=== PATIENT | female | born 1960 | race Caucasian/White ===

== ENCOUNTER → 2019-11-27 | Outpatient (REF) | payer OTHER, MEDICAID ==
[2020-01-12 08:59] LABS: ALBUMIN 3.7 GM/DL (3.2-5.2); ALT/SGPT 31 U/L (12-78); BILIRUBIN,TOTAL 0.2 MG/DL (0.2-1.0); BLOOD UREA NITROGEN 13 MG/DL (7-18); CALCIUM LEVEL 8.8 MG/DL (8.5-10.1); CARBON DIOXIDE LEVEL 29 MEQ/L (21-32); CHLORIDE LEVEL 105 MEQ/L (98-107); CHOLESTEROL LEVEL 210 MG/DL (<200); CHOLESTEROL RISK RATIO 3.387 (<5); CREATININE FOR GFR 1.05 MG/DL (0.55-1.30); FREE T4 0.89 NG/DL (0.76-1.46); GLOMERULAR FILTRATION RATE 57.3 (>51); GLUCOSE, FASTING 94 MG/DL (70-100); HDL CHOLESTEROL 62 MG/DL (>40); HEMOGLOBIN A1c 5.5 %; HEPATITIS B SURFACE ANTIBODY NEGATIVE (POSITIVE); HEPATITIS C VIRUS ABY INDEX 0.2 INDEX (<0.8); HIV 1&2 SCREEN CENTAUR NEGATIVE (NEGATIVE); LDL CHOLESTEROL 122 MG/DL (<100); NON-HDL-C 148 MG/DL; POTASSIUM SERUM 4.3 MEQ/L (3.5-5.1); SODIUM LEVEL 141 MEQ/L (136-145); TOTAL 25(OH) VITAMIN D 24.3 NG/ML (30.0-100.0); TOTAL PROTEIN 6.9 GM/DL (6.4-8.2); TRIGLYCERIDES LEVEL 130 MG/DL (<150)
== END ==
LOC: M LAB REF 13:02
PROVIDERS: ATTEND Nurse Practitioner Family
DX: Z11.3 Encounter for screening for infections with a predominantly sexual mode of transmission (principal); Z13.9 Encounter for screening, unspecified; N18.9 Chronic kidney disease, unspecified; I10 Essential (primary) hypertension

== ENCOUNTER → 2020-01-18 | Outpatient (CLI) | payer OTHER, MEDICAID ==
--- NOTE | 2020-01-26 15:22 | REP ---
RIGHT SHOULDER SERIES: 3-VIEWS HISTORY: Shoulder and knee pain. FINDINGS: There are large calcific deposits in the periarticular soft tissue superior to the humeral head consistent with calcific tendinitis or bursitis. Glenohumeral and acromioclavicular joints are normally aligned. No erosive change is seen. Study is otherwise unremarkable. IMPRESSION: Large periarticular soft tissue calcific deposits consistent with calcific tendinitis and/or bursitis. No acute abnormality. MTDD
--- NOTE | 2020-01-26 15:23 | REP ---
LEFT KNEE SERIES: 2-VIEWS HISTORY: Left knee pain. Remote prior injury. FINDINGS: AP and lateral views of the left knee demonstrate nonarticular spurring of the superior pole of the patella. Bones, joints, and soft tissues are otherwise radiographically unremarkable. IMPRESSION: Quadriceps tendon insertion site spurring on the patella. Otherwise no acute abnormality. MTDD
== END ==
LOC: M WUC 15:28
PROVIDERS: ATTEND Nurse Practitioner Family
DX: M25.511 Pain in right shoulder (principal); M25.562 Pain in left knee; M75.31 Calcific tendinitis of right shoulder; M76.52 Patellar tendinitis, left knee

== ENCOUNTER → 2020-03-22 | Outpatient (REF) | payer OTHER, MEDICAID ==
[2020-03-22 12:09] LABS: GLUCOSE, URINE (UA) AUTO NEGATIVE (NEGATIVE)
[2020-03-22 12:14] LABS: BASO % 0.7 % (0.0-1.0); EOS # 0.1 10^3/uL (0.0-0.5); EOS % 1.5 % (0.0-3.0); HEMATOCRIT 44.5 % (36.0-47.0); HEMOGLOBIN 14.1 g/dl (12.0-15.5); LYMPH # 1.9 10^3/uL (1.5-5.0); LYMPH % 31.6 % (24.0-44.0); MEAN CORPUSCULAR HEMOGLOBIN 27.8 pg (27.0-33.0); MEAN CORPUSCULAR HGB CONC 31.7 g/dl (32.0-36.5); MEAN CORPUSCULAR VOLUME 87.8 fl (80.0-96.0); MONO # 0.4 10^3/uL (0.0-0.8); NEUTROPHILS # 3.5 10^3/uL (1.5-8.5); PLATELET COUNT, AUTOMATED 241 10^3/uL (150-450); RED BLOOD COUNT 5.07 10^6/uL (4.00-5.40); WHITE BLOOD COUNT 5.9 10^3/uL (4.0-10.0)
[2020-03-22 12:29] LABS: AMORPHOUS SEDIMENT SMALL (NEGATIVE); APPEARANCE, URINE TURBID (CLEAR); BACTERIA, URINE AUTO NEGATIVE (NEGATIVE); BILIRUBIN, URINE AUTO NEGATIVE (NEGATIVE); BLOOD, URINE BLOOD NEGATIVE (NEGATIVE); COLOR, URINE AMBER (YELLOW); KETONE, URINE AUTO NEGATIVE (NEGATIVE); LEUKOCYTE ESTERASE, URINE AUTO NEGATIVE (NEGATIVE); MUCUS, URINE LARGE (NEGATIVE); NITRITE, URINE AUTO NEGATIVE (NEGATIVE); PROTEIN, URINE AUTO NEGATIVE (NEGATIVE); RBC, URINE AUTO 1 /HPF (0-3); SQUAMOUS EPITHELIAL CELL UR AU 1 /HPF (0-6); UROBILINOGEN, URINE AUTO 0.2 mg/dL (0.0-2.0); WBC, URINE AUTO 3 /HPF (0-3)
[2020-03-22 12:43] LABS: HEMOGLOBIN A1c 5.8 %
[2020-03-22 12:56] LABS: ALBUMIN 3.6 GM/DL (3.2-5.2); BILIRUBIN,TOTAL 0.2 MG/DL (0.2-1.0); CALCIUM LEVEL 8.7 MG/DL (8.5-10.1); CHOLESTEROL RISK RATIO 3.229 (<5); CREATININE FOR GFR 1.17 MG/DL (0.55-1.30); FREE T4 0.97 NG/DL (0.76-1.46); GLOMERULAR FILTRATION RATE 50.6 (>51); POTASSIUM SERUM 4.4 MEQ/L (3.5-5.1); THYROID STIMULATING HORMONE 3.42 uIU/ML (0.358-3.740); TOTAL PROTEIN 6.9 GM/DL (6.4-8.2)
== END ==
LOC: M LAB REF 11:29
PROVIDERS: ATTEND Nurse Practitioner Family
DX: Z13.9 Encounter for screening, unspecified (principal); N18.9 Chronic kidney disease, unspecified; G47.00 Insomnia, unspecified; I10 Essential (primary) hypertension; G43.909 Migraine, unspecified, not intractable, without status migrainosus

== ENCOUNTER → 2020-05-14 | Outpatient (CLI) | payer OTHER, MEDICAID ==
--- NOTE | 2020-05-14 11:48 | REP ---
INDICATION: PAIN. COMPARISON: None. TECHNIQUE: Four views. FINDINGS: Four views of the right foot demonstrate normal bones, joints, and soft tissues. No fracture or subluxation is seen. No opaque foreign body noted. There is minimal spurring at the 1st metatarsophalangeal joint. A small plantar calcaneal spur is also noted. IMPRESSION: Mild spurring. Otherwise negative right foot radiographs. No fracture or other acute bony abnormality.. <Electronically signed by Tl Bolden > 05/14/20 [id number]
== END ==
LOC: M WUC 11:15
PROVIDERS: ATTEND Physician Assistant
DX: M77.31 Calcaneal spur, right foot (principal)

== ENCOUNTER → 2020-06-01 | Outpatient (CLI) | payer OTHER | LOC: M WHC 06:25 | PROVIDERS: ATTEND Nurse Practitioner Family | DX: Z12.31 Encounter for screening mammogram for malignant neoplasm of breast (principal) ==

== ENCOUNTER → 2020-07-26 | Outpatient (CLI) | payer OTHER ==
--- NOTE | 2020-07-26 10:28 | REP ---
INDICATION: IMPINGEMENT SYNDROME OF RIGHT SHOULDER. COMPARISON: Radiographs 01/18/2020. TECHNIQUE: Coronal oblique T1, T2 fat sat, sagittal oblique T2 fat sat, axial T2 fat sat, gradient echo. FINDINGS: Rotator cuff: There is mild supraspinatus and infraspinatus tendinopathy/tendinitis, calcification is noted in the supraspinatus tendon. There is a partial undersurface tear of the distal infraspinatus tendon. Acromioclavicular joint: There are moderate hypertrophic degenerative changes of the acromioclavicular joint with a small subcortical cyst in the distal clavicle and a tiny amount of fluid in the joint. Acromion: Type 2 and downward sloping. Biceps Tendon: In bicipital groove, with mild surrounding fluid. Hill Sach's deformity: None. Deltoid muscle: No abnormal signal. Biceps labral complex: There is fraying of the biceps labral complex. Labrum: There is fraying of the superior labrum. Cartilage: No defects. Bone marrow: A few subcortical cysts are seen in the superolateral humeral head. No bone marrow edema is seen. Joint fluid: No effusion. There is a tiny amount of fluid in the subacromial/subdeltoid bursae. IMPRESSION: There is mild supraspinatus and infraspinatus tendinopathy/tendinitis, calcification is noted in the supraspinatus tendon.. There is a partial undersurface tear of the distal infraspinatus tendon. Moderate hypertrophic degenerative changes acromioclavicular joint, acromion is type 2 in downward sloping. There is fraying of the biceps labral complex and superior labrum. Tiny amount of fluid in the subacromial/subdeltoid bursae. <Electronically signed by Domingo Siddiqui > 07/26/20 1024
== END ==
LOC: M RAD 07:17
PROVIDERS: ATTEND Physician Assistant
DX: M75.41 Impingement syndrome of right shoulder (principal); M75.01 Adhesive capsulitis of right shoulder; S43.491A Other sprain of right shoulder joint, initial encounter; X58.XXXA Exposure to other specified factors, initial encounter; Y92.9 Unspecified place or not applicable

== ENCOUNTER → 2020-08-24 | Outpatient (REF) | payer OTHER ==
[2020-08-24 12:22] LABS: BASO # 0.1 10^3/uL (0.0-0.2); BASO % 0.9 % (0.0-1.0); EOS # 0.3 10^3/uL (0.0-0.5); EOS % 4.4 % (0.0-3.0); HEMATOCRIT 42.5 % (36.0-47.0); HEMOGLOBIN 13.9 g/dl (12.0-15.5); LYMPH # 1.8 10^3/uL (1.5-5.0); LYMPH % 31.7 % (24.0-44.0); MEAN CORPUSCULAR HEMOGLOBIN 28.1 pg (27.0-33.0); MEAN CORPUSCULAR HGB CONC 32.7 g/dl (32.0-36.5); MONO # 0.5 10^3/uL (0.0-0.8); MONO % 7.9 % (2.0-8.0); NEUTROPHILS # 3.1 10^3/uL (1.5-8.5); NEUTROPHILS % 54.9 % (36.0-66.0); PLATELET COUNT, AUTOMATED 222 10^3/uL (150-450); RED BLOOD COUNT 4.94 10^6/uL (4.00-5.40); WHITE BLOOD COUNT 5.7 10^3/uL (4.0-10.0)
[2020-08-24 12:45] LABS: HEMOGLOBIN A1c 5.6 %
[2020-08-24 12:59] LABS: ALBUMIN 3.7 GM/DL (3.2-5.2); ALT/SGPT 33 U/L (12-78); BILIRUBIN,TOTAL 0.3 MG/DL (0.2-1.0); BLOOD UREA NITROGEN 16 MG/DL (7-18); CARBON DIOXIDE LEVEL 26 MEQ/L (21-32); CHLORIDE LEVEL 106 MEQ/L (98-107); CHOLESTEROL LEVEL 204 MG/DL (<200); CHOLESTEROL RISK RATIO 3.517 (<5); CREATININE FOR GFR 0.96 MG/DL (0.55-1.30); FREE T4 0.84 NG/DL (0.76-1.46); GLOMERULAR FILTRATION RATE > 60.0 (>51); GLUCOSE, FASTING 96 MG/DL (70-100); HDL CHOLESTEROL 58 MG/DL (>40); LDL CHOLESTEROL 111 MG/DL (<100); NON-HDL-C 146 MG/DL; POTASSIUM SERUM 4.5 MEQ/L (3.5-5.1); SODIUM LEVEL 138 MEQ/L (136-145); TOTAL 25(OH) VITAMIN D 16.3 NG/ML (30.0-100.0); TOTAL PROTEIN 6.9 GM/DL (6.4-8.2); TRIGLYCERIDES LEVEL 175 MG/DL (<150)
== END ==
LOC: M LAB REF 11:41
PROVIDERS: ATTEND Nurse Practitioner Family
DX: E66.9 Obesity, unspecified (principal); E03.9 Hypothyroidism, unspecified; I10 Essential (primary) hypertension

== ENCOUNTER → 2020-09-03 | Outpatient (CLI) | payer OTHER ==
--- NOTE | 2020-09-03 17:05 | ECGEPIP ---
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
== END ==
LOC: M EKG 14:05
PROVIDERS: ATTEND Orthopaedic Surgery
DX: Z01.810 Encounter for preprocedural cardiovascular examination (principal)

== ENCOUNTER 2020-09-11 16:25 | Inpatient (IN) | payer OTHER ==
[~2020-09-11] VITALS: Ht 172.7 cm; Wt 119.9 kg
[2020-09-11] MEDS ORDERED: NS 1,000 ML IV SCH (17:00)
[2020-09-11] MEDS ORDERED: METOCLOPRAMIDE INJ 10MG/2ML VIAL (J2765 PER 1) IV ONE (17:00)
[2020-09-11] MEDS ORDERED: ONDANSETRON 4MG/2ML VIAL IV ONE (17:00)
[2020-09-11 18:00] LABS: BASO % 0.3 % (0.0-1.0); EOS # 0.2 10^3/uL (0.0-0.5); EOS % 1.7 % (0.0-3.0); HEMATOCRIT 43.3 % (36.0-47.0); LYMPH # 1.2 10^3/uL (1.5-5.0); LYMPH % 12.9 % (24.0-44.0); MEAN CORPUSCULAR HGB CONC 32.3 g/dl (32.0-36.5); MEAN CORPUSCULAR VOLUME 86.6 fl (80.0-96.0); MONO # 0.7 10^3/uL (0.0-0.8); MONO % 7.4 % (2.0-8.0); NEUTROPHILS # 7.3 10^3/uL (1.5-8.5); NEUTROPHILS % 77.4 % (36.0-66.0); PLATELET COUNT, AUTOMATED 219 10^3/uL (150-450); WHITE BLOOD COUNT 9.4 10^3/uL (4.0-10.0)
[2020-09-11 18:12] LABS: BLOOD UREA NITROGEN 13 MG/DL (7-18); CALCIUM LEVEL 8.9 MG/DL (8.5-10.1); CARBON DIOXIDE LEVEL 23 mmol/L (20-29); CHLORIDE LEVEL 107 MEQ/L (98-107); CREATININE FOR GFR 0.94 MG/DL (0.55-1.30); GLOMERULAR FILTRATION RATE > 60.0 (>51); GLUCOSE, FASTING 98 MG/DL (70-100); POTASSIUM SERUM 4.8 MEQ/L (3.5-5.1); SODIUM LEVEL 139 MEQ/L (136-145)
[2020-09-11 18:13] LABS: ALBUMIN 3.8 GM/DL (3.2-5.2); ALT/SGPT 40 U/L (12-78); BILIRUBIN,DIRECT < 0.1 MG/DL (0.0-0.2); BILIRUBIN,TOTAL 0.3 MG/DL (0.2-1.0); LIPASE 85 U/L (73-393); TOTAL PROTEIN 6.9 GM/DL (6.4-8.2)
[2020-09-11] MEDS ORDERED: ISOVUE-370 76% 100ML VIAL As Ordered ONE (18:15)
[2020-09-11] MEDS ORDERED: MORPHINE 2 MG/ML 1ML VIAL (J2270) IV PRN (18:30)
--- NOTE | 2020-09-11 18:42 | REPVR ---
PROCEDURE INFORMATION: Exam: CT Abdomen And Pelvis With Contrast Exam date and time: 09/11/2020 6:19 PM Age: 59 years old Clinical indication: Vomiting and other: Abd pain vomiting TECHNIQUE: Imaging protocol: Computed tomography of the abdomen and pelvis with contrast. Radiation optimization: All CT scans at this facility use at least one of these dose optimization techniques: automated exposure control; mA and/or kV adjustment per patient size (includes targeted exams where dose is matched to clinical indication); or iterative reconstruction. Contrast material: ISOVUE 370; Contrast volume: 100 ml; Contrast route: INTRAVENOUS (IV); COMPARISON: No relevant prior studies available. FINDINGS: Liver: There is a diffuse decrease in hepatic parenchymal density, consistent with steatosis. Gallbladder and bile ducts: There has been a cholecystectomy. Pancreas: Normal. No ductal dilation. Spleen: Normal. No splenomegaly. Adrenal glands: Normal. No mass. Kidneys and ureters: Normal. No hydronephrosis. Stomach and bowel: There is a diffusely boggy appearance of the distal transverse left and proximal sigmoid colon with a diffusely boggy thickened wall, foci of mural stratification, and an ahasutral countour. There are pericolonic inflammatory changes. Findings consistent with acute colitis. No abscess demonstrated. Mild diverticulosis is present in the distal colon. No diverticulitis. Appendix: No evidence of appendicitis. Intraperitoneal space: Unremarkable. No free air. No significant fluid collection. Vasculature: The aortoiliac vessels demonstrate mild atherosclerotic calcification. Lymph nodes: Unremarkable. No enlarged lymph nodes. Urinary bladder: Unremarkable as visualized. Reproductive: There has been a hysterectomy. Bones/joints: Moderate central spinal stenosis L3-L4 and mild central spinal stenosis L4-L5. Soft tissues: There is a small umbilical hernia. There is no evidence of incarceration. IMPRESSION: 1. There is a diffuse decrease in hepatic parenchymal density, consistent with steatosis. 2. There has been a cholecystectomy. 3. Findings consistent with colitis involving the distal transverse colon to the proximal sigmoid colon without evidence of a drainable abscess. 4. Mild diverticulosis is present in the distal colon. No diverticulitis. 5. There has been a hysterectomy. Electronically signed by: Zak Maharaj On 09/11/2020 18:42:28 PM
[2020-09-11] MEDS: HYDROMORPHONE HCL 0.5 MG/ 0.5 ML SYRINGE (J1170 PER 1) IV PRN ×2 (19:11→20:59)
[2020-09-11] MEDS ORDERED: VANCOMYCIN ORAL SOL 250MG/5ML ORAL SYRINGE PO ONE (20:10)
[2020-09-11] MEDS ORDERED: NAPR-885 PO (20:32)
[2020-09-11] MEDS ORDERED: SYNT50TA PO (20:32)
[2020-09-11] MEDS ORDERED: LEVA45AE INH (20:32)
[2020-09-11] MEDS ORDERED: CITA40TA4 PO (20:32)
[2020-09-11] MEDS ORDERED: CARV12.5 PO (20:32)
[2020-09-11] MEDS ORDERED: MAALOX 30 ML SUSP *UDC PO PRN (20:55)
[2020-09-11] MEDS ORDERED: MOM 30ML SUSPENSION UDC PO PRN (20:55)
[2020-09-11 21:54] LABS: RSV AMPLIFICATION NEGATIVE (NEGATIVE)
[2020-09-11] MEDS: metroNIDAZOLE 500 MG in IV 1 EA IV SCH (22:14)
[2020-09-11] MEDS: PANTOPRAZOLE 40MG VIAL (C9113 PER 1) IV SCH (22:14)
[2020-09-11] MEDS: D5W/0.9% SODIUM CHLORIDE 1,000 ML IV SCH (22:14)
[2020-09-11] MEDS ORDERED: LEVALBUTEROL HFA 45MCG/ACT 15 GM INHALER INH PRN (22:20)
--- NOTE | 2020-09-11 22:25 | HPEPDOC ---
[facility] Medical History & Physical Date of Admission September 11, 2020 Date of Service: September 11, 2020 Attending Physician: LINDA CUMMINGS MD History and Physical CHIEF COMPLAINT: Bleeding per rectum, abdominal pain and cramps, nausea and vomiting HISTORY OF PRESENT ILLNESS: Ms. Sanchez is a 59-year-old female with a past medical history diverticulosis without diverticulitis, IBS, hemorrhoids, tortu ous colon, history of C. difficile colitis, intermittent migraines with aura, hypothyroidism, hypertension who recently got an arthroscopic repair of her right shoulder on Sunday before which she started taking Dulcolax to prevent postop ileus. Patient states her last bowel movement was on Sunday and she probably took a little to much laxative which led to her symptoms starting on Sunday. The patient complained of nausea, 6-7 episodes of vomiting(vomiting food, no blood), intermittent abdominal pain and cramps 8 out of 10 in intensity followed by loose bowel movement with blood in it. Since then patient has had 8- 10 bowel movements with at least a tinge of bright red red blood in it. Her last episode of vomiting was at 2 in the afternoon today. Patient is not on any blood thinners at home. She has not eaten out recently. Patient's last colonoscopy was done in August 2018 with polypectomy and a diagnosis of diverticulosis and mild IBS as per the patient. Patient has a strong family history of colon cancer and a relative less than 50 years of age. Patient denies any fevers, chills, shortness of breath, chest pain, heartburn, palpitations, rectal pain, painful defecation, fissures. Since the patient was unable to keep liquids down, concerned she came to the ED to get evaluated. In the ED patient was found to have a colitis on her CT abdomen and pelvis. She was started on IV fluids and given a dose of oral vancomycin due to her history of C. difficile colitis in the past. PAST MEDICAL HISTORY: 1. Hypertension. 2. Hypothyroidism. 3. Intermittent migraines with aura 4. Hemorrhoids 5. Tortuous colon 6. Colonic polyps-polypectomy done during colonoscopy 2018 7. Diverticulosis without diverticulitis. PAST SURGICAL HISTORY: 1. Colonoscopy in August 2018 with polypectomy. 2. Hysterectomy 2001. 3. Benign ovarian tumor resection. 4. Cholecystectomy 5. Meniscal repair in the knee 6. 2 foot surgeries. 7. Rotator cuff repair in both shoulders 8. Tonsillectomy SOCIAL HISTORY: Tobacco use: Once or twice socially as a teenager ETOH: Occasional Illicit drug use: Never Tattoos done unprofessionally: No. IV drug use: No Other relevant social factors: No FAMILY HISTORY: Father: Myasthenia gravis Mother: Colon cancer at 45 Paternal grandmother: Breast cancer Maternal grandmother: Breast cancer Siblings: Healthy Hereditary Diseases: None Unexpected deaths due to medical reasons: No ALLERGIES: Please see below. REVIEW OF SYSTEMS: CONSTITUTIONAL: No fevers/chills/night sweats/unintentional weight loss. HEENT: No sore throat/jaundice/runny nose. CARDIOVASCULAR: No chest pain/PND/orthopnea. RESPIRATORY: No shortness of breath/cough. GASTROINTESTINAL: Reports nausea, vomiting, abdominal pain and cramps, loose stools. No constipation. GENITOURINARY: Denies dysuria. SKIN: No rashes/bleeding ,abnormal bruising MUSCULOSKELETAL: No joint pain/joint stiffness other than her recent right shoulder which was operated on this Sunday. NEUROLOGICAL: No paresthesias/weakness/numbness/vision changes. PSYCHIATRIC: No depression/anxiety. ENDOCRINE: No polyuria/polydipsia/polyphagia. HEMATOLOGIC/LYMPHATIC: Lumps or bumps/abnormal bruising. HOME MEDICATIONS: Please see below. PHYSICAL EXAMINATION: VITAL SIGNS: Temperature 97.9, pulse 85, respiratory rate 16, blood pressure 187/93, pulse oximetry 99 % on room air. GENERAL APPEARANCE: Patient appears in moderate distress because of abdominal pain. Looks nontoxic however changing position continuously in her bed due to discomfort. HEENT: Atraumatic, normocephalic, moist mucous membranes, PERRLA, EOMI, no scleral icterus, no conjunctival pallor. CARDIOVASCULAR: Rate normal, rhythm regular, S1 and S2 heard. No murmurs appreciated. LUNGS: Clear to auscultation bilaterally, no wheezing/crackles/rhonchi heard. ABDOMEN: Obese abdomen, nondistended, moderately tender especially in the right lower quadrant, mid to lower quadrant and left upper quadrant. No rashes or bruising seen on the abdomen. Very hyperactive bowel sounds. MUSCULOSKELETAL: Patient's right shoulder is in a sling due to her recent arthroscopic surgery very tender however no signs of inflammation or swelling around the area. Other joints normal. EXTREMITIES: [place] impulses, no pedal edema, capillary refill normal. NEUROLOGICAL: 5 x 5 motor strength, sensations intact. Cranial nerves II-12 normal. PSYCHIATRIC: Normal mood and affect. Alert oriented to time place person. LABORATORY DATA: See below. IMAGING: CT abdomen and pelvis done on 09/11/2020:IMPRESSION: 1. There is a diffuse decrease in hepatic parenchymal density, consistent with steatosis. 2. There has been a cholecystectomy. 3. Findings consistent with colitis involving the distal transverse colon to the proximal sigmoid colon without evidence of a drainable abscess. 4. Mild diverticulosis is present in the distal colon. No diverticulitis. 5. There has been a hysterectomy. MICROBIOLOGY: Please see below. ASSESSMENT AND PLAN: #Inflammatory colitis which could be ulcerative colitis versus Crohn's disease versus C. difficile colitis versus ischemic colitis etc.: -Per rectal bleeding, diarrhea, abdominal cramping, and the results of CT scan support this diagnosis. -Continuous monitoring of vital started. -Patient was kept nothing by mouth except medications. -IV fluids were started at a rate of 125 mL per hour to improve the hydration status. -IV Cipro and Flagyl were started -IV Prantal 40 mg was started for GI prophylaxis. -As needed Zofran for nausea and vomiting. -We are trending the patient's H&H's for any developing anemia or continuing blood loss. -Gastroenterology consult-recommended. -Patient will need a full diagnostic workup outpatient with gastroenterology- strongly recommended -If the diarrhea is uncontrolled. Loperamide may be tried. -When necessary pain control ordered for abdominal pain. #Migraine with aura: -Holding patient's home naproxen. -Pain control ordered as needed in case patient has an episode. #Hypertension: -Continue home medication please. #Hypothyroidism: -Continue on levothyroxine. DVT prophylaxis: Teds and sequentials. DISPOSITION: Most likely an observation status as long as bleeding is under control and labs stable. - Vital Signs Vital Signs Date Time Temp Pulse Resp B/P (MAP) Pulse Ox O2 Delivery O2 Flow Rate FiO2 09/11/20 20:59 19 96 Room Air 09/11/20 19:18 84 150/90 (110) 09/11/20 16:36 97.9 Laboratory Data Labs 24H Laboratory Tests 2 09/11/20 17:12: Anion Gap 9, Glomerular Filtration Rate > 60.0, Lactic Acid Level 1.3, Calcium Level 8.9, Total Bilirubin 0.3, Direct Bilirubin < 0.1, Aspartate Amino Transf (AST/SGOT) 47H, Alanine Aminotransferase (ALT/SGPT) 40, Alkaline Phosphatase 99, Total Protein 6.9, Albumin 3.8, Albumin/Globulin Ratio 1.2, Lipase 85 09/11/20 17:55: Immature Granulocyte % (Auto) 0.3, Neutrophils (%) (Auto) 77.4H, Lymphocytes (%) (Auto) 12.9L, Monocytes (%) (Auto) 7.4, Eosinophils (%) (Auto) 1.7, Basophils (%) (Auto) 0.3, Neutrophils # (Auto) 7.3, Lymphocytes # (Auto) 1.2L, Monocytes # (Auto) 0.7, Eosinophils # (Auto) 0.2, Basophils # (Auto) 0.0, Nucleated Red Blood Cells % (auto) 0.0 09/11/20 21:01: 09/11/20 21:23: CBC/BMP Laboratory Tests 09/11/20 17:12 09/11/20 17:55 Home Medications Scheduled Carvedilol (Carvedilol) 12.5 Mg Tablet, 12.5 MG PO QPM Citalopram Hydrobromide (Citalopram HBr) 40 Mg Tablet, 40 MG PO QPM Levothyroxine Sodium (Synthroid) 50 Mcg Tablet, 50 MCG PO QAM Scheduled PRN Levalbuterol Tartrate (Levalbuterol Tartrate Hfa) 15 Gm Hfa.aer.ad, 2 PUFFS INH TID PRN for SHORTNESS OF BREATH Naproxen (Naproxen) 500 Mg Tablet, 500 MG PO BID PRN for PAIN Allergies Coded Allergies: TAPE (Verified Allergy, Intermediate, blisters, 09/11/20) latex (Verified Allergy, Intermediate, hives, blister, 09/11/20) sulfamethoxazole (Verified Allergy, Intermediate, hives, 09/11/20) trimethoprim (Verified Allergy, Intermediate, hives, 09/11/20) A-FIB/CHADSVASC A-FIB History Current/History of A-Fib/PAF?: No Current PO Anticoag Therapy: No GME ATTESTATION GME ATTESTATION My faculty preceptor for this patient encounter was physically present during the encounter and was fully available. All aspects of the patient interview, examination, medical decision making process, and medical care plan development were reviewed and approved by the faculty preceptor. The faculty preceptor is aware and concurs with the plan as stated in the body of this note and will attest to such by his/her cosignature. Gaston Weston MD September 11, 2020 22:25
[2020-09-11 23:37] LABS: INR 1.03; PROTHROMBIN TIME 13.7 SECONDS (12.5-14.3)
[2020-09-11 23:38] LABS: PARTIAL THROMBOPLASTIN TIME 28.1 SECONDS (24.2-38.5)
[2020-09-12] MEDS: CARVedilol 12.5 MG TAB PO SCH ×2 (00:02→21:29)
[2020-09-12] MEDS: CIPROFLOXACIN 400 MG in IV 1 EA IV SCH ×3 (00:03→23:08)
[2020-09-12] MEDS: VANCOMYCIN ORAL SOL 250MG/5ML ORAL SYRINGE PO SCH ×3 (00:28→21:28)
[2020-09-12 00:52] LABS: CLOSTRIDIUM DIFFICILE PCR NEGATIVE (NEGATIVE)
[2020-09-12 01:29] VITALS: BP 136/79
[2020-09-12] MEDS: ONDANSETRON 4MG/2ML VIAL IV PRN ×2 (01:46→09:32)
[2020-09-12] MEDS: ACETAMINOPHEN TAB 650MG DOSE (2X325MG) PO PRN ×3 (01:47→21:28)
[2020-09-12 06:00] VITALS: BP 103/53
[2020-09-12] MEDS: LEVOTHYROXINE 50MCG TABLET (0.05MG) PO SCH (06:02)
[2020-09-12] MEDS: metroNIDAZOLE 500 MG in IV 1 EA IV SCH ×3 (06:02→23:08)
[2020-09-12 06:22] LABS: MEAN CORPUSCULAR HEMOGLOBIN 27.8 pg (27.0-33.0); MEAN CORPUSCULAR HGB CONC 31.9 g/dl (32.0-36.5); PLATELET COUNT, AUTOMATED 185 10^3/uL (150-450); RED BLOOD COUNT 4.14 10^6/uL (4.00-5.40); WHITE BLOOD COUNT 7.1 10^3/uL (4.0-10.0)
[2020-09-12 06:26] LABS: HEMOGLOBIN 11.5 g/dl (12.0-15.5)
[2020-09-12 06:53] LABS: ALBUMIN 3.2 GM/DL (3.2-5.2); ALT/SGPT 41 U/L (12-78); BILIRUBIN,TOTAL 0.5 MG/DL (0.2-1.0); BLOOD UREA NITROGEN 12 MG/DL (7-18); CALCIUM LEVEL 8.5 MG/DL (8.5-10.1); CARBON DIOXIDE LEVEL 27 MEQ/L (21-32); CHLORIDE LEVEL 106 MEQ/L (98-107); CREATININE FOR GFR 0.96 MG/DL (0.55-1.30); GLOMERULAR FILTRATION RATE > 60.0 (>51); GLUCOSE, FASTING 142 MG/DL (70-100); POTASSIUM SERUM 3.8 MEQ/L (3.5-5.1); SODIUM LEVEL 139 MEQ/L (136-145); TOTAL PROTEIN 5.7 GM/DL (6.4-8.2)
--- NOTE | 2020-09-12 07:52 | ECGEPIP ---
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
[2020-09-12] MEDS: SUCRALFATE SUSP 1GM/10ML UD PO SCH ×4 (08:53→21:27)
[2020-09-12] MEDS: PANTOPRAZOLE 40MG VIAL (C9113 PER 1) IV SCH ×2 (08:54→21:29)
[2020-09-12] MEDS: D5W/0.9% SODIUM CHLORIDE 1,000 ML IV SCH ×3 (09:27→20:36)
[2020-09-12 12:12] LABS: HEMATOCRIT 39.4 % (36.0-47.0); HEMOGLOBIN 12.5 g/dl (12.0-15.5); MEAN CORPUSCULAR HEMOGLOBIN 27.8 pg (27.0-33.0); MEAN CORPUSCULAR HGB CONC 31.7 g/dl (32.0-36.5); MEAN CORPUSCULAR VOLUME 87.8 fl (80.0-96.0); PLATELET COUNT, AUTOMATED 215 10^3/uL (150-450); RED BLOOD COUNT 4.49 10^6/uL (4.00-5.40); WHITE BLOOD COUNT 7.9 10^3/uL (4.0-10.0)
[2020-09-12 14:00] VITALS: BP 140/77
--- NOTE | 2020-09-12 15:44 | IPNPDOC ---
Subjective Date Seen The patient was seen on 09/12/20. Subjective Chief Complaint/HPI Mrs. Rahman is a 59 year old female with hypothyroidism, hypertension, and a tortuous colon who presents with abdominal pain, cramps, nausea, vomiting, and bright red blood per rectum. This morning, she still has abdominal pain and tenderness, but the nausea is better. She is tolerating her clear liquid diet. Otherwise, I touched base with GI, Dr. Delaney. Patient's symptoms are more consistent with ischemic colitis. Recommending antibiotics and outpatient colonoscopy. Objective Physical Examination General Exam: Positive: Alert, Cooperative Eye Exam: Positive: EOMI; Negative: Sclera icteric ENT Exam: Positive: Atraumatic Neck Exam: Positive: Supple Chest Exam: Positive: Clear to auscultation; Negative: Rales, Rhonchi, Wheezing Heart Exam: Positive: Rate Normal, Regular Rhythm Abdomen Exam: Positive: Normal bowel sounds, Tenderness Extremity Exam: Negative: Edema Neuro Exam: Positive: Normal Speech Psych Exam: Positive: Mental status NL, Mood NL Assessment /Plan Assessment Mrs. Rahman is a 59 year old female with hypothyroidism, hypertension, and a tortuous colon who presents with abdominal pain, cramps, nausea, vomiting, and bright red blood per rectum. Discussed case with GI, Dr. Delaney. Patient may have arterial vasospasm causing ischemic colitis. Recommending supportive care and antibiotics. Due to patient's history of C.diff, will continue prophylactic PO vancomycin in addition to ciprofloxacin and Flagyl. Plan/VTE VTE Prophylaxis Ordered?: Yes Plan 1. Ischemic colitis -Supportive care, Flagyl and ciprofloxacin -Clear liquid diet as tolerated -Carafate and Protonix -Patient will need colonoscopy outpatient 2. Migraine with aura -Holding naproxen -PRN acetaminophen 3. Hypertension -Continue carvedilol 4. Hypothyroidism -Continue levothyroxine 5. DVT ppx -SCD and TEDs Disposition: Pending resolution of hematochezia and improvement in oral diet VS, I&O, 24H, Fishbone Vital Signs/I&O Vital Signs Date Time Temp Pulse Resp B/P (MAP) Pulse Ox O2 Delivery O2 Flow Rate FiO2 09/12/20 14:00 98.0 71 18 140/77 (98) 95 Room Air I&O- Last 24 Hours up to 6 AM 09/12/20 06:00 Intake Total 1350 ml Output Total 50 ml Balance 1300 ml Laboratory Data 24H LABS Laboratory Tests 2 09/11/20 17:12: Anion Gap 9, Glomerular Filtration Rate > 60.0, Lactic Acid Level 1.3, Calcium Level 8.9, Total Bilirubin 0.3, Direct Bilirubin < 0.1, Aspartate Amino Transf (AST/SGOT) 47H, Alanine Aminotransferase (ALT/SGPT) 40, Alkaline Phosphatase 99, Total Protein 6.9, Albumin 3.8, Albumin/Globulin Ratio 1.2, Lipase 85, Thyroid Stimulating Hormone (TSH) 1.900 09/11/20 17:55: Immature Granulocyte % (Auto) 0.3, Neutrophils (%) (Auto) 77.4H, Lymphocytes (%) (Auto) 12.9L, Monocytes (%) (Auto) 7.4, Eosinophils (%) (Auto) 1.7, Basophils (%) (Auto) 0.3, Neutrophils # (Auto) 7.3, Lymphocytes # (Auto) 1.2L, Monocytes # (Auto) 0.7, Eosinophils # (Auto) 0.2, Basophils # (Auto) 0.0, Nucleated Red Blood Cells % (auto) 0.0 09/11/20 21:01: Coronavirus (COVID-19)(PCR) NEGATIVE, Influenza Type A (RT-PCR) NEGATIVE, Influenza Type B (RT-PCR) NEGATIVE, Respiratory Syncytial Virus (PCR) NEGATIVE 09/11/20 21:23: Urine Color YELLOW, Urine Appearance CLEAR, Urine pH 5.0, Urine Specific [place] >1.060H, Urine Protein NEGATIVE, Urine Glucose (UA) NEGATIVE, Urine Ketones NEGATIVE, Urine Blood 1+H, Urine Nitrite NEGATIVE, Urine Bilirubin NEGATIVE, Urine Urobilinogen 0.2, Urine Leukocyte Esterase NEGATIVE, Urine WBC (Auto) 0, Urine RBC (Auto) 2, Urine Hyaline Casts (Auto) 0, Urine Bacteria (Auto) NEGATIVE, Urine Squamous Epithelial Cells 11, Urine Sperm (Auto) 09/11/20 22:26: Methicillin-Resist S.aureus DNA PCR NOT DETECTED 09/11/20 23:11: Prothrombin Time 13.7, Prothromb Time International Ratio 1.03, Activated Partial Thromboplast Time 28.1 09/11/20 23:56: Clostridium difficile [id number] PRESUMPTIVE NEGATIVE, Clostridium difficile Toxin (PCR) NEGATIVE 09/12/20 05:55: Nucleated Red Blood Cells % (auto) 0.0, Anion Gap 6L, Glomerular Filtration Rate > 60.0, Calcium Level 8.5, Total Bilirubin 0.5#, Aspartate Amino Transf (AST/SGOT) 31, Alanine Aminotransferase (ALT/SGPT) 41, Alkaline Phosphatase 77, Total Protein 5.7L, Albumin 3.2, Albumin/Globulin Ratio 1.3 09/12/20 12:02: Nucleated Red Blood Cells % (auto) 0.0 CBC/BMP Laboratory Tests 09/11/20 17:12 09/11/20 17:55 09/12/20 05:55 09/12/20 12:02 Microbiology Microbiology 09/12/20 Stool Occult Blood (JASON) - Final, Complete TERRA ESCALANTE DO September 12, 2020 15:44
[2020-09-12] MEDS: CitaloPRAM (CeleXA) 20 MG TAB PO SCH ×2 (21:28)
[2020-09-12] MEDS: RAMELTEON 8 MG TAB (ROZEREM) PO PRN (21:28)
[2020-09-12 22:00] VITALS: BP 145/79
[2020-09-12] MEDS: traMADol 50 MG TAB PO PRN (22:08)
--- NOTE | 2020-09-12 22:30 | REPVR ---
PROCEDURE INFORMATION: Exam: XR Abdomen Exam date and time: 09/12/20 (10:08pm) Age: 59 years old Clinical indication: Colitis. Increased abdominal pain, distention. TECHNIQUE: Imaging protocol: XR of the abdomen Views: Frontal supine view of the abdomen. 1 View. COMPARISON: CT ABDOMEN PELVIS of 09/11/20 FINDINGS: Gastrointestinal tract: Nonspecific bowel gas pattern. No bowel obstruction. Bones/joints: Unremarkable. Other findings: S/P cholecystectomy. Nonspecific ovoid calcification (10 by 6 mm size) in the left lower paraspinal region (also seen on recent CT scan). Liver may be mildly enlarged. IMPRESSION: No acute findings. S/P cholecystectomy. Electronically signed by: Hodan Guzman On 09/12/2020 22:29:41 PM
[2020-09-13] MEDS: metroNIDAZOLE 500 MG in IV 1 EA IV SCH ×3 (05:46→21:30)
[2020-09-13] MEDS: LEVOTHYROXINE 50MCG TABLET (0.05MG) PO SCH (05:46)
[2020-09-13] MEDS: D5W/0.9% SODIUM CHLORIDE 1,000 ML IV SCH ×2 (05:46→17:03)
[2020-09-13 06:00] VITALS: BP 144/65
[2020-09-13 06:43] LABS: HEMATOCRIT 35.7 % (36.0-47.0); HEMOGLOBIN 11.3 g/dl (12.0-15.5); MEAN CORPUSCULAR HEMOGLOBIN 27.8 pg (27.0-33.0); MEAN CORPUSCULAR HGB CONC 31.7 g/dl (32.0-36.5); MEAN CORPUSCULAR VOLUME 87.7 fl (80.0-96.0); PLATELET COUNT, AUTOMATED 179 10^3/uL (150-450); RED BLOOD COUNT 4.07 10^6/uL (4.00-5.40); WHITE BLOOD COUNT 7.5 10^3/uL (4.0-10.0)
[2020-09-13 07:13] LABS: ALBUMIN 2.9 GM/DL (3.2-5.2); ALT/SGPT 38 U/L (12-78); BLOOD UREA NITROGEN 7 MG/DL (7-18); CALCIUM LEVEL 7.9 MG/DL (8.5-10.1); CARBON DIOXIDE LEVEL 26 MEQ/L (21-32); CHLORIDE LEVEL 109 MEQ/L (98-107); CREATININE FOR GFR 0.88 MG/DL (0.55-1.30); GLOMERULAR FILTRATION RATE > 60.0 (>51); GLUCOSE, FASTING 116 MG/DL (70-100); POTASSIUM SERUM 3.8 MEQ/L (3.5-5.1); SODIUM LEVEL 141 MEQ/L (136-145); TOTAL PROTEIN 5.6 GM/DL (6.4-8.2)
[2020-09-13 07:14] LABS: BILIRUBIN,TOTAL 0.2 MG/DL (0.2-1.0)
[2020-09-13] MEDS: PANTOPRAZOLE 40MG VIAL (C9113 PER 1) IV SCH ×2 (08:05→21:31)
[2020-09-13] MEDS: VANCOMYCIN ORAL SOL 250MG/5ML ORAL SYRINGE PO SCH ×2 (08:05→21:00)
[2020-09-13] MEDS: SUCRALFATE SUSP 1GM/10ML UD PO SCH ×4 (08:05→21:29)
[2020-09-13] MEDS: ACETAMINOPHEN TAB 650MG DOSE (2X325MG) PO PRN ×3 (08:21→21:30)
--- NOTE | 2020-09-13 10:31 | IPNPDOC ---
Subjective Date Seen The patient was seen on 09/13/20. Subjective Chief Complaint/HPI Mrs. Rahman is a 59 year old female with hypothyroidism, hypertension, and a tortuous colon who presents with abdominal pain, cramps, nausea, vomiting, and bright red blood per rectum. This morning, her pain improved. It has gone down to a 4. Still has abdominal tenderness. She has soft bowel movements, but the blood has cleared up. Will continue with clear liquids and antibiotics at this time. Objective Physical Examination General Exam: Positive: Alert, Cooperative Eye Exam: Positive: EOMI; Negative: Sclera icteric ENT Exam: Positive: Atraumatic Neck Exam: Positive: Supple Chest Exam: Positive: Clear to auscultation; Negative: Rales, Rhonchi, Wheezing Heart Exam: Positive: Rate Normal, Regular Rhythm Abdomen Exam: Positive: Normal bowel sounds, Tenderness Extremity Exam: Negative: Edema Neuro Exam: Positive: Normal Speech Psych Exam: Positive: Mental status NL, Mood NL Assessment /Plan Assessment Mrs. Rahman is a 59 year old female with hypothyroidism, hypertension, and a tortuous colon who presents with abdominal pain, cramps, nausea, vomiting, and bright red blood per rectum. Discussed case with GI, Dr. Delaney. Patient may have arterial vasospasm causing ischemic colitis. Recommending supportive care and antibiotics. Due to patient's history of C.diff, will continue prophylactic PO vancomycin in addition to ciprofloxacin and Flagyl. Plan/VTE VTE Prophylaxis Ordered?: Yes Plan 1. Ischemic colitis -Supportive care -Flagyl and ciprofloxacin day 2 -Clear liquid diet as tolerated -Carafate and Protonix -Patient will need colonoscopy outpatient 2. Migraine with aura -Holding naproxen -PRN acetaminophen 3. Hypertension -Continue carvedilol 4. Hypothyroidism -Continue levothyroxine 5. DVT ppx -SCD and TEDs Disposition: Pending improvement in abdominal pain and tenderness. VS, I&O, 24H, Fishbone Vital Signs/I&O Vital Signs Date Time Temp Pulse Resp B/P (MAP) Pulse Ox O2 Delivery O2 Flow Rate FiO2 09/13/20 06:00 97.3 69 16 144/65 (91) 94 Room Air I&O- Last 24 Hours up to 6 AM 09/13/20 06:00 Intake Total 3135 ml Output Total 1550 ml Balance 1585 ml Laboratory Data 24H LABS Laboratory Tests 2 09/12/20 12:02: Nucleated Red Blood Cells % (auto) 0.0 09/13/20 06:16: Nucleated Red Blood Cells % (auto) 0.0, Anion Gap 6L, Glomerular Filtration Rate > 60.0, Calcium Level 7.9L, Total Bilirubin 0.2#, Aspartate Amino Transf (AST/SGOT) 27, Alanine Aminotransferase (ALT/SGPT) 38, Alkaline Phosphatase 80, Total Protein 5.6L, Albumin 2.9L, Albumin/Globulin Ratio 1.1L 09/13/20 06:29: Lactic Acid Level 0.6 CBC/BMP Laboratory Tests 09/12/20 12:02 09/13/20 06:16 Microbiology Microbiology 09/12/20 Stool Occult Blood (JASON) - Final, Complete TERRA ESCALANTE DO September 13, 2020 10:31
[2020-09-13] MEDS: CIPROFLOXACIN 400 MG in IV 1 EA IV SCH ×2 (11:41→23:09)
[2020-09-13 14:00] VITALS: BP 153/78
[2020-09-13] MEDS: traMADol 50 MG TAB PO PRN (14:46)
[2020-09-13] MEDS: MORPHINE 2 MG/ML 1ML VIAL (J2270) IV PRN ×2 (18:17→23:10)
[2020-09-13] MEDS: CitaloPRAM (CeleXA) 20 MG TAB PO SCH (21:29)
[2020-09-13] MEDS: RAMELTEON 8 MG TAB (ROZEREM) PO PRN (21:30)
[2020-09-13 21:34] VITALS: BP 146/77
[2020-09-13] MEDS: CARVedilol 12.5 MG TAB PO SCH (21:34)
[2020-09-13 22:00] VITALS: BP 152/79
[2020-09-14] MEDS: traMADol 50 MG TAB PO PRN (00:44)
[2020-09-14] MEDS: ACETAMINOPHEN TAB 650MG DOSE (2X325MG) PO PRN ×2 (03:10→07:53)
[2020-09-14] MEDS: D5W/0.9% SODIUM CHLORIDE 1,000 ML IV SCH ×2 (04:04→04:55)
[2020-09-14] MEDS: LEVOTHYROXINE 50MCG TABLET (0.05MG) PO SCH (05:44)
[2020-09-14] MEDS: metroNIDAZOLE 500 MG in IV 1 EA IV SCH (05:44)
[2020-09-14 06:00] VITALS: BP 140/79
[2020-09-14 06:23] LABS: HEMATOCRIT 35.9 % (36.0-47.0); HEMOGLOBIN 11.4 g/dl (12.0-15.5); MEAN CORPUSCULAR HEMOGLOBIN 27.9 pg (27.0-33.0); MEAN CORPUSCULAR HGB CONC 31.8 g/dl (32.0-36.5); PLATELET COUNT, AUTOMATED 182 10^3/uL (150-450); RED BLOOD COUNT 4.08 10^6/uL (4.00-5.40); WHITE BLOOD COUNT 7.1 10^3/uL (4.0-10.0)
[2020-09-14 06:50] LABS: ALT/SGPT 32 U/L (12-78); BILIRUBIN,TOTAL 0.2 MG/DL (0.2-1.0); BLOOD UREA NITROGEN 5 MG/DL (7-18); CALCIUM LEVEL 7.9 MG/DL (8.5-10.1); CARBON DIOXIDE LEVEL 25 MEQ/L (21-32); CHLORIDE LEVEL 107 MEQ/L (98-107); CREATININE FOR GFR 0.85 MG/DL (0.55-1.30); GLOMERULAR FILTRATION RATE > 60.0 (>51); GLUCOSE, FASTING 115 MG/DL (70-100); POTASSIUM SERUM 3.6 MEQ/L (3.5-5.1); SODIUM LEVEL 138 MEQ/L (136-145); TOTAL PROTEIN 6.1 GM/DL (6.4-8.2)
[2020-09-14] MEDS: SUCRALFATE SUSP 1GM/10ML UD PO SCH (07:52)
[2020-09-14] MEDS: PANTOPRAZOLE 40MG VIAL (C9113 PER 1) IV SCH (07:53)
[2020-09-14] MEDS: VANCOMYCIN ORAL SOL 250MG/5ML ORAL SYRINGE PO SCH (07:53)
[2020-09-14] MEDS ORDERED: ACE65ERTAB PO (10:35)
[2020-09-14] MEDS ORDERED: PANT40TA29 PO (10:35)
[2020-09-14] MEDS: CIPROFLOXACIN 400 MG in IV 1 EA IV SCH (11:00)
--- NOTE | 2020-09-14 15:44 | DS.PDOC ---
Discharge Summary General Date of Admission September 11, 2020 at 23:33 Date of Discharge September 14, 2020 Discharge Summary PROCEDURES PERFORMED DURING STAY: None ADMITTING DIAGNOSES: 1. Inflammatory colitis 2/2 possibly C.diff colitis vs ischemic colitis vs IBD 2. Migraine with aura 3. Hypertension 4. Hypothyroidism DISCHARGE DIAGNOSES: 1. Inflammatory colitis 2/2 ischemic colitis 2. Migraine with aura 3. Hypertension 4. Hypothyroidism COMPLICATIONS/CHIEF COMPLAINT: Colitis. HISTORY OF PRESENT ILLNESS: Copied from admitting physicians H&P " Ms. Sanchez is a 59-year-old female with a past medical history diverticulosis without diverticulitis, IBS, hemorrhoids, tortuous colon, history of C. difficile colitis, intermittent migraines with aura, hypothyroidism, hypertension who recently got an arthroscopic repair of her right shoulder on Sunday before which she started taking Dulcolax to prevent postop ileus. Patient states her last bowel movement was on Sunday and she probably took a little to much laxative which led to her symptoms starting on Sunday. The patient complained of nausea, 6-7 episodes of vomiting(vomiting food, no blood), intermittent abdominal pain and cramps 8 out of 10 in intensity followed by loose bowel movement with blood in it. Since then patient has had 8-10 bowel mo vements with at least a tinge of bright red red blood in it. Her last episode of vomiting was at 2 in the afternoon today. Patient is not on any blood thinners at home. She has not eaten out recently. Patient's last colonoscopy was done in August 2018 with polypectomy and a diagnosis of diverticulosis and mild IBS as per the patient. Patient has a strong family history of colon cancer and a relative less than 50 years of age. Patient denies any fevers, chills, shortness of breath, chest pain, heartburn, palpitations, rectal pain, painful defecation, fissures. Since the patient was unable to keep liquids down, concerned she came to the ED to get evaluated. In the ED patient was found to have a colitis on her CT abdomen and pelvis. She was started on IV fluids and given a dose of oral vancomycin due to her history of C. difficile colitis in the past. " HOSPITAL COURSE: Patient lactic acid was within normal. Lipase was not elevated. During her hospitalization, I touched base with GI, Dr. Delaney, and discussed the case. Patient most likely has ischemic colitis which should resolve in the next day or two. Patient will need an outpatient colonoscopy at least 1 month after resolution. Recommended supportive care and antibiotics. Patient tested negative for C.diff, but due to her history of C.diff colitis, continued PO vancomycin at reduce dosing for C.diff prophylaxis. Otherwise, continued ciprofloxacin and metronidazole. Patient was also put on a clear liquid diet with sucralfate and protonix. Patient symptoms started to resolve. She did not have any more bright red blood per rectum. Today, she was able to tolerate a solid diet. Denies abdominal pain, nausea, or hematochezia. She felt ready for home and was subsequently discharged home. DISCHARGE MEDICATIONS: Please see below. ALLERGIES: Please see below. PHYSICAL EXAMINATION ON DISCHARGE: VITAL SIGNS: Please see below. GENERAL: Comfortable, in no apparent distress. HEENT: Head normocephalic/atraumatic, EOMI, sclera clear. NECK: Supple. RESPIRATORY: Lungs clear to auscultation bilaterally, no rales, wheeze or rhonc hi. CARDIOVASCULAR: Regular rate and rhythm. ABDOMEN: Soft, nontender, no guarding or rebound tenderness. Normal bowel sounds. MUSCLE SKELETAL: Muscle strength 5/5 in all extremities. NEUROLOGICAL: CN 312 grossly intact, no focal deficits noted. PSYCHOLOGICAL: Normal mood and affect LABORATORY DATA: Please see below. IMAGING: Radiologist interpretation CT abd/pelvis with IV contrast 1. There is a diffuse decrease in hepatic parenchymal density, consistent with steatosis. 2. There has been a cholecystectomy. 3. Findings consistent with colitis involving the distal transverse colon to the proximal sigmoid colon without evidence of a drainable abscess. 4. Mild diverticulosis is present in the distal colon. No diverticulitis. 5. There has been a hysterectomy. PROGNOSIS: Good ACTIVITY: As tolerated. DIET: Low fiber diet for 1 week. Then regular diet DISCHARGE PLAN: Home DISPOSITION: Home, Self-Care. DISCHARGE INSTRUCTIONS: 1. Follow up with your PCP within 1 week 2. Do not take your Naproxen for 1 week. Take acetaminophen as needed instead ITEMS TO FOLLOWUP ON ON OUTPATIENT: 1. Patient will need referral to GI for colonoscopy for colorectal cancer screening. Should be at least 1 month after resolution of ischemic bowel DISCHARGE CONDITION: Stable Total time spent on discharge planning, discharge summary, and medication reconciliation: 45 minutes Vital Signs/I&Os Vital Signs Date Time Temp Pulse Resp B/P (MAP) Pulse Ox O2 Delivery O2 Flow Rate FiO2 09/14/20 06:00 98.1 70 18 140/79 (99) 94 Room Air I&O- Last 24 Hours up to 6 AM 09/14/20 06:00 Intake Total 4540 ml Output Total 2300 ml Balance 2240 ml Laboratory Data Labs 24H Laboratory Tests 2 09/14/20 06:03: Nucleated Red Blood Cells % (auto) 0.0, Anion Gap 6L, Glomerular Filtration Rate > 60.0, Calcium Level 7.9L, Total Bilirubin 0.2, Aspartate Amino Transf (AST/SGOT) 24, Alanine Aminotransferase (ALT/SGPT) 32, Alkaline Phosphatase 76, Total Protein 6.1L, Albumin 3.0L, Albumin/Globulin Ratio 1.0L CBC/BMP Laboratory Tests 09/14/20 06:03 Microbiology Microbiology 09/12/20 Stool Occult Blood (JASON) - Final, Complete Discharge Medications Scheduled Carvedilol (Carvedilol) 12.5 Mg Tablet, 12.5 MG PO QPM, (Reported) Citalopram Hydrobromide (Citalopram HBr) 40 Mg Tablet, 40 MG PO QPM, (Reported) Levothyroxine Sodium (Synthroid) 50 Mcg Tablet, 50 MCG PO QAM, (Reported) Pantoprazole Sodium (Pantoprazole Sodium) 40 Mg Tablet.dr, 40 MG PO DAILY Scheduled PRN Acetaminophen (Acetaminophen ER) 650 Mg Tablet.er, 650 MG PO Q6HP PRN for pain Levalbuterol Tartrate (Levalbuterol Tartrate Hfa) 15 Gm Hfa.aer.ad, 2 PUFFS INH TID PRN for SHORTNESS OF BREATH, (Reported) Allergies Coded Allergies: TAPE (Verified Allergy, Intermediate, blisters, 09/11/20) latex (Verified Allergy, Intermediate, hives, blister, 09/11/20) sulfamethoxazole (Verified Allergy, Intermediate, hives, 09/11/20) trimethoprim (Verified Allergy, Intermediate, hives, 09/11/20) TERRA ESCALANTE DO Sep 14, 2020 15:44
== END 2020-09-14 12:23 | disposition home or self-care (01) | DRG 246 ==
LOC: M ED 16:25 → M ED INP 23:33 → ENRESERV 09-12 01:08 → M MSPAV 09-12 01:28
PROVIDERS: ADMIT Family Medicine; ATTEND Internal Medicine
DX: K55.9 Vascular disorder of intestine, unspecified (principal); I10 Essential (primary) hypertension; K58.9 Irritable bowel syndrome, unspecified; K64.9 Unspecified hemorrhoids; G43.109 Migraine with aura, not intractable, without status migrainosus; K63.89 Other specified diseases of intestine; E03.9 Hypothyroidism, unspecified; K92.1 Melena; Z90.79 Acquired absence of other genital organ(s); Z90.49 Acquired absence of other specified parts of digestive tract; Z79.899 Other long term (current) drug therapy; Z88.2 Allergy status to sulfonamides; Z88.8 Allergy status to other drugs, medicaments and biological substances; Z91.040 Latex allergy status; Z20.822 Contact with and (suspected) exposure to COVID-19

== ENCOUNTER → 2020-11-30 | Outpatient (CLI) | payer OTHER ==
[~2020-11-30] MED LIST: ACE65ERTAB PO; CARV12.5 PO; CITA40TA4 PO; LEVA45AE INH; NAPR-885 PO; PANT40TA29 PO; SYNT50TA PO
--- NOTE | 2020-11-30 08:38 | REP ---
INDICATION: FATTY LIVER, IBS COMPARISON: None. TECHNIQUE: Real time ojeda scale ultrasound examination using curved array transducer. FINDINGS: Liver demonstrates diffuse increased echotexture and poor through transmission consistent with hepatosteatosis. No obvious focal hepatic lesion identified. Pancreas is incompletely evaluated due to interposed bowel gas. The gallbladder is surgically absent. No biliary ductal dilatation is appreciated and the common bile duct measures 6.1 mm diameter. Right kidney is normal in reniform shape without hydronephrosis and measures 11.6 x 6.3 x 4.9 cm. No ascites in the visualized right upper quadrant. IMPRESSION: Hepatosteatosis. <Electronically signed by Jcarlos Alex > 11/30/20 0849
== END ==
LOC: M RAD 07:05
PROVIDERS: ATTEND Internal Medicine Gastroenterology
DX: K76.0 Fatty (change of) liver, not elsewhere classified (principal); K58.1 Irritable bowel syndrome with constipation

== ENCOUNTER → 2021-02-21 | Outpatient (CLI) | payer OTHER | LOC: M LABSMTC 08:55 | PROVIDERS: ATTEND Anesthesiology | DX: Z01.812 Encounter for preprocedural laboratory examination (principal); Z20.822 Contact with and (suspected) exposure to COVID-19 ==

== ENCOUNTER 2021-02-25 09:11 | Day surgery (SDC) | payer OTHER ==
[~2021-02-25] VITALS: Ht 172.7 cm; Wt 115.7 kg
[~2021-02-25 09:11] MED LIST changes: +BENA25CA4 PO; +NS 1,000 ML IV ONE
--- OUTSIDE RECORDS SUMMARY | 2021-02-25 09:15 | CCD | Continuity of Care Document ---
Author Author Laura FRANCOIS MD Organization Unknown Address [address] [place] [address] Phone [phone] Care Team Providers Care Maintenance Department Technician Name Role Phone Sunitha Newberry Mounika PATIENT CARE SPECIALIST AUTM Problems Description No Information Available Social History Type Date Description Comments Sex Unknown Allergies and adverse reactions Description No Information Available Medications Active Medications SIG Qnty Indications Ordering Provide r Date Percocet 5-325mg Tablets 1-2 tabs every 4- 6 hours prn Post Op Pain. 20tabs Mele Francois MD 0 09/08/2020 Diazepam 5mg Tablets take one tab half hour prior to mri..may repeat in 30 minutes if no effect..do not drive to or from mri 2tabs M75.21 Enoch Pierce MD 06/10/2020 Immunizations Description No Information Available Vital Signs Date Vital Result Comment 06/10/2020 1:57pm Body Temperature 96.9 F Height 67 inches 5'7" Weight 266.12 lb BMI (Body Mass Index) 41.7 kg/m2 Results Test Acquired Date Facility Test Result H/L Range Note Laboratory test finding 08/13/2020 In House Covid Rapid Testing Negative Procedures Date Code Description Status 12/14/2020 71938 Office/Outpatient Established Mo d MDM 30-39 Min Completed 12/01/2020 23697 X-Ray Shoulder Complete Complete d 12/01/2020 Inject/Drain Joint/Bursa Interme diate Completed 11/08/2020 87675 Therapeutic Procedure, Each 15 M inutes Completed 10/14/2020 45327 Therapeutic Procedure, Each 15 M inutes Completed 10/14/2020 84298 Electrical Stimulati on Manual, Each 15 Min, Constant Attendance Completed 10/14/2020 75577 Hot Or Cold Packs Completed 10/07/2020 69494 Therapeutic Procedure, Each 15 M inutes Completed 10/07/2020 85128 Electrical Stimulati on Manual, Each 15 Min, Constant Attendance Completed 10/07/2020 56716 Hot Or Cold Packs Completed 10/04/2020 03916 Electrical Stimulati on Manual, Each 15 Min, Constant Attendance Completed 10/04/2020 24114 Therapeutic Procedure, Each 15 M inutes Completed 09/30/2020 23083 Therapeutic Procedure, Each 15 M inutes Completed 09/28/2020 85894 Physical Therapy Eval - Low Comp lexity Completed 09/08/2020 25407 Arthroscopy Shoulder Decompress Subacromial Part Acromioplasty Completed 09/08/2020 44527 Arthroscopy Shoulder Decompress Subacromial Part Acromioplasty Completed 09/08/2020 80275 Surgical Arthroscopy Es W/Corac oacrm Ligm RLS Completed 09/08/2020 89792 Arthroscopy Shoulder Debridement Completed 09/08/2020 84726 Arthroscopy Shoulder Debridement Completed 09/08/2020 94230 Surgical Arthroscopy Shoulder LM TD DBRDMT 1/2 Completed 08/02/2020 48935 Office/Outpatient Established Mo d MDM 30-39 Min Completed 07/28/2020 75419 Office/Outpatient Established Lo w MDM 20-29 Min Completed Medical Devices Description No Information Available Encounters Type Date Location Provider Dx Diagnosis Office Visit 12/14/2020 5:45p Daniel Palacio PA-C M2 5.511 Pain in right shoulder M19.011 Primary osteoarthritis, righ t shoulder Office Visit 12/01/2020 8:30a Daniel Palacio PA-C M2 5.511 Pain in right shoulder M19.011 Primary osteoarthritis, righ t shoulder Office Visit 10/21/2020 11:15a Daniel Francois MD Z47.89 Encounter for other orthopedic aftercare M19.011 Primary osteoarthritis, righ t shoulder Office Visit 09/22/2020 9:00a Daniel Francois MD Z47.89 Encounter for other orthopedic aftercare Office Visit 08/02/2020 11:15a Daniel Francois MD M75.21 Bicipital tendinitis, right shoulder M75.31 Calcific tendinitis of right shoulder M75.51 Bursitis of right shoulder Office Visit 07/28/2020 11:15a Daniel Lugo P.A. M75.41 Impingement syndrome of right shoulder M75.111 Incomplete rotatr-cuff tear/ ruptr of r shoulder, not trauma M24.111 Other articular cartilage di sorders, right shoulder M19.011 Primary osteoarthritis, righ t shoulder Assessments Date Code Description Provider 12/14/2020 M25.511 Pain in right shoulder ADAMARIS MorenoC 12/14/2020 M19.011 Primary osteoarthritis, right sh julia Palacio PA-C 12/01/2020 M25.511 Pain in right shoulder Angely Palacio PA-C 12/01/2020 M19.011 Primary osteoarthritis, right sh ADAMARIS HensonC 11/08/2020 Z47.89 Encounter for other orthopedic a ftercare Leandra Paz, MSPT 10/21/2020 Z47.89 Encounter for other orthopedic a ftercare Mele Francois MD 10/21/2020 M19.011 Primary osteoarthritis, right sh julia Francois MD 10/14/2020 Z47.89 Encounter for other orthopedic a ftercare Leandra Paz, MSPT 10/07/2020 Z47.89 Encounter for other orthopedic a ftercare Leandra Paz, MSPT 10/04/2020 Z47.89 Encounter for other orthopedic a ftercare Kita Beasley, COMMUNICATIONS PROJECT LEAD 09/30/2020 Z47.89 Encounter for other orthopedic a ftercare June Bingham, COMMUNICATIONS PROJECT LEAD 09/28/2020 Z47.89 Encounter for other orthopedic a ftercare Leandra Paz, MSPT 09/22/2020 Z47.89 Encounter for other orthopedic a ftercare Mele Francois MD 09/08/2020 M75.21 [facility] ADAMARIS McfaddenC 09/08/2020 M75.21 Bicipital tendinitis, right shou anna HarleyADAMARIS grajedaC 09/08/2020 M75.31 Calcific tendinitis of right es lane Mendoza Hakeem, MATTHEW 09/08/2020 M24.111 Other articular cartilage disord ers, right shoulder Angely HarleyMATTHEW grajeda 09/08/2020 M75.31 Calcific tendinitis of right es lane Harleytz, ADAMARISC 09/08/2020 M24.111 Other articular cartilage disord ers, right shoulder Angely HarleyADAMARIS grajedaC 09/08/2020 M75.21 Bicipital tendinitis, right betty castillo Mele Francois MD 09/08/2020 M75.31 Calcific tendinitis of right es lane Mele Francois MD 09/08/2020 M24.111 Other articular cartilage disord ers, right shoulder Mele Francois MD 09/03/2020 M75.21 Bicipital tendinitis, right shou analynita Mele Francois MD 09/03/2020 Z01.818 Encounter for other preprocedura l examination Lab 09/03/2020 Z20.828 Contact with and (hodges spected) exposure to other viral communicable diseases Lab 08/13/2020 Z20.828 Contact w and exposure to oth vi ral communicable diseases Mele Francois MD 08/02/2020 M75.21 Bicipital tendinitis, right shorobbin analynita Mele Francois MD 08/02/2020 M75.31 Calcific tendinitis of right es lane Mele Francois MD 08/02/2020 M75.51 Bursitis of right shoulder Hilary mehdi Francois MD 07/28/2020 M75.41 Impingement syndrome of right oulder Martell Lugo, P.A. 07/28/2020 M75.111 Incomplete rotator c uff tear or rupture of right shoulder, not specified as traumatic Martell Lugo, P.A. 07/28/2020 M24.111 Other articular cartilage disord ers, right shoulder Martell Lugo, P.A. 07/28/2020 M19.011 Primary osteoarthritis, right sh Stephany García Plan of Treatment 12/14/2020 - Angely Palacio PA-C* M25.511 Pain in right shoulder* Follow up:* f/u prn * M19.011 Primary osteoarthritis, right shoulder Functional Status Description No Information Available Mental Status Description No Information Available Referrals Refer to Dr Reason for Referral Status Appt Date Mele Francois MD FLUORO INJ NO AUTH REQUIRED PER SHIRA Babcock FOR FLUOROSCOPIC INJECTION TO RIGHT DISTAL CLAVICLE (59483, ) TO KASANDRA AVILA Created [facility] [address] [phone] Mele Francois MD PT - 16 VISITS OK'D FOR R SH LDR FROM 09/28-12/27/20, AUTH# [id number], RES# [id number]. SS Created [facility] [place] [address] [phone] Mele Francois MD PT ALLOWED EVAL THEN NEEDS AUTH TO PT DEPT . NT Created [address] [place], [place] [id number] [phone] Martell Lugo PA SURGERY PER PER WILI AT [facility] SHOULDER SURGERY IS APPROVED (43585) AND CODE 63012 NO AUTH REQUIRED AND CODE (43579 IS BUNDLED IN CODE 44355) . AND PER OPAL AT [facility] AUTH # IS [id number] Created [facility] [place] [address] [phone] Martell Lugo PA DME PER VELIA AT [facility] FOR ARC 2.0 SHOULDER BRACE (L3960) TO ABY NT Created [address] [place] [address] [phone] Martell Lugo PA FLUORO INJ NO AUTH REQUIRED PER [place] FOR FLUOROSCOPIC INJECTION TO RIGHT SHOULDER (, ) TO KASANDRA AVILA Created [address] [place] [address] [address] [place] [address] [phone]
--- OUTSIDE RECORDS SUMMARY | 2021-02-25 09:15 | CCD | Continuity of Care Document ---
Author Author Laura PALACIO PA-C Organization Unknown Address [address] [place] [address] Phone [phone] Care Team Providers Care Filler Operator Name Role Phone Sunitha Newberry GOVERNMENT AUDITOR AUTM Problems Description No Information Available Social History Type Date Description Comments Sex Unknown Allergies, Adverse Reactions, Alerts Description No Information Available Medications Active Medications SIG Qnty Indications Ordering Provide r Date Percocet 5-325mg Tablets 1-2 tabs every 4- 6 hours prn Post Op Pain. 20tabs Mele Martin MD 0 09/08/2020 Diazepam 5mg Tablets take [...] Testing Negative Procedures Date Code Description Status 12/01/2020 46327 X-Ray Shoulder Complete Complete d 11/08/2020 48549 Therapeutic Procedure, Each 15 M inutes Completed 10/14/2020 51635 Therapeutic Procedure, Each 15 M inutes Completed 10/14/2020 71727 Electrical Stimulati on Manual, Each 15 Min, Constant Attendance Completed 10/14/2020 04682 Hot Or Cold Packs Completed 10/07/2020 66205 Therapeutic Procedure, Each 15 M inutes Completed 10/07/2020 99143 Electrical Stimulati on Manual, Each 15 Min, Constant Attendance Completed 10/07/2020 60447 Hot Or Cold Packs Completed 10/04/2020 87238 Therapeutic Procedure, Each 15 M inutes Completed 10/04/2020 67299 Electrical Stimulati on Manual, Each 15 Min, Constant Attendance Completed 09/30/2020 42274 Therapeutic Procedure, Each 15 M inutes Completed 09/28/2020 45332 Physical Therapy Eval - Low Comp lexity Completed 09/08/2020 81425 Arthroscopy Shoulder Decompress Subacromial Part Acromioplasty Completed 09/08/2020 96800 Arthroscopy Shoulder Decompress Subacromial Part Acromioplasty Completed 09/08/2020 46611 Surgical Arthroscopy Es W/Corac oacrm Ligm RLS Completed 09/08/2020 53680 Arthroscopy Shoulder Debridement Completed 09/08/2020 33947 Arthroscopy Shoulder Debridement Completed 09/08/2020 92557 Surgical Arthroscopy Shoulder LM TD DBRDMT 1/2 Completed 08/02/2020 38762 Office/Outpatient Established Mo d MDM 30-39 Min Completed 07/28/2020 32552 Office/Outpatient Established Lo w MDM 20-29 Min Completed 06/10/2020 04939 Office/Outpatient New Low MDM 30 -44 Minutes Completed Medical Devices Description No Information Available Encounters Type Date Location Provider Dx Diagnosis Office Visit 10/21/2020 11:15a Daniel Martin MD Z47.89 Encounter for other orthopedic aftercare M19.011 Primary osteoarthritis, righ t shoulder Office Visit 09/22/2020 9:00a Daniel Martin MD Z47.89 Encounter for other orthopedic aftercare Office Visit 08/02/2020 11:15a Daniel Martin MD M75.21 Bicipital tendinitis, right shoulder M75.31 Calcific tendinitis of right shoulder M75.51 Bursitis of right shoulder Office Visit 07/28/2020 11:15a Daniel Lugo, P.A. M75.41 Impingement syndrome of right shoulder M75.111 Incomplete rotatr-cuff tear/ ruptr of r shoulder, not trauma M24.111 Other articular cartilage di sorders, right shoulder M19.011 Primary osteoarthritis, righ t shoulder Office Visit 06/10/2020 1:30p Houston Chun Cornejo.A. M75.41 Impingement syndrome of right shoulder Assessments Date Code Description Provider 12/01/2020 Z47.89 Encounter for other orthopedic a ftercare Angely Palacio PA-C 11/08/2020 Z47.89 Encounter for other orthopedic a ftercare Leandra Paz, MSPT 10/21/2020 Z47.89 Encounter for other orthopedic a ftercare Mele Martin MD 10/21/2020 M19.011 Primary osteoarthritis, right sh oulder Mele Martin MD 10/14/2020 Z47.89 Encounter for other orthopedic a ftercare Leandra Paz, MSPT 10/07/2020 Z47.89 Encounter for other orthopedic a ftercare Leandra Paz, MSPT 10/04/2020 Z47.89 Encounter for other orthopedic a ftercare Kita Beasley, RECORD CHANGER ASSEMBLER 09/30/2020 Z47.89 Encounter for other orthopedic a ftercare June Bingham, RECORD CHANGER ASSEMBLER 09/28/2020 Z47.89 Encounter for other orthopedic a ftercare Leandra Paz, MSPT 09/22/2020 Z47.89 Encounter for other orthopedic a ftercare Mele Martin MD 09/08/2020 M75.21 Bicipital tendinitis, right shou anna Palacio PA-C 09/08/2020 M75.21 Bicipital tendinitis, right shou anna Palacio PA-C 09/08/2020 M75.31 Calcific tendinitis of right es laen Palacio PA-C 09/08/2020 M24.111 Other articular cartilage disord ers, right shoulder Angely Palacio PA-C 09/08/2020 M75.31 [address]ific tendinitis of right es lane Palacio PA-C 09/08/2020 M24.111 Other articular cartilage disord ers, right shoulder Angely Palacio PA-C 09/08/2020 M75.21 Bicipital tendinitis, right betty castillo Mele Martin MD 09/08/2020 M75.31 Calcific tendinitis of right es sherman Mele Martin MD 09/08/2020 M24.111 Other articular cartilage disord ers, right shoulder Mele Martin MD 09/03/2020 M75.21 Bicipital tendinitis, right betty castillo Mele Martin MD 09/03/2020 Z01.818 Encounter for other preprocedura l examination Lab 09/03/2020 Z20.828 Contact with and (hodges spected) exposure to other viral communicable diseases Lab 08/13/2020 Z20.828 Contact w and exposure to oth vi ral communicable diseases Mele Martin MD 08/02/2020 M75.21 Bicipital tendinitis, right shorobbin analynita Mele Martin MD 08/02/2020 M75.[address] of right es lane Mele Martin MD 08/02/2020 M75.51 Bursitis of right shoulder Hilary mehdi Martin MD 07/28/2020 M75.41 [facility] Martell Lugo, P.A. 07/28/2020 M75.111 Incomplete rotator c uff tear or rupture of right shoulder, not specified as traumatic Martell Lugo, P.A. 07/28/2020 M24.111 Other articular cartilage disord ers, right shoulder Martell Lugo, P.A. 07/28/2020 M19.011 Primary osteoarthritis, [facility] Martell Lugo, P.A. 06/10/2020 M75.41 Impingement syndrome of [facility] Martell Lugo, P.A. Plan of Treatment 12/01/2020 - Angely Palacio PA-C* Z47.89 Encounter for other orthopedic aftercare* Follow up:* 2 week rt shoulder irene with BMS Functional Status Description No Information Available Mental Status Description No Information Available Referrals Refer to Reason for Referral Status Appt Date Mele Martin MD FLUORO INJ NO AUTH REQUIRED PER SHIRA G. FOR FLUOROSCOPIC INJECTION TO RIGHT DISTAL CLAVICLE (74477, ) TO KASANDRA AVILA Created [address] [phone] Mele Martin MD PT - 16 VISITS OK'D FOR R SH LDR FROM 09/28-12/27/20, AUTH# [id number], RES# [id number]. SS Created [address] [place] [address] [phone] Mele Martin MD PT ALLOWED EVAL THEN NEEDS AUTH TO PT DEPT . NT [place] [address] [phone] Martell Lugo, [place]DEN SURGERY PER PER WILI AT [facility] SHOULDER SURGERY IS APPROVED (00734) AND CODE 56076 NO AUTH REQUIRED AND CODE (19903 IS BUNDLED IN CODE 51210) . AND PER OPAL AT [facility] AUTH # IS [id number] Created [address] [place] [address] [phone] Martell Lugo PA DME PER VELIA AT [facility] FOR ARC 2.0 SHOULDER BRACE (L3960) TO ABY NT Created [address] [place] [address] [phone] Martell Lugo PA FLUORO INJ NO AUTH REQUIRED PER [place] FOR FLUOROSCOPIC INJECTION TO RIGHT SHOULDER (65041, ) TO KASANDRA AVILA Created [address] [place] [address] [phone] Martell Lugo PA MRI APPROVED PER [facility] FOR MRI OF RIGHT SHOULDER (15662) TO KASANDRA AVILA Created [address] [place] [address] [phone]
--- OUTSIDE RECORDS SUMMARY | 2021-02-25 09:15 | CCD | Continuity of Care Document ---
Author Author Laura PALACIO PA-C Organization Unknown Address [address] [place] [address] Phone [phone] Care Team Providers Care Brick Siding Applicator Name Role Phone Sunitha Newberry MANAGER HRIS AUTM Problems Description No Information Available Social [...] Negative Procedures Date Code Description Status 12/01/2020 31949 Inject/Drain Joint/Bursa Interme diate Completed 12/01/2020 92354 X-Ray Shoulder Complete Complete d 11/08/2020 66762 Therapeutic Procedure, Each 15 M inutes Completed 10/14/2020 74313 Therapeutic Procedure, Each 15 M inutes Completed 10/14/2020 75857 Electrical Stimulati on Manual, Each 15 Min, Constant Attendance Completed 10/14/2020 92790 Hot Or Cold Packs Completed 10/07/2020 69699 Therapeutic Procedure, Each 15 M inutes Completed 10/07/2020 99869 Electrical Stimulati on Manual, Each 15 Min, Constant Attendance Completed 10/07/2020 53410 Hot Or Cold Packs Completed 10/04/2020 68267 Electrical Stimulati on Manual, Each 15 Min, Constant Attendance Completed 10/04/2020 42898 Therapeutic Procedure, Each 15 M inutes Completed 09/30/2020 14122 Therapeutic Procedure, Each 15 M inutes Completed 09/28/2020 53088 Physical Therapy Eval - Low Comp lexity Completed 09/08/2020 01983 Arthroscopy Shoulder Decompress Subacromial Part Acromioplasty Completed 09/08/2020 49993 Arthroscopy Shoulder Decompress Subacromial Part Acromioplasty Completed 09/08/2020 00483 Surgical Arthroscopy Es W/Corac oacrm Ligm RLS Completed 09/08/2020 22041 Arthroscopy Shoulder Debridement Completed 09/08/2020 84557 Arthroscopy Shoulder Debridement Completed 09/08/2020 71514 Surgical Arthroscopy Shoulder LM TD DBRDMT 1/2 Completed 08/02/2020 39671 Office/Outpatient Established Mo d MDM 30-39 Min Completed 07/28/2020 82450 Office/Outpatient Established Lo w MDM 20-29 Min Completed Medical Devices Description No Information Available Encounters Type Date Location Provider Dx Diagnosis Office Visit 12/01/2020 8:30a Daniel Palacio PA-C M2 5.511 Pain in right shoulder M19.011 Primary osteoarthritis, righ t shoulder Office Visit 10/21/2020 11:15a Daniel Martin MD [...] t shoulder Assessments Date Code Description Provider 12/01/2020 M25.511 Pain in right shoulder Angely Palacio PA-C 12/01/2020 M19.011 Primary osteoarthritis, right sh julia Palacio PA-C 11/08/2020 Z47.89 Encounter for other orthopedic a ftercare Leandra Paz, MSPT 10/21/2020 Z47.89 Encounter for other orthopedic a ftercare Mele Martin MD 10/21/2020 M19.011 Primary osteoarthritis, right sh julia Martin MD 10/14/2020 Z47.89 Encounter for other orthopedic a ftercare Leandra Paz, MSPT 10/07/2020 Z47.89 Encounter for other orthopedic a ftercare Leandra Paz, MSPT 10/04/2020 Z47.89 Encounter for other orthopedic a ftercare Kita Beasley, MAGAZINE PUBLISHER 09/30/2020 Z47.89 Encounter for other orthopedic a ftercare June Bingham, MAGAZINE PUBLISHER 09/28/2020 Z47.89 Encounter for other orthopedic a ftercare Leandra Paz, MSPT 09/22/2020 Z47.89 Encounter for other orthopedic a ftercare Mele Martin MD 09/08/2020 M75.21 Bicipital tendinitis, right shou anna Palacio PA-C 09/08/2020 M75.21 Bicipital tendinitis, right shou anna Palacio PA-C 09/08/2020 M75.31 Calcific tendinitis of right es lane Palacio PA-C 09/08/2020 M75.31 Calcific tendinitis of right es lane Palacio PA-C 09/08/2020 M24.111 Other articular cartilage disord ers, right shoulder Angely Palacio PA-C 09/08/2020 M24.111 Other articular cartilage disord ers, right shoulder Angely Palacio PA-C 09/08/2020 M75.21 Bicipital tendinitis, right shorobbin castillo Mele Martin MD 09/08/2020 M75.31 Cal[address]ific tendinitis of right es lane Mele Martin MD 09/08/2020 M24.111 Other articular cartilage disord ers, right shoulder Mele Martin MD 09/03/2020 M75.21 Bicipital tendinitis, right shou analyer Mele Martin MD 09/03/2020 Z01.818 Encounter for other preprocedura l examination Lab 09/03/2020 Z20.828 Contact with and (hodges spected) exposure to other viral communicable diseases Lab 08/13/2020 Z20.828 Contact w and exposure to oth vi ral communicable diseases Mele Martin MD 08/02/2020 M75.21 Bicipital tendinitis, right shorobbin castillo Mele Martin MD 08/02/2020 M75.31 [address] right es lane Mele Martin MD 08/02/2020 M75.51 Bursitis of right shoulder Hilary mehdi Martin MD 07/28/2020 M75.41 Impingement syndrome of right sh vondanita Martell Lugo, P.A. 07/28/2020 M75.111 Incomplete rotator c uff tear or rupture of right shoulder, not specified as traumatic Martell Lugo, P.A. 07/28/2020 M24.111 Other articular cartilage disord ers, right shoulder Martell Lugo, P.A. 07/28/2020 M19.011 Primary osteoarthritis, right sh julia Lugo, P.A. Plan of Treatment Future Appointment(s):* 12/14/2020 5:45 pm - Angely Palacio PA-C at [facility] 12/01/2020 - Angely Palacio PA-C* M25.511 Pain in right shoulder* Follow up:* 2 week rt shoulder irene with BMS * M19.011 Primary osteoarthritis, right shoulder Functional Status Description No Information Available Mental Status Description No Information Available Referrals Refer to Reason for Referral Status Appt Date Mele Martin MD FLUORO INJ NO AUTH REQUIRED PER SHIRA Babccok FOR FLUOROSCOPIC INJECTION TO RIGHT DISTAL CLAVICLE (28478, ) TO KASANDRA Llanos [place] Created [address] [phone] Mele Martin MD PT - 16 VISITS OK'D FOR R SH LDR FROM 09/28-12/27/20, AUTH# [id number], RES# [id number]. SS Created [facility] [place] [address] [phone] Mele Martin MD PT ALLOWED EVAL THEN NEEDS AUTH TO PT DEPT . NT Created [facility] [place] [address] [phone] Martell Lugo PA SURGERY PER PER WILI AT [facility] SHOULDER SURGERY IS APPROVED (80852) AND CODE 50968 NO AUTH REQUIRED AND CODE (65680 IS BUNDLED IN CODE 93431) . AND PER OPAL AT [facility] AUTH # IS [id number] Created [address] [place] [address] [phone] Martell Lugo PA DME PER VELIA AT [facility] FOR ARC 2.0 SHOULDER BRACE (L3960) TO ABY NT Created [address] [place] [address] [phone] Martell Lugo PA FLUORO INJ NO AUTH REQUIRED PER [place] FOR FLUOROSCOPIC INJECTION TO RIGHT SHOULDER (68190, ) TO KASANDRA MarieCecil AVILA Created [address] [place] [address] [phone] Martell Lugo PA MRI APPROVED PER [facility] FOR MRI OF RIGHT SHOULDER (64665) TO KASANDRA MarieCecil AVILA Created [address] [place] [address] [phone]
--- OUTSIDE RECORDS SUMMARY | 2021-02-25 09:15 | CCD | Continuity of Care Document ---
Author Author Laura PALACIO PA-C Organization Unknown Address [address] [place] [address] Phone [phone] Care Team Providers Care Director Safety Name Role Phone Sunitha Newberry IT SERVICE MANAGER AUTM Problems Description No Information Available Social [...] Negative Procedures Date Code Description Status 12/14/2020 91750 Office/Outpatient Established Mo d MDM 30-39 Min Completed 12/01/2020 46101 X-Ray Shoulder Complete Complete d 12/01/2020 80300 Inject/Drain Joint/Bursa Interme diate Completed 11/08/2020 45157 Therapeutic Procedure, Each 15 M inutes Completed 10/14/2020 37060 Therapeutic Procedure, Each 15 M inutes Completed 10/14/2020 23882 Electrical Stimulati on Manual, Each 15 Min, Constant Attendance Completed 10/14/2020 96022 Hot Or Cold Packs Completed 10/07/2020 35836 Therapeutic Procedure, Each 15 M inutes Completed 10/07/2020 93039 Electrical Stimulati on Manual, Each 15 Min, Constant Attendance Completed 10/07/2020 94908 Hot Or Cold Packs Completed 10/04/2020 86376 Electrical Stimulati on Manual, Each 15 Min, Constant Attendance Completed 10/04/2020 01052 Therapeutic Procedure, Each 15 M inutes Completed 09/30/2020 45919 Therapeutic Procedure, Each 15 M inutes Completed 09/28/2020 79775 Physical Therapy Eval - Low Comp lexity Completed 09/08/2020 46042 Arthroscopy Shoulder Decompress Subacromial Part Acromioplasty Completed 09/08/2020 52927 Arthroscopy Shoulder Decompress Subacromial Part Acromioplasty Completed 09/08/2020 08842 Surgical Arthroscopy Es W/Corac oacrm Ligm RLS Completed 09/08/2020 80457 Arthroscopy Shoulder Debridement Completed 09/08/2020 43692 Arthroscopy Shoulder Debridement Completed 09/08/2020 59529 Surgical Arthroscopy Shoulder LM TD DBRDMT 1/2 Completed 08/02/2020 17750 Office/Outpatient Established Mo d MDM 30-39 Min Completed 07/28/2020 56240 Office/Outpatient Established Lo w MDM 20-29 Min [...] Provider 12/14/2020 M25.511 Pain in right shoulder Angely Palacio PA-C 12/14/2020 M19.011 Primary osteoarthritis, right sh julia Palacio PA-C 12/01/2020 M25.511 Pain in right shoulder Angely Palacio PA-C 12/01/2020 M19.011 Primary osteoarthritis, right sh julia Palacio PA-C 11/08/2020 Z47.89 Encounter for other orthopedic a ftercare Leandra Paz, [facility] 10/21/2020 Z47.89 Encounter for other orthopedic a ftercare Mele Martin MD 10/21/2020 M19.011 Primary osteoarthritis, right sh julia Martin MD 10/14/2020 Z47.89 Encounter for other orthopedic a ftercare Leandra Paz, MSPT 10/07/2020 Z47.89 Encounter for other orthopedic a ftercare Leandra Paz, MSPT 10/04/2020 Z47.89 Encounter for other orthopedic a ftercare Kita Beasley, DIRECTIONAL SURVEY DRAFTER 09/30/2020 Z47.89 Encounter for other orthopedic a ftercare June Bingham, DIRECTIONAL SURVEY DRAFTER 09/28/2020 Z47.89 Encounter for other orthopedic a ftercare Leandra Paz, MSPT 09/22/2020 Z47.89 Encounter for other orthopedic a ftercare Mele Martin MD 09/08/2020 M75.21 [facility]ital tend[facility], [facility] ADAMARIS McfaddenC 09/08/2020 M75.21 Bicipital tendinitis, right shou anna Palacio, PA-C 09/08/2020 M75.31 [address] lane Palacio, PA-C 09/08/2020 M24.111 Other articular cartilage disord ers, right shoulder Angely Palacio, ADAMARISC 09/08/2020 M75.31 Calcific tendinitis of right es lane Palacio, ADAMARISC 09/08/2020 M24.111 Other articular cartilage disord ers, right shoulder Angely Palacio, KAYDEN-C 09/08/2020 M75.21 Bicipital tendinitis, right shorobbin castillo [...] 07/28/2020 M75.41 Impingement syndrome of right sh oulder Martell Lugo, P.A. 07/28/2020 M75.111 Incomplete rotator c uff tear or rupture of right shoulder, not specified as traumatic Martell Lugo, P.A. 07/28/2020 M24.111 Other articular cartilage disord ers, right shoulder Martell Lugo, P.A. 07/28/2020 M19.011 Primary osteoarthritis, right sh vondaer Stephany Cornejo Plan of Treatment 12/14/2020 - Angely Palacio PA-C* M25.511 Pain in right shoulder* Follow up:* f/u prn * M19.011 Primary osteoarthritis, right shoulder Functional Status Description No Information Available Mental Status Description No Information Available Referrals Refer to Dr Reason for Referral Status Appt Date Mele Martin MD FLUORO INJ NO AUTH REQUIRED PER SHIRA Babcock FOR FLUOROSCOPIC INJECTION TO RIGHT DISTAL CLAVICLE (55883, ) TO KASANDRA AVILA Created [facility] [place] [address] [phone] Mele Martin MD PT - 16 VISITS OK'D FOR R SH LDR FROM 09/28-12/27/20, AUTH# [id number], RES# [id number]. SS Created [address] [place], [place] [address] [phone] Mele Martin MD PT ALLOWED EVAL THEN NEEDS AUTH TO PT DEPT . NT Created [facility] [address] [phone] Martell Lugo PA SURGERY PER PER WILI AT [facility] SHOULDER SURGERY IS APPROVED (64038) AND CODE 14473 NO AUTH REQUIRED AND CODE (96200 IS BUNDLED IN CODE 48300) . AND PER OPAL AT [facility] AUTH # IS [id number] Created [address] [place] [address] [phone] Martell Lugo PA DME PER VELIA AT [facility] FOR ARC 2.0 SHOULDER BRACE (L3960) TO ABY NT Created [facility] [place] [address] [phone] Martell Lugo PA FLUORO INJ NO AUTH REQUIRED PER [place] FOR FLUOROSCOPIC INJECTION TO RIGHT SHOULDER (00388, ) TO KASANDRA AVILA Created [address] [address] [phone] Martell Lugo PA MRI APPROVED PER [facility] FOR MRI OF RIGHT SHOULDER (47212) TO KASANDRA AVILA Created [facility] [address] [address] [phone]
--- OUTSIDE RECORDS SUMMARY | 2021-02-25 09:15 | CCD | Continuity of Care Document ---
Author Author Laura PALACIO PA-C Organization Unknown Address [address] [place] [address] Phone [phone] Care Team Providers Care Scientist Engineer Name Role Phone Sunitha Newberry SENIOR IT RECRUITER AUTM [phone] Problems Description No Information Available Social History [...] Negative Procedures Date Code Description Status 12/01/2020 54281 Inject/Drain Joint/Bursa Interme diate Completed 12/01/2020 80515 X-Ray Shoulder Complete Complete d 11/08/2020 13973 Therapeutic Procedure, Each 15 M inutes Completed 10/14/2020 14247 Therapeutic Procedure, Each 15 M inutes Completed 10/14/2020 19485 Electrical Stimulati on Manual, Each 15 Min, Constant Attendance Completed 10/14/2020 43464 Hot Or Cold Packs Completed 10/07/2020 71874 Therapeutic Procedure, Each 15 M inutes Completed 10/07/2020 79700 Electrical Stimulati on Manual, Each 15 Min, Constant Attendance Completed 10/07/2020 84231 Hot Or Cold Packs Completed 10/04/2020 95255 Electrical Stimulati on Manual, Each 15 Min, Constant Attendance Completed 10/04/2020 98023 Therapeutic Procedure, Each 15 M inutes Completed 09/30/2020 78106 Therapeutic Procedure, Each 15 M inutes Completed 09/28/2020 52084 Physical Therapy Eval - Low Comp lexity Completed 09/08/2020 62199 Arthroscopy Shoulder Decompress Subacromial Part Acromioplasty Completed 09/08/2020 28876 Arthroscopy Shoulder Decompress Subacromial Part Acromioplasty Completed 09/08/2020 00589 Surgical Arthroscopy Es W/Corac oacrm Ligm RLS Completed 09/08/2020 09870 Arthroscopy Shoulder Debridement Completed 09/08/2020 72588 Arthroscopy Shoulder Debridement Completed 09/08/2020 07280 Surgical Arthroscopy Shoulder LM TD DBRDMT 1/2 Completed 08/02/2020 64393 Office/Outpatient Established Mo d MDM 30-39 Min Completed 07/28/2020 53620 Office/Outpatient Established Lo w MDM 20-29 Min [...] MorenoC 12/14/2020 M19.011 Primary osteoarthritis, right sh ADAMARIS HensonC 12/01/2020 M25.511 Pain in right shoulder ADAMARIS MorenoC 12/01/2020 M19.011 Primary osteoarthritis, right sh julia [...] for other orthopedic a ftercare Kita Beasley, INTERNAL CONTROL ANALYST 09/30/2020 Z47.89 Encounter for other orthopedic a ftercare June Bingham, INTERNAL CONTROL ANALYST 09/28/2020 Z47.89 Encounter for other orthopedic a ftercare Leandra Paz, MSPT 09/22/2020 Z47.89 Encounter for other orthopedic a ftercare Mele Martin MD 09/08/2020 M75.21 Bicipital tendinitis, right shou anna Palacio PA-C 09/08/2020 M75.21 Bicipital tendinitis, right shou anna Palacio PA-C 09/08/2020 M75.31 Calcific tendinitis of right es ulder Angely Palacio PA-C 09/08/2020 M24.111 Other articular cartilage disord ers, right shoulder Angely Palacio PA-C 09/08/2020 M75.31 Cal[address] of right es lane Angely Palacio PA-C 09/08/2020 M24.111 Other articular cartilage disord ers, right shoulder Angely Palacio PA-C 09/08/2020 M75.21 Bicipital tendinitis, right betty castillo Mele Martin MD 09/08/2020 M75.31 Calcific tendinitis of right es lane Mele Martin MD 09/08/2020 M24.111 Other articular cartilage disord ers, right shoulder Mele Martin MD 09/03/2020 M75.21 Bicipital tendinitis, right shou analynita Mele Martin MD 09/03/2020 Z01.818 Encounter for other preprocedura l examination Lab 09/03/2020 Z20.828 Contact with and (hodges spected) exposure to other viral communicable diseases Lab 08/13/2020 Z20.828 Contact w and exposure to oth vi ral communicable diseases Mele Martin MD 08/02/2020 M75.21 Bicipital tendinitis, right betty analynita Mele Martin MD 08/02/2020 M75.31 Calcific tendinitis of right es lane Mele Martin MD 08/02/2020 M75.51 Bursitis of right shoulder Hilary mehdi Martin MD 07/28/2020 M75.41 Impingement syndrome of right sh julia Lugo, P.A. 07/28/2020 M75.111 Incomplete rotator c uff tear or rupture of right shoulder, not specified as traumatic Martell Lugo, P.A. 07/28/2020 M24.111 Other articular cartilage disord ers, right shoulder Martell Lugo, P.A. 07/28/2020 M19.011 Primary osteoarthritis, right sh julia Lugo, P.A. Plan of Treatment 12/14/2020 - Angely Palacio PA-C* M25.511 Pain in right shoulder* Follow up:* f/u prn * M19.011 Primary osteoarthritis, right shoulder Functional Status Description No Information Available Mental Status Description No Information Available Referrals Refer to Dr Reason for Referral Status Appt Date Mele Martin MD FLUORO INJ NO AUTH REQUIRED PER SHIRA Babcock FOR FLUOROSCOPIC INJECTION TO RIGHT DISTAL CLAVICLE (, ) TO KASANDRA MarieCecil AVILA Created [address] [phone] Mele Martin MD PT - 16 VISITS OK'D FOR R SH LDR FROM 09/28-12/27/20, AUTH# [id number], RES# [id number]. SS Created [facility] [place] [id number] [phone] Mele Martin MD PT ALLOWED EVAL THEN NEEDS AUTH TO PT DEPT . NT Created [address] [phone] Martell Lugo PA SURGERY PER PER WILI AT [facility] SHOULDER SURGERY IS APPROVED (18858) AND CODE 39955 NO AUTH REQUIRED AND CODE (73438 IS BUNDLED IN CODE 30800) . AND PER OPAL AT [facility] AUTH # IS [id number] Created [address] [place] [address] [phone] Martell Lugo PA DME PER VELIA AT [facility] FOR ARC 2.0 SHOULDER BRACE (L3960) TO ABY NT Created [address] [place] [address] [phone] Martell Lugo PA FLUORO INJ NO AUTH REQUIRED PER [place] FOR FLUOROSCOPIC INJECTION TO RIGHT SHOULDER (, ) TO KASANDRA MarieCecil AVILA Created [address] [place] [address] [phone] Martell Lugo, PA MRI APPROVED PER [facility] FOR MRI OF RIGHT SHOULDER (60368) TO KASANDRA MarieCecil AVILA Created [facility] [address] [place] [id number] [phone]
--- OUTSIDE RECORDS SUMMARY | 2021-02-25 09:15 | CCD ---
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 confirmed 45694 01 Problem Seborrheic keratosis, inflamed L82.0 Active confir med 266570678 Problem Folliculitis L73.9 Active confirmed 2423785 6 ALLERGIES No Known Allergies ENCOUNTERS from 1961 to 2021-01-05 Encounter Location Date Provider Diagnosis [facility] [address] [place] [address] [place] [address] Dec, Monica Cam Seborrheic keratosis, inflam ed L82.0 ; Smith angioma D18.01 ; Dermal nevus D23.9 ; Folliculitis L73.9 ; Acne vulgaris L70.0 and Cyst of skin L72.9 IMMUNIZATIONS No Information SOCIAL HISTORY Tobacco Use: Social History Observation Description Date Details (start date - stop date) Never Smoker Sex Assigned At : Social History Observation Description Sex Assigned At Unknown Tobacco Use: Question Answer Notes Are you a: never smoker REASON FOR REFERRAL No Information VITAL SIGNS Weight 257 lbs Dec, Weight-kg 116.57 kg Dec, Height 68 in Dec, BMI 39.07 kg/m2 Dec, Blood pressure systolic 124 mm Hg Dec, Blood pressure diastolic 72 mm Hg Dec, MEDICATIONS Medication SIG (Take, Route, Frequency, Duration) Notes Start Da te End Date Status Citalopram Hydrobromide 40 MG 0.5- 1 tablet Orally Once a day Active Carvedilol 12.5 MG 1 tablet with food Orally QHS Active Clindamycin Phosphate 1 % 1 application Externally Twice a day f or 30 days Dec, Active Synthroid 50 MCG 1 tablet in the morning on a n empty stomach Orally Once a day for 30 day(s) Active PROCEDURES No Information RESULTS No Results REASON FOR VISIT mole check MEDICAL (GENERAL) HISTORY Type Description Date Medical History Slightly elevated blood pressure Surgical History Tonsilectomy 1968 Surgical History Gallbladder 2011 Surgical History Hysterectomy x 3 2001, 2002, 2003 Surgical History Left ovary tumor 2007 Surgical History Right groin lympnode surgery 1979 Surgical History Right knee 2015 Surgical History Right shoulder 2019 Surgical History Left shoulder 2013 Surgical History Breast surgery 2013 Surgical History Left foot 2014 Goals Section No Information Health Concerns No Information MEDICAL EQUIPMENT No Information MENTAL STATUS No Information FUNCTIONAL STATUS No Information ASSESSMENTS Encounter Date Diagnosis Assessment Notes Treatment Notes Treatm ent Clinical Notes Dec, Seborrheic keratosis, inflamed (ICD-10 - L82.0) Cryotherapy x [ ONE ] number of sites. [place] protocol was followed in compliance with [facility] standards. Patient was counseled regarding the indication for treatment (precancerous state for actinic keratosis or cosmetic reasons if done for seborrheic keratoses, acrochordons or warts) as well as, the method and expected results to include compromise of the skin barrier, bleeding, scarring/white area, redness at site, lesion recurrence, and pain. Patient was consented to the risks and benefits of the procedure and gave informed consent. Lesion(s) with locations as indicated in the physical examination were treated. Lesion(s) were treated with 2 cycles of liquid nitrogen with a thaw time of at least ten seconds. Therapy was applied in a pulsed fashion to minimize collateral tissue injury. Patient was instructed to use Vaseline ointment to the area(s) until healed. Patient tolerated the procedure well and left in stable condition. Pain before and after the procedure were assessed to not be significantly different than baseline. Dec, Smith angioma (ICD-10 - D18.01) Cryotherapy x [ ONE ] number of sites. [place] protocol was followed in compliance with [facility] standards. Patient was counseled regarding the indication for treatment (precancerous state for actinic keratosis or cosmetic reasons if done for seborrheic keratoses, acrochordons or warts) as well as, the method and expected results to include compromise of the skin barrier, bleeding, scarring/white area, redness at site, lesion recurrence, and pain. Patient was consented to the risks and benefits of the procedure and gave informed consent. Lesion(s) with locations as indicated in the physical examination were treated. Lesion(s) were treated with 2 cycles of liquid nitrogen with a thaw time of at least ten seconds. Therapy was applied in a pulsed fashion to minimize collateral tissue injury. Patient was instructed to use Vaseline ointment to the area(s) until healed. Patient tolerated the procedure well and left in stable condition. Pain before and after the procedure were assessed to not be significantly different than baseline. Dec, Dermal nevus (ICD-10 - D23.9) Reminded to avoid the sun and tanning, use sun screens regularly when spending time [id number], and perform self-examinations monthly to watch for any change in the appearance of your moles. If you notice any changes in color, appearance, symptoms of moles, you should contact the office for an appointment to have change evaluated as soon as possible. Dec, Folliculitis (ICD-10 - L73.9) Patient may apply Clindamycin Lotion to sites Dec, Acne vulgaris (ICD-10 - L70.0) Dec, Cyst of skin (ICD-10 - L72.9) Patient may apply Clindamycin Lotion to sites PLAN OF TREATMENT Medication Medication Name Sig Start Date Stop Date Clindamycin Phosphate 1 % 1 application Externally Twice a d ay for 30 days Dec, Treatment Notes Assessment Notes Clinical Notes Seborrheic keratosis, inflamed Cryothera py x [ ONE ] number of sites. [place] protocol was followed in compliance with [facility] standards. Patient was counseled regarding the indication for treatment (precancerous state for actinic keratosis or cosmetic reasons if done for seborrheic keratoses, acrochordons or warts) as well as, the method and expected results to include compromise of the skin barrier, bleeding, scarring/white area, redness at site, lesion recurrence, and pain. Patient was consented to the risks and benefits of the procedure and gave informed consent. Lesion(s) with locations as indicated in the physical examination were treated. Lesion(s) were treated with 2 cycles of liquid nitrogen with a thaw time of at least ten seconds. Therapy was applied in a pulsed fashion to minimize collateral tissue injury. Patient was instructed to use Vaseline ointment to the area(s) until healed. Patient tolerated the procedure well and left in stable condition. Pain before and after the procedure were assessed to not be significantly different than baseline. Smith angioma Cryotherapy x [ ONE ] number of sites. [place] protocol was followed in compliance with [facility] standards. Patient was counseled regarding the indication for treatment (precancerous state for actinic keratosis or cosmetic reasons if done for seborrheic keratoses, acrochordons or warts) as well as, the method and expected results to include compromise of the skin barrier, bleeding, scarring/white area, redness at site, lesion recurrence, and pain. Patient was consented to the risks and benefits of the procedure and gave informed consent. Lesion(s) with locations as indicated in the physical examination were treated. Lesion(s) were treated with 2 cycles of liquid nitrogen with a thaw time of at least ten seconds. Therapy was applied in a pulsed fashion to minimize collateral tissue injury. Patient was instructed to use Vaseline ointment to the area(s) until healed. Patient tolerated the procedure well and left in stable condition. Pain before and after the procedure were assessed to not be significantly different than baseline. Dermal nevus Reminded to avoid th e sun and tanning, use sun screens regularly when spending time [id number], and perform self-examinations monthly to watch for any change in the appearance of your moles. If you notice any changes in color, appearance, symptoms of moles, you should contact the office for an appointment to have change evaluated as soon as possible. Folliculitis Patient may apply Cl indamycin Lotion to sites Cyst of skin Patient may apply Cl indamycin Lotion to sites Next Appt Details 6 Months Reason:annual FBSE Provider Name:Monica Levy, 2021-07-04 07:15:00 AM, [address] [place] [address], , [place], [address], Follow Up:6 Monthsannual FBSE Insurance Providers Payer Name Payer Address Payer Phone Insured Name Patient Relati onship to Insured Coverage Start Date Coverage End Date [facility] DE[facility] [address] [facility] [phone] JADON MEJIA self
--- OUTSIDE RECORDS SUMMARY | 2021-02-25 09:15 | CCD | Continuity of Care Document ---
Author Author Laura Salter Organization Unknown Address [address] [place] [address] Phone [phone] Care Team Providers Care Education General Manager Name Role Phone Sunitha Newberry Mounika REFRESH TECHNICIAN AUTM [phone] Problems Description No Information Available Social [...] Negative Procedures Date Code Description Status 12/14/2020 01444 Office/Outpatient Established Mo d MDM 30-39 Min Completed 12/01/2020 96406 X-Ray Shoulder Complete Complete d 12/01/202088675 Inject/Drain Joint/Bursa Interme diate Completed 11/08/2020 96633 Therapeutic Procedure, Each 15 M inutes Completed 10/14/2020 46487 Therapeutic Procedure, Each 15 M inutes Completed 10/14/2020 66491 Electrical Stimulati on Manual, Each 15 Min, Constant Attendance Completed 10/14/2020 57058 Hot Or Cold Packs Completed 10/07/2020 51771 Therapeutic Procedure, Each 15 M inutes Completed 10/07/2020 43249 Electrical Stimulati on Manual, Each 15 Min, Constant Attendance Completed 10/07/2020 66229 Hot Or Cold Packs Completed 10/04/2020 03467 Therapeutic Procedure, Each 15 M inutes Completed 10/04/2020 18942 Electrical Stimulati on Manual, Each 15 Min, Constant Attendance Completed 09/30/2020 56631 Therapeutic Procedure, Each 15 M inutes Completed 09/28/2020 07156 Physical Therapy Eval - Low Comp lexity Completed 09/08/2020 08900 Arthroscopy Shoulder Decompress Subacromial Part Acromioplasty Completed 09/08/2020 89309 Arthroscopy Shoulder Decompress Subacromial Part Acromioplasty Completed 09/08/2020 04551 Surgical Arthroscopy Es W/Corac oacrm Ligm RLS Completed 09/08/2020 75988 Arthroscopy Shoulder Debridement Completed 09/08/2020 63466 Arthroscopy Shoulder Debridement Completed 09/08/2020 66834 Surgical Arthroscopy Shoulder LM TD DBRDMT 1/2 Completed Medical Devices Description No Information Available [...] MD Z47.89 Encounter for other orthopedic aftercare Assessments Date Code Description Provider 12/14/2020 M25.511 Pain in right shoulder Angely Palacio PA-C 12/14/2020 M19.011 Primary osteoarthritis, right sh oulder Angely Palacio PA-C 12/01/2020 M25.511 Pain in right shoulder Angely Palacio, MATTHEW 12/01/2020 M19.011 Primary osteoarthritis, right sh julia Palacio, MATTHEW 11/08/2020 Z47.89 Encounter for other orthopedic a ftercare Leandra Paz, MSPT 10/21/2020 Z47.89 Encounter for other orthopedic a ftercare Mele Martin MD 10/21/2020 M19.011 Primary osteoarthritis, right sh julia Martin MD 10/14/2020 Z47.89 Encounter for other orthopedic a ftercare Leandra Paz, MSPT 10/07/2020 Z47.89 Encounter for other orthopedic a ftercare Leandra Paz, MSPT 10/04/2020 Z47.89 Encounter for other orthopedic a ftercare Kita Beasley, BARISTA 09/30/2020 Z47.89 Encounter for other orthopedic a ftercare June Bingham, BARISTA 09/28/2020 Z47.89 Encounter for other orthopedic a ftercare Leandra Polancotisha, MSPT 09/22/2020 Z47.89 Encounter for other orthopedic a ftercare Mele Martin MD 09/08/2020 M75.21 Bicipital tendinitis, right shou anna Palacio, MATTHEW 09/08/2020 M75.21 Bicipital tendinitis, right shou ADAMARIS RodriguezC 09/08/2020 M75.31 Calcific tendinitis of right es ADAMARIS MaddoxC 09/08/2020 M24.111 Other articular cartilage disord ers, right shoulder Angely Palacio PA-C 09/08/2020 M75.31 Calcific tendinitis of right es lane Palacio PA-C 09/08/2020 M24.111 Other articular cartilage disord ers, right shoulder ADAMARIS McfaddenC 09/08/2020 M75.21 Bicipital tendinitis, right shou analyer Mele Martin MD 09/08/2020 M75.31 Calcific tendinitis of right es ulder Mele Martin MD 09/08/2020 M24.111 Other articular cartilage disord ers, right shoulder Mele Martin MD 09/03/2020 Z01.818 Encounter for other preprocedura l examination Mele Martin MD 09/03/2020 M75.21 Bicipital tendinitis, right shou lder Mele Martin MD 09/03/2020 Z20.828 Contact with and (hodges spected) exposure to other viral communicable diseases Mele Martin MD 09/03/2020 Z01.818 Encounter for other preprocedura l examination Lab 09/03/2020 Z20.828 Contact with and (hodges spected) exposure to other viral communicable diseases Lab 08/13/2020 Z20.828 Contact w and exposure to oth vi ral communicable diseases Mele Martin MD Plan of Treatment 12/14/2020 - Angely Palacio PA-C* M25.511 Pain in right shoulder* Follow up:* f/u prn * M19.011 Primary osteoarthritis, right shoulder Functional Status Description No Information Available Mental Status Description No Information Available Referrals Refer to Dr Reason for Referral Status Appt Date Mele Martin MD FLUORO INJ NO AUTH REQUIRED PER SHIRA Babcock FOR FLUOROSCOPIC INJECTION TO RIGHT DISTAL CLAVICLE (37770, 13243) TO KASANDRA Llanos DG Created [address] [place] [address] [phone] Mele Martin MD PT - 16 VISITS OK'D FOR R SH LDR FROM 09/28-12/27/20, AUTH# [id number], RES# [id number]. SS Created [address] [place] [phone] Mele Martin MD PT ALLOWED EVAL THEN NEEDS AUTH TO PT DEPT . NT Created [address] [place], [place] [id number] [phone] Martell Lugo PA SURGERY PER PER WILI AT [facility] RT SHOULDER SURGERY IS APPROVED ([id number]) AND CODE [id number] NO AUTH REQUIRED AND CODE (92538 IS BUNDLED IN CODE 64444) . AND PER OPAL AT [facility] AUTH # IS [id number] Created [facility] [place] [id number] [phone] Martell Lugo PA DME [facility] ARC 2.0 SHOULDER BRACE ([id number]) TO ABY NT Created [address] [place], [place] [id number] [phone]
--- OUTSIDE RECORDS SUMMARY | 2021-02-25 09:18 | CCD ---
Author Author [facility] Organization [facility] Address Unknown Phone Unavailable Care Team Providers Care Business Process Associate Name Role Phone NO, PCP Unavailable Unavailable Jayshree Singh MD Unavailable Unavailable Jayshree Singh MD Unavailable Unavailable Jayshree Singh MD Unavailable Unavailable Jayshree Singh MD Unavailable Unavailable Jayshree Singh MD Unavailable Unavailable Jayshree Singh MD Unavailable Unavailable Jayshree Singh MD Unavailable Unavailable Jayshree Singh MD Unavailable Unavailable Jayshree Singh MD Unavailable Unavailable Jayshree Singh MD Unavailable Unavailable Jayshree Singh MD Unavailable Unavailable Jayshree Singh MD Unavailable Unavailable Jayshree Singh MD Unavailable Unavailable Jayshree Singh MD Unavailable Unavailable Jayshree Singh MD Unavailable Unavailable Jayshree Singh MD Unavailable Unavailable Jayshree Singh MD Unavailable Unavailable Jayshree Singh MD Unavailable Unavailable Jayshree Singh MD Unavailable Unavailable Jayshree Singh MD Unavailable Unavailable Jayshree Singh MD Unavailable Unavailable Jayshree Singh MD Unavailable Unavailable Jayshree Singh MD Unavailable Unavailable Jayshree Singh MD Unavailable Unavailable Jayshree Singh MD Unavailable Unavailable Jayshree Singh MD Unavailable Unavailable Jayshree Singh MD Unavailable Unavailable Jayshree Singh MD Unavailable Unavailable Jayshree Singh MD Unavailable Unavailable Jayshree Singh MD Unavailable Unavailable Jayshree Singh MD Unavailable Unavailable Jayshree Singh MD Unavailable Unavailable Jayshree Singh MD Unavailable Unavailable Jayshree Singh MD Unavailable Unavailable Jayshree Singh MD Unavailable Unavailable Jayshree Singh MD Unavailable Unavailable Jayshree Singh MD Unavailable Unavailable Jayshree Singh MD Unavailable Unavailable Jayshree Singh MD Unavailable Unavailable Jayshree Singh MD Unavailable Unavailable Jayshree Singh MD Unavailable Unavailable Jayshree Singh MD Unavailable Unavailable Jayshree Singh MD Unavailable Unavailable Jayshree Singh MD Unavailable Unavailable Jayshree Singh MD Unavailable Unavailable Jayshree Singh MD Unavailable Unavailable Jayshree Singh MD Unavailable Unavailable Jayshree Singh MD Unavailable Unavailable Jayshree Singh MD Unavailable Unavailable Jayshree Singh MD Unavailable Unavailable Jayshree Singh MD Unavailable Unavailable Jayshree Singh MD Unavailable Unavailable Jayshree Singh MD Unavailable Unavailable Jayshree Singh MD Unavailable Unavailable Jayshree Singh MD Unavailable Unavailable Jayshree Singh MD Unavailable Unavailable Jayshree Singh MD Unavailable Unavailable Jayshree Singh MD Unavailable Unavailable Jayshree Singh MD Unavailable Unavailable Jayshree Singh MD Unavailable Unavailable Jayshree Singh MD Unavailable Unavailable Jayshree Singh MD Unavailable Unavailable Jayshree Singh MD Unavailable Unavailable Jayshree Singh MD Unavailable Unavailable Jayshree Singh MD Unavailable Unavailable Jayshree Singh MD Unavailable Unavailable Jayshree Singh MD Unavailable Unavailable Jayshree Singh MD Unavailable Unavailable Jayshree Singh MD Unavailable Unavailable Jayshree Singh MD Unavailable Unavailable Jayshree Singh MD Unavailable Unavailable Jayshree Singh MD Unavailable Unavailable Jayshree Singh MD Unavailable Unavailable Jayshree Singh MD Unavailable Unavailable Jayshree Singh MD Unavailable Unavailable Jayshree Singh MD Unavailable Unavailable Jayshree Singh MD Unavailable Unavailable Jayshree Singh MD Unavailable Unavailable Jayshree Singh MD Unavailable Unavailable Jayshree Singh MD Unavailable Unavailable Jayshree Singh MD Unavailable Unavailable Jayshree Singh MD Unavailable Unavailable Jayshree Singh MD Unavailable Unavailable Jayshree Singh MD Unavailable Unavailable Jayshree Singh MD Unavailable Unavailable Jayshree Singh MD Unavailable Unavailable Jayshree Singh MD Unavailable Unavailable Jayshree Singh MD Unavailable Unavailable Jayshree Singh MD Unavailable Unavailable Jayshree Singh MD Unavailable Unavailable Jayshree Singh MD Unavailable Unavailable Jayshree Singh MD Unavailable Unavailable Jayshree Singh MD Unavailable Unavailable Sunitha Newberry DOOR MACHINE OPERATOR DOOR MACHINE OPERATOR Unavailable Unavailable Lorie Ortiz MD Unavailable Unavailable Lorie Ortiz MD Unavailable Unavailable Lorie Ortiz MD Unavailable Unavailable Lorie Ortiz MD Unavailable Unavailable Lorie Ortiz MD Unavailable Unavailable Lorie Ortiz MD Unavailable Unavailable Lorie Ortiz MD Unavailable Unavailable Lorie Ortiz MD Unavailable Unavailable Lorie Ortiz MD Unavailable Unavailable Koloms, Lorie MD Unavailable Unavailable Koloms, Lorie MD Unavailable Unavailable Koloms, Lorie MD Unavailable Unavailable Koloms, Lorie MD Unavailable Unavailable Koloms, Lorie MD Unavailable Unavailable Koloms, Lorie MD Unavailable Unavailable Koloms, Lorie MD Unavailable Unavailable Koloms, Lorie MD Unavailable Unavailable Koloms, Lorie MD Unavailable Unavailable Koloms, Lorie MD Unavailable Unavailable Koloms, Lorie MD Unavailable Unavailable Koloms, Lorie MD Unavailable Unavailable Koloms, Lorie MD Unavailable Unavailable Koloms, Lorie MD Unavailable Unavailable Koloms, Lorie MD Unavailable Unavailable Koloms, Lorie MD Unavailable Unavailable Koloms, Lorie MD Unavailable Unavailable Koloms, Lorie MD Unavailable Unavailable Koloms, Lorie MD Unavailable Unavailable Koloms, Lorie MD Unavailable Unavailable Koloms, Lorie MD Unavailable Unavailable Koloms, Lorie MD Unavailable Unavailable Koloms, Lorie MD Unavailable Unavailable Koloms, Lorie MD Unavailable Unavailable Mollison, Roxie Washington MD Unavailable Unavailable Mollison, Roxie Washington MD Unavailable Unavailable Mollison, Roxie Washington MD Unavailable Unavailable Mollison, Roxie Washington MD Unavailable Unavailable Mollison, Roxie Washington MD Unavailable Unavailable Mollison, Roxie Washington MD Unavailable Unavailable Mollison, Roxie Washington MD Unavailable Unavailable Mollison, Roxie Washington MD Unavailable Unavailable Mollison, Roxie Washington MD Unavailable Unavailable Mollison, Roxie Washington MD Unavailable Unavailable Mollison, Roxie Washington MD Unavailable Unavailable Mollison, Roxie Washington MD Unavailable Unavailable Mollison, Roxie Washington MD Unavailable Unavailable Mollison, Roxie Washington MD Unavailable Unavailable Mollison, Roxie Washington MD Unavailable Unavailable Mollison, Roxie Washington MD Unavailable Unavailable Mollison, Roxie Washington MD Unavailable Unavailable Mollison, Roxie Washington MD Unavailable Unavailable Mollison, Roxie Washington MD Unavailable Unavailable Mollison, Roxie Washington MD Unavailable Unavailable Mollison, Roxie Washington MD Unavailable Unavailable Mollison, Roxie Washington MD Unavailable Unavailable Mollison, Roxie Washington MD Unavailable Unavailable Mollison, Roxie Washington MD Unavailable Unavailable Mollison, Roxie Washington MD Unavailable Unavailable Mollison, Roxie Washington MD Unavailable Unavailable Mollison, Roxie Washington MD Unavailable Unavailable Mollison, Roxie Washington MD Unavailable Unavailable Mollison, Roxie Washington MD Unavailable Unavailable Mollison, Roxie Washington MD Unavailable Unavailable MAJDolly GRAF DPM Unavailable Unavailable MAJAK R STEVIE DPM Unavailable Unavailable MAJLESIA R STEVIE DPM Unavailable Unavailable MAJLESIA, R STEVIE DPM Unavailable Unavailable MAJLESIA, R STEVIE DPM Unavailable Unavailable MAJAK, R STEVIE DPM Unavailable Unavailable MAJLESIA, R STEVIE DPM Unavailable Unavailable MAJAK, R STEVIE DPM Unavailable Unavailable MAJAK, R STEVIE DPM Unavailable Unavailable MAJAK, R STEVIE DPM Unavailable Unavailable MAJAK, R STEVIE DPM Unavailable Unavailable MAJAK, R STEVIE DPM Unavailable Unavailable MAJAK, R STEVIE DPM Unavailable Unavailable MAJAK, R STEVIE DPM Unavailable Unavailable MAJAK, R STEVIE DPM Unavailable Unavailable MAJAK, R STEVIE DPM Unavailable Unavailable MAJAK, R STEVIE DPM Unavailable Unavailable MAJAK, R STEVIE DPM Unavailable Unavailable MAJAK, R STEVIE DPM Unavailable Unavailable MAJAK, R STEVIE DPM Unavailable Unavailable MAJAK, R STEVIE DPM Unavailable Unavailable MAJAK, R STEVIE DPM Unavailable Unavailable MAJAK, R STEVIE DPM Unavailable Unavailable MAJAK, R STEVIE DPM Unavailable Unavailable MAJAK, R STEVIE DPM Unavailable Unavailable MAJAK, R STEVIE DPM Unavailable Unavailable MAJAK, R STEVIE DPM Unavailable Unavailable MAJAK, R STEVIE DPM Unavailable Unavailable MAJAK, R STEVIE DPM Unavailable Unavailable MAJAK, R STEVIE DPM Unavailable Unavailable MAJAK, R STEVIE DPM Unavailable Unavailable MAJAK, R STEVIE DPM Unavailable Unavailable Palacio, M Barratt PA Unavailable Unavailable Palacio, M Barratt PA Unavailable Unavailable Palacio, M Barratt PA Unavailable Unavailable Palacio, M Barratt PA Unavailable Unavailable Palacio, M Barratt PA Unavailable Unavailable Palacio, M Barratt PA Unavailable Unavailable Palacio, M Barratt PA Unavailable Unavailable Palacio, M Barratt PA Unavailable Unavailable Palacio, M Barratt PA Unavailable Unavailable Palacio, M Barratt PA Unavailable Unavailable Palacio, M Barratt PA Unavailable Unavailable Palacio, M Barratt PA Unavailable Unavailable Palacio, M Barratt PA Unavailable Unavailable Palacio, M Barratt PA Unavailable Unavailable Palacio, M Barratt PA Unavailable Unavailable Palacio, M Barratt PA Unavailable Unavailable Palacio, M Barratt PA Unavailable Unavailable Palacio, M Barratt PA Unavailable Unavailable Palacio, M Barratt PA Unavailable Unavailable Palacio, M Barratt PA Unavailable Unavailable Palacio, M Barratt PA Unavailable Unavailable Palacio, M Barratt PA Unavailable Unavailable Palacio, M Barratt PA Unavailable Unavailable Palacio, M Barratt PA Unavailable Unavailable Palacio, M Barratt PA Unavailable Unavailable Palacio, M Barratt PA Unavailable Unavailable Palacio, M Barratt PA Unavailable Unavailable Palacio, M Barratt PA Unavailable Unavailable Rd Palacio PA Unavailable Unavailable Clive, A Sunitha DOOR MACHINE OPERATOR Unavailable Unavailable Clive, A Sunitha DOOR MACHINE OPERATOR Unavailable Unavailable Clive, A Sunitha DOOR MACHINE OPERATOR Unavailable Unavailable Clive, A Sunitha DOOR MACHINE OPERATOR Unavailable Unavailable Clive, A Sunitha DOOR MACHINE OPERATOR Unavailable Unavailable Clive, A Sunitha DOOR MACHINE OPERATOR Unavailable Unavailable Clive, A Sunitha DOOR MACHINE OPERATOR Unavailable Unavailable Clive, A Sunitha DOOR MACHINE OPERATOR Unavailable Unavailable Clive, A Sunitha DOOR MACHINE OPERATOR Unavailable Unavailable Clive, A Sunitha DOOR MACHINE OPERATOR Unavailable Unavailable Clive, A Sunitha DOOR MACHINE OPERATOR Unavailable Unavailable Clive, A Sunitha DOOR MACHINE OPERATOR Unavailable Unavailable Clive, A Sunitha DOOR MACHINE OPERATOR Unavailable Unavailable Clive, A Sunitha DOOR MACHINE OPERATOR Unavailable Unavailable Clive, A Sunitha DOOR MACHINE OPERATOR Unavailable Unavailable Clive, A Sunitha DOOR MACHINE OPERATOR Unavailable Unavailable Clive, A Sunitha DOOR MACHINE OPERATOR Unavailable Unavailable Clive, A Sunitha DOOR MACHINE OPERATOR Unavailable Unavailable Clive, A Sunitha DOOR MACHINE OPERATOR Unavailable Unavailable Clive, A Sunitha DOOR MACHINE OPERATOR Unavailable Unavailable Clive, A Sunitha DOOR MACHINE OPERATOR Unavailable Unavailable Clive, A Sunitha DOOR MACHINE OPERATOR Unavailable Unavailable Clive, A Sunitha DOOR MACHINE OPERATOR Unavailable Unavailable Clive, A Sunitha DOOR MACHINE OPERATOR Unavailable Unavailable Clive, A Sunitha DOOR MACHINE OPERATOR Unavailable Unavailable Clive, A Sunitha DOOR MACHINE OPERATOR Unavailable Unavailable Clive, A Sunitha DOOR MACHINE OPERATOR Unavailable Unavailable Clive, A Sunitha DOOR MACHINE OPERATOR Unavailable Unavailable Clive, A Sunitha DOOR MACHINE OPERATOR Unavailable Unavailable Clive, A Sunitha DOOR MACHINE OPERATOR Unavailable Unavailable Clive, A Sunitha DOOR MACHINE OPERATOR Unavailable Unavailable REINDL, ERIN ONTIVEROS Unavailable Unavailable REINDL, ERIN ONTIVEROS Unavailable Unavailable REINDL, ERIN ONTIVEROS Unavailable Unavailable REINDL, ERIN ONTIVEROS Unavailable Unavailable REINDL, ERIN ONTIVEROS Unavailable Unavailable REINDL, ERIN ONTIVEROS Unavailable Unavailable REINDL, ERIN ONTIVEROS Unavailable Unavailable REINDL, ERIN ONTIVEROS Unavailable Unavailable REINDL, ERIN ONTIVEROS Unavailable Unavailable REINDL, ERIN ONTIVEROS Unavailable Unavailable REINDL, ERIN ONTIVEROS Unavailable Unavailable REINDL, ERIN ONTIVEROS Unavailable Unavailable REINDL, ERIN ONTIVEROS Unavailable Unavailable REINDL, ERIN ONTIVEROS Unavailable Unavailable REINDL, ERIN ONTIVEROS Unavailable Unavailable REINDL, ERIN ONTIVEROS Unavailable Unavailable REINDL, ERIN ONTIVEROS Unavailable Unavailable REINDL, ERIN ONTIVEROS Unavailable Unavailable REINDL, ERIN ONTIVEROS Unavailable Unavailable REINDL, ERIN ONTIVEROS Unavailable Unavailable REINDL, ERIN ONTIVEROS Unavailable Unavailable REINDL, ERIN ONTIVEROS Unavailable Unavailable REINDL, ERIN ONTIVEROS Unavailable Unavailable REINDL, ERIN ONTIVEROS Unavailable Unavailable REINDL, ERIN ONTIVEROS Unavailable Unavailable REINDL, ERIN ONTIVEROS Unavailable Unavailable REINDL, ERIN ONTIVEROS Unavailable Unavailable REINDL, ERIN ONTIVEROS Unavailable Unavailable REINDL, ERIN ONTIVEROS Unavailable Unavailable REINDL, ERIN ONTIVEROS Unavailable Unavailable REINDL, ERIN ONTIVEROS Unavailable Unavailable REINDL, ERIN ONTIVEROS Unavailable Unavailable REINDL, ERIN ONTIVEROS Unavailable Unavailable REINDL, ERIN ONTIVEROS Unavailable Unavailable REINDL, ERIN ONTIVEROS Unavailable Unavailable REINDL, ERIN ONTIVEROS Unavailable Unavailable REINDL, ERIN ONTIVEROS Unavailable Unavailable REINDL, ERIN ONTIVEROS Unavailable Unavailable REINDL, ERIN ONTIVEROS Unavailable Unavailable REINDL, ERIN ONTIVEROS Unavailable Unavailable REINDL, ERIN ONTIVEROS Unavailable Unavailable REINDL, ERIN ONTIVEROS Unavailable Unavailable SawyervilleAhsan rodriguez MD Unavailable Unavailable VeronicaAhsan rodriguez MD Unavailable Unavailable Ahsan Martin MD Unavailable Unavailable Ahsan Martin MD Unavailable Unavailable Ahsan Martin MD Unavailable Unavailable Veronica, Ahsan Shabazz MD Unavailable Unavailable Ahsan Martin MD Unavailable Unavailable Ahsan Martin MD Unavailable Unavailable Ahsan Martin MD Unavailable Unavailable Ahsan Martin MD Unavailable Unavailable Veronica, Ahsan Shabazz MD Unavailable Unavailable MCELHERAN, VICTOR MANUEL PA Unavailable Unavailable MCELHERAN, VICTOR MANUEL PA Unavailable Unavailable MCELHERAN, VICTOR MANUEL PA Unavailable Unavailable MCELHERAN, VICTOR MANUEL PA Unavailable Unavailable MCELHERAN, VICTOR MANUEL PA Unavailable Unavailable MCELHERAN, VICTOR MANUEL PA Unavailable Unavailable MCELHERAN, VICTOR MANUEL PA Unavailable Unavailable MCELHERAN, VICTOR MANUEL PA Unavailable Unavailable MCELHERAN, VICTOR MANUEL PA Unavailable Unavailable MCELHERAN, VICTOR MANUEL PA Unavailable Unavailable MCELHERAN, VICTOR MANUEL PA Unavailable Unavailable MCELHERAN, VICTOR MANUEL PA Unavailable Unavailable MCELHERAN, VICTOR MANUEL PA Unavailable Unavailable MCELHERAN, VICTOR MANUEL PA Unavailable Unavailable MCELHERAN, VICTOR MANUEL PA Unavailable Unavailable MCELHERAN, VICTOR MANUEL PA Unavailable Unavailable MCELHERAN, VICTOR MANUEL PA Unavailable Unavailable MCELHERAN, VICTOR MANUEL PA Unavailable Unavailable MCELHERAN, VICTOR MANUEL PA Unavailable Unavailable MCELHERAN, VICTOR MANUEL PA Unavailable Unavailable MCELAN, VICTOR MANUEL PA Unavailable Unavailable MCELHERAN, VICTOR MANUEL PA Unavailable Unavailable MCELHERAN, VICTOR MANUEL PA Unavailable Unavailable MCELHERAN, VICTOR MANUEL PA Unavailable Unavailable MCELHERAN, VICTOR MANUEL PA Unavailable Unavailable MCELHERAN, VICTOR MANUEL PA Unavailable Unavailable MCELHERAN, VICTOR MANUEL PA Unavailable Unavailable MCELHERAN, VICTOR MANUEL PA Unavailable Unavailable MCELHERAN, VICTOR MANUEL PA Unavailable Unavailable Rohith, A Sunitha DOOR MACHINE OPERATOR Unavailable Unavailable Rohith, A Sunitha DOOR MACHINE OPERATOR Unavailable Unavailable Rohith, A Sunitha DOOR MACHINE OPERATOR Unavailable Unavailable Rohith, A Sunitha DOOR MACHINE OPERATOR Unavailable Unavailable Clive, A Sunitha DOOR MACHINE OPERATOR Unavailable Unavailable Clive, A Sunitha DOOR MACHINE OPERATOR Unavailable Unavailable Clive, A Sunitha DOOR MACHINE OPERATOR Unavailable Unavailable Clive, A Sunitha DOOR MACHINE OPERATOR Unavailable Unavailable Clive, A Sunitha DOOR MACHINE OPERATOR Unavailable Unavailable Clive, A Sunitha DOOR MACHINE OPERATOR Unavailable Unavailable Clive, A Sunitha DOOR MACHINE OPERATOR Unavailable Unavailable Clive, A Sunitha DOOR MACHINE OPERATOR Unavailable Unavailable Clive, A Sunitha DOOR MACHINE OPERATOR Unavailable Unavailable Clive, A Sunitha DOOR MACHINE OPERATOR Unavailable Unavailable Clive, A Sunitha DOOR MACHINE OPERATOR Unavailable Unavailable Clive, A Sunitha DOOR MACHINE OPERATOR Unavailable Unavailable Clive, A Sunitha DOOR MACHINE OPERATOR Unavailable Unavailable Clive, A Sunitha DOOR MACHINE OPERATOR Unavailable Unavailable Clive, A Sunitha DOOR MACHINE OPERATOR Unavailable Unavailable Clive, A Sunitha DOOR MACHINE OPERATOR Unavailable Unavailable Clive, A Sunitha DOOR MACHINE OPERATOR Unavailable Unavailable Clive, A Sunitha DOOR MACHINE OPERATOR Unavailable Unavailable Clive, A Sunitha DOOR MACHINE OPERATOR Unavailable Unavailable Clive, A Sunitha DOOR MACHINE OPERATOR Unavailable Unavailable Clive, A Sunitha DOOR MACHINE OPERATOR Unavailable Unavailable Clive, A Sunitha DOOR MACHINE OPERATOR Unavailable Unavailable Clive, A Sunitha DOOR MACHINE OPERATOR Unavailable Unavailable Clive, A Sunitha DOOR MACHINE OPERATOR Unavailable Unavailable Clive, A Sunitha DOOR MACHINE OPERATOR Unavailable Unavailable Clive, A Sunitha DOOR MACHINE OPERATOR Unavailable Unavailable Clive, A Sunitha DOOR MACHINE OPERATOR Unavailable Unavailable AVELINO, HERMILO RITESH DOOR MACHINE OPERATOR-C Unavailable Unavailable AVELINO, HERMILO RITESH DOOR MACHINE OPERATOR-C Unavailable Unavailable AVELINO, HERMILO RITESH DOOR MACHINE OPERATOR-C Unavailable Unavailable AVELINO, HERMILO RITESH DOOR MACHINE OPERATOR-C Unavailable Unavailable AVELINO, HERMILO RITESH DOOR MACHINE OPERATOR-C Unavailable Unavailable AVELINO, HERMILO RITESH DOOR MACHINE OPERATOR-C Unavailable Unavailable AVELINO, HERMILO RITESH DOOR MACHINE OPERATOR-C Unavailable Unavailable AVELINO, HERMILO RITESH DOOR MACHINE OPERATOR-C Unavailable Unavailable AVELINO, HERMILO RITESH DOOR MACHINE OPERATOR-C Unavailable Unavailable AVELINO, HERMILO RITESH DOOR MACHINE OPERATOR-C Unavailable Unavailable AVELINO, HERMILO RITESH DOOR MACHINE OPERATOR-C Unavailable Unavailable AVELINO, HERMILO RITESH DOOR MACHINE OPERATOR-C Unavailable Unavailable AVELINO, HERMILO RITESH DOOR MACHINE OPERATOR-C Unavailable Unavailable AVELINO, HERMILO RITESH DOOR MACHINE OPERATOR-C Unavailable Unavailable AVELINO, HERMILO RITESH DOOR MACHINE OPERATOR-C Unavailable Unavailable AVELINO, HERMILO RITESH DOOR MACHINE OPERATOR-C Unavailable Unavailable AVELINO, HERMILO RITESH DOOR MACHINE OPERATOR-C Unavailable Unavailable Corrales, M Christopher PA-C Unavailable Unavailable Corrales, M Christopher PA-C Unavailable Unavailable Corrales, M Christopher PA-C Unavailable Unavailable Corrales, M Christopher PA-C Unavailable Unavailable Corrales, M Christopher PA-C Unavailable Unavailable Corrales, M Christopher PA-C Unavailable Unavailable Corrales, M Christopher PA-C Unavailable Unavailable Corrales, M Christopher PA-C Unavailable Unavailable Corrales, M Christopher PA-C Unavailable Unavailable Corrales, M Christopher PA-C Unavailable Unavailable Corrales, M Christopher PA-C Unavailable Unavailable Corrales, M Christopher PA-C Unavailable Unavailable Corrales, M Christopher PA-C Unavailable Unavailable Corrales, M Christopher PA-C Unavailable Unavailable Corrales, M Christopher PA-C Unavailable Unavailable Corrales, M Christopher PA-C Unavailable Unavailable Corrales, M Christopher PA-C Unavailable Unavailable Corrales, M Christopher PA-C Unavailable Unavailable Corrales, M Christopher PA-C Unavailable Unavailable Corrales, M Christopher PA-C Unavailable Unavailable Corrales, M Christopher PA-C Unavailable Unavailable Corrales, M Christopher PA-C Unavailable Unavailable Corrales, M Christopher PA-C Unavailable Unavailable Corrales, M Christopher PA-C Unavailable Unavailable Corrales, M Christopher PA-C Unavailable Unavailable Corrales, M Christopher PA-C Unavailable Unavailable Re-disclosure Warning The records that you are about to access may contain information from federally-assisted alcohol or drug abuse programs. If such information is present, then the following federally mandated warning applies: This information has been disclosed to you from records protected by federal confidentiality rules (42 CFR part 2). The federal rules prohibit you from making any further disclosure of this information unless further disclosure is expressly permitted by the written consent of the person to whom it pertains or as otherwise permitted by 42 CFR part 2. A general authorization for the release of medical or other information is NOT sufficient for this purpose. The Federal rules restrict any use of the information to criminally investigate or prosecute any alcohol or drug abuse patient.The records that you are about to access may contain highly sensitive health information, the redisclosure of which is protected by Article 27-F of the [place] State Public Health law. If you continue you may have access to information: Regarding HIV / AIDS; Provided by facilities licensed or operated by the [facility] Office of Mental Health; or Provided by the [facility] Office for People With Developmental Disabilities. If such information is present, then the following [facility] mandated warning applies: This information has been disclosed to you from confidential records which are protected by state law. State law prohibits you from making any further disclosure of this information without the specific written consent of the person to whom it pertains, or as otherwise permitted by law. Any unauthorized further disclosure in violation of state law may result in a fine or [place] [facility] sentence or both. A general authorization for the release of medical or other information is NOT sufficient authorization for further disc losure. Allergies and Adverse Reactions Type Description Substance Reaction Status Data Source(s ) No Known Food Allergies No Known Food Allergies [facility] Propensity to adverse reactions BACTRIM BACTRIM [facility] Propensity to adverse reactions LATEX LATEX [facility] No Known Drug Allergies No Known Drug Allergies [facility] No Known Environmental Allergies [facility] Allergy to substance Allergy to substance [facility] ([facility]) Encounters Encounter Providers Location Date Indications Data Source(s ) Outpatient Attender: Dennis Corrales PA-C 01/22/2021 01:26:04 PM EDT - 01/22/2021 02:39:00 PM EDT [facility] ([facility] [place] [address] [address] 01/04/2021 12:00:00 AM EDT eCW1 ([facility]) Outpatient Attender: Angely MONIQUE Physical Therapy 05:45:00 PM EDT [facility] ([facility]) Office Visit Attender: Angely MONIQUE Physical Therapy 08:30:00 AM EDT [facility] ([facility]) Outpatient Attender: ERIN Cruz/Asha/Efrem/Marjorie blackmon 11/17/2020 10:40:00 AM EDT [facility] ([facility]) Outpatient Attender: Lorie Ortiz MDConsultant: PCP NO 11/03/2020 07:30:00 AM EDT - 11/03/2020 10:17:00 AM EDT [facility] Outpatient Attender: Lorie MEZAonsultant: VIVI JACK 10/28/2020 09:38:21 AM EDT - 10/28/2020 12:00:00 PM EDT [facility] [facility] [address], [place] [address], Ph. Attender: Sunitha Newberry [facility] Medical 10/26/2020 12:00:00 AM EDT [facility]) [place] [facility]: [address], [place] [address], Ph. Attender: Sunitha Newberry [facility] Medical 10/26/2020 12:00:00 AM EDT WICHITA ([facility]) Office Visit Attender: Mele Martin MD Physical Therapy 11/2020 11:15:00 AM EDT YARA ([facility] ) ASHLEIGH [facility]: [address], [place] [address], Ph. Attender: Sunitha Newberry [facility] Medical 10/11/2020 12:00:00 AM EDT [facility]) ASHLEIGH [place]: [address], [place] [address], Ph. Attender: Sunitha Newberry [facility] Medical 10/11/2020 12:00:00 AM EDT CHRISTA ([facility]) ASHLEIGH [facility]: [address], [place] [address], Ph. Attender: Sunitha Newberry [facility] Medical 10/11/2020 12:00:00 AM EDT WICHITA ([facility]) [facility]: [address], [place] [address], Ph. Attender: Sunitha Newberry [facility] Medical 09/24/2020 12:00:00 AM EDT CHRISTA ([facility]) Sunitha Newberry [facility]: [address], [place] [address], Ph. Attender: Sunitha Newberry [facility] Medical 09/24/2020 12:00:00 AM EDT WICHITA ([facility]) Sunitha Newberry [facility]: [address], [place] [address], Ph. Attender: Sunitha Newberry [facility] Medical 09/24/2020 12:00:00 AM EDT WICHITA ([facility]) [place] [facility]: [address], [place] [address], Ph. Attender: Sunitha Newberry [facility] Medical 09/24/2020 12:00:00 AM EDT CHRISTA ([facility]) Sunitha Newberry [facility]: [address], [place] [address], Ph. Attender: Sunitha Newberry [facility] Medical 09/24/2020 12:00:00 AM EDT CHRISTA ([facility]) Office Visit Attender: Mele Martin MD Physical Therapy 12/2020 09:00:00 AM EDT YARA ([facility]) [facility] [address], [place] [address], Ph. Attender: Sunitha Newberry [facility] Medical 09/02/2020 12:00:00 AM EDT WICHITA ([facility]) Sunitha Newberry [facility]: [address], [place] [address], Ph. Attender: Sunitha Newberry [facility] Medical 09/02/2020 12:00:00 AM EDT [facility]) Sunitha Newberry [facility]: [address], [place] [address], Ph. Attender: Sunitha Newberry [facility] Medical 09/02/2020 12:00:00 AM EDT [facility]) Sunitha Newberry [facility]: [address], [place] [address], Ph. Attender: Sunitha Newberry [facility] Medical 09/02/2020 12:00:00 AM EDT WICHITA ([facility]) Sunitha Newberry [facility]: [address] [place] [address], Ph. Attender: Sunitha Newberry [facility] Medical 09/02/2020 12:00:00 AM EDT WICHITA ([facility]) Sunitha Newberry [facility]: [address], [place] [address], Ph. Attender: Sunitha Newberry [facility] Medical 09/02/2020 12:00:00 AM EDT [facility]) Felix Singh MD: [address], [place] [address], Ph. Attender: Felix Singh MD [facility] Medical 08/24/2020 12:00:00 AM EDT CHRISTA ([facility]) Felix Singh MD: [address] [place] [address], Ph. Attender: Felix Singh MD [facility] Medical 08/24/2020 12:00:00 AM EDT CHRISTA ([facility]) Felix Singh MD: [address] [place] [address], Ph. Attender: Felix Singh MD [facility] Medical 08/24/2020 12:00:00 AM EDT CHRISTA ([facility]) Fleix Singh MD: [address] [place] [address], Ph. Attender: Felix Singh MD [facility] Medical 08/24/2020 12:00:00 AM EDT CHRISTA ([facility]) Felxi Singh MD: [address] [place] [address], Ph. Attender: Felix Singh MD [facility] Medical 08/24/2020 12:00:00 AM EDT CHRISTA ([facility]) Felix Singh MD: [address] [place] [address], Ph. Attender: Felix Singh MD [facility] Medical 08/24/2020 12:00:00 AM EDT CHRISTA ([facility]) Felix Singh MD: [address] [place] [address], Ph. Attender: Felix Singh MD [facility] Medical 08/24/2020 12:00:00 AM EDT CHRISTA ([facility]) Outpatient Attender: RITESH CROSSP-C Anthony/Asha/Efrem/Dolly badillo 08/09/2020 09:15:00 AM EDT MEDENT ([facility]) Outpatient Attender: Mele Martin MD Physical Therapy 11:15:00 AM EDT MEDENT ([facility]) OFFICE OUTPATIENT VISIT 15 MINUTES Attender: VICTOR MANUEL MONIQUE Physical Therapy 07/28/2020 11:15:00 AM EDT MEDENT ([facility]) OFFICE OUTPATIENT NEW 30 MINUTES Attender: VICTOR MANUEL MONIQUE Physical Therapy 06/10/2020 12:30:00 PM EST MEDENT ([facility]) Outpatient Attender: STEVIE HUANG [facility] Office 05/17 12:00:00 PM EST MEDENT ([facility] Sunitha Newberry [facility]: [address], [place] [address], Ph. Attender: Sunitha Newberry [facility] Medical 06/02/2020 12:00:00 AM EST CHRISTA ([facility]) Sunitha Newberry [facility]: [address], [place] [address], Ph. Attender: Sunitha Newberry [facility] Medical 06/02/2020 12:00:00 AM EST CHRISTA ([facility]) [facility]: [address], [place] [address], Ph. Attender: Sunitha Newberry [facility] Medical 06/02/2020 12:00:00 AM EST CHRISTA ([facility]) Sunitha Newberry [facility]: [address], [place] [address], Ph. Attender: Sunitha Newberry [facility] Medical 06/02/2020 12:00:00 AM EST CHRISTA ([facility]) Sunitah Newberry [facility]: [address], [place] [address], Ph. Attender: Sunitha Newberry [facility] Medical 06/02/2020 12:00:00 AM EST CHRISTA ([facility]) Sunitha Newberry [facility]: [address], [place] [address], Ph. Attender: Sunitha Newberry [facility] Medical 06/02/2020 12:00:00 AM EST CHRISTA ([facility]) Sunitha Newberry [facility]: [address], [place] [address], Ph. Attender: Sunitha Newberry [facility] Medical 06/02/2020 12:00:00 AM EST CHRISTA ([facility]) Sunitha Newberry [facility]: [address], [place] [address], Ph. Attender: Sunitha Newberry [facility] Medical 06/02/2020 12:00:00 AM EST CHRISTA ([facility]) Sunitha Newberry [facility]: [address], [place] [address], Ph. Attender: Sunitha Newberry [facility] Medical 03/22/2020 12:00:00 AM EST CHRISTA ([facility]) Sunitha Newberry [facility]: [address], [place] [address], Ph. Attender: Sunitha Newberry [facility] Medical 03/22/2020 12:00:00 AM EST CHRISTA ([facility]) ASHLEIGH T[facility]well: [address], [place] [address], Ph. Attender: Sunitha Newberry [facility] Medical 03/22/2020 12:00:00 AM EST CHRISTA ([facility]) [place] [facility]: [address], [place] [address], Ph. Attender: Sunitha Newberry [facility] Medical 03/22/2020 12:00:00 AM EST CHRISTA ([facility]) ASHLEIGH Tidwell: [address], [place] [address], Ph. Attender: Sunitha Newberry [facility] Medical 03/22/2020 12:00:00 AM EST CHRISTA ([facility]) ASHLEIGH [place]: [address], [place] [address], Ph. Attender: Sunitha Newberry [facility] Medical 03/22/2020 12:00:00 AM EST CHRISTA ([facility]) ASHLEIGH Tidwell: [address], [place] [address], Ph. Attender: Sunitha Newberry [facility] Medical 03/22/2020 12:00:00 AM EST CHRISTA ([facility]) ASHLEIGH [place]: [address], [place] [address], Ph. Attender: Sunitha Newberry [facility] Medical 03/22/2020 12:00:00 AM EST CHRISTA ([facility]) KRYSTIN Tidwell-BC: [address] [facility] [place] [address], Ph. Attender: Sunitha MCCLELLAND [facility] Medical 03/22/2020 12:00:00 AM EST CHRISTA ([facility]) Outpatient Attender: Felix [place]/Re ind[facility] 02/19/2020 07:00:00 AM EST MEDENT ([facility]) Outpatient Attender: RITESH Cruz/[place] 02/05/2020 02:45:00 PM EDT MEDENT ([facility]) Outpatient Attender: Felix Cruz/[place] 02/04/2020 03:00:00 PM EDT MEDENT ([facility] ) Outpatient Attender: KRYSTIN MCCLELLAND 02/02/2020 08:54:01 A M EDT [facility] Outpatient Attender: KRYSTIN MCCLELLAND 01/28/2020 04:52:00 P M EDT [facility] Outpatient Attender: Sunitha BOLAND 01/26/2020 09:5 3:01 AM EDT [facility] Outpatient Attender: Sunitha BOLAND 01/22/2020 06:1 9:02 PM EDT [facility] Outpatient Attender: Sunitha BOLAND 01/17/2020 07:0 0:06 PM EDT [facility] Outpatient Attender: KRYSTIN BOLAND 01/17/2020 07:00:01 P M EDT [facility] Outpatient Attender: KRYSTIN BOLAND 01/14/2020 09:48:03 A M EDT [facility] Outpatient Attender: KRYSTIN BOLAND 01/14/2020 08:41:00 A M EDT [facility] Immunizations Vaccine Date Status Description Data Source(s) COVID-19, mRNA, LNP-S, PF, 100 mcg/0.5 mL dose 08/18/2020 12 :00:00 AM EDT completed 08/18/2020 WICHITA ([facility]) COVID-19, mRNA, LNP-S, PF, 100 mcg/0.5 mL dose 08/18/2020 12 :00:00 AM EDT completed 08/18/2020 [place]ITA ([facility]) COVID-19, mRNA, LNP-S, PF, 100 mcg/0.5 mL dose 08/18/2020 12 :00:00 AM EDT completed 08/18/2020 [place] ([facility]) COVID-19, mRNA, LNP-S, PF, 100 mcg/0.5 mL dose 08/18/2020 12 :00:00 AM EDT completed 08/18/2020 [place] ([facility]) COVID-19, mRNA, LNP-S, PF, 100 mcg/0.5 mL dose 08/18/2020 12 :00:00 AM EDT completed 08/18/2020 [place] ([facility]) COVID-19, mRNA, LNP-S, PF, 100 mcg/0.5 mL dose 08/18/2020 12 :00:00 AM EDT completed 08/18/2020 [place] ([facility]) COVID-19 VACCINE Moderna 08/18/2020 12:00:00 AM EDT completed [facility] Vaccine Series Complete: YESThis Data wa s Submitted to [facility] Via [facility]. COVID-19, mRNA, LNP-S, PF, 100 mcg/0.5 mL dose 07/21/2020 12 :00:00 AM EDT completed 07/21/2020 CHRISTA ([facility]) COVID-19, mRNA, LNP-S, PF, 100 mcg/0.5 mL dose 07/21/2020 12 :00:00 AM EDT completed 07/21/2020 [place]ITA ([facility]) COVID-19, mRNA, LNP-S, PF, 100 mcg/0.5 mL dose 07/21/2020 12 :00:00 AM EDT completed 07/21/2020 [place] ([facility]) COVID-19, mRNA, LNP-S, PF, 100 mcg/0.5 mL dose 07/21/2020 12 :00:00 AM EDT completed 07/21/2020 [facility]) COVID-19, mRNA, LNP-S, PF, 100 mcg/0.5 mL dose 07/21/2020 12 :00:00 AM EDT completed 07/21/2020 CHRISTA ([facility]) COVID-19, mRNA, LNP-S, PF, 100 mcg/0.5 mL dose 07/21/2020 12 :00:00 AM EDT completed 07/21/2020 [place]ITA ([facility]) COVID-19 VACCINE Moderna 07/21/2020 12:00:00 AM EDT [facility] Complete: NOThis Data was Submitted to [facility] Via [employer]. Medications Medication Brand Name Start Date Product Form Dose Route Admi nistrative Instructions Pharmacy Instructions Status Indications Reaction Description Data Source(s) 50 mcg 01/28/2021 12:00:00 AM EDT tablet 30 TAKE ONE TABLET BY MOUTH EVERY DAY TAKE ONE TABLET BY MOUTH EVERY DAY SOLD: 01/29/2021 [employer] Amoxicillin 875 MG / Clavulanate 125 MG Oral Tablet 87 5-125 mg AMOXICILLIN/POTASSIUM CLAV 01/22/2021 12:00:00 AM EDT tablet 20 TAKE ONE TABLET BY MOUTH TWICE A DAY FOR 10 DAYS TAKE ONE TABLET BY MOUTH TWICE A DAY FOR 10 DAYS SOLD: 01/23/2021 [facility] 1 % 01/05/2021 12:00:00 AM EDT lotion 60 APPLY TO AFFECTED AREA(S) TWO TIMES A DAY APPLY TO AFFECTED AREA(S) TWO TIMES A DAY SOLD: 01/13/2021 [facility] Clindamycin 10 MG/ML Topical Lotion Clindamycin Phosph ate 1 % Clindamycin Phosphate 1 % 01/04/2021 12:00:00 AM EDT 1.0 {application} active Clindamycin Phosphate 1 % [id number] ([facility]) Citalopram 40 MG Oral Tablet CITALOPRAM HYDROBROMIDE 11/26/2020 12:00:00 AM EDT tablet 30 TAKE ONE TABLET BY MOUTH DAILY TAKE ONE T ABLET BY MOUTH DAILY SOLD: 11/30/2020 [employer] Citalopram 40 MG Oral Tablet CITALOPRAM HYDROBROMIDE 11/26/2020 12:00:00 AM EDT tablet 30 TAKE ONE TABLET BY MOUTH DAILY TAKE ONE T ABLET BY MOUTH DAILY SOLD: 12/30/2020 [facility] Citalopram 40 MG Oral Tablet CITALOPRAM HYDROBROMIDE 11/26/2020 12:00:00 AM EDT tablet 30 TAKE ONE TABLET BY MOUTH DAILY TAKE ONE T ABLET BY MOUTH DAILY SOLD: 01/28/2021 [facility] 1.479-0.188- 0.225 gram 11/17/2020 12:00:00 AM EDT tablet 24 USE DIRECTED-SEE OFFICE COLON PREP INSTRUCTIONS USE DIRECTED-SEE OFFICE COLON PREP INSTRUCTIONS SOLD: 11/30/2020 [facility] POLYETHYLENE GLYCOL 3350 142 MG/ML Oral Solution [Miralax] M iralax 11/17/2020 12:00:00 AM EDT active M EDENT ([facility], ) Sutab Sutab 11/17/2020 12:00:00 AM EDT active MEDENT ([facility], ) Magnesium Hydroxide 80 MG/ML Oral Suspension Milk Of Magnesi a 11/17/2020 12:00:00 AM EDT ORAL active M EDENT ([facility], ) 17 gram/dose 11/17/2020 12:00:00 AM EDT powder 510 TAKE 17GM ONCE A DAY TAKE 17GM ONCE A DAY SOLD: 11/19/2020 [facility] 10 mg 11/02/2020 12:00:00 AM EDT tablet 40 TAKE ONE TABLET BY MOUTH EVERY 6 HOURS NEEDED TAKE ONE TABLET BY MOUTH EVERY 6 HOURS NEEDED SOLD: 11/04/2020 [facility] 0.5 % 10/25/2020 12:00:00 AM EDT drops 5 INSTILL 1 DROP IN THE LEFT EYE FOUR TIMES A DAY - START 3 DAYS PRIOR TO SURGERY INSTILL 1 DROP IN THE LEFT EYE FOUR TIMES A DAY - START 3 DAYS PRIOR TO SURGERY SOLD: 10/28/2020 [facility] 1 % 10/25/2020 12:00:00 AM EDT drops,suspension 5 INSTILL 1 DROP IN THE LEFT EYE FOUR TIMES A DAY - START DAY OF SURGERY AFTER YOU GET HOME INSTILL 1 DROP IN THE LEFT EYE FOUR TIMES A DAY - START DAY OF SURGERY AFTER YOU GET HOME SOLD: 10/28/2020 [facility] 0.5 % 10/25/2020 12:00:00 AM EDT drops 5 INSTILL 1 DROP IN THE LEFT EYE FOUR TIMES A DAY - START 3 DAYS PRIOR TO SURGERY INSTILL 1 DROP IN THE LEFT EYE FOUR TIMES A DAY - START 3 DAYS PRIOR TO SURGERY SOLD: 11/19/2020 [facility] 0.3 % 10/25/2020 12:00:00 AM EDT drops 5 INSTILL 1 DROP INTO THE LEFT EYE FOUR TIMES A DAY - START 3 DAYS PRIOR TO SURGERY INSTILL 1 DROP INTO THE LEFT EYE FOUR TIMES A DAY - START 3 DAYS PRIOR TO SURGERY SOLD: 10/28/2020 [facility] 1 % 10/25/2020 12:00:00 AM EDT drops,suspension 5 INSTILL 1 DROP IN THE LEFT EYE FOUR TIMES A DAY - START DAY OF SURGERY AFTER YOU GET HOME INSTILL 1 DROP IN THE LEFT EYE FOUR TIMES A DAY - START DAY OF SURGERY AFTER YOU GET HOME SOLD: 11/19/2020 [facility] 4 mg 09/25/2020 12:00:00 AM EDT tablet 15 TAKE 2 TABLETS BY MOUTH TWO TIMES A DAY TAKE 2 TABLETS BY MOUTH TWO TIMES A DAY SOLD: 09/26/2020 [facility] carvedilol 12.5 MG Oral Tablet CARVEDILOL 09/22/2020 12:00:00 AM EDT tablet 180 TAKE ONE TABLET BY MOUTH TWICE A DAY - I F BLOOD PRESSURE LESS THAN 100/50 REDUCE EVENING DOSE TO ONE-HALF TABLET TAKE ONE TABLET BY MOUTH TWICE A DAY - I F BLOOD PRESSURE LESS THAN 100/50 REDUCE EVENING DOSE TO ONE-HALF TABLET SOLD: 09/26/2020 [facility] pantoprazole 40 MG Delayed Release Oral Tablet PANTOPRAZOLE SODIUM 09/14/2020 12:00:00 AM EDT tablet,delayed release (DR/EC) 30 T MATTHEW ONE TABLET BY MOUTH ONCE DAILY TAKE ONE TABLET BY MOUTH ONCE DAILY SOLD: 09/14/2020 [facility] 650 mg 09/14/2020 12:00:00 AM EDT tablet extended release 120 TAKE ONE TABLET BY MOUTH EVERY 6 HOURS NEEDED FOR PAIN TAKE ONE TABLET BY MOUTH EVERY 6 HOURS NEEDED FOR PAIN SOLD: 09/14/2020 [facility] Acetaminophen 325 MG / Oxycodone Hydrochloride 5 MG Or al Tablet [Percocet] Percocet 09/08/2020 12:00:00 AM EDT active MEDENT ([facility]) 5-325 mg 09/08/2020 12:00:00 AM EDT tablet 20 TAKE 1 TO 2 TABLETS BY MOUTH EVERY 4 TO 6 HOURS NEEDED FOR POST OP PAIN, MAXIMUM DAILY DOSE = SIX TABLETS TAKE 1 TO 2 TABLETS BY MOUTH EVERY 4 TO 6 HOURS NEEDED FOR POST OP PAIN, MAXIMUM DAILY DOSE = SIX TABLETS SOLD: 09/08/2020 [facility] 1,250 mcg (50,000 unit) 09/03/2020 12:00:00 AM EDT capsule 4 TAKE ONE CAPSULE BY MOUTH ONCE WEEKLY TAKE ONE CAPSULE BY MOUTH ONCE WEEKLY SOLD: 11/19/2020 [facility] 1,250 mcg (50,000 unit) 09/03/2020 12:00:00 AM EDT capsule 4 TAKE ONE CAPSULE BY MOUTH ONCE WEEKLY TAKE ONE CAPSULE BY MOUTH ONCE WEEKLY SOLD: 09/07/2020 [facility] Citalopram 40 MG Oral Tablet CITALOPRAM HYDROBROMIDE 07/22/2020 12:00:00 AM EDT tablet 30 TAKE ONE TABLET BY MOUTH EVERY D AY TAKE ONE TABLET BY MOUTH EVERY DAY SOLD: 07/22/2020 [facility] Citalopram 40 MG Oral Tablet CITALOPRAM HYDROBROMIDE 07/22/2020 12:00:00 AM EDT tablet 30 TAKE ONE TABLET BY MOUTH EVERY D AY TAKE ONE TABLET BY MOUTH EVERY DAY SOLD: 10/24/2020 [facility] Citalopram 40 MG Oral Tablet CITALOPRAM HYDROBROMIDE 07/22/2020 12:00:00 AM EDT tablet 30 TAKE ONE TABLET BY MOUTH EVERY D AY TAKE ONE TABLET BY MOUTH EVERY DAY SOLD: 09/21/2020 [facility] Citalopram 40 MG Oral Tablet CITALOPRAM HYDROBROMIDE 07/22/2020 12:00:00 AM EDT tablet 30 TAKE ONE TABLET BY MOUTH EVERY D AY TAKE ONE TABLET BY MOUTH EVERY DAY SOLD: 08/25/2020 [facility] 50 mcg 06/25/2020 12:00:00 AM EST tablet 30 TAKE ONE TABLET BY MOUTH EVERY DAY TAKE ONE TABLET BY MOUTH EVERY DAY SOLD: 09/21/2020 [facility] 50 mcg 06/25/2020 12:00:00 AM EST tablet 30 TAKE ONE TABLET BY MOUTH EVERY DAY TAKE ONE TABLET BY MOUTH EVERY DAY SOLD: 06/26/2020 [facility] 50 mcg 06/25/2020 12:00:00 AM EST tablet 30 TAKE ONE TABLET BY MOUTH EVERY DAY TAKE ONE TABLET BY MOUTH EVERY DAY SOLD: 08/06/2020 [facility] 50 mcg 06/25/2020 12:00:00 AM EST tablet 30 TAKE ONE TABLET BY MOUTH EVERY DAY TAKE ONE TABLET BY MOUTH EVERY DAY SOLD: 10/24/2020 [facility] 50 mcg 06/25/2020 12:00:00 AM EST tablet 30 TAKE ONE TABLET BY MOUTH EVERY DAY TAKE ONE TABLET BY MOUTH EVERY DAY SOLD: 11/19/2020 [facility] 50 mcg 06/25/2020 12:00:00 AM EST tablet 30 TAKE ONE TABLET BY MOUTH EVERY DAY TAKE ONE TABLET BY MOUTH EVERY DAY SOLD: 12/30/2020 [facility] 45 mcg/actuation 06/15/2020 12:00:00 AM EST HFA aerosol inha ler 15 INHALE TWO PUFFS BY MOUTH THREE TIMES A DAY INHALE TWO PUFFS BY MOUTH THREE TIMES A DAY SOLD: 06/15/2020 [facility] 45 mcg/actuation 06/15/2020 12:00:00 AM EST HFA aerosol inha ler 15 INHALE TWO PUFFS BY MOUTH THREE TIMES A DAY INHALE TWO PUFFS BY MOUTH THREE TIMES A DAY SOLD: 07/22/2020 [facility] 500 mg 06/15/2020 12:00:00 AM EST tablet 20 TAKE ONE TABLET BY MOUTH EVERY 12 HOURS FOR 10 DAYS TAKE ONE TABLET BY MOUTH EVERY 12 HOURS FOR 10 DAYS SO LD: 06/15/2020 [facility] 5 mg 06/11/2020 12:00:00 AM EST tablet 2 TAKE 1 TABLET 30 MIN PRIOR TO MRI MAY REPEAT IN 30 MIN IF NO EFFECT DO NOT DRIVE TO OR FROM MRI * MAXIMUM DAILY DOSE = 2 TAKE 1 TABLET 30 MIN PRIOR TO MRI MAY RE PEAT IN 30 MIN IF NO EFFECT DO NOT DRIVE TO OR FROM MRI * MAXIMUM DAILY DOSE = 2 SOLD: 06/15/2020 [facility] Diazepam 5 MG Oral Tablet Diazepam 06/10/2020 12:00:00 AM EST active [facility] ([facility] 500 mg 06/04/2020 12:00:00 AM EST tablet 60 TAKE ONE TABLET BY MOUTH TWICE A DAY WITH FOOD TAKE ONE TABLET BY MOUTH TWICE A DAY WITH FOOD SOLD: [facility] 500 mg 06/04/2020 12:00:00 AM EST tablet 60 TAKE ONE TABLET BY MOUTH TWICE A DAY WITH FOOD TAKE ONE TABLET BY MOUTH TWICE A DAY WITH FOOD SOLD: [facility] Naproxen 500 MG Oral Tablet Naproxen 06/03/2020 12:00:00 AM EST active [facility] ([facility] 50 mcg 05/24/2020 12:00:00 AM EST tablet 30 TAKE ONE TABLET BY MOUTH EVERY DAY TAKE ONE TABLET BY MOUTH EVERY DAY SOLD: 05/25/2020 [facility] 875 mg 05/06/2020 12:00:00 AM EST tablet 20 TAKE ONE TABLET BY MOUTH EVERY 12 HOURS FOR 10 DAYS TAKE ONE TABLET BY MOUTH EVERY 12 HOURS FOR 10 DAYS SO LD: 05/06/2020 [facility] 2 mg 04/30/2020 12:00:00 AM EST tablet 2 TAKE ONE TABLET BY MOUTH ONE HOUR BEFORE PROCEDURE/ MRI, MAXIMUM DAILY DOSE = TWO TABLETS TAKE ONE TABLET BY MOUTH ONE HOUR BEFORE PROCEDURE/ MRI, MAXIMUM DAILY DOSE = TWO TABLETS SOLD: 05/03/2020 [facility] 2 mg 04/20/2020 12:00:00 AM EST tablet 2 TAKE ONE TABLET BY MOUTH ONE HOUR BEFORE PROCEDURE/ MRI, MAXIMUM DAILY DOSE = TWO TABLETS TAKE ONE TABLET BY MOUTH ONE HOUR BEFORE PROCEDURE/ MRI, MAXIMUM DAILY DOSE = TWO TABLETS SOLD: 04/21/2020 [facility] Citalopram 40 MG Oral Tablet CITALOPRAM HYDROBROMIDE 03/18/2020 12:00:00 AM EST tablet 30 TAKE ONE TABLET BY MOUTH EVERY D AY TAKE ONE TABLET BY MOUTH EVERY DAY SOLD: 05/18/2020 [facility] Citalopram 40 MG Oral Tablet CITALOPRAM HYDROBROMIDE 03/18/2020 12:00:00 AM EST tablet 30 TAKE ONE TABLET BY MOUTH EVERY D AY TAKE ONE TABLET BY MOUTH EVERY DAY SOLD: 06/21/2020 [facility] Citalopram 40 MG Oral Tablet CITALOPRAM HYDROBROMIDE 03/18/2020 12:00:00 AM EST tablet 30 TAKE ONE TABLET BY MOUTH EVERY D AY TAKE ONE TABLET BY MOUTH EVERY DAY SOLD: 03/19/2020 [facility] Citalopram 40 MG Oral Tablet CITALOPRAM HYDROBROMIDE 03/18/2020 12:00:00 AM EST tablet 30 TAKE ONE TABLET BY MOUTH EVERY D AY TAKE ONE TABLET BY MOUTH EVERY DAY SOLD: 04/19/2020 [facility] Diazepam 2 MG Oral Tablet [Valium] Valium 02/27/2020 12:00:00 AM EST ORAL active MEDENT ([facility], ) 2 mg 02/27/2020 12:00:00 AM EST tablet 2 TAKE ONE TABLET BY MOUTH ONE HOUR PRIOR TO PROCEDURE/ MRI, MAXIMUM DAILY DOSE = TWO TABLETS TAKE ONE TABLET BY MOUTH ONE HOUR PRIOR TO PROCEDURE/ MRI, MAXIMUM DAILY DOSE = TWO TABLETS SOLD: 02/27/2020 [facility] Diazepam 10 MG Oral Tablet [Valium] Valium 02/20/2020 12:00:[address] ORAL completed MEDENT ([facility], ) carvedilol 12.5 MG Oral Tablet CARVEDILOL 01/23/2020 12:00:00 AM EDT tablet 180 TAKE ONE TABLET BY MOUTH TWO TIMES A DAY - IF BLOOD PRESSURE LESS THAN 100/50 REDUCE EVENING DOSE TO 1/2 TABLET TAKE ONE TABLET BY MOUTH TWO TIMES A DAY - IF BLOOD PRESSURE LESS THAN 100/50 REDUCE EVENING DOSE TO 1/2 TABLET SOLD: 01/24/2020 [facility] carvedilol 12.5 MG Oral Tablet CARVEDILOL 01/23/2020 12:00:00 AM EDT tablet 180 TAKE ONE TABLET BY MOUTH TWO TIMES A DAY - IF BLOOD PRESSURE LESS THAN 100/50 REDUCE EVENING DOSE TO 1/2 TABLET TAKE ONE TABLET BY MOUTH TWO TIMES A DAY - IF BLOOD PRESSURE LESS THAN 100/50 REDUCE EVENING DOSE TO 1/2 TABLET SOLD: 04/19/2020 [facility] 50 mcg 01/14/2020 12:00:00 AM EDT tablet 30 TAKE ONE TABLET BY MOUTH EVERY MORNING TAKE ONE TABLET BY MOUTH EVERY MORNING SOLD: 02/09/2020 [facility] 2 % 01/14/2020 12:00:00 AM EDT cream 60 APPLY TO AFFECTED AREA(S) OF ABDOMEN TWO TIMES A DAY FOR UP TO 4 WEEKS APPLY TO AFFECTED AREA(S) OF ABDOMEN TWO TIMES A DAY FOR UP TO 4 WEEKS SOLD: 01/16/2020 [facility] 50 mcg 01/14/2020 12:00:00 AM EDT tablet 30 TAKE ONE TABLET BY MOUTH EVERY MORNING TAKE ONE TABLET BY MOUTH EVERY MORNING SOLD: 01/16/2020 [facility] 50 mcg 01/14/2020 12:00:00 AM EDT tablet 30 TAKE ONE TABLET BY MOUTH EVERY MORNING TAKE ONE TABLET BY MOUTH EVERY MORNING SOLD: 04/19/2020 [facility] 1 % 01/14/2020 12:00:00 AM EDT gel 100 APPLY 2 GRAMS TO MOST PAINFUL AREA OF JOINT UP TO FOUR TIMES A DAY APPLY 2 GRAMS TO MOST PAINFUL AREA OF MIKY INT UP TO FOUR TIMES A DAY SOLD: 01/16/2020 [facility] 50 mcg 01/14/2020 12:00:00 AM EDT tablet 30 TAKE ONE TABLET BY MOUTH EVERY MORNING TAKE ONE TABLET BY MOUTH EVERY MORNING SOLD: 03/12/2020 [facility] 40 mg 07/02/2019 12:00:00 AM EDT tablet 30 TAKE ONE TABLET BY MOUTH EVERY DAY TAKE ONE TABLET BY MOUTH EVERY DAY SOLD: 02/09/2020 [facility] Amoxicillin 500 MG Oral Capsule amoxicillin 500 mg cap jade amoxicillin 500 mg capsule completed amoxicillin 50 0 MG Oral Capsule [place] ([facility]) Diazepam 5 MG Oral Tablet diazepam 5 mg tablet TAKE 1 TABLET 30 MIN PRIOR TO MRI MAY REPEAT IN 30 MIN IF NO EFFECT DO NOT DRIVE TO OR FROM MRI MAXIMUM DAILY DOSE 2 diazepam 5 mg tablet TAKE 1 TABLET 30 LA N PRIOR TO MRI MAY REPEAT IN 30 MIN IF NO EFFECT DO NOT DRIVE TO OR FROM MRI MAXIMUM DAILY DOSE 2 completed diazepam 5 MG Oral Tablet [place] ([facility]) Diclofenac Sodium 0.01 MG/MG Topical Gel diclofenac 1 % topical gel diclofenac 1 % topical gel completed diclofenac sodium 0.01 MG/MG Topical Gel [place] ([facility]) Diclofenac Sodium 0.01 MG/MG Topical Gel diclofenac 1 % topical gel diclofenac 1 % topical gel completed diclofenac sodium 0.01 MG/MG Topical Gel [place] ([facility]) Amoxicillin 875 MG Oral Tablet amoxicillin 875 mg tabl et amoxicillin 875 mg tablet completed amoxicillin 875 MG Oral Tablet [place] ([facility]) Acetaminophen 325 MG / Oxycodone Hydroch loride 5 MG Oral Tablet oxycodone- acetaminophen 5 mg-325 mg tablet TAKE 1 TO 2 TABLETS BY MOUTH EVERY 4 TO 6 HOURS NEEDED FOR POST OP PAIN MAXIMUM DAILY DOSE SIX TABLETS oxycodone- acetaminophen 5 mg-325 mg tablet TAKE 1 TO 2 TABLETS BY MOUTH EVERY 4 TO 6 HOURS NEEDED FOR POST OP PAIN MAXIMUM DAILY DOSE SIX TABLETS completed acetaminophen 325 MG / oxycodone hydrochloride 5 MG Oral Tablet [place] ([facility]) Acetaminophen 325 MG / Oxycodone Hydroch loride 5 MG Oral Tablet oxycodone- acetaminophen 5 mg-325 mg tablet TAKE 1 TO 2 TABLETS BY MOUTH EVERY 4 TO 6 HOURS NEEDED FOR POST OP PAIN MAXIMUM DAILY DOSE SIX TABLETS oxycodone- acetaminophen 5 mg-325 mg tablet TAKE 1 TO 2 TABLETS BY MOUTH EVERY 4 TO 6 HOURS NEEDED FOR POST OP PAIN MAXIMUM DAILY DOSE SIX TABLETS completed acetaminophen 325 MG / oxycodone hydrochloride 5 MG Oral Tablet [place] ([facility]) Amoxicillin 500 MG Oral Capsule amoxicillin 500 mg cap jade amoxicillin 500 mg capsule completed amoxicillin 50 0 MG Oral Capsule [place] ([facility]) Amoxicillin 500 MG Oral Capsule amoxicillin 500 mg cap jade amoxicillin 500 mg capsule completed amoxicillin 50 0 MG Oral Capsule [facility]) Diazepam 2 MG Oral Tablet diazepam 2 mg tablet diazepam 2 mg tablet completed diazepam 2 MG Oral Tablet [place] ([facility]) Amoxicillin 500 MG Oral Capsule amoxicillin 500 mg cap jade amoxicillin 500 mg capsule completed amoxicillin 50 0 MG Oral Capsule [place] ([facility]) Amoxicillin 500 MG Oral Capsule amoxicillin 500 mg cap jade amoxicillin 500 mg capsule completed amoxicillin 50 0 MG Oral Capsule [place] ([facility]) Acetaminophen 325 MG / Oxycodone Hydroch loride 5 MG Oral Tablet oxycodone- acetaminophen 5 mg-325 mg tablet TAKE 1 TO 2 TABLETS BY MOUTH EVERY 4 TO 6 HOURS NEEDED FOR POST OP PAIN MAXIMUM DAILY DOSE SIX TABLETS oxycodone- acetaminophen 5 mg-325 mg tablet TAKE 1 TO 2 TABLETS BY MOUTH EVERY 4 TO 6 HOURS NEEDED FOR POST OP PAIN MAXIMUM DAILY DOSE SIX TABLETS completed acetaminophen 325 MG / oxycodone hydrochloride 5 MG Oral Tablet [place] ([facility]) Naproxen 500 MG Oral Tablet naproxen 500 mg tablet TAKE ONE TABLET BY MOUTH TWICE A DAY WITH FOOD naproxen 500 mg tablet TAKE ONE TABLET B Y MOUTH TWICE A DAY WITH FOOD completed naproxen 500 MG Oral Tablet [place] ([facility]) Ciprofloxacin 500 MG Oral Tablet ciprofl oxacin 500 mg tablet TAKE ONE TABLET BY MOUTH EVERY 12 HOURS FOR 10 DAYS ciprofloxacin 500 mg tablet TAKE ONE TAB LET BY MOUTH EVERY 12 HOURS FOR 10 DAYS compl eted ciprofloxacin 500 MG Oral Tablet [place] ([facility]) Naproxen 500 MG Oral Tablet naproxen 500 mg tablet TAKE ONE TABLET BY MOUTH TWICE A DAY WITH FOOD naproxen 500 mg tablet TAKE ONE TABLET B Y MOUTH TWICE A DAY WITH FOOD completed naproxen 500 MG Oral Tablet [place] ([facility]) Acetaminophen 325 MG / Oxycodone Hydroch loride 5 MG Oral Tablet oxycodone- acetaminophen 5 mg-325 mg tablet TAKE 1 TO 2 TABLETS BY MOUTH EVERY 4 TO 6 HOURS NEEDED FOR POST OP PAIN MAXIMUM DAILY DOSE SIX TABLETS oxycodone- acetaminophen 5 mg-325 mg tablet TAKE 1 TO 2 TABLETS BY MOUTH EVERY 4 TO 6 HOURS NEEDED FOR POST OP PAIN MAXIMUM DAILY DOSE SIX TABLETS completed acetaminophen 325 MG / oxycodone hydrochloride 5 MG Oral Tablet [place] ([facility]) Diclofenac Sodium 0.01 MG/MG Topical Gel diclofenac 1 % topical gel diclofenac 1 % topical gel completed diclofenac sodium 0.01 MG/MG Topical Gel [place] ([facility]) Diazepam 5 MG Oral Tablet diazepam 5 mg tablet TAKE 1 TABLET 30 MIN PRIOR TO MRI MAY REPEAT IN 30 MIN IF NO EFFECT DO NOT DRIVE TO OR FROM MRI MAXIMUM DAILY DOSE 2 diazepam 5 mg tablet TAKE 1 TABLET 30 LA N PRIOR TO MRI MAY REPEAT IN 30 MIN IF NO EFFECT DO NOT DRIVE TO OR FROM MRI MAXIMUM DAILY DOSE 2 completed diazepam 5 MG Oral Tablet [place] ([facility]) Acetaminophen 325 MG / Oxycodone Hydroch loride 5 MG Oral Tablet oxycodone- acetaminophen 5 mg-325 mg tablet TAKE 1 TO 2 TABLETS BY MOUTH EVERY 4 TO 6 HOURS NEEDED FOR POST OP PAIN MAXIMUM DAILY DOSE SIX TABLETS oxycodone- acetaminophen 5 mg-325 mg tablet TAKE 1 TO 2 TABLETS BY MOUTH EVERY 4 TO 6 HOURS NEEDED FOR POST OP PAIN MAXIMUM DAILY DOSE SIX TABLETS completed acetaminophen 325 MG / oxycodone hydrochloride 5 MG Oral Tablet [place] ([facility]) Amoxicillin 875 MG Oral Tablet amoxicillin 875 mg tabl et amoxicillin 875 mg tablet completed amoxicillin 875 MG Oral Tablet [place] ([facility]) Diclofenac Sodium 0.01 MG/MG Topical Gel diclofenac 1 % topical gel diclofenac 1 % topical gel completed diclofenac sodium 0.01 MG/MG Topical Gel [place] ([facility]) Amoxicillin 875 MG Oral Tablet amoxicillin 875 mg tabl et amoxicillin 875 mg tablet completed amoxicillin 875 MG Oral Tablet [place] ([facility]) Amoxicillin 500 MG Oral Capsule amoxicillin 500 mg cap jade amoxicillin 500 mg capsule completed amoxicillin 50 0 MG Oral Capsule [place] ([facility]) Diazepam 2 MG Oral Tablet diazepam 2 mg tablet diazepam 2 mg tablet completed diazepam 2 MG Oral Tablet [place] ([facility]) Ketoconazole 20 MG/ML Topical Cream ketoconazole 2 % t opical cream ketoconazole 2 % topical cream completed keto conazole 20 MG/ML Topical Cream [place] ([facility]) Ketoconazole 20 MG/ML Topical Cream ketoconazole 2 % t opical cream ketoconazole 2 % topical cream completed keto conazole 20 MG/ML Topical Cream [place] ([facility]) Diazepam 5 MG Oral Tablet diazepam 5 mg tablet TAKE 1 TABLET 30 MIN PRIOR TO MRI MAY REPEAT IN 30 MIN IF NO EFFECT DO NOT DRIVE TO OR FROM MRI MAXIMUM DAILY DOSE 2 diazepam 5 mg tablet TAKE 1 TABLET 30 LA N PRIOR TO MRI MAY REPEAT IN 30 MIN IF NO EFFECT DO NOT DRIVE TO OR FROM MRI MAXIMUM DAILY DOSE 2 completed diazepam 5 MG Oral Tablet [place] ([facility]) Amoxicillin 500 MG Oral Capsule amoxicillin 500 mg cap jade amoxicillin 500 mg capsule completed amoxicillin 50 0 MG Oral Capsule [place] ([facility]) Diazepam 5 MG Oral Tablet diazepam 5 mg tablet TAKE 1 TABLET 30 MIN PRIOR TO MRI MAY REPEAT IN 30 MIN IF NO EFFECT DO NOT DRIVE TO OR FROM MRI MAXIMUM DAILY DOSE 2 diazepam 5 mg tablet TAKE 1 TABLET 30 LA N PRIOR TO MRI MAY REPEAT IN 30 MIN IF NO EFFECT DO NOT DRIVE TO OR FROM MRI MAXIMUM DAILY DOSE 2 completed diazepam 5 MG Oral Tablet [place] ([facility]) Ketoconazole 20 MG/ML Topical Cream ketoconazole 2 % t opical cream ketoconazole 2 % topical cream completed keto conazole 20 MG/ML Topical Cream [place] ([facility]) Amoxicillin 875 MG Oral Tablet amoxicillin 875 mg tabl et amoxicillin 875 mg tablet completed amoxicillin 875 MG Oral Tablet [place] ([facility]) Naproxen 500 MG Oral Tablet naproxen 500 mg tablet TAKE ONE TABLET BY MOUTH TWICE A DAY WITH FOOD naproxen 500 mg tablet TAKE ONE TABLET B Y MOUTH TWICE A DAY WITH FOOD completed naproxen 500 MG Oral Tablet [place] ([facility]) Diclofenac Sodium 0.01 MG/MG Topical Gel diclofenac 1 % topical gel diclofenac 1 % topical gel completed diclofenac sodium 0.01 MG/MG Topical Gel [place] ([facility]) Ketoconazole 20 MG/ML Topical Cream ketoconazole 2 % t opical cream ketoconazole 2 % topical cream completed keto conazole 20 MG/ML Topical Cream [place] ([facility]) Ketoconazole 20 MG/ML Topical Cream ketoconazole 2 % t opical cream ketoconazole 2 % topical cream completed keto conazole 20 MG/ML Topical Cream [place] ([facility]) Diazepam 5 MG Oral Tablet diazepam 5 mg tablet TAKE 1 TABLET 30 MIN PRIOR TO MRI MAY REPEAT IN 30 MIN IF NO EFFECT DO NOT DRIVE TO OR FROM MRI MAXIMUM DAILY DOSE 2 diazepam 5 mg tablet TAKE 1 TABLET 30 LA N PRIOR TO MRI MAY REPEAT IN 30 MIN IF NO EFFECT DO NOT DRIVE TO OR FROM MRI MAXIMUM DAILY DOSE 2 completed diazepam 5 MG Oral Tablet [place] ([facility]) Diclofenac Sodium 0.01 MG/MG Topical Gel diclofenac 1 % topical gel diclofenac 1 % topical gel completed diclofenac sodium 0.01 MG/MG Topical Gel [place] ([facility]) Amoxicillin 875 MG Oral Tablet amoxicillin 875 mg tabl et amoxicillin 875 mg tablet completed amoxicillin 875 MG Oral Tablet [place] ([facility]) Diclofenac Sodium 0.01 MG/MG Topical Gel diclofenac 1 % topical gel diclofenac 1 % topical gel completed diclofenac sodium 0.01 MG/MG Topical Gel [place] ([facility]) Amoxicillin 875 MG Oral Tablet amoxicillin 875 mg tabl et amoxicillin 875 mg tablet completed amoxicillin 875 MG Oral Tablet [place] ([facility]) Diazepam 2 MG Oral Tablet diazepam 2 mg tablet diazepam 2 mg tablet completed diazepam 2 MG Oral Tablet [place] ([facility]) Amoxicillin 875 MG Oral Tablet amoxicillin 875 mg tabl et amoxicillin 875 mg tablet completed amoxicillin 875 MG Oral Tablet [place] ([facility]) Ketoconazole 20 MG/ML Topical Cream ketoconazole 2 % t opical cream ketoconazole 2 % topical cream completed keto conazole 20 MG/ML Topical Cream [place] ([facility]) Ciprofloxacin 500 MG Oral Tablet ciprofl oxacin 500 mg tablet TAKE ONE TABLET BY MOUTH EVERY 12 HOURS FOR 10 DAYS ciprofloxacin 500 mg tablet TAKE ONE TAB LET BY MOUTH EVERY 12 HOURS FOR 10 DAYS compl eted ciprofloxacin 500 MG Oral Tablet [place] ([facility]) Naproxen 500 MG Oral Tablet naproxen 500 mg tablet TAKE ONE TABLET BY MOUTH TWICE A DAY WITH FOOD naproxen 500 mg tablet TAKE ONE TABLET B Y MOUTH TWICE A DAY WITH FOOD completed naproxen 500 MG Oral Tablet [place] ([facility]) Ciprofloxacin 500 MG Oral Tablet ciprofl oxacin 500 mg tablet TAKE ONE TABLET BY MOUTH EVERY 12 HOURS FOR 10 DAYS ciprofloxacin 500 mg tablet TAKE ONE TAB LET BY MOUTH EVERY 12 HOURS FOR 10 DAYS compl eted ciprofloxacin 500 MG Oral Tablet [place] ([facility]) Diazepam 5 MG Oral Tablet diazepam 5 mg tablet TAKE 1 TABLET 30 MIN PRIOR TO MRI MAY REPEAT IN 30 MIN IF NO EFFECT DO NOT DRIVE TO OR FROM MRI MAXIMUM DAILY DOSE 2 diazepam 5 mg tablet TAKE 1 TABLET 30 LA N PRIOR TO MRI MAY REPEAT IN 30 MIN IF NO EFFECT DO NOT DRIVE TO OR FROM MRI MAXIMUM DAILY DOSE 2 completed diazepam 5 MG Oral Tablet [place] ([facility]) Amoxicillin 875 MG Oral Tablet amoxicillin 875 mg tabl et amoxicillin 875 mg tablet completed amoxicillin 875 MG Oral Tablet [place] ([facility]) Diazepam 2 MG Oral Tablet diazepam 2 mg tablet diazepam 2 mg tablet completed diazepam 2 MG Oral Tablet [place] ([facility]) Diazepam 2 MG Oral Tablet diazepam 2 mg tablet diazepam 2 mg tablet completed diazepam 2 MG Oral Tablet [place] ([facility]) Amoxicillin 500 MG Oral Capsule amoxicillin 500 mg cap jade amoxicillin 500 mg capsule completed amoxicillin 50 0 MG Oral Capsule [place] ([facility]) Diazepam 2 MG Oral Tablet diazepam 2 mg tablet diazepam 2 mg tablet completed diazepam 2 MG Oral Tablet [place] ([facility]) Diclofenac Sodium 0.01 MG/MG Topical Gel diclofenac 1 % topical gel diclofenac 1 % topical gel completed diclofenac sodium 0.01 MG/MG Topical Gel [place] ([facility]) Ketoconazole 20 MG/ML Topical Cream ketoconazole 2 % t opical cream ketoconazole 2 % topical cream completed keto conazole 20 MG/ML Topical Cream [place] ([facility]) Naproxen 500 MG Oral Tablet naproxen 500 mg tablet TAKE ONE TABLET BY MOUTH TWICE A DAY WITH FOOD naproxen 500 mg tablet TAKE ONE TABLET B Y MOUTH TWICE A DAY WITH FOOD completed naproxen 500 MG Oral Tablet [place] ([facility]) Diazepam 2 MG Oral Tablet diazepam 2 mg tablet diazepam 2 mg tablet completed diazepam 2 MG Oral Tablet [place] ([facility]) Ciprofloxacin 500 MG Oral Tablet ciprofl oxacin 500 mg tablet TAKE ONE TABLET BY MOUTH EVERY 12 HOURS FOR 10 DAYS ciprofloxacin 500 mg tablet TAKE ONE TAB LET BY MOUTH EVERY 12 HOURS FOR 10 DAYS compl eted ciprofloxacin 500 MG Oral Tablet [place] ([facility]) Diazepam 2 MG Oral Tablet diazepam 2 mg tablet diazepam 2 mg tablet completed diazepam 2 MG Oral Tablet [place] ([facility]) Ciprofloxacin 500 MG Oral Tablet ciprofl oxacin 500 mg tablet TAKE ONE TABLET BY MOUTH EVERY 12 HOURS FOR 10 DAYS ciprofloxacin 500 mg tablet TAKE ONE TAB LET BY MOUTH EVERY 12 HOURS FOR 10 DAYS compl eted ciprofloxacin 500 MG Oral Tablet [place] ([facility]) Ketoconazole 20 MG/ML Topical Cream ketoconazole 2 % t opical cream ketoconazole 2 % topical cream completed keto conazole 20 MG/ML Topical Cream [place] ([facility]) Ciprofloxacin 500 MG Oral Tablet ciprofl oxacin 500 mg tablet TAKE ONE TABLET BY MOUTH EVERY 12 HOURS FOR 10 DAYS ciprofloxacin 500 mg tablet TAKE ONE TAB LET BY MOUTH EVERY 12 HOURS FOR 10 DAYS compl eted ciprofloxacin 500 MG Oral Tablet [place] ([facility]) Insurance Providers Payer name Policy type / Coverage type Policy ID Covered constitution party ID Covered constitution party's relationship to [place] Policy [place] Plan Information Medicaid S [id number] S [id number] Managed Care Yuniel P [id number] S [id number] [employer] [id number] Self [id number] [facility] C[facility] [place] O [id number] S [id number] MEDICAID [id number] S [id number] UNAVAILABLE UNAVAILA BLE YUNIEL [id number] SP [id number] Medicaid S [id number] S [id number] [facility] CARE OF [place] -OP [id number] 18 [id number] [place] [id number] SP [id number] Problems, Conditions, and Diagnoses Code Display Name Description Problem Type Effective Dates Data Source(s) Z8249 Family history of ischemic h eart disease and other diseases of the circulatory system Family history of ischemic heart disease and other diseases of the circulatory system Diagnosis 11/03/2020 07:30:00 AM [facility] Z8041 Family history of malignant neoplasm of ovary Family history of malignant neoplasm of ovary Diagnosis 11/03/2020 07:30:00 AM [facility] Z803 Family history of malignant neoplasm of breast Family history of malignant neoplasm of breast Diagnosis 11/03/2020 07:30:00 AM [facility] Z833 Family history of diabetes mellitus Family histo ry of diabetes mellitus Diagnosis 11/03/2020 07:30:00 AM [facility] Z885 Allergy status to narcotic agent Allergy status to narcotic agent Diagnosis 11/03/2020 07:30:00 AM [facility] Z881 Allergy status to other antibiotic agent s Allergy status to other antibiotic agents Diagnosis 11/03/2020 07:30:00 AM [facility] [id number] 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 Diagnosis 11/03/2020 07:30:00 AM [facility] [id number] Hormone replacement therapy Hormone replacement therap y Diagnosis 11/03/2020 07:30:00 AM [facility] E669 Obesity, unspecified Obesity, unspecified Diagnosis 11/03/2020 07:30:00 AM [facility] E039 Hypothyroidism, unspecified Hypothyroidism, unspecifie d Diagnosis 11/03/2020 07:30:00 AM [facility] I10 Essential (primary) hypertension Essential (primary) h ypertension Diagnosis 11/03/2020 07:30:00 AM [facility] H2512 Age-related nuclear cataract, left eye A ge-related nuclear cataract, left eye Diagnosis 11/03/2020 07:30:00 AM [facility] [id number] Encounter for other preprocedural examin ation Encounter for other preprocedural examination Diagnosis 10/28/2020 11:45:00 AM [facility] L73.9 [id number] Folliculitis Problem 01/04/2021 12:00:00 AM EDT eCW1 ([facility]) L82.0 [id number] Seborrheic keratosis, inflamed Problem 01/04/2021 12:00:00 AM EDT eCW1 ([facility]) D18.01 [id number] Smith angioma Problem 01/04/2021 12:00:00 A M EDT eCW1 ([facility]) D23.9 [id number] Dermal nevus Problem 01/04/2021 12:00:00 AM EDT eCW1 ([facility]) L70.0 [id number] Acne vulgaris Problem 01/04/2021 12:00:00 AM EDT eCW1 ([facility]) L72.9 [id number] Cyst of skin Problem 01/04/2021 12:00:00 AM EDT eC ([facility]) [id number] Body mass index 40+ - severely obese Bod y Mass Index 40+ - Severely Obese Problem 09/03/2020 12:00:00 AM EDT [place] ([facility]) [id number] Decreased hearing Decreased Hearing Problem 09/03 12:00:00 AM EDT [place] ([facility]) [id number] Mixed hyperlipidemia Mixed Hyperlipidemia Problem 09/03/2020 12:00:00 AM EDT [place] ([facility]) [id number] Vitamin D deficiency Vitamin D Deficiency Problem 09/03/2020 12:00:00 AM EDT [place] ([facility]) [id number] Melanocytic nevus of skin Melanocytic Nevus of Skin Pr oblem 09/03/2020 12:00:00 AM EDT [place] ([facility]) [id number] Body mass index 40+ - severely obese Bod y Mass Index 40+ - Severely Obese Problem 09/03/2020 12:00:00 AM EDT [place] ([facility]) [id number] Decreased hearing Decreased Hearing Problem 09/03 12:00:00 AM EDT [place] ([facility]) [id number] Mixed hyperlipidemia Mixed Hyperlipidemia Problem 09/03/2020 12:00:00 AM EDT [place] ([facility]) [id number] Vitamin D deficiency Vitamin D Deficiency Problem 09/03/2020 12:00:00 AM EDT [place] ([facility]) [id number] Melanocytic nevus of skin Melanocytic Nevus of Skin Pr oblem 09/03/2020 12:00:00 AM EDT [place] ([facility]) [id number] Body mass index 40+ - severely obese Bod y Mass Index 40+ - Severely Obese Problem 09/03/2020 12:00:00 AM EDT [place] ([facility]) [id number] Decreased hearing Decreased Hearing Problem 09/03 12:00:00 AM EDT [place] ([facility]) [id number] Mixed hyperlipidemia Mixed Hyperlipidemia Problem 09/03/2020 12:00:00 AM EDT [place] ([facility]) [id number] Vitamin D deficiency Vitamin D Deficiency Problem 09/03/2020 12:00:00 AM EDT [place] ([facility]) [id number] Melanocytic nevus of skin Melanocytic Nevus of Skin Pr oblem 09/03/2020 12:00:00 AM EDT [place] ([facility]) [id number] Body mass index 40+ - severely obese Bod y Mass Index 40+ - Severely Obese Problem 09/03/2020 12:00:00 AM EDT [place] ([facility]) [id number] Decreased hearing Decreased Hearing Problem 09/03 12:00:00 AM EDT [place] ([facility]) [id number] Mixed hyperlipidemia Mixed Hyperlipidemia Problem 09/03/2020 12:00:00 AM EDT [place] ([facility]) [id number] Vitamin D deficiency Vitamin D Deficiency Problem 09/03/2020 12:00:00 AM EDT [place] ([facility]) [id number] Melanocytic nevus of skin Melanocytic Nevus of Skin Pr oblem 09/03/2020 12:00:00 AM EDT [place] ([facility]) [id number] Body mass index 40+ - severely obese Bod y Mass Index 40+ - Severely Obese Problem 09/03/2020 12:00:00 AM EDT [place] ([facility]) [id number] Decreased hearing Decreased Hearing Problem 09/03 12:00:00 AM EDT [place] ([facility]) [id number] Mixed hyperlipidemia Mixed Hyperlipidemia Problem 09/03/2020 12:00:00 AM EDT [place] ([facility]) [id number] Vitamin D deficiency Vitamin D Deficiency Problem 09/03/2020 12:00:00 AM EDT [place] ([facility]) [id number] Melanocytic nevus of skin Melanocytic Nevus of Skin Pr oblem 09/03/2020 12:00:00 AM EDT [place] ([facility]) [id number] Body mass index 40+ - severely obese Bod y Mass Index 40+ - Severely Obese Problem 09/03/2020 12:00:00 AM EDT [place] ([facility]) [id number] Decreased hearing Decreased Hearing Problem 09/03 12:00:00 AM EDT [place] ([facility]) [id number] Mixed hyperlipidemia Mixed Hyperlipidemia Problem 09/03/2020 12:00:00 AM EDT [place] ([facility]) [id number] Vitamin D deficiency Vitamin D Deficiency Problem 09/03/2020 12:00:00 AM EDT [place] ([facility]) [id number] Melanocytic nevus of skin Melanocytic Nevus of Skin Pr oblem 09/03/2020 12:00:00 AM EDT [place] ([facility]) [id number] Obesity Obesity Problem 06/06/2020 12:00:00 AM YANA [facility] ([facility]) [id number] Obesity Obesity Problem 06/06/2020 12:00:00 AM ES Sarbjit [facility] ([facility]) [id number] Obesity Obesity Problem 06/06/2020 12:00:00 AM YANA [facility] ([facility]) [id number] Obesity Obesity Problem 06/06/2020 12:00:00 AM YANA [facility] ([facility]) [id number] Obesity Obesity Problem 06/06/2020 12:00:00 AM YANA [facility] ([facility]) [id number] Obesity Obesity Problem 06/06/2020 12:00:00 AM ES T [place] ([facility]) [id number] Obesity Obesity Problem 06/06/2020 12:00:00 AM ES T [place] ([facility]) [id number] Obesity Obesity Problem 06/06/2020 12:00:00 AM ES T [place] ([facility]) [id number] Hypothyroidism Hypothyroidism Problem 05/24/2020 12:00: 00 AM EST [place] ([facility]) [id number] Hypothyroidism Hypothyroidism Problem 05/24/2020 12:00: 00 AM EST [place] ([facility]) [id number] Hypothyroidism Hypothyroidism Problem 05/24/2020 12:00: 00 AM EST [place] ([facility]) [id number] Hypothyroidism Hypothyroidism Problem 05/24/2020 12:00: 00 AM EST [place] [facility] [facility] [id number] Hypothyroidism Hypothyroidism Problem 05/24/2020 12:00: 00 AM EST [facility] ([facility]) [id number] Hypothyroidism Hypothyroidism Problem 05/24/2020 12:00: 00 AM EST [facility] ([facility]) [id number] Hypothyroidism Hypothyroidism Problem 05/24/2020 12:00: 00 AM EST [place] ([facility]) 70214964 Hypothyroidism Hypothyroidism Problem 05/24/2020 12:00: 00 AM EST [place] ([facility]) 22509731 Hyperlipidemia Hyperlipidemia Problem 04/29/2020 12:00: 00 AM EST [place] ([facility]) 42124921 Hyperlipidemia Hyperlipidemia Problem 04/29/2020 12:00: 00 AM EST [place] ([facility]) 91565102 Hyperlipidemia Hyperlipidemia Problem 04/29/2020 12:00: 00 AM EST [place] ([facility]) 45465456 Hyperlipidemia Hyperlipidemia Problem 04/29/2020 12:00: 00 AM EST [facility] ([facility]) 65175783 Hyperlipidemia Hyperlipidemia Problem 04/29/2020 12:00: 00 AM EST [facility] ([facility]) 98864892 Hyperlipidemia Hyperlipidemia Problem 04/29/2020 12:00: 00 AM EST [facility] ([facility]) 06407236 Hyperlipidemia Hyperlipidemia Problem 04/29/2020 12:00: 00 AM EST [place] ([facility]) 18262779 Hyperlipidemia Hyperlipidemia Problem 04/29/2020 12:00: 00 AM EST [facility] ([facility]) 04028427 Essential hypertension Essential hypertension Problem 02/09/2020 12:00:00 AM EDT [facility] ([facility], ) 110.5 Tinea corporis Tinea corporis 01/14/2020 09:46: 14 AM EDT [facility] 719.41 Shoulder pain, right Shoulder pain, right 01/13 09:46:14 AM EDT [facility] 719.46 Pain in left knee Pain in left knee 01/14/2020 09:46:14 AM EDT [facility] 278.00 Obesity Obesity 01/14/2020 09:46:14 AM ED T [facility] [id number] Pain in left knee Pain in Left Knee Problem 12:00:00 AM EDT [place] ([facility]) [id number] Pain of right shoulder joint Pain of Right Millie ulder Joint Problem 01/14/2020 12:00:00 AM EDT [place] ([facility]) [id number] Simple obesity Simple Obesity Problem 01/14/2020 12:00: 00 AM EDT [place] ([facility]) 66373242 Tinea corporis Tinea Corporis Problem 01/14/2020 12:00: 00 AM EDT [place] ([facility]) [id number] Pain in left knee Pain in Left Knee Problem 12:00:00 AM EDT [place] ([facility]) [id number] Pain of right shoulder joint Pain of Right Millie ulder Joint Problem 01/14/2020 12:00:00 AM EDT [place] ([facility]) [id number] Simple obesity Simple Obesity Problem 01/14/2020 12:00: 00 AM EDT [place] ([facility]) 19694206 Tinea corporis Tinea Corporis Problem 01/14/2020 12:00: 00 AM EDT [place] ([facility]) [id number] Pain in left knee Pain in Left Knee Problem 12:00:00 AM EDT [place] ([facility]) [id number] Pain of right shoulder joint Pain of Right Millie ulder Joint Problem 01/14/2020 12:00:00 AM EDT [facility] ([facility]) 016721119 Simple obesity Simple Obesity Problem 01/14/2020 12:00: 00 AM EDT [facility] ([facility]) 24687267 Tinea corporis Tinea Corporis Problem 01/14/2020 12:00: 00 AM EDT [facility] ([facility]) [id number] Pain in left knee Pain in Left Knee Problem 12:00:00 AM EDT [place] ([facility]) [id number] Pain of right shoulder joint Pain of Right Millie ulder Joint Problem 01/14/2020 12:00:00 AM EDT [facility] ([facility]) 362401680 Simple obesity Simple Obesity Problem 01/14/2020 12:00: 00 AM EDT [facility] ([facility]) 64230382 Tinea corporis Tinea Corporis Problem 01/14/2020 12:00: 00 AM EDT [facility] ([facility]) [id number] Pain in left knee Pain in Left Knee Problem 12:00:00 AM EDT [place] ([facility]) [id number] Pain of right shoulder joint Pain of Right Millie ulder Joint Problem 01/14/2020 12:00:00 AM EDT [facility] ([facility]) 784334100 Simple obesity Simple Obesity Problem 01/14/2020 12:00: 00 AM EDT [place] ([facility]) 73332354 Tinea corporis Tinea Corporis Problem 01/14/2020 12:00: 00 AM EDT [facility] ([facility]) [id number] Pain in left knee Pain in Left Knee Problem 12:00:00 AM EDT [place] ([facility]) [id number] Pain of right shoulder joint Pain of Right Millie ulder Joint Problem 01/14/2020 12:00:00 AM EDT [facility] ([facility]) 352547114 Simple obesity Simple Obesity Problem 01/14/2020 12:00: 00 AM EDT [facility] ([facility]) 36171002 Tinea corporis Tinea Corporis Problem 01/14/2020 12:00: 00 AM EDT [facility] ([facility]) 137426731121141 Pain in left knee Pain in Left Knee Problem 12:00:00 AM EDT [place] ([facility]) [id number] Pain of right shoulder joint Pain of Right Millie ulder Joint Problem 01/14/2020 12:00:00 AM EDT [place] ([facility]) 637195291 Simple obesity Simple Obesity Problem 01/14/2020 12:00: 00 AM EDT [facility] ([facility]) 87995570 Tinea corporis Tinea Corporis Problem 01/14/2020 12:00: 00 AM EDT [facility] ([facility]) [id number] Pain in left knee Pain in Left Knee Problem 12:00:00 AM EDT [place] ([facility]) [id number] Pain of right shoulder joint Pain of Right Millie ulder Joint Problem 01/14/2020 12:00:00 AM EDT [place] ([facility]) 603841845 Simple obesity Simple Obesity Problem 01/14/2020 12:00: 00 AM EDT [place] ([facility]) 49172567 Tinea corporis Tinea Corporis Problem 01/14/2020 12:00: 00 AM EDT [place] ([facility]) Surgeries/Procedures Procedure Description Date Indications Data Source(s) OFFICE OUTPATIENT VISIT 25 MINUTES 12/14/2020 12:00:00 AM EDT [facility] ([facility]) ARTHROCENTESIS ASPIR&/INJECTION INTERM JT/BURSA 2020 12:00:00 AM EDT [facility] ([facility]) RADEX SHOULDER COMPLETE MINIMUM 2 VIEWS 12/01/2020 12: 00:00 AM EDT [facility] ([facility]) OFFICE OUTPATIENT NEW 45 MINUTES 11/17/2020 12:00:00 A M EDT [facility] ([facility]) THERAPEUTIC PX 1/> AREAS EACH 15 MIN EXERCISES 12:00:00 AM EDT [facility] ([facility]) APPLICATION MODALITY 1/> AREAS HOT/COLD PACKS 10/15/19 21 12:00:00 AM EDT [facility] ([facility] ) APPL MODALITY 1/> AREAS ELEC STIMJ EA 15 MIN 1 12:00:00 AM EDT [facility] ([facility] ) THERAPEUTIC PX 1/> AREAS EACH 15 MIN EXERCISES 021 12:00:00 AM EDT [facility] ([facility] ) APPLICATION MODALITY 1/> AREAS HOT/COLD PACKS 10/08/19 21 12:00:00 AM EDT [facility] ([facility] ) APPL MODALITY 1/> AREAS ELEC STIMJ EA 15 MIN 1 12:00:00 AM EDT [facility] ([facility] ) THERAPEUTIC PX 1/> AREAS EACH 15 MIN EXERCISES 021 12:00:00 AM EDT [facility] ([facility] ) APPL MODALITY 1/> AREAS ELEC STIMJ EA 15 MIN 1 12:00:00 AM EDT [facility] ([facility] ) THERAPEUTIC PX 1/> AREAS EACH 15 MIN EXERCISES 021 12:00:00 AM EDT [facility] ([facility] ) THERAPEUTIC PX 1/> AREAS EACH 15 MIN EXERCISES 021 12:00:00 AM EDT [facility] ([facility] ) Physical Therapy Eval - Low Complexity 09/28/2020 12:0 0:00 AM EDT [facility] ([facility] ) ARTHROSCOPY SHOULDER SURG DEBRIDEMENT LIMITED 09/09/19 21 12:00:00 AM EDT [facility] ([facility] ) ARTHROSCOPY SHOULDER SURG DEBRIDEMENT LIMITED 09/09/19 21 12:00:00 AM EDT [facility] ([facility] ) ARTHROSCOPY SHOULDER SURG DEBRIDEMENT LIMITED 09/09/19 21 12:00:00 AM EDT [facility] ([facility] ) SHOULDER SCOPE BONE SHAVING 09/08/2020 12:00:00 AM EDT [facility] ([facility] ) SHOULDER SCOPE BONE SHAVING 09/08/2020 12:00:00 AM EDT [facility] ([facility] ) SHOULDER SCOPE BONE SHAVING 09/08/2020 12:00:00 AM EDT [facility] ([facility] ) OFFICE OUTPATIENT VISIT 15 MINUTES 08/09/2020 12:00:00 AM EDT [facility] ([facility] ) OFFICE OUTPATIENT VISIT 25 MINUTES 08/02/2020 12:00:00 AM EDT [facility] ([facility]) OFFICE OUTPATIENT VISIT 15 MINUTES 07/28/2020 12:00:00 AM EDT [facility] ([facility]) OFFICE OUTPATIENT NEW 30 MINUTES 06/10/2020 12:00:00 A M EST [facility] ([facility]) Inject/Drain Arthrocentesis Major Joint/Bursa/Ganglion Cyst 02/19/2020 12:00:00 AM EST [facility] ([facility]) Inject/Drain Arthrocentesis Major Joint/Bursa/Ganglion Cyst 02/04/2020 12:00:00 AM EDT [facility] ([facility]) Results ID Date Data Source [id number] 11/03/2020 04:19:00 [place] [id number] OPERATIVE SUMMARYNAME: ROBERTO DIOP DATE OF : 1960TTENDING PHYS: Lorie Ortiz MD DATE: 11/03/20 MR#: [id number] OF PROCEDURE: 11/03/20PREOPERATIVE DIAGNOSIS: Age-related nuclear cataract, left eye.POSTOPERATIVE DIAGNOSIS: Age-related nuclear cataract, left eye.PROCEDURE PERFORMED: Phacoemulsification of posterior chamber with intraocular lensimplantation left eye.ANESTHESIA: Topical sedation.LENS USED: AUOOTO 15.0 diopters.DETAILS OF PROCEDURE: The eye was prepped and draped in the usual fashion. Lidspeculum was placed in the lid. A stab incision was made to the anterior chamber with asuperblade. 1% non-preserved lidocaine was instilled and viscoelastic instilled. The eye wasrefixated, and a 2.4 mm Keratome made a clear corneal and temporal limbal incision. The lens wasthen hydrodissected, and then it was grooved in two meridians at the phacoemulsification. The lenswas scrapped into four quadrants. Each quadrant was in good phacoemulsification. The remainingcortex was removed with I&A unit. The capsular bag was refilled with viscoelastic and theposterior chamber and intraocular lens were inserted into the capsular bag with no difficulty. Anyremaining viscoelastic was removed with the I&A, and the wound was hydrated and balanced saltand ceftriaxone were instilled. The patient tolerated the procedure well, and went to the recoveryroom in stable condition.DD: Lorie Ortiz MD 11/03/20 09:42DT: OLIVIA 11/03/20 16:18DS: Lorie Ortiz MD 02/02/21 13:46 1 Name Value Range Interpretation Code Description Data Lashonda rce(s) Supporting Document(s) ID Date Data Source [id number] 01/22/2021 01:45:00 PM EDT [facility] Name Value Range Interpretation Code Description Data Lashonda rce(s) Supporting Document(s) SARS-CoV-2 RNA Resp Ql YURI+probe NOT DETECTED [facility] This lab was ordered by AMAN shearer and reported by AMAN Torres. ID Date Data Source [id number] 10/29/2020 01:46:00 PM EDT [facility] Name Value Range Interpretation Code Description Data Lashonda rce(s) Supporting Document(s) SARS-CoV-2 (COVID-19) Negative [facility] This lab was ordered by [facility] and reported by alooma. ID Date Data Source [id number] 10/26/2020 08:57:00 AM EDT [place] ([facility]) Name Value Range Interpretation Code Description Data Lashonda rce(s) Supporting Document(s) Leukocytes [#/volume] in Blood by Automated count 5.2 thousand/uL 3 .8-10.8 White Blood Cell Count [facility] ([facility]) Erythrocytes [#/volume] in Blood by Automated count 4.74 million/uL 3.80-5.10 Red Blood Cell Count [facility] ([facility]) Hemoglobin [Mass/volume] in Blood 13.2 g/dL 11.7-15.5 He moglobin [facility] ([facility]) Erythrocyte mean corpuscular volume [Entitic volume] by Auto mated count 84.6 fL 80.0-100.0 Mcv [facility] ([facility]) Hematocrit [Volume Fraction] of Blood by Automated count 40.1 % 35.0-45.0 Hematocrit [facility] ([facility]) Erythrocyte mean corpuscular hemoglobin [Entitic mass] by Automated count 27.8 pg 27.0-33.0 Mch [facility] ([facility]) Erythrocyte mean corpuscular hemoglobin concentration [Mass/volume] by Automated count 32.9 g/dL 32.0-36.0 Mchc [facility] ([facility]) Erythrocyte distribution width [Ratio] by Automated count 13.9 % 11.0-15.0 Rdw [facility] ([facility]) Platelet mean volume [Entitic volume] in Blood by Heaven 10.6 f L 7.5-12.5 Mpv [facility] ([facility]) Platelets [#/volume] in Blood by Automated count 218 thousand/uL 14 0-400 Platelet Count [place] ([facility]) Lymphocytes [#/volume] in Blood by Automated count 1763 cells/uL 85 0-3900 Absolute Lymphocytes [place] ([facility]) Neutrophils [#/volume] in Blood by Automated count 2907 cells/uL 15 00-7800 Absolute Neutrophils [facility] ([facility]) Monocytes [#/volume] in Blood by Automated count 390 cells/uL 200-9 50 Absolute Monocytes [place] ([facility]) Basophils [#/volume] in Blood by Automated count 31 cells/uL 0-200 Absolute Basophils [place] ([facility]) Eosinophils [#/volume] in Blood by Automated count 109 cells/uL 15- 500 Absolute Eosinophils [place] ([facility]) Neutrophils/100 leukocytes in Blood by Automated count 55.9 % 38-80 Neutrophils [place] ([facility]) Lymphocytes/100 leukocytes in Blood by Automated count 33.9 % 15-49 Lymphocytes [place] ([facility]) Eosinophils/100 leukocytes in Blood by Automated count 2.1 % 0-8 Eosinophils [place] ([facility]) Monocytes/100 leukocytes in Blood by Automated count 7.5 % 0-13 Monocytes [facility] ([facility]) Basophils/100 leukocytes in Blood by Automated count 0.6 % 0-2 Basophils [facility] ([facility]) ID Date Data Source [id number] 10/26/2020 08:57:00 AM EDT [place] ([facility]) Name Value Range Interpretation Code Description Data Lashonda rce(s) Supporting Document(s) Glucose [Mass/volume] in Serum or Plasma 96 mg/dL 65-99 Glucose [place] ([facility]) Urea nitrogen [Mass/volume] in Serum or Plasma 16 mg/dL 7-25 Urea Nitrogen (BUN) [facility] ([facility]) Creatinine [Mass/volume] in Serum or Plasma 0.98 mg/dL 0.50-1.05 Creatinine [place] ([facility]) Glomerular filtration rate/1.73 sq M.pre dicted among non-blacks [Volume Rate/Area] in Serum, Plasma or Blood by Creatinine-based formula (CKD-EPI) 63 mL/min/1.73m2 > or = 60 eGFR Non-afr. Martiniquais [facility] ([facility]) Glomerular filtration rate/1.73 sq M.pre dicted among blacks [Volume Rate/Area] in Serum, Plasma or Blood by Creatinine-based formula (CKD-EPI) 73 mL/min/1.73m2 > or = 60 eGFR [place] ([facility]) Urea nitrogen/Creatinine [Mass Ratio] in Serum or Plasma not applic able 6-22 BUN/creatinine Ratio [facility] ([facility]) Sodium [Moles/volume] in Serum or Plasma 139 mmol/L 135-146 Sodium [facility] ([facility]) Potassium [Moles/volume] in Serum or Plasma 4.6 mmol/L 3.5-5.3 Potassium [facility] ([facility]) Chloride [Moles/volume] in Serum or Plasma 104 mmol/L 98-110 Chloride [facility] ([facility]) Carbon dioxide, total [Moles/volume] in Serum or Plasma 26 mmol/L 20-32 Carbon Dioxide [facility] ([facility]) Calcium [Mass/volume] in Serum or Plasma 9.2 mg/dL 8.6-10.4 Calcium [facility] ([facility]) Protein [Mass/volume] in Serum or Plasma 6.8 g/dL 6.1-8.1 [facility], [facility] Albumin [Mass/volume] in Serum or Plasma 4.1 g/dL 3.6-5.1 Albumin [place] ([facility]) Globulin [Mass/volume] in Serum by calculation 2.7 g/dL_(calc) 1.9- 3.7 Globulin [place] ([facility]) Albumin/Globulin [Mass Ratio] in Serum or Plasma 1.5 (calc) 1.0-2 .5 Albumin/globulin Ratio [facility] ([facility]) Bilirubin.total [Mass/volume] in Serum or Plasma 0.3 mg/dL 0.2-1 .2 Bilirubin, Total [place] ([facility]) Alkaline phosphatase [Enzymatic activity/volume] in Serum or Plasma 88 U/L 37-153 Alkaline Phosphatase [facility] ([facility]) Aspartate aminotransferase [Enzymatic activity/volume] in Serum or Plasma 25 U/L 10-35 Ast [place] ([facility]) Alanine aminotransferase [Enzymatic activity/volume] in Seru m or Plasma 30 U/L 6-29 Above high normal Alt [facility] ([facility]) ID Date Data Source [id number] 09/13/2020 06:29:00 AM EDT [facility]) Name Value Range Interpretation Code Description Data Lashonda rce(s) Supporting Document(s) lactic acid sepsis protocol 0.6 mmol/L 0.4-2.0 Lactic A chandra Sepsis Protocol [facility]) ID Date Data Source [id number] 09/13/2020 06:29:00 AM EDT [facility]) Name Value Range Interpretation Code Description Data Lashonda rce(s) Supporting Document(s) lactic acid sepsis protocol 0.6 mmol/L 0.4-2.0 Lactic A [facility]andra Sepsis [facility] ID Date Data Source [id number] 09/13/2020 06:29:00 AM EDT [facility]) Name Value Range Interpretation Code Description Data Lashonda rce(s) Supporting Document(s) lactic acid sepsis protocol 0.6 mmol/L 0.4-2.0 Lactic A chandra Sepsis Protocol [facility] ([facility]) ID Date Data Source [id number] 09/13/2020 06:29:00 AM EDT [place] ([facility]) Name Value Range Interpretation Code Description Data Lashonda rce(s) Supporting Document(s) lactic acid sepsis protocol 0.6 mmol/L 0.4-2.0 Lactic A chandra Sepsis Protocol [facility] ([facility]) ID Date Data Source [id number] 09/13/2020 06:29:00 AM EDT [facility]) Name Value Range Interpretation Code Description Data Lashonda rce(s) Supporting Document(s) lactic acid sepsis protocol 0.6 mmol/L 0.4-2.0 Lactic A chandra Sepsis Protocol [place] ([facility]) ID Date Data Source [id number] 09/12/2020 12:02:00 PM EDT [facility]) Name Value Range Interpretation Code Description Data Lashonda rce(s) Supporting Document(s) white blood count 7.9 10 4.0-10.0 White Blood Count [place] ([facility]) red blood count 4.49 10 4.00-5.40 Red Blood Count [facility] ([facility]) hemoglobin 12.5 g/dL 12.0-15.5 Hemoglobin [place] ([facility]) mean corpuscular volume 87.8 fL 80.0-96.0 Mean Corpusc ular Volume [facility] ([facility]) hematocrit 39.4 % 36.0-47.0 Hematocrit [facility] ([facility]) mean corpuscular hemoglobin 27.8 pg 27.0-33.0 Mean Cor puscular Hemoglobin [facility] ([facility]) mean corpuscular HGB conc 31.7 g/dL 32.0-36.5 Below low rose mary l Mean Corpuscular HGB Conc [facility] ([facility]) platelet count, automated 215 10 150-450 Platelet C ount, Automated [place] ([facility]) red cell distribution width 13.9 % 11.5-14.5 Red Cell Distribution Width [facility] ([facility]) nucleated red blood cell % 0.0 % 0-0 Nucleated Red Blood Cell % [facility] ([facility]) ID Date Data Source [id number] 09/12/2020 12:02:00 PM EDT [facility] ([facility]) Name Value Range Interpretation Code Description Data Lashonda rce(s) Supporting Document(s) white blood count 7.9 10 4.0-10.0 White Blood Count [facility] ([facility]) hemoglobin 12.5 g/dL 12.0-15.5 Hemoglobin [facility] ([facility]) red blood count 4.49 10 4.00-5.40 Red Blood Count [facility] NA ([facility]) hematocrit 39.4 % 36.0-47.0 Hematocrit [facility] ([facility]) mean corpuscular volume 87.8 fL 80.0-96.0 Mean Corpusc ular Volume [facility] ([facility]) mean corpuscular HGB conc 31.7 g/dL 32.0-36.5 Below low rose mary l Mean Corpuscular HGB Conc [facility] ([facility]) mean corpuscular hemoglobin 27.8 pg 27.0-33.0 Mean Cor puscular Hemoglobin [facility] ([facility]) platelet count, automated 215 10 150-450 Platelet C ount, Automated [place] ([facility]) red cell distribution width 13.9 % 11.5-14.5 Red Cell Distribution Width [facility] ([facility]) nucleated red blood cell % 0.0 % 0-0 Nucleated Red Blood Cell % [facility] ([facility]) ID Date Data Source [id number] 09/12/2020 12:02:00 PM EDT [facility] ([facility]) Name Value Range Interpretation Code Description Data Lashonda rce(s) Supporting Document(s) white blood count 7.9 10 4.0-10.0 White Blood Count [facility] ([facility]) red blood count 4.49 10 4.00-5.40 Red Blood Count [facility] NA ([facility]) hemoglobin 12.5 g/dL 12.0-15.5 Hemoglobin [facility] ([facility]) hematocrit 39.4 % 36.0-47.0 Hematocrit [facility] ([facility]) mean corpuscular volume 87.8 fL 80.0-96.0 Mean Corpusc ular Volume [facility] ([facility]) mean corpuscular hemoglobin 27.8 pg 27.0-33.0 Mean Cor puscular Hemoglobin [facility] ([facility]) mean corpuscular HGB conc 31.7 g/dL 32.0-36.5 Below low rose mary l Mean Corpuscular HGB Conc [facility] ([facility]) red cell distribution width 13.9 % 11.5-14.5 Red Cell Distribution Width [facility] ([facility]) platelet count, automated 215 10 150-450 Platelet C ount, Automated [place] ([facility]) nucleated red blood cell % 0.0 % 0-0 Nucleated Red Blood Cell % [facility] ([facility]) ID Date Data Source [id number] 09/12/2020 12:02:00 PM EDT [place] ([facility]) Name Value Range Interpretation Code Description Data Lashonda rce(s) Supporting Document(s) white blood count 7.9 10 4.0-10.0 White Blood Count [facility] ([facility]) red blood count 4.49 10 4.00-5.40 Red Blood Count [facility] NA ([facility]) hematocrit 39.4 % 36.0-47.0 Hematocrit [facility] ([facility]) hemoglobin 12.5 g/dL 12.0-15.5 Hemoglobin [facility] ([facility]) mean corpuscular hemoglobin 27.8 pg 27.0-33.0 Mean Cor puscular Hemoglobin [facility] ([facility]) mean corpuscular volume 87.8 fL 80.0-96.0 Mean Corpusc ular Volume [facility] ([facility]) red cell distribution width 13.9 % 11.5-14.5 Red Cell Distribution Width [facility] ([facility]) mean corpuscular HGB conc 31.7 g/dL 32.0-36.5 Below low rose mary l Mean Corpuscular HGB Conc [facility] ([facility]) platelet count, automated 215 10 150-450 Platelet C ount, Automated [facility] ([facility]) nucleated red blood cell % 0.0 % 0-0 Nucleated Red Blood Cell % [facility] ([facility]) ID Date Data Source [id number] 09/12/2020 12:02:00 PM EDT [facility] ([facility]) Name Value Range Interpretation Code Description Data Lashonda rce(s) Supporting Document(s) white blood count 7.9 10 4.0-10.0 White Blood Count [facility] ([facility]) hemoglobin 12.5 g/dL 12.0-15.5 Hemoglobin [place] ([facility]) red blood count 4.49 10 4.00-5.40 Red Blood Count ATHE NA ([facility]) mean corpuscular volume 87.8 fL 80.0-96.0 Mean Corpusc ular Volume [place] ([facility]) hematocrit 39.4 % 36.0-47.0 Hematocrit [place] ([facility]) mean corpuscular hemoglobin 27.8 pg 27.0-33.0 Mean Cor puscular Hemoglobin [place] ([facility]) mean corpuscular HGB conc 31.7 g/dL 32.0-36.5 Below low rose mary l Mean Corpuscular HGB Conc [place] ([facility]) red cell distribution width 13.9 % 11.5-14.5 Red Cell Distribution Width [place] ([facility]) platelet count, automated 215 10 150-450 Platelet C ount, Automated [place] ([facility]) nucleated red blood cell % 0.0 % 0-0 Nucleated Red Blood Cell % [place] ([facility]) ID Date Data Source [id number] 09/11/2020 11:56:00 PM EDT [facility]) Name Value Range Interpretation Code Description Data Lashonda rce(s) Supporting Document(s) clostridium difficile PCR negative negative Clostridiu m Difficile PCR [place] ([facility]) nap1 027 for cdiff PCR presumptive negative negative Nap 1 027 for Cdiff PCR [facility]) ID Date Data Source [id number] 09/11/2020 11:56:00 PM EDT [facility]) Name Value Range Interpretation Code Description Data Lashonda rce(s) Supporting Document(s) nap1 027 for cdiff PCR presumptive negative negative Nap 1 027 for Cdiff PCR [facility]) clostridium difficile PCR negative negative Clostridiu m Difficile PCR [facility]) ID Date Data Source [id number] 09/11/2020 11:56:00 PM EDT [facility]) Name Value Range Interpretation Code Description Data Lashonda rce(s) Supporting Document(s) clostridium difficile PCR negative negative Clostridiu m Difficile PCR [facility]) nap1 027 for cdiff PCR presumptive negative negative Nap 1 027 for Cdiff PCR [facility]) ID Date Data Source [id number] 09/11/2020 11:56:00 PM EDT [facility]) Name Value Range Interpretation Code Description Data Lashonda rce(s) Supporting Document(s) clostridium difficile PCR negative negative Clostridiu m Difficile PCR [facility]) nap1 027 for cdiff PCR presumptive negative negative Nap 1 027 for Cdiff PCR [facility]) ID Date Data Source [id number] 09/11/2020 11:56:00 PM EDT [facility]) Name Value Range Interpretation Code Description Data Lashonda rce(s) Supporting Document(s) nap1 027 for cdiff PCR presumptive negative negative Nap 1 027 [facility] clostridium difficile [facility] negative negative Clostridiu m Difficile PCR [facility]) ID Date Data Source [id number] 09/11/2020 09:01:00 PM EDT [facility]) Name Value Range Interpretation Code Description Data Lashonda rce(s) Supporting Document(s) influenza B amplification negative negative Influenza B Amplification [place] ([facility]) influenza A amplification negative negative [facility] RSV amplification negative negative RSV Amplification [facility]) sars covid-19 amplification negative negative Sars Cov id-19 Amplification [facility]) ID Date Data Source [id number] 09/11/2020 09:01:00 PM EDT [facility]) Name Value Range Interpretation Code Description Data Lashonda rce(s) Supporting Document(s) influenza B amplification negative negative [facility] influenza A amplification negative negative Influenza [facility] sars covid-19 amplification negative negative Sars Cov id-19 Amplification [place] ([facility]) RSV amplification negative negative RSV [facility] ID Date Data Source [id number] 09/11/2020 09:01:00 PM [facility]T [facility] Name Value Range Interpretation Code Description Data Lashonda rce(s) Supporting Document(s) influenza A amplification negative negative Influenza a [facility] influenza B amplification negative negative Influenza B [facility] sars covid-19 amplification negative negative Sars Cov id-19 Amplification [place] ([facility]) RSV amplification negative negative [facility] ID Date Data Source [id number] 09/11/2020 09:01:00 PM EDT [place] ([facility]) Name Value Range Interpretation Code Description Data Lashonda rce(s) Supporting Document(s) influenza B amplification negative negative Influenza B Amplification [place] ([facility]) influenza A amplification negative negative Influenza a Amplification [place] ([facility]) sars covid-19 amplification negative negative Sars Cov id-19 Amplification [place] ([facility]) RSV amplification negative negative RSV Amplification [facility]) ID Date Data Source [id number] 09/11/2020 09:01:00 PM EDT [facility]) Name Value Range Interpretation Code Description Data Lashonda rce(s) Supporting Document(s) RSV amplification negative negative RSV Amplification [place] ([facility]) influenza B amplification negative negative Influenza B Amplification [place] ([facility]) influenza A amplification negative negative Influenza a Amplification [place] ([facility]) sars covid-19 amplification negative negative Sars Cov id-19 Amplification [place] ([facility]) ID Date Data Source [id number] 09/11/2020 09:01:00 PM EDT [facility] Name Value Range Interpretation Code Description Data Lashonda rce(s) Supporting Document(s) SARS coronavirus 2 RNA [Presence] in Res piratory specimen by YURI with probe detection NEGATIVE [facility] This lab was ordered by [facility] a nd reported by [facility]. ID Date Data Source [id number] 09/11/2020 05:55:00 PM EDT [facility]) Name Value Range Interpretation Code Description Data Lashonda rce(s) Supporting Document(s) white blood count 9.4 10 4.0-10.0 White Blood Count [place] ([facility]) red blood count 5.00 10 4.00-5.40 Red Blood Count AT[place] ([facility]) hemoglobin 14.0 g/dL 12.0-15.5 Hemoglobin [place] ([facility]) hematocrit 43.3 % 36.0-47.0 Hematocrit [place] ([facility]) mean corpuscular hemoglobin 28.0 pg 27.0-33.0 Mean Cor puscular Hemoglobin [place] ([facility]) mean corpuscular volume 86.6 fL 80.0-96.0 Mean Corpusc ular Volume [place] ([facility]) red cell distribution width 13.8 % 11.5-14.5 Red Cell Distribution Width [place] ([facility]) mean corpuscular HGB conc 32.3 g/dL 32.0-36.5 Mean Corpu scular HGB Conc [place] ([facility]) platelet count, automated 219 10 150-450 Platelet C ount, Automated [place] ([facility]) neutrophils % 77.4 % 36.0-66.0 Above high normal Neutrophils % A [place] ([facility]) lymph % 12.9 % 24.0-44.0 Below low normal Lymph % [place] ( [facility]) mono % 7.4 % 2.0-8.0 [place] % [place] ([facility]) eos % 1.7 % 0.0-3.0 Eos % [place] ([facility]) baso % 0.3 % 0.0-1.0 Baso % [place] ([facility]) nucleated red blood cell % 0.0 % 0-0 Nucleated Red Blood Cell % [place] ([facility]) immature granulocyte % 0.3 % 0-3.0 Immature Gran ulocyte % [place] ([facility]) lymph # 1.2 10 1.5-5.0 Below low normal Lymph # [place] ( [facility]) neutrophils # 7.3 10 1.5-8.5 Neutrophils # [place] ( [facility]) eos # 0.2 10 0.0-0.5 Eos # [place] ([facility]) mono # 0.7 10 0.0-0.8 [place] # [place] ([facility]) baso # 0.0 10 0.0-0.2 Baso # [place] ([facility]) ID Date Data Source [id number] 09/11/2020 05:55:00 PM EDT [place] ([facility]) Name Value Range Interpretation Code Description Data Lashonda rce(s) Supporting Document(s) white blood count 9.4 10 4.0-10.0 White Blood Count [place] ([facility]) red blood count 5.00 10 4.00-5.40 Red Blood Count ATHE NA ([facility]) hemoglobin 14.0 g/dL 12.0-15.5 Hemoglobin [place] ([facility]) hematocrit 43.3 % 36.0-47.0 Hematocrit [place] ([facility]) mean corpuscular volume 86.6 fL 80.0-96.0 Mean Corpusc ular Volume [place] ([facility]) mean corpuscular hemoglobin 28.0 pg 27.0-33.0 Mean Cor puscular Hemoglobin [place] ([facility]) mean corpuscular HGB conc 32.3 g/dL 32.0-36.5 Mean Corpu scular HGB Conc [place] ([facility]) platelet count, automated 219 10 150-450 Platelet C ount, Automated [place] ([facility]) red cell distribution width 13.8 % 11.5-14.5 Red Cell Distribution Width [place] ([facility]) neutrophils % 77.4 % 36.0-66.0 Above high normal Neutrophils % A THENA ([facility]) lymph % 12.9 % 24.0-44.0 Below low normal Lymph % [place] ( [facility]) eos % 1.7 % 0.0-3.0 Eos % [place] ([facility]) mono % 7.4 % 2.0-8.0 [place] % [place] ([facility]) immature granulocyte % 0.3 % 0-3.0 Immature Gran ulocyte % [place] ([facility]) baso % 0.3 % 0.0-1.0 Baso % [place] ([facility]) neutrophils # 7.3 10 1.5-8.5 Neutrophils # [place] ( [facility]) nucleated red blood cell % 0.0 % 0-0 Nucleated Red Blood Cell % [place] ([facility]) mono # 0.7 10 0.0-0.8 [place] # [place] ([facility]) lymph # 1.2 10 1.5-5.0 Below low normal Lymph # [place] ( [facility]) baso # 0.0 10 0.0-0.2 Baso # [place] ([facility]) eos # 0.2 10 0.0-0.5 Eos # [place] ([facility]) ID Date Data Source [id number] 09/11/2020 05:55:00 PM EDT [place] ([facility]) Name Value Range Interpretation Code Description Data Lashonda rce(s) Supporting Document(s) white blood count 9.4 10 4.0-10.0 White Blood Count [place] ([facility]) red blood count 5.00 10 4.00-5.40 Red Blood Count [place] ([facility]) hemoglobin 14.0 g/dL 12.0-15.5 Hemoglobin [place] ([facility]) hematocrit 43.3 % 36.0-47.0 Hematocrit [place] ([facility]) mean corpuscular volume 86.6 fL 80.0-96.0 Mean Corpusc ular Volume [place] ([facility]) mean corpuscular hemoglobin 28.0 pg 27.0-33.0 Mean Cor puscular Hemoglobin [place] ([facility]) mean corpuscular HGB conc 32.3 g/dL 32.0-36.5 Mean Corpu scular HGB Conc [place] ([facility]) red cell distribution width 13.8 % 11.5-14.5 Red Cell Distribution Width [place] ([facility]) platelet count, automated 219 10 150-450 Platelet C ount, Automated [place] ([facility]) neutrophils % 77.4 % 36.0-66.0 Above high normal Neutrophils % A [place] ([facility]) lymph % 12.9 % 24.0-44.0 Below low normal Lymph % [place] ( [facility]) mono % 7.4 % 2.0-8.0 [place] % [place] ([facility]) baso % 0.3 % 0.0-1.0 Baso % [place] ([facility]) eos % 1.7 % 0.0-3.0 Eos % [place] ([facility]) immature granulocyte % 0.3 % 0-3.0 Immature Gran ulocyte % [place] ([facility]) nucleated red blood cell % 0.0 % 0-0 Nucleated Red Blood Cell % [place] ([facility]) neutrophils # 7.3 10 1.5-8.5 Neutrophils # [place] ( [facility]) lymph # 1.2 10 1.5-5.0 Below low normal Lymph # [place] ( [facility]) mono # 0.7 10 0.0-0.8 [place] # [place] ([facility]) eos # 0.2 10 0.0-0.5 Eos # [place] ([facility]) baso # 0.0 10 0.0-0.2 Baso # [place] ([facility]) ID Date Data Source [id number] 09/11/2020 05:55:00 PM EDT [place] ([facility]) Name Value Range Interpretation Code Description Data Lashonda rce(s) Supporting Document(s) white blood count 9.4 10 4.0-10.0 White Blood Count [place] ([facility]) red blood count 5.00 10 4.00-5.40 Red Blood Count ATHE NA ([facility]) hemoglobin 14.0 g/dL 12.0-15.5 Hemoglobin [place] ([facility]) hematocrit 43.3 % 36.0-47.0 Hematocrit [place] ([facility]) mean corpuscular volume 86.6 fL 80.0-96.0 Mean Corpusc ular Volume [place] ([facility]) mean corpuscular hemoglobin 28.0 pg 27.0-33.0 Mean Cor puscular Hemoglobin [place] ([facility]) platelet count, automated 219 10 150-450 Platelet C ount, Automated [place] ([facility]) mean corpuscular HGB conc 32.3 g/dL 32.0-36.5 Mean Corpu scular HGB Conc [place] ([facility]) red cell distribution width 13.8 % 11.5-14.5 Red Cell Distribution Width [place] ([facility]) neutrophils % 77.4 % 36.0-66.0 Above high normal Neutrophils % A THENA ([facility]) lymph % 12.9 % 24.0-44.0 Below low normal Lymph % [place] ( [facility]) eos % 1.7 % 0.0-3.0 Eos % [place] ([facility]) mono % 7.4 % 2.0-8.0 [place] % [place] ([facility]) immature granulocyte % 0.3 % 0-3.0 Immature Gran ulocyte % [place] ([facility]) baso % 0.3 % 0.0-1.0 Baso % [place] ([facility]) neutrophils # 7.3 10 1.5-8.5 Neutrophils # [place] ( [facility]) nucleated red blood cell % 0.0 % 0-0 Nucleated Red Blood Cell % [place] ([facility]) lymph # 1.2 10 1.5-5.0 Below low normal Lymph # [place] ( [facility]) mono # 0.7 10 0.0-0.8 [place] # [place] ([facility]) eos # 0.2 10 0.0-0.5 Eos # [place] ([facility]) baso # 0.0 10 0.0-0.2 Baso # [place] ([facility]) ID Date Data Source [id number] 09/11/2020 05:55:00 PM EDT [place] ([facility]) Name Value Range Interpretation Code Description Data Lashonda rce(s) Supporting Document(s) white blood count 9.4 10 4.0-10.0 White Blood Count [place] ([facility]) hemoglobin 14.0 g/dL 12.0-15.5 Hemoglobin [place] ([facility]) red blood count 5.00 10 4.00-5.40 Red Blood Count ATHE NA ([facility]) hematocrit 43.3 % 36.0-47.0 Hematocrit [place] ([facility]) mean corpuscular volume 86.6 fL 80.0-96.0 Mean Corpusc ular Volume [place] ([facility]) mean corpuscular HGB conc 32.3 g/dL 32.0-36.5 Mean Corpu scular HGB Conc [place] ([facility]) mean corpuscular hemoglobin 28.0 pg 27.0-33.0 Mean Cor puscular Hemoglobin [place] ([facility]) red cell distribution width 13.8 % 11.5-14.5 Red Cell Distribution Width [place] ([facility]) platelet count, automated 219 10 150-450 Platelet C ount, Automated [place] ([facility]) neutrophils % 77.4 % 36.0-66.0 Above high normal Neutrophils % A [place] ([facility]) lymph % 12.9 % 24.0-44.0 Below low normal Lymph % [place] ( [facility]) eos % 1.7 % 0.0-3.0 Eos % [place] ([facility]) mono % 7.4 % 2.0-8.0 [place] % [place] ([facility]) immature granulocyte % 0.3 % 0-3.0 Immature Gran ulocyte % [place] ([facility]) baso % 0.3 % 0.0-1.0 Baso % [place] ([facility]) neutrophils # 7.3 10 1.5-8.5 Neutrophils # [place] ( [facility]) nucleated red blood cell % 0.0 % 0-0 Nucleated Red Blood Cell % [place] ([facility]) lymph # 1.2 10 1.5-5.0 Below low normal Lymph # [place] ( [facility]) eos # 0.2 10 0.0-0.5 Eos # [place] ([facility]) mono # 0.7 10 0.0-0.8 [place] # [place] ([facility]) baso # 0.0 10 0.0-0.2 Baso # [place] ([facility]) ID Date Data Source [id number] 09/11/2020 05:12:00 PM EDT [place] ([facility]) Name Value Range Interpretation Code Description Data Lashonda rce(s) Supporting Document(s) thyroid stimulating hormone 1.900 uIU/mL 0.358-3.740 Thyroid Stimulating Hormone [place] ([facility]) ID Date Data Source [id number] 09/11/2020 05:12:00 PM EDT [place] ([facility]) Name Value Range Interpretation Code Description Data Lashonda rce(s) Supporting Document(s) lipase 85 U/L 73-393 Lipase [place] ([facility]) ID Date Data Source [id number] 09/11/2020 05:12:00 PM EDT [place] ([facility]) Name Value Range Interpretation Code Description Data Lashonda rce(s) Supporting Document(s) blood urea nitrogen 13 mg/dL 7-18 Blood Urea Nitro gen [place] ([facility]) glucose, fasting 98 mg/dL 70-100 Glucose, Fasting AT [facility]) glomerular filtration rate > 60.0 >51 Glomerula r Filtration Rate [place] ([facility]) creatinine for GFR 0.94 mg/dL 0.55-1.30 Creatinine for GF R [place] ([facility]) potassium serum 4.8 mEq/L 3.5-5.1 Potassium Serum ATHE NA ([facility]) sodium level 139 mEq/L 136-145 Sodium Level [place] ([facility]) chloride level 107 mEq/L 98-107 Chloride Level [place] ([facility]) carbon dioxide level 23 mmol/L 20-29 Carbon Dioxide Level [place] ([facility]) anion gap 9 mEq/L 8-16 Anion Gap [place] ([facility]) calcium level 8.9 mg/dL 8.5-10.1 Calcium Level [place] ( [facility]) ID Date Data Source [id number] 09/11/2020 05:12:00 PM EDT [place] ([facility]) Name Value Range Interpretation Code Description Data Lashonda rce(s) Supporting Document(s) AST/SGOT 47 U/L 7-37 Above high normal AST/SGOT [place] ([facility]) ALT/SGPT 40 U/L 12-78 ALT/SGPT [place] ([facility]) bilirubin,total 0.3 mg/dL 0.2-1.0 Bilirubin,total AT[place] NA ([facility]) alkaline phosphatase 99 U/L 45-117 Alkaline Phosph atase [place] ([facility]) total protein 6.9 gm/dL 6.4-8.2 Total Protein [place] ( [facility]) bilirubin,direct < 0.1 0.0-0.2 Bilirubin,direct AT [facility] ([facility]) albumin 3.8 gm/dL 3.2-5.2 Albumin [place] ([facility]) albumin/globulin ratio 1.2-2.2 Albumin/globu victor hugo Ratio [place] ([facility]) ID Date Data Source [id number] 09/11/2020 05:12:00 PM EDT [place] ([facility]) Name Value Range Interpretation Code Description Data Lashonda rce(s) Supporting Document(s) lactic acid sepsis protocol 1.3 mmol/L 0.4-2.0 Lactic A chandra Sepsis Protocol [place] ([facility]) ID Date Data Source [id number] 09/11/2020 05:12:00 PM EDT [place] ([facility]) Name Value Range Interpretation Code Description Data Lashonda rce(s) Supporting Document(s) thyroid stimulating hormone 1.900 uIU/mL 0.358-3.740 Thyroid Stimulating Hormone [place] ([facility]) ID Date Data Source [id number] 09/11/2020 05:12:00 PM EDT [place] ([facility]) Name Value Range Interpretation Code Description Data Lashonda rce(s) Supporting Document(s) lipase 85 U/L 73-393 Lipase [place] ([facility]) ID Date Data Source [id number] 09/11/2020 05:12:00 PM EDT [place] ([facility]) Name Value Range Interpretation Code Description Data Lashonda rce(s) Supporting Document(s) glucose, fasting 98 mg/dL 70-100 Glucose, Fasting AT [facility]) blood urea nitrogen 13 mg/dL 7-18 Blood Urea Nitro gen [place] ([facility]) creatinine for GFR 0.94 mg/dL 0.55-1.30 Creatinine for GF R [place] ([facility]) glomerular filtration rate > 60.0 >51 Glomerula r Filtration Rate [place] ([facility]) sodium level 139 mEq/L 136-145 Sodium Level [place] ([facility]) potassium serum 4.8 mEq/L 3.5-5.1 Potassium Serum ATH NA ([facility]) carbon dioxide level 23 mmol/L 20-29 Carbon Dioxide Level [place] ([facility]) chloride level 107 mEq/L 98-107 Chloride Level [place] ([facility]) anion gap 9 mEq/L 8-16 Anion Gap [place] ([facility]) calcium level 8.9 mg/dL 8.5-10.1 Calcium Level [place] ( [facility]) ID Date Data Source [id number] 09/11/2020 05:12:00 PM EDT [place] ([facility]) Name Value Range Interpretation Code Description Data Lashonda rce(s) Supporting Document(s) ALT/SGPT 40 U/L 12-78 ALT/SGPT [place] ([facility]) AST/SGOT 47 U/L 7-37 Above high normal AST/SGOT [place] ([facility]) alkaline phosphatase 99 U/L 45-117 Alkaline Phosph atase [place] ([facility]) bilirubin,total 0.3 mg/dL 0.2-1.0 [facility] total protein 6.9 gm/dL 6.4-8.2 Total Protein [place] ( [facility]) bilirubin,direct < 0.1 0.0-0.2 Bilirubin,direct AT [facility] ([facility]) albumin 3.8 gm/dL 3.2-5.2 Albumin [place] ([facility]) albumin/globulin ratio 1.2-2.2 Albumin/globu victor hugo Ratio [place] ([facility]) ID Date Data Source [id number] 09/11/2020 05:12:00 PM EDT [facility]) Name Value Range Interpretation Code Description Data Lashonda rce(s) Supporting Document(s) lactic acid sepsis protocol 1.3 mmol/L 0.4-2.0 Lactic A cahndra Sepsis Protocol [facility]) ID Date Data Source [id number] 09/11/2020 05:12:00 PM EDT [facility]) Name Value Range Interpretation Code Description Data Lashonda rce(s) Supporting Document(s) thyroid stimulating hormone 1.900 uIU/mL 0.358-3.740 Thyroid Stimulating Hormone [facility]) ID Date Data Source [id number] 09/11/2020 05:12:00 PM EDT [facility]) Name Value Range Interpretation Code Description Data Lashonda rce(s) Supporting Document(s) lipase 85 U/L 73-393 Lipase [facility]) ID Date Data Source [id number] 09/11/2020 05:12:00 PM EDT [facility]) Name Value Range Interpretation Code Description Data Lashonda rce(s) Supporting Document(s) glucose, fasting 98 mg/dL 70-100 Glucose, Fasting AT [facility] ([facility]) blood urea nitrogen 13 mg/dL 7-18 Blood Urea Nitro gen [place] ([facility]) creatinine for GFR 0.94 mg/dL 0.55-1.30 Creatinine for GF R [place] ([facility]) glomerular filtration rate > 60.0 >51 Glomerula r Filtration Rate [place] ([facility]) sodium level 139 mEq/L 136-145 Sodium Level [place] ([facility]) potassium serum 4.8 mEq/L 3.5-5.1 Potassium Serum AT[facility] NA ([facility]) chloride level 107 mEq/L 98-107 Chloride Level [place] ([facility]) carbon dioxide level 23 mmol/L 20-29 Carbon Dioxide Level [place] ([facility]) anion gap 9 mEq/L 8-16 Anion Gap [place] ([facility]) calcium level 8.9 mg/dL 8.5-10.1 Calcium Level [place] ( [facility]) ID Date Data Source [id number] 09/11/2020 05:12:00 PM EDT [place] ([facility]) Name Value Range Interpretation Code Description Data Lashonda rce(s) Supporting Document(s) AST/SGOT 47 U/L 7-37 Above high normal AST/SGOT [place] ([facility]) ALT/SGPT 40 U/L 12-78 ALT/SGPT [place] ([facility]) alkaline phosphatase 99 U/L 45-117 Alkaline Phosph atase [place] ([facility]) bilirubin,total 0.3 mg/dL 0.2-1.0 Bilirubin,total [facility] ([facility]) bilirubin,direct < 0.1 0.0-0.2 Bilirubin,direct AT [facility] [facility]) albumin 3.8 gm/dL 3.2-5.2 Albumin [place] ([facility]) total protein 6.9 gm/dL 6.4-8.2 Total Protein [place] ( [facility]) albumin/globulin ratio 1.2-2.2 Albumin/globu victor hugo Ratio [place] ([facility]) ID Date Data Source [id number] 09/11/2020 05:12:00 PM EDT [facility]) Name Value Range Interpretation Code Description Data Lashonda rce(s) Supporting Document(s) lactic acid sepsis protocol 1.3 mmol/L 0.4-2.0 Lactic A chandra Sepsis Protocol [place] ([facility]) ID Date Data Source [id number] 09/11/2020 05:12:00 PM EDT [facility]) Name Value Range Interpretation Code Description Data Lashonda rce(s) Supporting Document(s) thyroid stimulating hormone 1.900 uIU/mL 0.358-3.740 Thyroid Stimulating Hormone [place] ([facility]) ID Date Data Source [id number] 09/11/2020 05:12:00 PM EDT [place] ([facility]) Name Value Range Interpretation Code Description Data Lashonda rce(s) Supporting Document(s) lipase 85 U/L 73-393 Lipase [place] ([facility]) ID Date Data Source [id number] 09/11/2020 05:12:00 PM EDT [facility]) Name Value Range Interpretation Code Description Data Lashonda rce(s) Supporting Document(s) glucose, fasting 98 mg/dL 70-100 Glucose, Fasting AT [facility]) blood urea nitrogen 13 mg/dL 7-18 Blood Urea Nitro gen [place] ([facility]) glomerular filtration rate > 60.0 >51 Glomerula r Filtration Rate [place] ([facility]) creatinine for GFR 0.94 mg/dL 0.55-1.30 Creatinine for GF R [place] ([facility]) potassium serum 4.8 mEq/L 3.5-5.1 Potassium Serum A[facility] NA ([facility]) sodium level 139 mEq/L 136-145 Sodium Level [place] ([facility]) chloride level 107 mEq/L 98-107 Chloride Level [place] ([facility]) carbon dioxide level 23 mmol/L 20-29 Carbon Dioxide Level [place] ([facility]) anion gap 9 mEq/L 8-16 Anion Gap [place] ([facility]) calcium level 8.9 mg/dL 8.5-10.1 Calcium Level [place] ( [facility]) ID Date Data Source [id number] 09/11/2020 05:12:00 PM EDT [place] ([facility]) Name Value Range Interpretation Code Description Data Lashonda rce(s) Supporting Document(s) AST/SGOT 47 U/L 7-37 Above high normal AST/SGOT [place] ([facility]) ALT/SGPT 40 U/L 12-78 ALT/SGPT [place] ([facility]) alkaline phosphatase 99 U/L 45-117 Alkaline Phosph atase [place] ([facility]) bilirubin,direct < 0.1 0.0-0.2 Bilirubin,direct AT [place] ([facility]) bilirubin,total 0.3 mg/dL 0.2-1.0 Bilirubin,total [facility] ([facility]) albumin 3.8 gm/dL 3.2-5.2 Albumin [place] ([facility]) albumin/globulin ratio 1.2-2.2 Albumin/globu [place] hugo Ratio [place] ([facility]) total protein 6.9 gm/dL 6.4-8.2 Total Protein [place] ( [facility]) ID Date Data Source [id number] 09/11/2020 05:12:00 PM EDT [place] ([facility]) Name Value Range Interpretation Code Description Data Lashonda rce(s) Supporting Document(s) lactic acid sepsis protocol 1.3 mmol/L 0.4-2.0 Lactic A chandra Sepsis Protocol [place] ([facility]) ID Date Data Source [id number] 09/11/2020 05:12:00 PM EDT [place] ([facility]) Name Value Range Interpretation Code Description Data Lashonda rce(s) Supporting Document(s) thyroid stimulating hormone 1.900 uIU/mL 0.358-3.740 Thyroid Stimulating Hormone [place] ([facility]) ID Date Data Source [id number] 09/11/2020 05:12:00 PM EDT [place] ([facility]) Name Value Range Interpretation Code Description Data Lashonda rce(s) Supporting Document(s) lipase 85 U/L 73-393 Lipase [place] ([facility]) ID Date Data Source [id number] 09/11/2020 05:12:00 PM EDT [facility]) Name Value Range Interpretation Code Description Data Lashonda rce(s) Supporting Document(s) glucose, fasting 98 mg/dL 70-100 Glucose, Fasting AT [facility]) blood urea nitrogen 13 mg/dL 7-18 Blood Urea Nitro gen [place] ([facility]) creatinine for GFR 0.94 mg/dL 0.55-1.30 Creatinine for GF R [place] ([facility]) sodium level 139 mEq/L 136-145 Sodium Level [place] ([facility]) glomerular filtration rate > 60.0 >51 Glomerula r Filtration Rate [place] ([facility]) potassium serum 4.8 mEq/L 3.5-5.1 Potassium Serum A[facility] NA ([facility]) chloride level 107 mEq/L 98-107 Chloride Level [place] ([facility]) carbon dioxide level 23 mmol/L 20-29 Carbon Dioxide Level [place] ([facility]) anion gap 9 mEq/L 8-16 Anion Gap [place] ([facility]) calcium level 8.9 mg/dL 8.5-10.1 Calcium Level [place] ( [facility]) ID Date Data Source [id number] 09/11/2020 05:12:00 PM EDT [facility]) Name Value Range Interpretation Code Description Data Lashonda rce(s) Supporting Document(s) AST/SGOT 47 U/L 7-37 Above high normal AST/SGOT [place] ([facility]) alkaline phosphatase 99 U/L 45-117 Alkaline Phosph atase [place] ([facility]) ALT/SGPT 40 U/L 12-78 ALT/SGPT [place] ([facility]) bilirubin,total 0.3 mg/dL 0.2-1.0 Bilirubin,total AT[facility] NA ([facility]) bilirubin,direct < 0.1 0.0-0.2 Bilirubin,direct AT [place] ([facility]) total protein 6.9 gm/dL 6.4-8.2 Total Protein [place] ( [facility]) albumin 3.8 gm/dL 3.2-5.2 Albumin [place] ([facility]) albumin/globulin ratio 1.2-2.2 Albumin/globu [place]o Ratio [place] ([facility]) ID Date Data Source [id number] 09/11/2020 05:12:00 PM EDT [facility]) Name Value Range Interpretation Code Description Data Lashonda rce(s) Supporting Document(s) lactic acid sepsis protocol 1.3 mmol/L 0.4-2.0 Lactic A chandra Sepsis Protocol [facility]) ID Date Data Source [id number] 08/24/2020 04:06:00 PM EDT [facility] ([facility]) Name Value Range Interpretation Code Description Data Lashonda rce(s) Supporting Document(s) Laboratory test finding (navigational concept) Laboratory test result [facility] ([facility]) ID Date Data Source [id number] 08/24/2020 08:02:00 AM EDT [facility]) Name Value Range Interpretation Code Description Data Lashonda rce(s) Supporting Document(s) total 25(oh) vitamin D 16.3 NG/mL 30.0-100.0 Below low normal T otal 25(Oh) Vitamin D [facility]) ID Date Data Source [id number] 08/24/2020 08:02:00 AM EDT [place] ([facility]) Name Value Range Interpretation Code Description Data Lashonda rce(s) Supporting Document(s) free T4 0.84 NG/dL 0.76-1.46 Free T4 [place] ([facility]) thyroid stimulating hormone 3.540 uIU/mL 0.358-3.740 Thyroid Stimulating Hormone [place] ([facility]) ID Date Data Source [id number] 08/24/2020 08:02:00 AM EDT [place] ([facility]) Name Value Range Interpretation Code Description Data Lashonda rce(s) Supporting Document(s) triglycerides level 175 mg/dL <150 Above high normal Triglycer ides Level [place] ([facility]) cholesterol level 204 mg/dL <200 Above high normal Cholesterol Level [place] ([facility]) Cholesterol in LDL [Mass/volume] in Serum or Plasma 111 mg/dL <100 Above high normal LDL Cholesterol [place] ([facility]) HDL cholesterol 58 mg/dL >40 HDL Cholesterol [facility] ([facility]) cholesterol risk ratio <5 Cholesterol R isk Ratio [place] ([facility]) non-HDL-C 146 mg/dL Non-hdl-c [place] ([facility]) ID Date Data Source [id number] 08/24/2020 08:02:00 AM EDT [place] ([facility]) Name Value Range Interpretation Code Description Data Lashonda rce(s) Supporting Document(s) glucose, fasting 96 mg/dL 70-100 Glucose, Fasting AT [facility] ([facility]) creatinine for GFR 0.96 mg/dL 0.55-1.30 Creatinine for GF R [place] ([facility]) blood urea nitrogen 16 mg/dL 7-18 Blood Urea Nitro gen [place] ([facility]) potassium serum 4.5 mEq/L 3.5-5.1 Potassium Serum [facility] NA ([facility]) glomerular filtration rate > 60.0 >51 Glomerula r Filtration Rate [place] ([facility]) sodium level 138 mEq/L 136-145 Sodium Level [place] ([facility]) chloride level 106 mEq/L 98-107 Chloride Level [place] ([facility]) carbon dioxide level 26 mEq/L 21-32 Carbon Dioxide Level [place] ([facility]) AST/SGOT 21 U/L 7-37 AST/SGOT [place] ([facility]) calcium level 9.0 mg/dL 8.5-10.1 Calcium Level [place] ( [facility]) anion gap 6 mEq/L 8-16 Below low normal Anion Gap [place] ( [facility]) ALT/SGPT 33 U/L 12-78 ALT/SGPT [place] ([facility]) alkaline phosphatase 98 U/L 45-117 Alkaline Phosph atase [place] ([facility]) bilirubin,total 0.3 mg/dL 0.2-1.0 Bilirubin,total [facility] ([facility]) total protein 6.9 gm/dL 6.4-8.2 Total Protein [place] ( [facility]) albumin/globulin ratio 1.2-2.2 Albumin/globu [place] hugo Ratio [place] ([facility]) albumin 3.7 gm/dL 3.2-5.2 Albumin [place] ([facility]) ID Date Data Source [id number] 08/24/2020 08:02:00 AM EDT [place] ([facility]) Name Value Range Interpretation Code Description Data Lashonda rce(s) Supporting Document(s) Hemoglobin A1c/Hemoglobin.total in Blood 5.6 % Hemoglobin a1C [place] ([facility]) estimated average glucose 114 mg/dL 60-110 Above high norm al Estimated Average Glucose [place] ([facility]) ID Date Data Source [id number] 08/24/2020 08:02:00 AM EDT [place] ([facility]) Name Value Range Interpretation Code Description Data Lashonda rce(s) Supporting Document(s) white blood count 5.7 10 4.0-10.0 White Blood Count [place] ([facility]) red blood count 4.94 10 4.00-5.40 Red Blood Count [facility] NA ([facility]) hematocrit 42.5 % 36.0-47.0 Hematocrit [place] ([facility]) hemoglobin 13.9 g/dL 12.0-15.5 Hemoglobin [place] ([facility]) mean corpuscular hemoglobin 28.1 pg 27.0-33.0 Mean Cor puscular Hemoglobin [place] ([facility]) mean corpuscular volume 86.0 fL 80.0-96.0 Mean Corpusc ular Volume [place] ([facility]) mean corpuscular HGB conc 32.7 g/dL 32.0-36.5 Mean Corpu scular HGB Conc [place] ([facility]) neutrophils % 54.9 % 36.0-66.0 Neutrophils % [place] ( [facility]) platelet count, automated 222 10 150-450 Platelet C ount, Automated [place] ([facility]) red cell distribution width 13.2 % 11.5-14.5 Red Cell Distribution Width [place] ([facility]) mono % 7.9 % 2.0-8.0 [place] % [place] ([facility]) lymph % 31.7 % 24.0-44.0 Lymph % [place] ([facility]) eos % 4.4 % 0.0-3.0 Above high normal Eos % [place] ([facility]) baso % 0.9 % 0.0-1.0 Baso % [place] ([facility]) neutrophils # 3.1 10 1.5-8.5 Neutrophils # [place] ( [facility]) nucleated red blood cell % 0.0 % 0-0 Nucleated Red Blood Cell % [place] ([facility]) immature granulocyte % 0.2 % 0-3.0 Immature Gran ulocyte % [place] ([facility]) lymph # 1.8 10 1.5-5.0 Lymph # [place] ([facility]) mono # 0.5 10 0.0-0.8 [place] # [place] ([facility]) baso # 0.1 10 0.0-0.2 Baso # [place] ([facility]) eos # 0.3 10 0.0-0.5 Eos # [place] ([facility]) ID Date Data Source [id number] 08/24/2020 08:02:00 AM EDT [place] ([facility]) Name Value Range Interpretation Code Description Data Lashonda rce(s) Supporting Document(s) total 25(oh) vitamin D 16.3 NG/mL 30.0-100.0 Below low normal T otal 25(Oh) Vitamin D [place] ([facility]) ID Date Data Source [id number] 08/24/2020 08:02:00 AM EDT [place] ([facility]) Name Value Range Interpretation Code Description Data Lashonda rce(s) Supporting Document(s) thyroid stimulating hormone 3.540 uIU/mL 0.358-3.740 Thyroid Stimulating Hormone [place] ([facility]) free T4 0.84 NG/dL 0.76-1.46 Free T4 [place] ([facility]) ID Date Data Source [id number] 08/24/2020 08:02:00 AM EDT [place] ([facility]) Name Value Range Interpretation Code Description Data Lashonda rce(s) Supporting Document(s) triglycerides level 175 mg/dL <150 Above high normal Triglycer ides Level [place] ([facility]) cholesterol level 204 mg/dL <200 Above high normal Cholesterol Level [place] ([facility]) Cholesterol in LDL [Mass/volume] in Serum or Plasma 111 mg/dL <100 Above high normal LDL Cholesterol [place] ([facility]) HDL cholesterol 58 mg/dL >40 HDL Cholesterol [facility] NA ([facility]) cholesterol risk ratio <5 Cholesterol R isk Ratio [place] ([facility]) non-HDL-C 146 mg/dL Non-hdl-c [place] ([facility]) ID Date Data Source [id number] 08/24/2020 08:02:00 AM EDT [place] ([facility]) Name Value Range Interpretation Code Description Data Lashonda rce(s) Supporting Document(s) glucose, fasting 96 mg/dL 70-100 Glucose, Fasting AT [facility] ([facility]) blood urea nitrogen 16 mg/dL 7-18 Blood Urea Nitro gen [place] ([facility]) creatinine for GFR 0.96 mg/dL 0.55-1.30 Creatinine for GF R [place] ([facility]) sodium level 138 mEq/L 136-145 Sodium Level [place] ([facility]) glomerular filtration rate > 60.0 >51 Glomerula r Filtration Rate [place] ([facility]) carbon dioxide level 26 mEq/L 21-32 Carbon Dioxide Level [place] ([facility]) chloride level 106 mEq/L 98-107 Chloride Level [place] ([facility]) potassium serum 4.5 mEq/L 3.5-5.1 Potassium Serum [facility] ([facility]) calcium level 9.0 mg/dL 8.5-10.1 Calcium Level [place] ( [facility]) anion gap 6 mEq/L 8-16 Below low normal Anion Gap [place] ( [facility]) alkaline phosphatase 98 U/L 45-117 Alkaline Phosph atase [place] ([facility]) ALT/SGPT 33 U/L 12-78 ALT/SGPT [place] ([facility]) AST/SGOT 21 U/L 7-37 AST/SGOT [place] ([facility]) total protein 6.9 gm/dL 6.4-8.2 Total Protein [place] ( [facility]) albumin 3.7 gm/dL 3.2-5.2 Albumin [place] ([facility]) bilirubin,total 0.3 mg/dL 0.2-1.0 Bilirubin,total [facility] NA ([facility]) albumin/globulin ratio 1.2-2.2 Albumin/globu [place] hugo Ratio [place] ([facility]) ID Date Data Source [id number] 08/24/2020 08:02:00 AM EDT [place] ([facility]) Name Value Range Interpretation Code Description Data Lashonda rce(s) Supporting Document(s) Hemoglobin A1c/Hemoglobin.total in Blood 5.6 % Hemoglobin a1C [place] ([facility]) estimated average glucose 114 mg/dL 60-110 Above high norm al Estimated Average Glucose [place] ([facility]) ID Date Data Source [id number] 08/24/2020 08:02:00 AM EDT [place] ([facility]) Name Value Range Interpretation Code Description Data Lashonda rce(s) Supporting Document(s) white blood count 5.7 10 4.0-10.0 White Blood Count [place] ([facility]) red blood count 4.94 10 4.00-5.40 Red Blood Count [facility] ([facility]) hemoglobin 13.9 g/dL 12.0-15.5 Hemoglobin [place] ([facility]) hematocrit 42.5 % 36.0-47.0 Hematocrit [place] ([facility]) mean corpuscular volume 86.0 fL 80.0-96.0 Mean Corpusc ular Volume [place] ([facility]) mean corpuscular hemoglobin 28.1 pg 27.0-33.0 Mean Cor puscular Hemoglobin [place] ([facility]) mean corpuscular HGB conc 32.7 g/dL 32.0-36.5 Mean Corpu scular HGB Conc [place] ([facility]) red cell distribution width 13.2 % 11.5-14.5 Red Cell Distribution Width [place] ([facility]) neutrophils % 54.9 % 36.0-66.0 Neutrophils % [place] ( [facility]) platelet count, automated 222 10 150-450 Platelet C ount, Automated [place] ([facility]) lymph % 31.7 % 24.0-44.0 Lymph % [place] ([facility]) mono % 7.9 % 2.0-8.0 [place] % [place] ([facility]) eos % 4.4 % 0.0-3.0 Above high normal Eos % [place] ([facility]) immature granulocyte % 0.2 % 0-3.0 Immature Gran ulocyte % [place] ([facility]) baso % 0.9 % 0.0-1.0 Baso % [place] ([facility]) nucleated red blood cell % 0.0 % 0-0 Nucleated Red Blood Cell % [place] ([facility]) lymph # 1.8 10 1.5-5.0 Lymph # [place] ([facility]) neutrophils # 3.1 10 1.5-8.5 Neutrophils # [place] ( [facility]) eos # 0.3 10 0.0-0.5 Eos # [place] ([facility]) mono # 0.5 10 0.0-0.8 [place] # [place] ([facility]) baso # 0.1 10 0.0-0.2 Baso # [place] ([facility]) ID Date Data Source [id number] 08/24/2020 08:02:00 AM EDT [place] ([facility]) Name Value Range Interpretation Code Description Data Lashonda rce(s) Supporting Document(s) total 25(oh) vitamin D 16.3 NG/mL 30.0-100.0 Below low normal T otal 25(Oh) Vitamin D [facility]) ID Date Data Source [id number] 08/24/2020 08:02:00 AM EDT [facility]) Name Value Range Interpretation Code Description Data Lashonda rce(s) Supporting Document(s) thyroid stimulating hormone 3.540 uIU/mL 0.358-3.740 Thyroid Stimulating Hormone [place] ([facility]) free T4 0.84 NG/dL 0.76-1.46 Free T4 [place] ([facility]) ID Date Data Source [id number] 08/24/2020 08:02:00 AM EDT [facility]) Name Value Range Interpretation Code Description Data [place] rce(s) Supporting Document(s) triglycerides level 175 mg/dL <150 Above high normal Triglycer ides Level [place] ([facility]) cholesterol level 204 mg/dL <200 Above high normal Cholesterol Level [place] ([facility]) HDL cholesterol 58 mg/dL >40 HDL Cholesterol [facility] NA ([facility]) non-HDL-C 146 mg/dL Non-hdl-c [place] ([facility]) Cholesterol in LDL [Mass/volume] in Serum or Plasma 111 mg/dL <100 Above high normal LDL Cholesterol [place] ([facility]) cholesterol risk ratio <5 Cholesterol R isk Ratio [place] ([facility]) ID Date Data Source [id number] 08/24/2020 08:02:00 AM EDT [place] ([facility]) Name Value Range Interpretation Code Description Data Lashonda rce(s) Supporting Document(s) glucose, fasting 96 mg/dL 70-100 Glucose, Fasting AT [facility] ([facility]) creatinine for GFR 0.96 mg/dL 0.55-1.30 Creatinine for GF R [place] ([facility]) glomerular filtration rate > 60.0 >51 Glomerula r Filtration Rate [place] ([facility]) blood urea nitrogen 16 mg/dL 7-18 Blood Urea Nitro gen [place] ([facility]) sodium level 138 mEq/L 136-145 Sodium Level [place] ([facility]) potassium serum 4.5 mEq/L 3.5-5.1 Potassium Serum [facility] NA ([facility]) chloride level 106 mEq/L 98-107 Chloride Level [place] ([facility]) carbon dioxide level 26 mEq/L 21-32 Carbon Dioxide Level [place] ([facility]) calcium level 9.0 mg/dL 8.5-10.1 Calcium Level [place] ( [facility]) anion gap 6 mEq/L 8-16 Below low normal Anion Gap [place] ( [facility]) ALT/SGPT 33 U/L 12-78 ALT/SGPT [place] ([facility]) AST/SGOT 21 U/L 7-37 AST/SGOT [place] ([facility]) bilirubin,total 0.3 mg/dL 0.2-1.0 Bilirubin,total AT[facility] NA ([facility]) alkaline phosphatase 98 U/L 45-117 Alkaline Phosph atase [place] ([facility]) total protein 6.9 gm/dL 6.4-8.2 Total Protein [place] ( [facility]) albumin 3.7 gm/dL 3.2-5.2 Albumin [place] ([facility]) albumin/globulin ratio 1.2-2.2 Albumin/globu victor hugo Ratio [place] ([facility]) ID Date Data Source [id number] 08/24/2020 08:02:00 AM EDT [place] ([facility]) Name Value Range Interpretation Code Description Data Lashonda rce(s) Supporting Document(s) Hemoglobin A1c/Hemoglobin.total in Blood 5.6 % Hemoglobin a1C [place] ([facility]) estimated average glucose 114 mg/dL 60-110 Above high norm al Estimated Average Glucose [place] ([facility]) ID Date Data Source [id number] 08/24/2020 08:02:00 AM EDT [place] ([facility]) Name Value Range Interpretation Code Description Data Lashonda rce(s) Supporting Document(s) white blood count 5.7 10 4.0-10.0 White Blood Count [place] ([facility]) red blood count 4.94 10 4.00-5.40 Red Blood Count ATHE NA ([facility]) hematocrit 42.5 % 36.0-47.0 Hematocrit [place] ([facility]) hemoglobin 13.9 g/dL 12.0-15.5 Hemoglobin [place] ([facility]) mean corpuscular volume 86.0 fL 80.0-96.0 Mean Corpusc ular Volume [place] ([facility]) mean corpuscular hemoglobin 28.1 pg 27.0-33.0 Mean Cor puscular Hemoglobin [place] ([facility]) mean corpuscular HGB conc 32.7 g/dL 32.0-36.5 Mean Corpu scular HGB Conc [place] ([facility]) red cell distribution width 13.2 % 11.5-14.5 Red Cell Distribution Width [place] ([facility]) platelet count, automated 222 10 150-450 Platelet C ount, Automated [place] ([facility]) neutrophils % 54.9 % 36.0-66.0 Neutrophils % [place] ( [facility]) lymph % 31.7 % 24.0-44.0 Lymph % [place] ([facility]) mono % 7.9 % 2.0-8.0 [place] % [place] ([facility]) baso % 0.9 % 0.0-1.0 Baso % [place] ([facility]) eos % 4.4 % 0.0-3.0 Above high normal Eos % [place] ([facility]) immature granulocyte % 0.2 % 0-3.0 Immature Gran ulocyte % [place] ([facility]) nucleated red blood cell % 0.0 % 0-0 Nucleated Red Blood Cell % [place] ([facility]) neutrophils # 3.1 10 1.5-8.5 Neutrophils # [place] ( [facility]) lymph # 1.8 10 1.5-5.0 Lymph # [place] ([facility]) mono # 0.5 10 0.0-0.8 [place] # [place] ([facility]) eos # 0.3 10 0.0-0.5 Eos # [place] ([facility]) baso # 0.1 10 0.0-0.2 Baso # [place] ([facility]) ID Date Data Source [id number] 08/24/2020 08:02:00 AM EDT [place] ([facility]) Name Value Range Interpretation Code Description Data Lashonda rce(s) Supporting Document(s) total 25(oh) vitamin D 16.3 NG/mL 30.0-100.0 Below low normal T otal 25(Oh) Vitamin D [place] ([facility]) ID Date Data Source [id number] 08/24/2020 08:02:00 AM EDT [place] ([facility]) Name Value Range Interpretation Code Description Data Lashonda rce(s) Supporting Document(s) free T4 0.84 NG/dL 0.76-1.46 Free T4 [place] ([facility]) thyroid stimulating hormone 3.540 uIU/mL 0.358-3.740 Thyroid Stimulating Hormone [place] ([facility]) ID Date Data Source [id number] 08/24/2020 08:02:00 AM EDT [place] ([facility]) Name Value Range Interpretation Code Description Data Lashonda rce(s) Supporting Document(s) HDL cholesterol 58 mg/dL >40 HDL Cholesterol AT[facility] ([facility]) cholesterol level 204 mg/dL <200 Above high normal Cholesterol Level [place] ([facility]) triglycerides level 175 mg/dL <150 Above high normal Triglycer ides Level [place] ([facility]) Cholesterol in LDL [Mass/volume] in Serum or Plasma 111 mg/dL <100 Above high normal LDL Cholesterol [place] ([facility]) non-HDL-C 146 mg/dL Non-hdl-c [place] ([facility]) cholesterol risk ratio <5 Cholesterol R isk Ratio [place] ([facility]) ID Date Data Source [id number] 08/24/2020 08:02:00 AM EDT [place] ([facility]) Name Value Range Interpretation Code Description Data Lashonda rce(s) Supporting Document(s) creatinine for GFR 0.96 mg/dL 0.55-1.30 Creatinine for GF R [place] ([facility]) glucose, fasting 96 mg/dL 70-100 Glucose, Fasting AT [facility] ([facility]) blood urea nitrogen 16 mg/dL 7-18 Blood Urea Nitro gen [place] ([facility]) sodium level 138 mEq/L 136-145 Sodium Level [place] ([facility]) potassium serum 4.5 mEq/L 3.5-5.1 Potassium Serum [place] ([facility]) glomerular filtration rate > 60.0 >51 Glomerula r Filtration Rate [place] ([facility]) carbon dioxide level 26 mEq/L 21-32 Carbon Dioxide Level [place] ([facility]) anion gap 6 mEq/L 8-16 Below low normal Anion Gap [place] ( [facility]) chloride level 106 mEq/L 98-107 Chloride Level [place] ([facility]) AST/SGOT 21 U/L 7-37 AST/SGOT [place] ([facility]) calcium level 9.0 mg/dL 8.5-10.1 Calcium Level [place] ( [facility]) ALT/SGPT 33 U/L 12-78 ALT/SGPT [place] ([facility]) alkaline phosphatase 98 U/L 45-117 Alkaline Phosph atase [place] ([facility]) bilirubin,total 0.3 mg/dL 0.2-1.0 Bilirubin,total [facility] ([facility]) albumin 3.7 gm/dL 3.2-5.2 Albumin [place] ([facility]) total protein 6.9 gm/dL 6.4-8.2 Total Protein [place] ( [facility]) albumin/globulin ratio 1.2-2.2 Albumin/globu victor hugo Ratio [place] ([facility]) ID Date Data Source [id number] 08/24/2020 08:02:00 AM EDT [place] ([facility]) Name Value Range Interpretation Code Description Data Lashonda rce(s) Supporting Document(s) Hemoglobin A1c/Hemoglobin.total in Blood 5.6 % Hemoglobin a1C [place] ([facility]) estimated average glucose 114 mg/dL 60-110 Above high norm al Estimated Average Glucose [place] ([facility]) ID Date Data Source [id number] 08/24/2020 08:02:00 AM EDT [place] ([facility]) Name Value Range Interpretation Code Description Data Lashonda rce(s) Supporting Document(s) white blood count 5.7 10 4.0-10.0 White Blood Count [place] ([facility]) red blood count 4.94 10 4.00-5.40 Red Blood Count ATHE NA ([facility]) hemoglobin 13.9 g/dL 12.0-15.5 Hemoglobin [place] ([facility]) hematocrit 42.5 % 36.0-47.0 Hematocrit [place] ([facility]) mean corpuscular volume 86.0 fL 80.0-96.0 Mean Corpusc ular Volume [place] ([facility]) mean corpuscular hemoglobin 28.1 pg 27.0-33.0 Mean Cor puscular Hemoglobin [place] ([facility]) mean corpuscular HGB conc 32.7 g/dL 32.0-36.5 Mean Corpu scular HGB Conc [place] ([facility]) red cell distribution width 13.2 % 11.5-14.5 Red Cell Distribution Width [place] ([facility]) platelet count, automated 222 10 150-450 Platelet C ount, Automated [place] ([facility]) mono % 7.9 % 2.0-8.0 [place] % [place] ([facility]) lymph % 31.7 % 24.0-44.0 Lymph % [place] ([facility]) neutrophils % 54.9 % 36.0-66.0 Neutrophils % [place] ( [facility]) baso % 0.9 % 0.0-1.0 Baso % [place] ([facility]) eos % 4.4 % 0.0-3.0 Above high normal Eos % [place] ([facility]) immature granulocyte % 0.2 % 0-3.0 Immature Gran ulocyte % [place] ([facility]) nucleated red blood cell % 0.0 % 0-0 Nucleated Red Blood Cell % [place] ([facility]) neutrophils # 3.1 10 1.5-8.5 Neutrophils # [place] ( [facility]) mono # 0.5 10 0.0-0.8 [place] # [place] ([facility]) lymph # 1.8 10 1.5-5.0 Lymph # [place] ([facility]) eos # 0.3 10 0.0-0.5 Eos # [place] ([facility]) baso # 0.1 10 0.0-0.2 Baso # [place] ([facility]) ID Date Data Source [id number] 08/24/2020 08:02:00 AM EDT [place] ([facility]) Name Value Range Interpretation Code Description Data Lashonda rce(s) Supporting Document(s) total 25(oh) vitamin D 16.3 NG/mL 30.0-100.0 Below low normal T otal 25(Oh) Vitamin D [place] ([facility]) ID Date Data Source [id number] 08/24/2020 08:02:00 AM EDT [place] ([facility]) Name Value Range Interpretation Code Description Data Lashonda rce(s) Supporting Document(s) thyroid stimulating hormone 3.540 uIU/mL 0.358-3.740 Thyroid Stimulating Hormone [place] ([facility]) free T4 0.84 NG/dL 0.76-1.46 Free T4 [place] ([facility]) ID Date Data Source [id number] 08/24/2020 08:02:00 AM EDT [place] ([facility]) Name Value Range Interpretation Code Description Data Lashonda rce(s) Supporting Document(s) triglycerides level 175 mg/dL <150 Above high normal Triglycer ides Level [place] ([facility]) Cholesterol in LDL [Mass/volume] in Serum or Plasma 111 mg/dL <100 Above high normal LDL Cholesterol [place] ([facility]) HDL cholesterol 58 mg/dL >40 HDL Cholesterol ATHE NA ([facility]) cholesterol level 204 mg/dL <200 Above high normal Cholesterol Level [place] ([facility]) cholesterol risk ratio <5 Cholesterol R isk Ratio [place] ([facility]) non-HDL-C 146 mg/dL Non-hdl-c [place] ([facility]) ID Date Data Source [id number] 08/24/2020 08:02:00 AM EDT [place] ([facility]) Name Value Range Interpretation Code Description Data Lashonda rce(s) Supporting Document(s) glucose, fasting 96 mg/dL 70-100 Glucose, Fasting AT [place] ([facility]) blood urea nitrogen 16 mg/dL 7-18 Blood Urea Nitro gen [place] ([facility]) creatinine for GFR 0.96 mg/dL 0.55-1.30 Creatinine for GF R [place] ([facility]) glomerular filtration rate > 60.0 >51 Glomerula r Filtration Rate [place] ([facility]) potassium serum 4.5 mEq/L 3.5-5.1 Potassium Serum [facility] ([facility]) sodium level 138 mEq/L 136-145 Sodium Level [place] ([facility]) chloride level 106 mEq/L 98-107 Chloride Level [place] ([facility]) carbon dioxide level 26 mEq/L 21-32 Carbon Dioxide Level [place] ([facility]) anion gap 6 mEq/L 8-16 Below low normal Anion Gap [place] ( [facility]) ALT/SGPT 33 U/L 12-78 ALT/SGPT [place] ([facility]) AST/SGOT 21 U/L 7-37 AST/SGOT [place] ([facility]) calcium level 9.0 mg/dL 8.5-10.1 Calcium Level [place] ( [facility]) bilirubin,total 0.3 mg/dL 0.2-1.0 Bilirubin,total [facility] ([facility]) total protein 6.9 gm/dL 6.4-8.2 Total Protein [place] ( [facility]) alkaline phosphatase 98 U/L 45-117 Alkaline Phosph atase [place] ([facility]) albumin/globulin ratio 1.2-2.2 Albumin/globu victor hugo Ratio [place] ([facility]) albumin 3.7 gm/dL 3.2-5.2 Albumin [place] ([facility]) ID Date Data Source [id number] 08/24/2020 08:02:00 AM EDT [place] ([facility]) Name Value Range Interpretation Code Description Data Lashonda rce(s) Supporting Document(s) Hemoglobin A1c/Hemoglobin.total in Blood 5.6 % Hemoglobin a1C [place] ([facility]) estimated average glucose 114 mg/dL 60-110 Above high norm al Estimated Average Glucose [place] ([facility]) ID Date Data Source [id number] 08/24/2020 08:02:00 AM EDT [place] ([facility]) Name Value Range Interpretation Code Description Data Lashonda rce(s) Supporting Document(s) white blood count 5.7 10 4.0-10.0 White Blood Count [place] ([facility]) red blood count 4.94 10 4.00-5.40 Red Blood Count [place] ([facility]) hemoglobin 13.9 g/dL 12.0-15.5 Hemoglobin [place] ([facility]) hematocrit 42.5 % 36.0-47.0 Hematocrit [place] ([facility]) mean corpuscular volume 86.0 fL 80.0-96.0 Mean Corpusc ular Volume [place] ([facility]) mean corpuscular HGB conc 32.7 g/dL 32.0-36.5 Mean Corpu scular HGB Conc [place] ([facility]) mean corpuscular hemoglobin 28.1 pg 27.0-33.0 Mean Cor puscular Hemoglobin [place] ([facility]) platelet count, automated 222 10 150-450 Platelet C ount, Automated [place] ([facility]) neutrophils % 54.9 % 36.0-66.0 Neutrophils % [place] ( [facility]) red cell distribution width 13.2 % 11.5-14.5 Red Cell Distribution Width [place] ([facility]) mono % 7.9 % 2.0-8.0 [place] % [place] ([facility]) lymph % 31.7 % 24.0-44.0 Lymph % [place] ([facility]) eos % 4.4 % 0.0-3.0 Above high normal Eos % [place] ([facility]) immature granulocyte % 0.2 % 0-3.0 Immature Gran ulocyte % [place] ([facility]) baso % 0.9 % 0.0-1.0 Baso % [place] ([facility]) nucleated red blood cell % 0.0 % 0-0 Nucleated Red Blood Cell % [place] ([facility]) neutrophils # 3.1 10 1.5-8.5 Neutrophils # [place] ( [facility]) eos # 0.3 10 0.0-0.5 Eos # [place] ([facility]) lymph # 1.8 10 1.5-5.0 Lymph # [place] ([facility]) mono # 0.5 10 0.0-0.8 [place] # [place] ([facility]) baso # 0.1 10 0.0-0.2 Baso # [place] ([facility]) ID Date Data Source [id number] 08/24/2020 08:02:00 AM EDT [place] ([facility]) Name Value Range Interpretation Code Description Data Lashonda rce(s) Supporting Document(s) total 25(oh) vitamin D 16.3 NG/mL 30.0-100.0 Below low normal T otal 25(Oh) Vitamin D [place] ([facility]) ID Date Data Source [id number] 08/24/2020 08:02:00 AM EDT [place] ([facility]) Name Value Range Interpretation Code Description Data Lashonda rce(s) Supporting Document(s) thyroid stimulating hormone 3.540 uIU/mL 0.358-3.740 Thyroid Stimulating Hormone [place] ([facility]) free T4 0.84 NG/dL 0.76-1.46 Free T4 [place] ([facility]) ID Date Data Source [id number] 08/24/2020 08:02:00 AM EDT [place] ([facility]) Name Value Range Interpretation Code Description Data Lashonda rce(s) Supporting Document(s) HDL cholesterol 58 mg/dL >40 HDL Cholesterol [facility] ([facility]) cholesterol level 204 mg/dL <200 Above high normal Cholesterol Level [place] ([facility]) triglycerides level 175 mg/dL <150 Above high normal Triglycer ides Level [place] ([facility]) non-HDL-C 146 mg/dL Non-hdl-c [place] ([facility]) Cholesterol in LDL [Mass/volume] in Serum or Plasma 111 mg/dL <100 Above high normal LDL Cholesterol [place] ([facility]) cholesterol risk ratio <5 Cholesterol R isk Ratio [place] ([facility]) ID Date Data Source [id number] 08/24/2020 08:02:00 AM [facility] Name Value Range Interpretation Code Description Data Lashonda rce(s) Supporting Document(s) blood urea nitrogen 16 mg/dL 7-18 Blood Urea Nitro gen [place] ([facility]) glucose, fasting 96 mg/dL 70-100 Glucose, Fasting AT [facility]) creatinine for GFR 0.96 mg/dL 0.55-1.30 Creatinine for GF R [place] ([facility]) glomerular filtration rate > 60.0 >51 Glomerula r Filtration Rate [place] ([facility]) chloride level 106 mEq/L 98-107 Chloride Level [place] ([facility]) sodium level 138 mEq/L 136-145 Sodium Level [place] ([facility]) potassium serum 4.5 mEq/L 3.5-5.1 Potassium Serum [place] NA ([facility]) anion gap 6 mEq/L 8-16 Below low normal Anion Gap [place] ( [facility]) carbon dioxide level 26 mEq/L 21-32 Carbon Dioxide Level [place] ([facility]) AST/SGOT 21 U/L 7-37 AST/SGOT [place] ([facility]) ALT/SGPT 33 U/L 12-78 ALT/SGPT [place] ([facility]) calcium level 9.0 mg/dL 8.5-10.1 Calcium Level [place] ( [facility]) bilirubin,total 0.3 mg/dL 0.2-1.0 Bilirubin,total [facility] NA ([facility]) alkaline phosphatase 98 U/L 45-117 Alkaline Phosph atase [place] ([facility]) albumin 3.7 gm/dL 3.2-5.2 Albumin [place] ([facility]) total protein 6.9 gm/dL 6.4-8.2 Total Protein [place] ( [facility]) albumin/globulin ratio 1.2-2.2 Albumin/globu victor hugo Ratio [place] ([facility]) ID Date Data Source [id number] 08/24/2020 08:02:00 AM ED[facility] Name Value Range Interpretation Code Description Data Lashonda rce(s) Supporting Document(s) Hemoglobin A1c/Hemoglobin.total in Blood 5.6 % Hemoglobin a1C [place] ([facility]) estimated average glucose 114 mg/dL 60-110 Above high norm al Estimated Average Glucose [place] ([facility]) ID Date Data Source [id number] 08/24/2020 08:02:00 AM EDT [place] ([facility]) Name Value Range Interpretation Code Description Data Lashonda rce(s) Supporting Document(s) white blood count 5.7 10 4.0-10.0 White Blood Count [place] ([facility]) hemoglobin 13.9 g/dL 12.0-15.5 Hemoglobin [place] ([facility]) red blood count 4.94 10 4.00-5.40 Red Blood Count [facility] ([facility]) hematocrit 42.5 % 36.0-47.0 Hematocrit [place] ([facility]) mean corpuscular volume 86.0 fL 80.0-96.0 Mean Corpusc ular Volume [place] ([facility]) mean corpuscular hemoglobin 28.1 pg 27.0-33.0 Mean Cor puscular Hemoglobin [place] ([facility]) mean corpuscular HGB conc 32.7 g/dL 32.0-36.5 Mean Corpu scular HGB Conc [place] ([facility]) red cell distribution width 13.2 % 11.5-14.5 Red Cell Distribution Width [place] ([facility]) platelet count, automated 222 10 150-450 Platelet C ount, Automated [place] ([facility]) lymph % 31.7 % 24.0-44.0 Lymph % [place] ([facility]) neutrophils % 54.9 % 36.0-66.0 Neutrophils % [place] ( [facility]) mono % 7.9 % 2.0-8.0 [place] % [place] ([facility]) baso % 0.9 % 0.0-1.0 Baso % [place] ([facility]) eos % 4.4 % 0.0-3.0 Above high normal Eos % [place] ([facility]) nucleated red blood cell % 0.0 % 0-0 Nucleated Red Blood Cell % [place] ([facility]) immature granulocyte % 0.2 % 0-3.0 Immature Gran ulocyte % [place] ([facility]) neutrophils # 3.1 10 1.5-8.5 Neutrophils # [place] ( [facility]) lymph # 1.8 10 1.5-5.0 Lymph # [place] ([facility]) eos # 0.3 10 0.0-0.5 Eos # [place] ([facility]) mono # 0.5 10 0.0-0.8 [place] # [place] ([facility]) baso # 0.1 10 0.0-0.2 Baso # [place] ([facility]) ID Date Data Source [id number] 08/24/2020 08:02:00 AM EDT [place] ([facility]) Name Value Range Interpretation Code Description Data Lashonda rce(s) Supporting Document(s) total 25(oh) vitamin D 16.3 NG/mL 30.0-100.0 Below low normal T otal 25(Oh) Vitamin D [place] ([facility]) ID Date Data Source [id number] 08/24/2020 08:02:00 AM EDT [place] ([facility]) Name Value Range Interpretation Code Description Data Lashonda rce(s) Supporting Document(s) thyroid stimulating hormone 3.540 uIU/mL 0.358-3.740 Thyroid Stimulating Hormone [place] ([facility]) free T4 0.84 NG/dL 0.76-1.46 Free T4 [place] ([facility]) ID Date Data Source [id number] 08/24/2020 08:02:00 AM EDT [place] ([facility]) Name Value Range Interpretation Code Description Data [place] rce(s) Supporting Document(s) triglycerides level 175 mg/dL <150 Above high normal Triglycer ides Level [place] ([facility]) HDL cholesterol 58 mg/dL >40 HDL Cholesterol [facility] ([facility]) Cholesterol in LDL [Mass/volume] in Serum or Plasma 111 mg/dL <100 Above high normal LDL Cholesterol [place] ([facility]) cholesterol level 204 mg/dL <200 Above high normal Cholesterol Level [place] ([facility]) cholesterol risk ratio <5 Cholesterol R isk Ratio [place] ([facility]) non-HDL-C 146 mg/dL Non-hdl-c [place] ([facility]) ID Date Data Source [id number] 08/24/2020 08:02:00 AM EDT [place] ([facility]) Name Value Range Interpretation Code Description Data Lashonda rce(s) Supporting Document(s) glucose, fasting 96 mg/dL 70-100 Glucose, Fasting AT [place] ([facility]) blood urea nitrogen 16 mg/dL 7-18 Blood Urea Nitro gen [place] ([facility]) sodium level 138 mEq/L 136-145 Sodium Level [place] ([facility]) creatinine for GFR 0.96 mg/dL 0.55-1.30 Creatinine for GF R [place] ([facility]) glomerular filtration rate > 60.0 >51 Glomerula r Filtration Rate [place] ([facility]) chloride level 106 mEq/L 98-107 Chloride Level [place] ([facility]) potassium serum 4.5 mEq/L 3.5-5.1 Potassium Serum [facility] ([facility]) anion gap 6 mEq/L 8-16 Below low normal Anion Gap [place] ( [facility]) carbon dioxide level 26 mEq/L 21-32 Carbon Dioxide Level [place] ([facility]) calcium level 9.0 mg/dL 8.5-10.1 Calcium Level [place] ( [facility]) ALT/SGPT 33 U/L 12-78 ALT/SGPT [place] ([facility]) AST/SGOT 21 U/L 7-37 AST/SGOT [place] ([facility]) alkaline phosphatase 98 U/L 45-117 Alkaline Phosph atase [place] ([facility]) bilirubin,total 0.3 mg/dL 0.2-1.0 Bilirubin,total ATHE NA ([facility]) albumin/globulin ratio 1.2-2.2 Albumin/globu victor huog Ratio [place] ([facility]) albumin 3.7 gm/dL 3.2-5.2 Albumin [place] ([facility]) total protein 6.9 gm/dL 6.4-8.2 Total Protein [facility] ( [facility]) ID Date Data Source [id number] 08/24/2020 08:02:00 AM EDT [place] ([facility]) Name Value Range Interpretation Code Description Data Lashonda rce(s) Supporting Document(s) Hemoglobin A1c/Hemoglobin.total in Blood 5.6 % Hemoglobin a1C [place] ([facility]) estimated average glucose 114 mg/dL 60-110 Above high norm al Estimated Average Glucose [place] ([facility]) ID Date Data Source [id number] 08/24/2020 08:02:00 AM EDT [place] ([facility]) Name Value Range Interpretation Code Description Data Lashonda rce(s) Supporting Document(s) white blood count 5.7 10 4.0-10.0 White Blood Count [place] ([facility]) hemoglobin 13.9 g/dL 12.0-15.5 Hemoglobin [place] ([facility]) red blood count 4.94 10 4.00-5.40 Red Blood Count ATHE NA ([facility]) mean corpuscular volume 86.0 fL 80.0-96.0 Mean Corpusc ular Volume [place] ([facility]) hematocrit 42.5 % 36.0-47.0 Hematocrit [place] ([facility]) mean corpuscular hemoglobin 28.1 pg 27.0-33.0 Mean Cor puscular Hemoglobin [place] ([facility]) mean corpuscular HGB conc 32.7 g/dL 32.0-36.5 Mean Corpu scular HGB Conc [place] ([facility]) platelet count, automated 222 10 150-450 Platelet C ount, Automated [place] ([facility]) red cell distribution width 13.2 % 11.5-14.5 Red Cell Distribution Width [place] ([facility]) neutrophils % 54.9 % 36.0-66.0 Neutrophils % [place] ( [facility]) lymph % 31.7 % 24.0-44.0 Lymph % [place] ([facility]) mono % 7.9 % 2.0-8.0 [place] % [place] ([facility]) baso % 0.9 % 0.0-1.0 Baso % [place] ([facility]) eos % 4.4 % 0.0-3.0 Above high normal Eos % [place] ([facility]) immature granulocyte % 0.2 % 0-3.0 Immature Gran ulocyte % [place] ([facility]) neutrophils # 3.1 10 1.5-8.5 Neutrophils # [place] ( [facility]) nucleated red blood cell % 0.0 % 0-0 Nucleated Red Blood Cell % [place] ([facility]) lymph # 1.8 10 1.5-5.0 Lymph # [place] ([facility]) mono # 0.5 10 0.0-0.8 [place] # [place] ([facility]) baso # 0.1 10 0.0-0.2 Baso # [place] ([facility]) eos # 0.3 10 0.0-0.5 Eos # [place] ([facility]) ID Date Data Source [id number] 08/13/2020 10:23:00 AM EDT [facility] ([facility]) Name Value Range Interpretation Code Description Data Lashonda rce(s) Supporting Document(s) Covid Rapid Testing Laboratory test result [facility] ([facility]) ID Date Data Source [id number] 08/13/2020 12:00:00 AM EDT [facility] Name Value Range Interpretation Code Description Data Lashonda rce(s) Supporting Document(s) Covid Rapid Testing Negative [facility] This lab was ordered by [facility] and re ported by [facility]. ID Date Data Source [id number] 05/06/2020 12:00:00 AM EST [facility] Name Value Range Interpretation Code Description Data Lashonda rce(s) Supporting Document(s) SARS-CoV2 Rapid Antigen Negative [facility] This lab was ordered by [facility] and reported by [facility]. ID Date Data Source [id number] 03/22/2020 08:05:00 AM EST [place] ([facility]) Name Value Range Interpretation Code Description Data Lashonda rce(s) Supporting Document(s) ID Date Data Source [id number] 03/22/2020 08:05:00 AM EST [place] ([facility]) Name Value Range Interpretation Code Description Data Lashonda rce(s) Supporting Document(s) total 25(oh) vitamin D 20.0 NG/mL 30.0-100.0 Below low normal T otal 25(Oh) Vitamin D [place] ([facility]) ID Date Data Source [id number] 03/22/2020 08:05:00 AM EST [place] ([facility]) Name Value Range Interpretation Code Description Data Lashonda rce(s) Supporting Document(s) free T4 0.97 NG/dL 0.76-1.46 Free T4 [place] ([facility]) thyroid stimulating hormone 3.420 uIU/mL 0.358-3.740 Thyroid Stimulating Hormone [place] ([facility]) ID Date Data Source [id number] 03/22/2020 08:05:00 AM EST [place] ([facility]) Name Value Range Interpretation Code Description Data Lashonda rce(s) Supporting Document(s) HDL cholesterol 74 mg/dL >40 HDL Cholesterol ATHE ([facility]) triglycerides level 131 mg/dL <150 Triglycerides [place] ([facility]) cholesterol level 239 mg/dL <200 Above high normal Cholesterol Level [place] ([facility]) non-HDL-C 165 mg/dL Non-hdl-c [place] ([facility]) Cholesterol in LDL [Mass/volume] in Serum or Plasma 139 mg/dL <100 Above high normal LDL Cholesterol [place] ([facility]) cholesterol risk ratio <5 Cholesterol R isk Ratio [place] ([facility]) ID Date Data Source [id number] 03/22/2020 08:05:00 AM EST [place] ([facility]) Name Value Range Interpretation Code Description Data Lashonda rce(s) Supporting Document(s) glucose, fasting 97 mg/dL 70-100 Glucose, Fasting AT [facility]) blood urea nitrogen 15 mg/dL 7-18 Blood Urea Nitro gen [place] ([facility]) creatinine for GFR 1.17 mg/dL 0.55-1.30 Creatinine for GF R [place] ([facility]) sodium level 139 mEq/L 136-145 Sodium Level [place] ([facility]) glomerular filtration rate >51 Below low normal Elaine merular Filtration Rate [place] ([facility]) chloride level 107 mEq/L 98-107 Chloride Level [place] ([facility]) potassium serum 4.4 mEq/L 3.5-5.1 Potassium Serum ATHE ([facility]) anion gap 3 mEq/L 8-16 Below low normal Anion Gap [place] ( [facility]) carbon dioxide level 29 mEq/L 21-32 Carbon Dioxide Level [place] ([facility]) AST/SGOT 18 U/L 7-37 AST/SGOT [place] ([facility]) calcium level 8.7 mg/dL 8.5-10.1 Calcium Level [place] ( [facility]) ALT/SGPT 33 U/L 12-78 ALT/SGPT [place] ([facility]) alkaline phosphatase 104 U/L 45-117 Alkaline Phosph atase [place] ([facility]) bilirubin,total 0.2 mg/dL 0.2-1.0 Bilirubin,total ATHE NA ([facility]) total protein 6.9 gm/dL 6.4-8.2 Total Protein [place] ( [facility]) albumin 3.6 gm/dL 3.2-5.2 Albumin [place] ([facility]) albumin/globulin ratio 1.2-2.2 Below low normal Albumin /globulin Ratio [place] ([facility]) ID Date Data Source [id number] 03/22/2020 08:05:00 AM EST [place] ([facility]) Name Value Range Interpretation Code Description Data Lashonda rce(s) Supporting Document(s) Hemoglobin A1c/Hemoglobin.total in Blood 5.8 % Hemoglobin a1C [place] ([facility]) estimated average glucose 120 mg/dL 60-110 Above high norm al Estimated Average Glucose [place] ([facility]) ID Date Data Source [id number] 03/22/2020 08:05:00 AM EST [place] ([facility]) Name Value Range Interpretation Code Description Data Lashonda rce(s) Supporting Document(s) color, urine chata yellow Color, Urine [place] ([facility]) appearance, urine turbid clear Above high normal Appearance, Urine [place] ([facility]) pH,urine 5.0 units 5.0-9.0 pH,urine [place] ([facility]) specific gravity urine auto 1.002-1.035 Specifi c [place] Urine Auto [place] ([facility]) protein, urine auto negative negative Protein, Urine A uto [place] ([facility]) urobilinogen, urine auto 0.2 mg/dL 0.0-2.0 Urobilinoge n, Urine Auto [place] ([facility]) ketone, urine auto negative negative Ketone, Urine Aut o [place] ([facility]) bilirubin, urine auto negative negative Bilirubin, Uri ne Auto [place] ([facility]) glucose, urine (UA) auto negative negative Glucose, Ur ine (UA) Auto [place] ([facility]) nitrite, urine auto negative negative Nitrite, Urine A uto [place] ([facility]) leukocyte esterase, urine auto negative negative Leukocyte Esterase, Urine Auto [place] ([facility]) WBC, urine auto 3 /hpf 0-3 WBC, Urine Auto ATHE NA ([facility]) blood, urine blood negative negative Blood, Urine Bloo d [place] ([facility]) RBC, urine auto 1 /hpf 0-3 RBC, Urine Auto ATHE NA ([facility]) bacteria, urine auto negative negative Bacteria, Urine Auto [place] ([facility]) squamous epithelial cell ur AU 1 /hpf 0-6 Squam ous Epithelial Cell Ur AU [place] ([facility]) mucus, urine large negative Mucus, Urine [place] ([facility]) amorphous sediment small negative Above high normal Amorphous Sediment [facility] ([facility]) hyaline cast, urine auto 4 /lpf 0-1 Hyaline Mohsen t, Urine Auto [place] ([facility]) ID Date Data Source [id number] 03/22/2020 08:05:00 AM EST [place] ([facility]) Name Value Range Interpretation Code Description Data Lashonda rce(s) Supporting Document(s) white blood count 5.9 10 4.0-10.0 White Blood Count [place] ([facility]) red blood count 5.07 10 4.00-5.40 Red Blood Count ATHE NA ([facility]) hematocrit 44.5 % 36.0-47.0 Hematocrit [place] ([facility]) hemoglobin 14.1 g/dL 12.0-15.5 Hemoglobin [place] ([facility]) mean corpuscular hemoglobin 27.8 pg 27.0-33.0 Mean Cor puscular Hemoglobin [place] ([facility]) mean corpuscular volume 87.8 fL 80.0-96.0 Mean Corpusc ular Volume [place] ([facility]) mean corpuscular HGB conc 31.7 g/dL 32.0-36.5 Below low rose mary l Mean Corpuscular HGB Conc [place] ([facility]) red cell distribution width 13.8 % 11.5-14.5 Red Cell Distribution Width [place] ([facility]) platelet count, automated 241 10 150-450 Platelet C ount, Automated [place] ([facility]) neutrophils % 60.0 % 36.0-66.0 Neutrophils % [place] ( [facility]) lymph % 31.6 % 24.0-44.0 Lymph % [place] ([facility]) eos % 1.5 % 0.0-3.0 Eos % [place] ([facility]) mono % 6.0 % 0.0-5.0 Above high normal [place] % [place] ([facility]) baso % 0.7 % 0.0-1.0 Baso % [place] ([facility]) immature granulocyte % 0.2 % 0-3.0 Immature Gran ulocyte % [place] ([facility]) nucleated red blood cell % 0.0 % 0-0 Nucleated Red Blood Cell % [place] ([facility]) neutrophils # 3.5 10 1.5-8.5 Neutrophils # [place] ( [facility]) lymph # 1.9 10 1.5-5.0 Lymph # [place] ([facility]) mono # 0.4 10 0.0-0.8 [place] # [place] ([facility]) eos # 0.1 10 0.0-0.5 Eos # [place] ([facility]) baso # 0.0 10 0.0-0.2 Baso # [place] ([facility]) ID Date Data Source [id number] 03/22/2020 08:05:00 AM EST [place] ([facility]) Name Value Range Interpretation Code Description Data Lashonda rce(s) Supporting Document(s) ID Date Data Source [id number] 03/22/2020 08:05:00 AM EST [place] ([facility]) Name Value Range Interpretation Code Description Data Lashonda rce(s) Supporting Document(s) total 25(oh) vitamin D 20.0 NG/mL 30.0-100.0 Below low normal T otal 25(Oh) Vitamin D [place] ([facility]) ID Date Data Source [id number] 03/22/2020 08:05:00 AM EST [place] ([facility]) Name Value Range Interpretation Code Description Data Lashonda rce(s) Supporting Document(s) thyroid stimulating hormone 3.420 uIU/mL 0.358-3.740 Thyroid Stimulating Hormone [place] ([facility]) free T4 0.97 NG/dL 0.76-1.46 Free T4 [place] ([facility]) ID Date Data Source [id number] 03/22/2020 08:05:00 AM EST [place] ([facility]) Name Value Range Interpretation Code Description Data Lashonda rce(s) Supporting Document(s) triglycerides level 131 mg/dL <150 Triglycerides [place] ([facility]) non-HDL-C 165 mg/dL Non-hdl-c [place] ([facility]) cholesterol level 239 mg/dL <200 Above high normal Cholesterol Level [place] ([facility]) HDL cholesterol 74 mg/dL >40 HDL Cholesterol ATHE NA ([facility]) Cholesterol in LDL [Mass/volume] in Serum or Plasma 139 mg/dL <100 Above high normal LDL Cholesterol [place] ([facility]) cholesterol risk ratio <5 Cholesterol R isk Ratio [place] ([facility]) ID Date Data Source [id number] 03/22/2020 08:05:00 AM EST [place] ([facility]) Name Value Range Interpretation Code Description Data Lashonda rce(s) Supporting Document(s) glucose, fasting 97 mg/dL 70-100 Glucose, Fasting AT [place] ([facility]) blood urea nitrogen 15 mg/dL 7-18 Blood Urea Nitro gen [place] ([facility]) sodium level 139 mEq/L 136-145 Sodium Level [place] ([facility]) creatinine for GFR 1.17 mg/dL 0.55-1.30 Creatinine for GF R [place] ([facility]) glomerular filtration rate >51 Below low normal Elaine merular Filtration Rate [place] ([facility]) potassium serum 4.4 mEq/L 3.5-5.1 Potassium Serum [place] NA ([facility]) anion gap 3 mEq/L 8-16 Below low normal Anion Gap [place] ( [facility]) carbon dioxide level 29 mEq/L 21-32 Carbon Dioxide Level [place] ([facility]) chloride level 107 mEq/L 98-107 Chloride Level [place] ([facility]) ALT/SGPT 33 U/L 12-78 ALT/SGPT [place] ([facility]) calcium level 8.7 mg/dL 8.5-10.1 Calcium Level [place] ( [facility]) alkaline phosphatase 104 U/L 45-117 Alkaline Phosph atase [place] ([facility]) AST/SGOT 18 U/L 7-37 AST/SGOT [place] ([facility]) bilirubin,total 0.2 mg/dL 0.2-1.0 Bilirubin,total ATHE NA ([facility]) total protein 6.9 gm/dL 6.4-8.2 Total Protein [place] ( [facility]) albumin/globulin ratio 1.2-2.2 Below low normal Albumin /globulin Ratio [place] ([facility]) albumin 3.6 gm/dL 3.2-5.2 Albumin [place] ([facility]) ID Date Data Source [id number] 03/22/2020 08:05:00 AM EST [place] ([facility]) Name Value Range Interpretation Code Description Data Lashonda rce(s) Supporting Document(s) estimated average glucose 120 mg/dL 60-110 Above high norm al Estimated Average Glucose [place] ([facility]) Hemoglobin A1c/Hemoglobin.total in Blood 5.8 % Hemoglobin a1C [place] ([facility]) ID Date Data Source [id number] 03/22/2020 08:05:00 AM EST [place] ([facility]) Name Value Range Interpretation Code Description Data Lashonda rce(s) Supporting Document(s) appearance, urine turbid clear Above high normal Appearance, Urine [place] ([facility]) pH,urine 5.0 units 5.0-9.0 pH,urine [place] ([facility]) color, urine chata yellow Color, Urine [place] ([facility]) specific gravity urine auto 1.002-1.035 Specifi c [place] Urine Auto [place] ([facility]) glucose, urine (UA) auto negative negative Glucose, Ur ine (UA) Auto [place] ([facility]) ketone, urine auto negative negative Ketone, Urine Aut o [place] ([facility]) protein, urine auto negative negative Protein, Urine A uto [place] ([facility]) bilirubin, urine auto negative negative Bilirubin, Uri ne Auto [place] ([facility]) urobilinogen, urine auto 0.2 mg/dL 0.0-2.0 Urobilinoge n, Urine Auto [place] ([facility]) nitrite, urine auto negative negative Nitrite, Urine A uto [place] ([facility]) WBC, urine auto 3 /hpf 0-3 WBC, Urine Auto [place] NA ([facility]) RBC, urine auto 1 /hpf 0-3 RBC, Urine Auto [place] NA ([facility]) leukocyte esterase, urine auto negative negative Leukocyte Esterase, Urine Auto [place] ([facility]) blood, urine blood negative negative Blood, Urine Bloo d [place] ([facility]) squamous epithelial cell ur AU 1 /hpf 0-6 Squam ous Epithelial Cell Ur AU [place] ([facility]) mucus, urine large negative Mucus, Urine [place] ([facility]) bacteria, urine auto negative negative Bacteria, Urine Auto [place] ([facility]) amorphous sediment small negative Above high normal Amorphous Sediment [place] ([facility]) hyaline cast, urine auto 4 /lpf 0-1 Hyaline Mohsen t, Urine Auto [place] ([facility]) ID Date Data Source [id number] 03/22/2020 08:05:00 AM EST [place] ([facility]) Name Value Range Interpretation Code Description Data Lashonda rce(s) Supporting Document(s) white blood count 5.9 10 4.0-10.0 White Blood Count [place] ([facility]) red blood count 5.07 10 4.00-5.40 [facility] ([facility]) hemoglobin 14.1 g/dL 12.0-15.5 Hemoglobin [place] ([facility]) mean corpuscular volume 87.8 fL 80.0-96.0 Mean Corpusc ular Volume [place] ([facility]) hematocrit 44.5 % 36.0-47.0 Hematocrit [place] ([facility]) mean corpuscular HGB conc 31.7 g/dL 32.0-36.5 Below low rose mary l Mean Corpuscular HGB Conc [place] ([facility]) mean corpuscular hemoglobin 27.8 pg 27.0-33.0 Mean Cor puscular Hemoglobin [place] ([facility]) platelet count, automated 241 10 150-450 Platelet C ount, Automated [place] ([facility]) red cell distribution width 13.8 % 11.5-14.5 Red Cell Distribution Width [place] ([facility]) neutrophils % 60.0 % 36.0-66.0 Neutrophils % [place] ( [facility]) eos % 1.5 % 0.0-3.0 Eos % [place] ([facility]) lymph % 31.6 % 24.0-44.0 Lymph % [place] ([facility]) mono % 6.0 % 0.0-5.0 Above high normal [place] % [place] ([facility]) nucleated red blood cell % 0.0 % 0-0 Nucleated Red Blood Cell % [place] ([facility]) immature granulocyte % 0.2 % 0-3.0 Immature Gran ulocyte % [place] ([facility]) baso % 0.7 % 0.0-1.0 Baso % [place] ([facility]) neutrophils # 3.5 10 1.5-8.5 Neutrophils # [place] ( [facility]) lymph # 1.9 10 1.5-5.0 Lymph # [place] ([facility]) mono # 0.4 10 0.0-0.8 [place] # [place] ([facility]) baso # 0.0 10 0.0-0.2 Baso # [place] ([facility]) eos # 0.1 10 0.0-0.5 Eos # [place] ([facility]) ID Date Data Source [id number] 03/22/2020 08:05:00 AM EST [place] ([facility]) Name Value Range Interpretation Code Description Data Lashonda rce(s) Supporting Document(s) ID Date Data Source [id number] 03/22/2020 08:05:00 AM EST [place] ([facility]) Name Value Range Interpretation Code Description Data Lashonda rce(s) Supporting Document(s) total 25(oh) vitamin D 20.0 NG/mL 30.0-100.0 Below low normal T otal 25(Oh) Vitamin D [place] ([facility]) ID Date Data Source [id number] 03/22/2020 08:05:00 AM EST [place] ([facility]) Name Value Range Interpretation Code Description Data Lashonda rce(s) Supporting Document(s) thyroid stimulating hormone 3.420 uIU/mL 0.358-3.740 Thyroid Stimulating Hormone [place] ([facility]) free T4 0.97 NG/dL 0.76-1.46 Free T4 [place] ([facility]) ID Date Data Source [id number] 03/22/2020 08:05:00 AM EST [place] ([facility]) Name Value Range Interpretation Code Description Data Lashonda rce(s) Supporting Document(s) cholesterol level 239 mg/dL <200 Above high normal Cholesterol Level [place] ([facility]) triglycerides level 131 mg/dL <150 Triglycerides [place] ([facility]) HDL cholesterol 74 mg/dL >40 HDL Cholesterol [facility] ([facility]) Cholesterol in LDL [Mass/volume] in Serum or Plasma 139 mg/dL <100 Above high normal LDL Cholesterol [place] ([facility]) non-HDL-C 165 mg/dL Non-hdl-c [place] ([facility]) cholesterol risk ratio <5 Cholesterol R isk Ratio [place] ([facility]) ID Date Data Source [id number] 03/22/2020 08:05:00 AM EST [place] ([facility]) Name Value Range Interpretation Code Description Data Lashonda rce(s) Supporting Document(s) glucose, fasting 97 mg/dL 70-100 Glucose, Fasting AT [facility]) creatinine for GFR 1.17 mg/dL 0.55-1.30 Creatinine for GF R [place] ([facility]) blood urea nitrogen 15 mg/dL 7-18 Blood Urea Nitro gen [place] ([facility]) sodium level 139 mEq/L 136-145 Sodium Level [place] ([facility]) glomerular filtration rate >51 Below low normal Elaine merular Filtration Rate [place] ([facility]) chloride level 107 mEq/L 98-107 Chloride Level [place] ([facility]) potassium serum 4.4 mEq/L 3.5-5.1 Potassium Serum ATHE NA ([facility]) anion gap 3 mEq/L 8-16 Below low normal Anion Gap [place] ( [facility]) carbon dioxide level 29 mEq/L 21-32 Carbon Dioxide Level [place] ([facility]) calcium level 8.7 mg/dL 8.5-10.1 Calcium Level [place] ( [facility]) AST/SGOT 18 U/L 7-37 AST/SGOT [place] [facility] [facility]/SGPT 33 U/L 12-78 ALT/SGPT [place] ([facility]) alkaline phosphatase 104 U/L 45-117 Alkaline Phosph atase [place] ([facility]) bilirubin,total 0.2 mg/dL 0.2-1.0 Bilirubin,total ATHE NA ([facility]) total protein 6.9 gm/dL 6.4-8.2 Total Protein [place] ( [facility]) albumin 3.6 gm/dL 3.2-5.2 Albumin [place] ([facility]) albumin/globulin ratio 1.2-2.2 Below low normal Albumin /globulin Ratio [place] ([facility]) ID Date Data Source [id number] 03/22/2020 08:05:00 AM EST [place] ([facility]) Name Value Range Interpretation Code Description Data Lashonda rce(s) Supporting Document(s) Hemoglobin A1c/Hemoglobin.total in Blood 5.8 % Hemoglobin a1C [place] ([facility]) estimated average glucose 120 mg/dL 60-110 Above high norm al Estimated Average Glucose [place] ([facility]) ID Date Data Source [id number] 03/22/2020 08:05:00 AM EST [place] ([facility]) Name Value Range Interpretation Code Description Data Lashonda rce(s) Supporting Document(s) appearance, urine turbid clear Above high normal Appearance, Urine [place] ([facility]) color, urine chata yellow Color, Urine [place] ([facility]) pH,urine 5.0 units 5.0-9.0 pH,urine [place] ([facility]) specific gravity urine auto 1.002-1.035 Specifi c [place] Urine Auto [place] ([facility]) protein, urine auto negative negative Protein, Urine A uto [place] ([facility]) glucose, urine (UA) auto negative negative Glucose, Ur ine (UA) Auto [place] ([facility]) ketone, urine auto negative negative Ketone, Urine Aut o [place] ([facility]) urobilinogen, urine auto 0.2 mg/dL 0.0-2.0 Urobilinoge n, Urine Auto [place] ([facility]) nitrite, urine auto negative negative Nitrite, Urine A uto [place] ([facility]) bilirubin, urine auto negative negative Bilirubin, Uri ne Auto [place] ([facility]) blood, urine blood negative negative Blood, Urine Bloo d [place] ([facility]) leukocyte esterase, urine auto negative negative Leukocyte Esterase, Urine Auto [place] ([facility]) WBC, urine auto 3 /hpf 0-3 WBC, Urine Auto [place] NA ([facility]) RBC, urine auto 1 /hpf 0-3 RBC, Urine Auto [facility] [place] ([facility]) bacteria, urine auto negative negative Bacteria, Urine Auto [place] ([facility]) squamous epithelial cell ur AU 1 /hpf 0-6 Squam ous Epithelial Cell Ur AU [place] ([facility]) mucus, urine large negative Mucus, Urine [place] ([facility]) hyaline cast, urine auto 4 /lpf 0-1 Hyaline Mohsen t, Urine Auto [place] ([facility]) amorphous sediment small negative Above high normal Amorphous Sediment [place] ([facility]) ID Date Data Source [id number] 03/22/2020 08:05:00 AM EST [place] ([facility]) Name Value Range Interpretation Code Description Data Lashonda rce(s) Supporting Document(s) white blood count 5.9 10 4.0-10.0 White Blood Count [place] ([facility]) red blood count 5.07 10 4.00-5.40 Red Blood Count [facility] NA ([facility]) hemoglobin 14.1 g/dL 12.0-15.5 Hemoglobin [place] ([facility]) hematocrit 44.5 % 36.0-47.0 Hematocrit [place] ([facility]) mean corpuscular volume 87.8 fL 80.0-96.0 Mean Corpusc ular Volume [place] ([facility]) mean corpuscular hemoglobin 27.8 pg 27.0-33.0 Mean Cor puscular Hemoglobin [place] ([facility]) mean corpuscular HGB conc 31.7 g/dL 32.0-36.5 Below low rose mary l Mean Corpuscular HGB Conc [place] ([facility]) platelet count, automated 241 10 150-450 Platelet C ount, Automated [place] ([facility]) red cell distribution width 13.8 % 11.5-14.5 Red Cell Distribution Width [place] ([facility]) neutrophils % 60.0 % 36.0-66.0 Neutrophils % [place] ( [facility]) lymph % 31.6 % 24.0-44.0 Lymph % [place] ([facility]) mono % 6.0 % 0.0-5.0 Above high normal [place] % [place] ([facility]) baso % 0.7 % 0.0-1.0 Baso % [place] ([facility]) eos % 1.5 % 0.0-3.0 Eos % [place] ([facility]) immature granulocyte % 0.2 % 0-3.0 Immature Gran ulocyte % [place] ([facility]) nucleated red blood cell % 0.0 % 0-0 Nucleated Red Blood Cell % [place] ([facility]) neutrophils # 3.5 10 1.5-8.5 Neutrophils # [place] ( [facility]) lymph # 1.9 10 1.5-5.0 Lymph # [place] ([facility]) mono # 0.4 10 0.0-0.8 [place] # [place] ([facility]) eos # 0.1 10 0.0-0.5 Eos # [place] ([facility]) baso # 0.0 10 0.0-0.2 Baso # [place] ([facility]) ID Date Data Source [id number] 03/22/2020 08:05:00 AM EST [place] ([facility]) Name Value Range Interpretation Code Description Data Lashonda rce(s) Supporting Document(s) ID Date Data Source [id number] 03/22/2020 08:05:00 AM EST [place] ([facility]) Name Value Range Interpretation Code Description Data Lashonda rce(s) Supporting Document(s) total 25(oh) vitamin D 20.0 NG/mL 30.0-100.0 Below low normal T otal 25(Oh) Vitamin D [place] ([facility]) ID Date Data Source [id number] 03/22/2020 08:05:00 AM EST [place] ([facility]) Name Value Range Interpretation Code Description Data Lashonda rce(s) Supporting Document(s) thyroid stimulating hormone 3.420 uIU/mL 0.358-3.740 Thyroid Stimulating Hormone [place] ([facility]) free T4 0.97 NG/dL 0.76-1.46 Free T4 [place] ([facility]) ID Date Data Source [id number] 03/22/2020 08:05:00 AM EST [place] ([facility]) Name Value Range Interpretation Code Description Data Lashonda rce(s) Supporting Document(s) cholesterol level 239 mg/dL <200 Above high normal Cholesterol Level [place] ([facility]) HDL cholesterol 74 mg/dL >40 HDL Cholesterol [facility] NA ([facility]) triglycerides level 131 mg/dL <150 Triglycerides [place] ([facility]) non-HDL-C 165 mg/dL Non-hdl-c [place] ([facility]) cholesterol risk ratio <5 Cholesterol R isk Ratio [place] ([facility]) Cholesterol in LDL [Mass/volume] in Serum or Plasma 139 mg/dL <100 Above high normal LDL Cholesterol [place] ([facility]) ID Date Data Source [id number] 03/22/2020 08:05:00 AM EST [place] ([facility]) Name Value Range Interpretation Code Description Data Lashonda rce(s) Supporting Document(s) glucose, fasting 97 mg/dL 70-100 Glucose, Fasting AT [place] ([facility]) blood urea nitrogen 15 mg/dL 7-18 Blood Urea Nitro gen [place] ([facility]) sodium level 139 mEq/L 136-145 Sodium Level [place] ([facility]) creatinine for GFR 1.17 mg/dL 0.55-1.30 Creatinine for GF R [place] ([facility]) glomerular filtration rate >51 Below low normal Elaine merular Filtration Rate [place] ([facility]) anion gap 3 mEq/L 8-16 Below low normal Anion Gap [place] ( [facility]) carbon dioxide level 29 mEq/L 21-32 Carbon Dioxide Level [place] ([facility]) potassium serum 4.4 mEq/L 3.5-5.1 Potassium Serum [facility] ([facility]) chloride level 107 mEq/L 98-107 Chloride Level [place] ([facility]) alkaline phosphatase 104 U/L 45-117 Alkaline Phosph atase [place] ([facility]) AST/SGOT 18 U/L 7-37 AST/SGOT [place] ([facility]) calcium level 8.7 mg/dL 8.5-10.1 Calcium Level [place] ( [facility]) ALT/SGPT 33 U/L 12-78 ALT/SGPT [place] ([facility]) total protein 6.9 gm/dL 6.4-8.2 Total Protein [place] ( [facility]) albumin/globulin ratio 1.2-2.2 Below low normal Albumin /globulin Ratio [place] ([facility]) albumin 3.6 gm/dL 3.2-5.2 Albumin [place] ([facility]) bilirubin,total 0.2 mg/dL 0.2-1.0 Bilirubin,total [facility] ([facility]) ID Date Data Source [id number] 03/22/2020 08:05:00 AM EST [place] ([facility]) Name Value Range Interpretation Code Description Data Lashonda rce(s) Supporting Document(s) Hemoglobin A1c/Hemoglobin.total in Blood 5.8 % Hemoglobin a1C [place] ([facility]) estimated average glucose 120 mg/dL 60-110 Above high norm al Estimated Average Glucose [place] ([facility]) ID Date Data Source [id number] 03/22/2020 08:05:00 AM EST [place] ([facility]) Name Value Range Interpretation Code Description Data Lashonda rce(s) Supporting Document(s) appearance, urine turbid clear Above high normal Appearance, Urine [place] ([facility]) specific gravity urine auto 1.002-1.035 Specifi c [place] Urine Auto [place] ([facility]) pH,urine 5.0 units 5.0-9.0 pH,urine [place] ([facility]) color, urine chata yellow Color, Urine [place] ([facility]) protein, urine auto negative negative Protein, Urine A uto [place] ([facility]) ketone, urine auto negative negative Ketone, Urine Aut o [place] ([facility]) glucose, urine (UA) auto negative negative Glucose, Ur ine (UA) Auto [place] ([facility]) urobilinogen, urine auto 0.2 mg/dL 0.0-2.0 Urobilinoge n, Urine Auto [place] ([facility]) bilirubin, urine auto negative negative Bilirubin, Uri ne Auto [place] ([facility]) leukocyte esterase, urine auto negative negative Leukocyte Esterase, Urine Auto [place] ([facility]) nitrite, urine auto negative negative Nitrite, Urine A uto [place] ([facility]) RBC, urine auto 1 /hpf 0-3 RBC, Urine Auto [facility] ([facility]) blood, urine blood negative negative Blood, Urine Bloo d [place] ([facility]) WBC, urine auto 3 /hpf 0-3 WBC, Urine Auto [facility] ([facility]) bacteria, urine auto negative negative Bacteria, Urine Auto [place] ([facility]) mucus, urine large negative Mucus, Urine [place] ([facility]) squamous epithelial cell ur AU 1 /hpf 0-6 Squam ous Epithelial Cell Ur AU [place] ([facility]) hyaline cast, urine auto 4 /lpf 0-1 Hyaline Mohsen t, Urine Auto [place] ([facility]) amorphous sediment small negative Above high normal Amorphous Sediment [place] ([facility]) ID Date Data Source [id number] 03/22/2020 08:05:00 AM EST [place] ([facility]) Name Value Range Interpretation Code Description Data Lashonda rce(s) Supporting Document(s) red blood count 5.07 10 4.00-5.40 Red Blood Count [facility] NA ([facility]) white blood count 5.9 10 4.0-10.0 White Blood Count [place] ([facility]) hemoglobin 14.1 g/dL 12.0-15.5 Hemoglobin [place] ([facility]) mean corpuscular volume 87.8 fL 80.0-96.0 Mean Corpusc ular Volume [place] ([facility]) hematocrit 44.5 % 36.0-47.0 Hematocrit [place] ([facility]) platelet count, automated 241 10 150-450 Platelet C ount, Automated [place] ([facility]) mean corpuscular HGB conc 31.7 g/dL 32.0-36.5 Below low rose mary l Mean Corpuscular HGB Conc [place] ([facility]) mean corpuscular hemoglobin 27.8 pg 27.0-33.0 Mean Cor puscular Hemoglobin [place] ([facility]) red cell distribution width 13.8 % 11.5-14.5 Red Cell Distribution Width [place] ([facility]) mono % 6.0 % 0.0-5.0 Above high normal [place] % [place] ([facility]) lymph % 31.6 % 24.0-44.0 Lymph % [place] ([facility]) neutrophils % 60.0 % 36.0-66.0 Neutrophils % [place] ( [facility]) immature granulocyte % 0.2 % 0-3.0 Immature Gran ulocyte % [place] ([facility]) eos % 1.5 % 0.0-3.0 Eos % [place] ([facility]) baso % 0.7 % 0.0-1.0 Baso % [place] ([facility]) neutrophils # 3.5 10 1.5-8.5 Neutrophils # [place] ( [facility]) lymph # 1.9 10 1.5-5.0 Lymph # [place] ([facility]) nucleated red blood cell % 0.0 % 0-0 Nucleated Red Blood Cell % [place] ([facility]) mono # 0.4 10 0.0-0.8 [place] # [place] ([facility]) eos # 0.1 10 0.0-0.5 Eos # [place] ([facility]) baso # 0.0 10 0.0-0.2 Baso # [place] ([facility]) ID Date Data Source [id number] 03/22/2020 08:05:00 AM EST [place] ([facility]) Name Value Range Interpretation Code Description Data Lashonda rce(s) Supporting Document(s) ID Date Data Source [id number] 03/22/2020 08:05:00 AM EST [place] ([facility]) Name Value Range Interpretation Code Description Data Lashonda rce(s) Supporting Document(s) total 25(oh) vitamin D 20.0 NG/mL 30.0-100.0 Below low normal T otal 25(Oh) Vitamin D [place] ([facility]) ID Date Data Source [id number] 03/22/2020 08:05:00 AM EST [place] ([facility]) Name Value Range Interpretation Code Description Data Lashonda rce(s) Supporting Document(s) thyroid stimulating hormone 3.420 uIU/mL 0.358-3.740 Thyroid Stimulating Hormone [place] ([facility]) free T4 0.97 NG/dL 0.76-1.46 Free T4 [place] ([facility]) ID Date Data Source [id number] 03/22/2020 08:05:00 AM EST [place] ([facility]) Name Value Range Interpretation Code Description Data Lashonda rce(s) Supporting Document(s) triglycerides level 131 mg/dL <150 Triglycerides [place] ([facility]) cholesterol level 239 mg/dL <200 Above high normal Cholesterol Level [place] ([facility]) non-HDL-C 165 mg/dL Non-hdl-c [place] ([facility]) cholesterol risk ratio <5 Cholesterol R isk Ratio [place] ([facility]) Cholesterol in LDL [Mass/volume] in Serum or Plasma 139 mg/dL <100 Above high normal LDL Cholesterol [place] ([facility]) HDL cholesterol 74 mg/dL >40 HDL Cholesterol [facility] ([facility]) ID Date Data Source [id number] 03/22/2020 08:05:00 AM EST [place] ([facility]) Name Value Range Interpretation Code Description Data Lashonda rce(s) Supporting Document(s) glucose, fasting 97 mg/dL 70-100 Glucose, Fasting AT [facility]) blood urea nitrogen 15 mg/dL 7-18 Blood Urea Nitro gen [place] ([facility]) creatinine for GFR 1.17 mg/dL 0.55-1.30 Creatinine for GF R [place] ([facility]) sodium level 139 mEq/L 136-145 Sodium Level [place] ([facility]) glomerular filtration rate >51 Below low normal Elaine merular Filtration Rate [place] ([facility]) potassium serum 4.4 mEq/L 3.5-5.1 Potassium Serum [facility] ([facility]) anion gap 3 mEq/L 8-16 Below low normal Anion Gap [place] ( [facility]) chloride level 107 mEq/L 98-107 Chloride Level [place] ([facility]) carbon dioxide level 29 mEq/L 21-32 Carbon Dioxide Level [place] ([facility]) calcium level 8.7 mg/dL 8.5-10.1 Calcium Level [place] ( [facility]) AST/SGOT 18 U/L 7-37 AST/SGOT [place] ([facility]) alkaline phosphatase 104 U/L 45-117 Alkaline Phosph atase [place] ([facility]) ALT/SGPT 33 U/L 12-78 ALT/SGPT [place] ([facility]) albumin/globulin ratio 1.2-2.2 Below low normal Albumin /globulin Ratio [place] ([facility]) total protein 6.9 gm/dL 6.4-8.2 Total Protein [place] ( [facility]) bilirubin,total 0.2 mg/dL 0.2-1.0 Bilirubin,total [facility] [place] ([facility]) albumin 3.6 gm/dL 3.2-5.2 Albumin [place] ([facility]) ID Date Data Source [id number] 03/22/2020 08:05:00 AM EST [place] ([facility]) Name Value Range Interpretation Code Description Data Lashonda rce(s) Supporting Document(s) Hemoglobin A1c/Hemoglobin.total in Blood 5.8 % Hemoglobin a1C [place] ([facility]) estimated average glucose 120 mg/dL 60-110 Above high norm al Estimated Average Glucose [place] ([facility]) ID Date Data Source [id number] 03/22/2020 08:05:00 AM EST [place] ([facility]) Name Value Range Interpretation Code Description Data Lashonda rce(s) Supporting Document(s) color, urine chata yellow Color, Urine [place] ([facility]) pH,urine 5.0 units 5.0-9.0 pH,urine [place] ([facility]) appearance, urine turbid clear Above high normal Appearance, Urine [place] ([facility]) glucose, urine (UA) auto negative negative Glucose, Ur ine (UA) Auto [place] ([facility]) specific gravity urine auto 1.002-1.035 Specifi c [place] Urine Auto [place] ([facility]) protein, urine auto negative negative Protein, Urine A uto [place] ([facility]) ketone, urine auto negative negative Ketone, Urine Aut o [place] ([facility]) urobilinogen, urine auto 0.2 mg/dL 0.0-2.0 Urobilinoge n, Urine Auto [place] ([facility]) bilirubin, urine auto negative negative Bilirubin, Uri ne Auto [place] ([facility]) nitrite, urine auto negative negative Nitrite, Urine A uto [place] ([facility]) leukocyte esterase, urine auto negative negative Leukocyte Esterase, Urine Auto [place] ([facility]) WBC, urine auto 3 /hpf 0-3 WBC, Urine Auto [place] ([facility]) blood, urine blood negative negative Blood, Urine Bloo d [place] ([facility]) RBC, urine auto 1 /hpf 0-3 RBC, Urine Auto [place] ([facility]) bacteria, urine auto negative negative Bacteria, Urine Auto [place] ([facility]) squamous epithelial cell ur AU 1 /hpf 0-6 Squam ous Epithelial Cell Ur AU [place] ([facility]) hyaline cast, urine auto 4 /lpf 0-1 Hyaline Mohsen t, Urine Auto [place] ([facility]) mucus, urine large negative Mucus, Urine [place] ([facility]) amorphous sediment small negative Above high normal Amorphous Sediment [place] ([facility]) ID Date Data Source [id number] 03/22/2020 08:05:00 AM EST [place] ([facility]) Name Value Range Interpretation Code Description Data Lashonda rce(s) Supporting Document(s) white blood count 5.9 10 4.0-10.0 White Blood Count [place] ([facility]) red blood count 5.07 10 4.00-5.40 Red Blood Count [facility] [place] ([facility]) hemoglobin 14.1 g/dL 12.0-15.5 Hemoglobin [place] ([facility]) hematocrit 44.5 % 36.0-47.0 Hematocrit [place] ([facility]) mean corpuscular hemoglobin 27.8 pg 27.0-33.0 Mean Cor puscular Hemoglobin [place] ([facility]) mean corpuscular HGB conc 31.7 g/dL 32.0-36.5 Below low rose mary l Mean Corpuscular HGB Conc [place] ([facility]) mean corpuscular volume 87.8 fL 80.0-96.0 Mean Corpusc ular Volume [place] ([facility]) neutrophils % 60.0 % 36.0-66.0 Neutrophils % [place] ( [facility]) platelet count, automated 241 10 150-450 Platelet C ount, Automated [place] ([facility]) red cell distribution width 13.8 % 11.5-14.5 Red Cell Distribution Width [place] ([facility]) lymph % 31.6 % 24.0-44.0 Lymph % [place] ([facility]) eos % 1.5 % 0.0-3.0 Eos % [place] ([facility]) mono % 6.0 % 0.0-5.0 Above high normal [place] % [place] ([facility]) immature granulocyte % 0.2 % 0-3.0 Immature Gran ulocyte % [place] ([facility]) baso % 0.7 % 0.0-1.0 Baso % [place] ([facility]) nucleated red blood cell % 0.0 % 0-0 Nucleated Red Blood Cell % [place] ([facility]) lymph # 1.9 10 1.5-5.0 Lymph # [place] ([facility]) neutrophils # 3.5 10 1.5-8.5 Neutrophils # [place] ( [facility]) mono # 0.4 10 0.0-0.8 [place] # [place] ([facility]) eos # 0.1 10 0.0-0.5 Eos # [place] ([facility]) baso # 0.0 10 0.0-0.2 Baso # [place] ([facility]) ID Date Data Source [id number] 03/22/2020 08:05:00 AM EST [place] ([facility]) Name Value Range Interpretation Code Description Data Lashonda rce(s) Supporting Document(s) ID Date Data Source [id number] 03/22/2020 08:05:00 AM EST [place] ([facility]) Name Value Range Interpretation Code Description Data Lashonda rce(s) Supporting Document(s) total 25(oh) vitamin D 20.0 NG/mL 30.0-100.0 Below low normal T otal 25(Oh) Vitamin D [place] ([facility]) ID Date Data Source [id number] 03/22/2020 08:05:00 AM EST [place] ([facility]) Name Value Range Interpretation Code Description Data Lashonda rce(s) Supporting Document(s) free T4 0.97 NG/dL 0.76-1.46 Free T4 [place] ([facility]) thyroid stimulating hormone 3.420 uIU/mL 0.358-3.740 Thyroid Stimulating Hormone [place] ([facility]) ID Date Data Source [id number] 03/22/2020 08:05:00 AM EST [place] ([facility]) Name Value Range Interpretation Code Description Data Lashonda rce(s) Supporting Document(s) Cholesterol in LDL [Mass/volume] in Serum or Plasma 139 mg/dL <100 Above high normal LDL Cholesterol [place] ([facility]) HDL cholesterol 74 mg/dL >40 HDL Cholesterol [facility] [place] ([facility]) triglycerides level 131 mg/dL <150 Triglycerides [place] ([facility]) cholesterol level 239 mg/dL <200 Above high normal Cholesterol Level [place] ([facility]) non-HDL-C 165 mg/dL Non-hdl-c [place] ([facility]) cholesterol risk ratio <5 Cholesterol R isk Ratio [place] [facility] System) ID Date Data Source [id number] 03/22/2020 08:05:00 AM EST [place] ([facility]) Name Value Range Interpretation Code Description Data Lashonda rce(s) Supporting Document(s) glucose, fasting 97 mg/dL 70-100 Glucose, Fasting AT [facility] ([facility]) creatinine for GFR 1.17 mg/dL 0.55-1.30 Creatinine for GF R [place] ([facility]) glomerular filtration rate >51 Below low normal Elaine merular Filtration Rate [place] ([facility]) blood urea nitrogen 15 mg/dL 7-18 Blood Urea Nitro gen [place] ([facility]) potassium serum 4.4 mEq/L 3.5-5.1 Potassium Serum [facility] NA ([facility]) sodium level 139 mEq/L 136-145 Sodium Level [place] ([facility]) calcium level 8.7 mg/dL 8.5-10.1 Calcium Level [place] ( [facility]) carbon dioxide level 29 mEq/L 21-32 Carbon Dioxide Level [place] ([facility]) anion gap 3 mEq/L 8-16 Below low normal Anion Gap [place] ( [facility]) chloride level 107 mEq/L 98-107 Chloride Level [place] ([facility]) alkaline phosphatase 104 U/L 45-117 Alkaline Phosph atase [place] ([facility]) ALT/SGPT 33 U/L 12-78 ALT/SGPT [place] ([facility]) AST/SGOT 18 U/L 7-37 AST/SGOT [place] ([facility]) bilirubin,total 0.2 mg/dL 0.2-1.0 Bilirubin,total [facility] ([facility]) albumin 3.6 gm/dL 3.2-5.2 Albumin [place] ([facility]) albumin/globulin ratio 1.2-2.2 Below low normal Albumin /globulin Ratio [place] ([facility]) total protein 6.9 gm/dL 6.4-8.2 Total Protein [place] ( [facility]) ID Date Data Source [id number] 03/22/2020 08:05:00 AM EST [place] ([facility]) Name Value Range Interpretation Code Description Data Lashonda rce(s) Supporting Document(s) Hemoglobin A1c/Hemoglobin.total in Blood 5.8 % Hemoglobin a1C [place] ([facility]) estimated average glucose 120 mg/dL 60-110 Above high norm al Estimated Average Glucose [place] ([facility]) ID Date Data Source [id number] 03/22/2020 08:05:00 AM EST [place] ([facility]) Name Value Range Interpretation Code Description Data Lashonda rce(s) Supporting Document(s) pH,urine 5.0 units 5.0-9.0 pH,urine [place] ([facility]) color, urine chata yellow Color, Urine [place] ([facility]) appearance, urine turbid clear Above high normal Appearance, Urine [place] ([facility]) protein, urine auto negative negative Protein, Urine A uto [place] ([facility]) specific gravity urine auto 1.002-1.035 Specifi c [place] Urine Auto [place] ([facility]) ketone, urine auto negative negative Ketone, Urine Aut o [place] ([facility]) urobilinogen, urine auto 0.2 mg/dL 0.0-2.0 Urobilinoge n, Urine Auto [place] ([facility]) glucose, urine (UA) auto negative negative Glucose, Ur ine (UA) Auto [place] ([facility]) nitrite, urine auto negative negative Nitrite, Urine A uto [place] ([facility]) blood, urine blood negative negative Blood, Urine Bloo d [place] ([facility]) leukocyte esterase, urine auto negative negative Leukocyte Esterase, Urine Auto [place] ([facility]) bilirubin, urine auto negative negative Bilirubin, Uri ne Auto [place] ([facility]) bacteria, urine auto negative negative Bacteria, Urine Auto [place] ([facility]) RBC, urine auto 1 /hpf 0-3 RBC, Urine Auto [facility] ([facility]) WBC, urine auto 3 /hpf 0-3 WBC, Urine Auto [facility] ([facility]) mucus, urine large negative Mucus, Urine [place] ([facility]) squamous epithelial cell ur AU 1 /hpf 0-6 Squam ous Epithelial Cell Ur AU [place] ([facility]) amorphous sediment small negative Above high normal Amorphous Sediment [place] ([facility]) hyaline cast, urine auto 4 /lpf 0-1 Hyaline Mohsen t, Urine Auto [place] ([facility]) ID Date Data Source [id number] 03/22/2020 08:05:00 AM EST [place] ([facility]) Name Value Range Interpretation Code Description Data Lashonda rce(s) Supporting Document(s) white blood count 5.9 10 4.0-10.0 White Blood Count [place] ([facility]) hemoglobin 14.1 g/dL 12.0-15.5 Hemoglobin [place] ([facility]) red blood count 5.07 10 4.00-5.40 Red Blood Count [facility] NA ([facility]) hematocrit 44.5 % 36.0-47.0 Hematocrit [place] ([facility]) mean corpuscular volume 87.8 fL 80.0-96.0 Mean Corpusc ular Volume [place] ([facility]) mean corpuscular hemoglobin 27.8 pg 27.0-33.0 Mean Cor puscular Hemoglobin [place] ([facility]) platelet count, automated 241 10 150-450 Platelet C ount, Automated [place] ([facility]) mean corpuscular HGB conc 31.7 g/dL 32.0-36.5 Below low rose mary l Mean Corpuscular HGB Conc [place] ([facility]) red cell distribution width 13.8 % 11.5-14.5 Red Cell Distribution Width [place] ([facility]) neutrophils % 60.0 % 36.0-66.0 Neutrophils % [place] ( [facility]) mono % 6.0 % 0.0-5.0 Above high normal [place] % [place] ([facility]) eos % 1.5 % 0.0-3.0 Eos % [place] ([facility]) lymph % 31.6 % 24.0-44.0 Lymph % [place] ([facility]) baso % 0.7 % 0.0-1.0 Baso % [place] ([facility]) immature granulocyte % 0.2 % 0-3.0 Immature Gran ulocyte % [place] ([facility]) nucleated red blood cell % 0.0 % 0-0 Nucleated Red Blood Cell % [place] ([facility]) neutrophils # 3.5 10 1.5-8.5 Neutrophils # [place] ( [facility]) lymph # 1.9 10 1.5-5.0 Lymph # [place] ([facility]) eos # 0.1 10 0.0-0.5 Eos # [place] ([facility]) baso # 0.0 10 0.0-0.2 Baso # [place] ([facility]) mono # 0.4 10 0.0-0.8 [place] # [place] ([facility]) ID Date Data Source [id number] 03/22/2020 08:05:00 AM EST [place] ([facility]) Name Value Range Interpretation Code Description Data Lashonda rce(s) Supporting Document(s) ID Date Data Source [id number] 03/22/2020 08:05:00 AM EST [place] ([facility]) Name Value Range Interpretation Code Description Data Lashonda rce(s) Supporting Document(s) total 25(oh) vitamin D 20.0 NG/mL 30.0-100.0 Below low normal T otal 25(Oh) Vitamin D [place] ([facility]) ID Date Data Source [id number] 03/22/2020 08:05:00 AM EST [place] ([facility]) Name Value Range Interpretation Code Description Data Lashonda rce(s) Supporting Document(s) thyroid stimulating hormone 3.420 uIU/mL 0.358-3.740 Thyroid Stimulating Hormone [place] ([facility]) free T4 0.97 NG/dL 0.76-1.46 Free T4 [place] ([facility]) ID Date Data Source [id number] 03/22/2020 08:05:00 AM EST [place] ([facility]) Name Value Range Interpretation Code Description Data Lashonda rce(s) Supporting Document(s) cholesterol level 239 mg/dL <200 Above high normal Cholesterol Level [place] ([facility]) Cholesterol in LDL [Mass/volume] in Serum or Plasma 139 mg/dL <100 Above high normal LDL Cholesterol [facility] ([facility]) triglycerides level 131 mg/dL <150 Triglycerides [place] ([facility]) HDL cholesterol 74 mg/dL >40 HDL Cholesterol [facility] NA ([facility]) cholesterol risk ratio <5 Cholesterol R isk Ratio [place] ([facility]) non-HDL-C 165 mg/dL Non-hdl-c [place] ([facility]) ID Date Data Source [id number] 03/22/2020 08:05:00 AM EST [place] ([facility]) Name Value Range Interpretation Code Description Data Lashonda rce(s) Supporting Document(s) blood urea nitrogen 15 mg/dL 7-18 Blood Urea Nitro gen [place] ([facility]) creatinine for GFR 1.17 mg/dL 0.55-1.30 Creatinine for GF R [place] ([facility]) glucose, fasting 97 mg/dL 70-100 Glucose, Fasting AT [facility]) glomerular filtration rate >51 Below low normal Elaine merular Filtration Rate [place] ([facility]) potassium serum 4.4 mEq/L 3.5-5.1 Potassium Serum [facility] ([facility]) sodium level 139 mEq/L 136-145 Sodium Level [place] ([facility]) carbon dioxide level 29 mEq/L 21-32 Carbon Dioxide Level [place] ([facility]) chloride level 107 mEq/L 98-107 Chloride Level [place] ([facility]) anion gap 3 mEq/L 8-16 Below low normal Anion Gap [place] ( [facility]) AST/SGOT 18 U/L 7-37 AST/SGOT [place] ([facility]) alkaline phosphatase 104 U/L 45-117 Alkaline Phosph atase [place] ([facility]) ALT/SGPT 33 U/L 12-78 ALT/SGPT [place] ([facility]) calcium level 8.7 mg/dL 8.5-10.1 Calcium Level [place] ( [facility]) albumin 3.6 gm/dL 3.2-5.2 Albumin [place] ([facility]) bilirubin,total 0.2 mg/dL 0.2-1.0 Bilirubin,total [facility] ([facility]) total protein 6.9 gm/dL 6.4-8.2 Total Protein [place] ( [facility]) albumin/globulin ratio 1.2-2.2 Below low normal Albumin /globulin Ratio [place] ([facility]) ID Date Data Source [id number] 03/22/2020 08:05:00 AM EST [place] ([facility]) Name Value Range Interpretation Code Description Data Lashonda rce(s) Supporting Document(s) Hemoglobin A1c/Hemoglobin.total in Blood 5.8 % Hemoglobin a1C [place] ([facility]) estimated average glucose 120 mg/dL 60-110 Above high norm al Estimated Average Glucose [place] ([facility]) ID Date Data Source [id number] 03/22/2020 08:05:00 AM EST [place] ([facility]) Name Value Range Interpretation Code Description Data Lashonda rce(s) Supporting Document(s) color, urine chata yellow Color, Urine [place] ([facility]) appearance, urine turbid clear Above high normal Appearance, Urine [place] ([facility]) pH,urine 5.0 units 5.0-9.0 pH,urine [place] ([facility]) specific gravity urine auto 1.002-1.035 Specifi c [place] Urine Auto [place] ([facility]) glucose, urine (UA) auto negative negative Glucose, Ur ine (UA) Auto [place] ([facility]) protein, urine auto negative negative Protein, Urine A uto [place] ([facility]) urobilinogen, urine auto 0.2 mg/dL 0.0-2.0 Urobilinoge n, Urine Auto [place] ([facility]) bilirubin, urine auto negative negative Bilirubin, Uri ne Auto [place] ([facility]) ketone, urine auto negative negative Ketone, Urine Aut o [place] ([facility]) nitrite, urine auto negative negative Nitrite, Urine A uto [place] ([facility]) leukocyte esterase, urine auto negative negative Leukocyte Esterase, Urine Auto [place] ([facility]) WBC, urine auto 3 /hpf 0-3 WBC, Urine Auto [facility] [place] ([facility]) blood, urine blood negative negative Blood, Urine Bloo d [place] ([facility]) bacteria, urine auto negative negative Bacteria, Urine Auto [place] ([facility]) squamous epithelial cell ur AU 1 /hpf 0-6 Squam ous Epithelial Cell Ur AU [place] ([facility]) RBC, urine auto 1 /hpf 0-3 RBC, Urine Auto [place] ([facility]) mucus, urine large negative Mucus, Urine [place] ([facility]) amorphous sediment small negative Above high normal Amorphous Sediment [place] ([facility]) hyaline cast, urine auto 4 /lpf 0-1 Hyaline Mohsen t, Urine Auto [place] ([facility]) ID Date Data Source [id number] 03/22/2020 08:05:00 AM EST [place] ([facility]) Name Value Range Interpretation Code Description Data Lashonda rce(s) Supporting Document(s) white blood count 5.9 10 4.0-10.0 White Blood Count [place] ([facility]) red blood count 5.07 10 4.00-5.40 Red Blood Count [facility] ([facility]) hematocrit 44.5 % 36.0-47.0 Hematocrit [place] ([facility]) hemoglobin 14.1 g/dL 12.0-15.5 Hemoglobin [place] ([facility]) mean corpuscular volume 87.8 fL 80.0-96.0 Mean Corpusc ular Volume [place] ([facility]) mean corpuscular hemoglobin 27.8 pg 27.0-33.0 Mean Cor puscular Hemoglobin [place] ([facility]) mean corpuscular HGB conc 31.7 g/dL 32.0-36.5 Below low rose mary l Mean Corpuscular HGB Conc [place] ([facility]) red cell distribution width 13.8 % 11.5-14.5 Red Cell Distribution Width [place] ([facility]) neutrophils % 60.0 % 36.0-66.0 Neutrophils % [place] ( [facility]) platelet count, automated 241 10 150-450 Platelet C ount, Automated [place] ([facility]) eos % 1.5 % 0.0-3.0 Eos % [place] ([facility]) lymph % 31.6 % 24.0-44.0 Lymph % [place] ([facility]) mono % 6.0 % 0.0-5.0 Above high normal [place] % [place] ([facility]) baso % 0.7 % 0.0-1.0 Baso % [place] ([facility]) immature granulocyte % 0.2 % 0-3.0 Immature Gran ulocyte % [place] ([facility]) nucleated red blood cell % 0.0 % 0-0 Nucleated Red Blood Cell % [place] ([facility]) neutrophils # 3.5 10 1.5-8.5 Neutrophils # [place] ( [facility]) lymph # 1.9 10 1.5-5.0 Lymph # [place] ([facility]) baso # 0.0 10 0.0-0.2 Baso # [place] ([facility]) eos # 0.1 10 0.0-0.5 Eos # [place] ([facility]) mono # 0.4 10 0.0-0.8 [place] # [place] ([facility]) ID Date Data Source [id number] 03/22/2020 08:05:00 AM EST [place] ([facility]) Name Value Range Interpretation Code Description Data Lashonda rce(s) Supporting Document(s) ID Date Data Source [id number] 03/22/2020 08:05:00 AM EST [place] ([facility]) Name Value Range Interpretation Code Description Data Lashonda rce(s) Supporting Document(s) total 25(oh) vitamin D 20.0 NG/mL 30.0-100.0 Below low normal T otal 25(Oh) Vitamin D [place] ([facility]) ID Date Data Source [id number] 03/22/2020 08:05:00 AM EST [place] ([facility]) Name Value Range Interpretation Code Description Data Lashonda rce(s) Supporting Document(s) thyroid stimulating hormone 3.420 uIU/mL 0.358-3.740 Thyroid Stimulating Hormone [place] ([facility]) free T4 0.97 NG/dL 0.76-1.46 Free T4 [place] ([facility]) ID Date Data Source [id number] 03/22/2020 08:05:00 AM EST [place] ([facility]) Name Value Range Interpretation Code Description Data Lashonda rce(s) Supporting Document(s) triglycerides level 131 mg/dL <150 Triglycerides [place] ([facility]) cholesterol level 239 mg/dL <200 Above high normal Cholesterol Level [place] ([facility]) HDL cholesterol 74 mg/dL >40 HDL Cholesterol [facility] ([facility]) Cholesterol in LDL [Mass/volume] in Serum or Plasma 139 mg/dL <100 Above high normal LDL Cholesterol [place] ([facility]) cholesterol risk ratio <5 Cholesterol R isk Ratio [place] ([facility]) non-HDL-C 165 mg/dL Non-hdl-c [place] ([facility]) ID Date Data Source [id number] 03/22/2020 08:05:00 AM EST [place] ([facility]) Name Value Range Interpretation Code Description Data Lashonda rce(s) Supporting Document(s) glucose, fasting 97 mg/dL 70-100 Glucose, Fasting AT [place] ([facility]) creatinine for GFR 1.17 mg/dL 0.55-1.30 Creatinine for GF R [place] ([facility]) blood urea nitrogen 15 mg/dL 7-18 Blood Urea Nitro gen [place] ([facility]) glomerular filtration rate >51 Below low normal Elaine merular Filtration Rate [place] ([facility]) sodium level 139 mEq/L 136-145 Sodium Level [place] ([facility]) chloride level 107 mEq/L 98-107 Chloride Level [place] ([facility]) potassium serum 4.4 mEq/L 3.5-5.1 Potassium Serum [facility] ([facility]) carbon dioxide level 29 mEq/L 21-32 Carbon Dioxide Level [place] ([facility]) anion gap 3 mEq/L 8-16 Below low normal Anion Gap [place] ( [facility]) calcium level 8.7 mg/dL 8.5-10.1 Calcium Level [place] ( [facility]) ALT/SGPT 33 U/L 12-78 ALT/SGPT [place] ([facility]) AST/SGOT 18 U/L 7-37 AST/SGOT [place] ([facility]) alkaline phosphatase 104 U/L 45-117 Alkaline Phosph atase [place] ([facility]) bilirubin,total 0.2 mg/dL 0.2-1.0 Bilirubin,total [facility] ([facility]) total protein 6.9 gm/dL 6.4-8.2 Total Protein [place] ( [facility]) albumin/globulin ratio 1.2-2.2 Below low normal Albumin /globulin Ratio [place] ([facility]) albumin 3.6 gm/dL 3.2-5.2 Albumin [place] ([facility]) ID Date Data Source [id number] 03/22/2020 08:05:00 AM EST [place] ([facility]) Name Value Range Interpretation Code Description Data Lashonda rce(s) Supporting Document(s) Hemoglobin A1c/Hemoglobin.total in Blood 5.8 % Hemoglobin a1C [place] ([facility]) estimated average glucose 120 mg/dL 60-110 Above high norm al Estimated Average Glucose [place] ([facility]) ID Date Data Source [id number] 03/22/2020 08:05:00 AM EST [place] ([facility]) Name Value Range Interpretation Code Description Data Lashonda rce(s) Supporting Document(s) appearance, urine turbid clear Above high normal Appearance, Urine [place] ([facility]) specific gravity urine auto 1.002-1.035 Specifi c [place] Urine Auto [place] ([facility]) pH,urine 5.0 units 5.0-9.0 pH,urine [place] ([facility]) color, urine chata yellow Color, Urine [place] ([facility]) protein, urine auto negative negative Protein, Urine A uto [place] ([facility]) ketone, urine auto negative negative Ketone, Urine Aut o [place] ([facility]) urobilinogen, urine auto 0.2 mg/dL 0.0-2.0 Urobilinoge n, Urine Auto [place] ([facility]) glucose, urine (UA) auto negative negative Glucose, Ur ine (UA) Auto [place] ([facility]) leukocyte esterase, urine auto negative negative Leukocyte Esterase, Urine Auto [place] ([facility]) nitrite, urine auto negative negative Nitrite, Urine A uto [place] ([facility]) bilirubin, urine auto negative negative Bilirubin, Uri ne Auto [place] ([facility]) blood, urine blood negative negative Blood, Urine Bloo d [place] ([facility]) WBC, urine auto 3 /hpf 0-3 WBC, Urine Auto [place] [place] ([facility]) bacteria, urine auto negative negative Bacteria, Urine Auto [place] ([facility]) RBC, urine auto 1 /hpf 0-3 RBC, Urine Auto [facility] [place] ([facility]) hyaline cast, urine auto 4 /lpf 0-1 Hyaline Mohsen t, Urine Auto [place] ([facility]) mucus, urine large negative Mucus, Urine [place] ([facility]) amorphous sediment small negative Above high normal Amorphous Sediment [place] ([facility]) squamous epithelial cell ur AU 1 /hpf 0-6 Squam ous Epithelial Cell Ur AU [place] ([facility]) ID Date Data Source [id number] 03/22/2020 08:05:00 AM EST [place] ([facility]) Name Value Range Interpretation Code Description Data Lashonda rce(s) Supporting Document(s) white blood count 5.9 10 4.0-10.0 White Blood Count [place] ([facility]) red blood count 5.07 10 4.00-5.40 Red Blood Count [facility] ([facility]) mean corpuscular hemoglobin 27.8 pg 27.0-33.0 Mean Cor puscular Hemoglobin [place] ([facility]) hemoglobin 14.1 g/dL 12.0-15.5 Hemoglobin [place] ([facility]) hematocrit 44.5 % 36.0-47.0 Hematocrit [place] ([facility]) mean corpuscular volume 87.8 fL 80.0-96.0 Mean Corpusc ular Volume [place] ([facility]) mean corpuscular HGB conc 31.7 g/dL 32.0-36.5 Below low rose mary l Mean Corpuscular HGB Conc [place] ([facility]) red cell distribution width 13.8 % 11.5-14.5 Red Cell Distribution Width [place] ([facility]) platelet count, automated 241 10 150-450 Platelet C ount, Automated [place] ([facility]) mono % 6.0 % 0.0-5.0 Above high normal [place] % [place] ([facility]) neutrophils % 60.0 % 36.0-66.0 Neutrophils % [place] ( [facility]) lymph % 31.6 % 24.0-44.0 Lymph % [place] ([facility]) eos % 1.5 % 0.0-3.0 Eos % [place] ([facility]) baso % 0.7 % 0.0-1.0 Baso % [place] ([facility]) immature granulocyte % 0.2 % 0-3.0 Immature Gran ulocyte % [place] ([facility]) nucleated red blood cell % 0.0 % 0-0 Nucleated Red Blood Cell % [place] ([facility]) mono # 0.4 10 0.0-0.8 [place] # [place] ([facility]) lymph # 1.9 10 1.5-5.0 Lymph # [place] ([facility]) neutrophils # 3.5 10 1.5-8.5 Neutrophils # [place] ( [facility]) baso # 0.0 10 0.0-0.2 Baso # [place] ([facility]) eos # 0.1 10 0.0-0.5 Eos # [place] ([facility]) ID Date Data Source [id number] 03/01/2020 12:00:00 AM EST [facility] Felix Aragon MD Patient Name: CHRISTIANO MEJIA [facility] Date of : 2Suite Date of Exam: 03/01/2020AMAN Sanchez [id number]#: Fax: [phone] EXAM: MRI KNEE LEFT WITHOUT CONTRASTCLINICAL INFORMATION: Atraumatic pain.3T multiplanar MRI imaging of the left knee was obtained using varioussequences.There are no prior left knee MRI's for comparison.Complex Grade III signal change is seen in the posterior horn of the medialmeniscus. The anterior horn is within normal limits. The anterior andposterior horns of the lateral meniscus are within normal limits. Theanterior and posterior cruciate ligaments are intact. The quadriceps andpatellar tendons are intact. The medial and lateral collateral ligamentsare intact. The medial and lateral patellar retinacula are intact. Thereis wppy-ce-ihxecako thinning and irregularity of all articular cartilages.Tiny T2 hypersignal foci are seen in the subchondral patellar medial facetwhere there is an area of cartilaginous fissuring. There is a jointeffusion. 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 The posterior horn of the medial meniscus is torn.2. Chondromalacia as described above.3. Joint effusion and Tolbert's cyst.4. Other findings as described above.Accredited by the [employer] in [place].José Miguel Link, TOOTIE/Mehran you for referring JADON MEJIA to our office. Electronically Signed - JOSÉ MIGUEL LINK DO 03/02/20 17:53 Name Value Range Interpretation Code Description Data Lashonda rce(s) Supporting Document(s) ID Date Data Source [id number] 01/14/2020 08:49:40 AM EDT [facility] Measurements & CalculationsHeight: 68 inches (5 ft. 8 in.) 172.72 cm Weight: 259 pounds 6 oz. 117.90 kg Body Mass Index (BMI): 39.58BMI Interpretation: ObeseBody Surface Area (BSA): 2.28Weight Management Education Done (Nutrition/Physical Activity)Vital SignsTemperature: 97.4F tympanic Pulse Rate: 74 beats/minuteResp iratory Rate: 17 respirations/minuteBlood Pressure: 137/87 automaticO2 Saturation: 95% sittingVital Signs performed by: Jean Beltran MA, January 14, 2020 9:06 AMNurses Note 59 yo female pt, FU L knee pain, pt reports apin in knee today and R shoulder. Pt reports falling down the stairs recently (01/03/2020) Pt reports knee pain has increased from occassional to daily. Pt reports using ice on bith areas and trying to "rest both areas" as well.Pt requests new prescriptuion for Synthroid med (NOT GENERIC PLEASE). Pt requests refill on Carvedilol today, reports only 2 days of meds left.Initial Intake Information From: patientRoom #: 11Infectious Disease / Travel ScreeningRecent travel for you or any close contacts? NoHave you had any close contact with anyone diagnosed with or under investigation for COVID-19 (coronavirus)? NoFever? NoRespiratory symptoms: cough, cold, congestion, shortness of breath, difficulty breathing? NoLoss of smell? NoLoss of taste? NoSmoking, Tobacco, Vaping or Smoke Exposure StatusSmoke Status: never smokerTobacco Use: NoDo you vape? NoMenstrual HistoryAny possibility of ? NoComments: Hysterectomy (approx. 2001)Healthcare HistorySince your last office visit...Have you been admitted to the hospital? NoHave you been to an emergency room (ER) or urgent care clinic? NoHave you seen another healthcare provider? NoHave you seen a dentist? NoIntake performed by: Jean Beltran MA, January 14, 2020 8:57 AMRate Your HealthIn general, would you say your health is? FairPain AssessmentAre you currently having any pain which... You would like your provider to address? Yes Affects your activity level? YesPain AssessmentPain ScaleNumeric Rating Scale: 7 / 10Location: L Knee (& R shoulder)Onset: 01/02/2020Duration: 3 monthsFrequency: DailyCharacter/Quality: aching and sharp. makes a popping noiseIs the pain radiating? NoScreening, Brief Intervention, & Referral to Treatment (SBIRT)Pre-Screening Questions How many times have you have 4 or more drinks in a day? 0How many times have you used an illegal drug or used a prescription medication for a non-medical reason? 0Performed by: Jean Beltran MA, January 14, 2020 9:01 AMPatient History Medical History:thyroidibshyperetensionsleep apneaSurgical History:Hysterectomy (Total)Tonsillectomyleft rotator cuffr groin lymph node removedmisca rriage/ovarian cyst removedperineum repairgall bladder l foot doe neuroma/hallux limitus-osteomyl breast lump /papilloma removedr meniscuc repairl pinky amputationFamily History:Cancer - Breast (Maternal Grandmother)Diabetes (Maternal Grandmother)Heart disease (Maternal Grandmother)ovarian cancer (paternal grandmother)myathenia gravius (father)Cancer - Colorectal (Mother)Social/Personal History: Chief Complaintfollow-up visit/knee painHistory of Present Illness (HPI)59 yo female presents with left knee pain, right shoulder pain, and rash on pannus. Right Shoulder Pain: Present for several weeks after falling down the stairs. Some numbness tingling intermittently down arm, but no radicular pain. Paresthesia are not new, but worsened by injury. ROM limited by pain. No weakness RUE. Describes pain as constant and aching located in the lateral and anterior shoulder. Left Knee Pain: Chronic for several months. Worsening with weather changes this week. Has a history of OA of right knee. Feels that this may be similar. Pain is predominant along medial joint line. No swelling, redness, or warmth. Has been taking tylenol. No weakness. Rash: Itchy, malodorus, inflammed rash present on bilateral lower abdomen between skin folds. Has been trying neosporin without benefit. Somewhat uncomfortable. No drainge or warmth.Needs synthroid (CHERYLE) and carvedilol refilled.Problem ReviewProblem List was reviewed and/or updated during this visit.Medication Reconciliation & ReviewMedication List was reviewed and/or updated during this visit, including review of any azsq-oin-lstcqzo medications, herbal therapies, and/or supplements.Allergy ReviewAllergy List was reviewed and/or updated during this visit.Adult Preventive CareLabs/Meds/Other Counseling-Nutrition and Physical Activity:BMI Interpretation: Obese (01/14/2020) Counseling: Done (01/14/2020) Physical Activity: Done (01/14/2020)Review of Systems General: Denies loss of appetite, chills, dizziness, fatigue, fever, continued fever, headache, feeling ill, sweats, night sweats, sleep disturbances, weight loss. Cardiovascular: Denies chest pain, palpitations, feeling faint, trouble breathing w/exertion, SOB upon lying down, SOB at night, peripheral edema, elevated blood pressure, decreased heart rate. Respiratory: Denies cough, difficulty breathing, shortness of breath, excessive sputum, coughing up blood, wheezing, chest pain. Musculoskeletal: Notes shoulder pain with radiculopathy and Left knee pain that is chronic and achingSkin: Complains of rash, redness, itching. Neurologic: Denies muscle impairment, weakness. Physical ExamGeneral Appearance: well nourished, well hydrated, no acute distressRespiratory, Auscultation: clear to auscultation bilaterally; no rales, rhonchi, or wheezesRespiratory, Effort: no intercostal retractions or use of accessory musclesCardiovascular, Auscultation: S1, S2 audible; no murmur, rub, or gallop; RRRGait & Station: normalUpper Extremity, Right: No visible deformity RUE. ROM limited in flexion, extension and abduction due to pain. Strength intact RUELower Extremity, Left: Left Knee: No visbile deformity. ROM intact. Sensation strength intact. Positive varus stress. Rate Your HealthIn general, would you say your health is? FairAssessment & Plan Problems:Added: Obesity (ICD-278.00) (ODG29-S90.09)Tinea corporis (ICD-110.5) (VWG19-Q71.4) Assessment: sent ketoconazole. discussed supportive care. follow up if not improving, worsening, or resolvingShoulder pain, right (ICD-719.41) (JTO50-W35.511) Assessment: will get xrays. possible tendinitis vs, arthriticPain in left knee (ICD-719.46) (YBX64-O53.562) Assessment: likely degenerative and arthritic, possible meniscus/MCL strain. will get xrays and proceed based on testing. likely will need ortho referral.Assessment not Saved Pain in left knee (IFZ99-C65.562): Comment Onlylikely degenerative and arthritic, possible meniscus/MCL strain. will get xrays and proceed based on testing. likely will need ortho referral.Medications:VOLTAREN 1 % TRANSDERMAL GELKETOCONAZOLE 2 % EXTERNAL CREAMZOLMITRIPTAN0.5 MG ORAL TABLET (ZOLMITRIPTAN)LEVALBUTEROL TARTRATE 45 MCG/ACT INHALATION AEROSOLCARVEDILOL PHOSPHATE ER 20 MG ORAL CAPSULE EXTENDED RELEASE 24 HOURCITALOPRAM HYDROBROMIDE 40 MG ORAL TABLETSYNTHROID 50 MCG ORAL TABLETMedication Changes:Refilled:SYNTHROID 50 MCG ORAL TABLET-take one tablet daily in the Am, CHERYLE Qty: 30[Tablet] Refills: 3 Method: ElectronicCARVEDILOL PHOSPHATE ER 20 MG ORAL CAPSULE EXTENDED RELEASE 24 HOUR-take one tablet by mouth daily Qty: 30[Capsule] Refills: 3 Method: ElectronicNew Prescription:KETOCONAZOLE 2 % E XTERNAL CREAM-apply to the affected area of the abdomen twice daily for up to 4 weeks Qty: 60[Gram] Refills: 1 Method: ElectronicVOLTAREN 1 % TRANSDERMAL GEL-apply 2g size amount to the most painful area of the joint up to 4 times a day Qty: 30[Tube] Refills: 0 Method: ElectronicChanged: To: SYNTHROID 50 MCG ORAL TABLET-take one tablet daily in the Am, CHERYLE Qty: 30[Tablet] Refills: 3Allergies:BACTRIM DS (SULFAMETHOXAZOLE-TRIMETHOPRIM) (SULFAMETHOXAZOLE- TRIMETHOPRIM) (Critical)MORPHINE SULFATE (MORPHINE SULFATE) (Critical)* LATEX AND TAPE (Severe)* PERFUMES FRAGRANCES (Severe)* TREES WEEDS GRASS (Mild)Orders:X-Ray - Knee, 1 or 2 views [CPT-90004] X-Ray - Shoulder, complete, minimum of 2 views [CPT-56050] Ofc Vst, Est Level III [CPT-41349] Follow-Up Return to clinic: as needed Plan Comments: has routine visit in MarchClinical Visit Summary DeclinedMedications:VOLTAREN 1 % TRANSDERMAL GEL (DICLOFENAC SODIUM) apply 2g size amount to the most painful area of the joint up to 4 times a day #30[Tube] x 0 Route:TRANSDERMAL Entered and Authorized by: Corin MONIQUE Method used: Electronically to [facility] (retail) [address] [place] [address] Note to Pharmacy: Route: TRANSDERMAL; RxID: [id number] PHOSPHATE ER 20 MG ORAL CAPSULE EXTENDED RELEASE 24 HOUR (CARVEDILOL PHOSPHATE) take one tablet by mouth daily #30[Capsule] x 3 Route:ORAL Entered and Authorized by: Corin MONIQUE Method used: Electronically to [facility] (retail) [address] [place] [address] Note to Pharmacy: Route: ORAL; RxID: [id number] 50 MCG ORAL TABLET (LEVOTHYROXINE SODIUM) take one tablet daily in the Am, CHERYLE #30[Tablet] x 3 Entered and Authorized by: Corin MONIQUE Method used: Electronically to [facility] (retail) [address] [place] [address] Note to Pharmacy: Route: ORAL; CHERYLE RxID: [id number] 2 % EXTERNAL CREAM (KETOCONAZOLE) apply to the affected area of the abdomen twice daily for up to 4 weeks #60[Gram] x 1 Route:EXTERNAL Entered and Authorized by: Corin MONIQUE Method used: Electronically to [facility] (retail) [address] [place] [address] Note to Pharmacy: Route: EXTERNAL; RxID: [id number] signed by Corin MONIQUE on 01/14/2020 at 9:46 AM Name Value Range Interpretation Code Description Data Lashonda rce(s) Supporting Document(s) Procedure Social History Code Duration Value Status Description Data Source(s ) Smoking 01/04/2021 12:00:00 AM EDT Never Smoker completed Never S tiffani eCW1 ([facility]) Smoking 08/09/2020 12:00:00 AM EDT Patient is a former smoker completed Patient is a former smoker MEDENT ([facility], ) Vital Signs ID Date Data Source UNK Name Value Range Interpretation Code Description Data Source(s) Body weight 257 [lb_av] 257 [lb_av] eCW1 ([facility]) Body weight 116.57 kg 116.57 kg eCW1 [facility] Body height 68 [in_i] 68 [in_i] eCW1 ([facility]) Body mass index (BMI) [Ratio] 39.07 kg/m2 39.07 kg/m2 eCW1 ([facility]) Systolic blood pressure 124 mm[Hg] 124 mm[Hg] e CW1 ([facility]) Diastolic blood pressure 72 mm[Hg] 72 mm[Hg] eCW1 ([facility]) Systolic blood pressure 143 mm[Hg] 143 mm[Hg] M EDENT ([facility], ) Body mass index (BMI) [Ratio] 39.4 kg/m2 39.4 k g/m2 [facility] ([facility]) [place] body weight 140 [lb_av] 140 [lb_av] MEDEN T ([facility]) Body weight 117.482 kg 117.482 kg [facility] ([facility]) Body surface area Derived from formula 2.28 m2 2.28 m2 [facility] ([facility]) Diastolic blood pressure 71 mm[Hg] 71 mm[Hg] [facility] Body height 68 [in_i] 68 [in_i] [facility] ([facility]) 5'8" Body weight 259.00 [lb_av] 259.00 [lb_av] MEDEN T ([facility]) Body height 68 [in_i] 68 [in_i] CHRISTA ([facility]) Body height 68 [in_i] 68 [in_i] [facility] ([facility]) Diastolic blood pressure 77 mm[Hg] 77 mm[Hg] [facility] ([facility]) Body height 68 [in_i] 68 [in_i] [facility] ([facility]) Body mass index (BMI) [Ratio] 39.6 kg/m2 39.6 k g/m2 [facility] ([facility]) Systolic blood pressure 128 mm[Hg] 128 mm[Hg] A THENA ([facility]) Body weight 4163.2 [oz_av] 4163.2 [oz_av] ATHEN A ([facility]) Diastolic blood pressure 77 mm[Hg] 77 mm[Hg] [facility] ([facility]) Body height 68 [in_i] 68 [in_i] [facility] ([facility]) Body mass index (BMI) [Ratio] 39.6 kg/m2 39.6 k g/m2 [facility] ([facility]) Systolic blood pressure 128 mm[Hg] 128 mm[Hg] A THENA ([facility]) Body weight 4163.2 [oz_av] 4163.2 [oz_av] ATHEN A ([facility]) Diastolic blood pressure 77 mm[Hg] 77 mm[Hg] [place] ([facility]) Body height 68 [in_i] 68 [in_i] [facility] ([facility]) Body mass index (BMI) [Ratio] 39.6 kg/m2 39.6 k g/m2 [facility] ([facility]) Systolic blood pressure 128 mm[Hg] 128 mm[Hg] A THENA ([facility]) Body weight 4163.2 [oz_av] 4163.2 [oz_av] ATHEN A ([facility]) Diastolic blood pressure 93 mm[Hg] 93 mm[Hg] [facility] ([facility]) Body height 68 [in_i] 68 [in_i] [facility] ([facility]) Body mass index (BMI) [Ratio] 41 kg/m2 41 kg/ m2 [facility] ([facility]) Systolic blood pressure 142 mm[Hg] 142 mm[Hg] A THENA ([facility]) Body weight 4313.6 [oz_av] 4313.6 [oz_av] ATHEN A ([facility]) Diastolic blood pressure 93 mm[Hg] 93 mm[Hg] [facility] ([facility]) Body height 68 [in_i] 68 [in_i] [facility] ([facility]) Body mass index (BMI) [Ratio] 41 kg/m2 41 kg/ m2 [facility] ([facility]) Systolic blood pressure 142 mm[Hg] 142 mm[Hg] A THENA ([facility]) Body weight 4313.6 [oz_av] 4313.6 [oz_av] ATHEN A ([facility]) Diastolic blood pressure 93 mm[Hg] 93 mm[Hg] [facility] ([facility]) Body height 68 [in_i] 68 [in_i] [facility] ([facility]) Body mass index (BMI) [Ratio] 41 kg/m2 41 kg/ m2 [facility] ([facility]) Systolic blood pressure 142 mm[Hg] 142 mm[Hg] A THENA ([facility]) Body weight 4313.6 [oz_av] 4313.6 [oz_av] ATHEN A ([facility]) Diastolic blood pressure 93 mm[Hg] 93 mm[Hg] [facility] ([facility]) Body height 68 [in_i] 68 [in_i] [facility] ([facility]) Body mass index (BMI) [Ratio] 41 kg/m2 41 kg/ m2 [facility] ([facility]) Systolic blood pressure 142 mm[Hg] 142 mm[Hg] A THENA ([facility]) Body weight 4313.6 [oz_av] 4313.6 [oz_av] ATHEN A ([facility]) Diastolic blood pressure 93 mm[Hg] 93 mm[Hg] [facility] ([facility]) Body height 68 [in_i] 68 [in_i] [facility] ([facility]) Body mass index (BMI) [Ratio] 41 kg/m2 41 kg/ m2 [facility] ([facility]) Systolic blood pressure 142 mm[Hg] 142 mm[Hg] A THENA ([facility]) Body weight 4313.6 [oz_av] 4313.6 [oz_av] ATHEN A ([facility]) Diastolic blood pressure 93 mm[Hg] 93 mm[Hg] [place] ([facility]) Body height 68 [in_i] 68 [in_i] [facility] ([facility]) Body mass index (BMI) [Ratio] 41 kg/m2 41 kg/ m2 [facility] ([facility]) Systolic blood pressure 142 mm[Hg] 142 mm[Hg] A AMADOU ([facility]) Body weight 4313.6 [oz_av] 4313.6 [oz_av] ATHJULI A ([facility]) Body height 68 [in_i] 68 [in_i] [facility] ([facility]) Body height 68 [in_i] 68 [in_i] [facility] ([facility]) Body height 68 [in_i] 68 [in_i] [facility] ([facility]) Body height 68 [in_i] 68 [in_i] [facility] ([facility]) Body height 68 [in_i] 68 [in_i] [facility] ([facility]) Body height 68 [in_i] 68 [in_i] [facility] ([facility]) Body height 68 [in_i] 68 [in_i] [facility] ([facility]) Systolic blood pressure 120 mm[Hg] 120 mm[Hg] M GABRIELA ([facility], ) Diastolic blood pressure 84 mm[Hg] 84 mm[Hg] [facility] ([facility], ) Heart rate 84 /min 84 /min [facility] ([facility], ) Oxygen saturation in Arterial blood by Pulse oximetry 98 % 98 % [facility] ([facility], ) Body temperature 97.2 [degF] 97.2 [degF] [facility] ([facility], ) Body height 68 [in_i] 68 [in_i] [facility] ([facility], ) 5'8" Body weight 266.00 [lb_av] 266.00 [lb_av] [facility] Body mass index (BMI) [Ratio] 40.4 kg/m2 40.4 k g/m2 [facility] ([facility], ) [place] body weight 140 [lb_av] 140 [lb_av] MEDEN T ([facility], ) Body weight 120.658 kg 120.658 kg [facility] ([facility], ) Body surface area Derived from formula 2.31 m2 2.31 m2 [facility] ([facility]) Body weight 266.12 [lb_av] 266.12 [lb_av] MEDEN T ([facility] ) Body temperature 96.9 [degF] 96.9 [degF] MEDENT ([facility] ) Body height 67 [in_i] 67 [in_i] [facility] ([facility] ) 5'7" Body mass index (BMI) [Ratio] 41.7 kg/m2 41.7 k g/m2 [facility] ([facility] ) Body height 68 [in_i] 68 [in_i] [facility] ([facility] 5'8" Body weight 260.00 [lb_av] 260.00 [lb_av] MEDEN T ([facility] Systolic blood pressure 128 mm[Hg] 128 mm[Hg] M EDENT ([facility] Diastolic blood pressure 78 mm[Hg] 78 mm[Hg] [facility] ([facility] Heart rate 75 /min 75 /min [facility] ([facility] Body mass index (BMI) [Ratio] 39.5 kg/m2 39.5 k g/m2 [facility] ([facility] Body height 68 [in_i] 68 [in_i] [facility] ([facility]) Body height 68 [in_i] 68 [in_i] [facility] ([facility]) Body height 68 [in_i] 68 [in_i] [facility] ([facility]) Body height 68 [in_i] 68 [in_i] [facility] ([facility]) Body height 68 [in_i] 68 [in_i] [facility] ([facility]) Body height 68 [in_i] 68 [in_i] [facility] ([facility]) Body height 68 [in_i] 68 [in_i] [facility] ([facility]) Body height 68 [in_i] 68 [in_i] [place] ([facility]) Body temperature 96.7 [degF] 96.7 [degF] [facility] ([facility]) Systolic blood pressure 120 mm[Hg] 120 mm[Hg] [facility]) Diastolic blood pressure 70 mm[Hg] 70 mm[Hg] [facility] ([facility]) Heart rate 81 /min 81 /min [facility] ([facility]) Oxygen saturation in Arterial blood by Pulse oximetry 98 % 98 % [facility] ([facility]) Body height 68 [in_i] 68 [in_i] [facility] ([facility]) 5'8" Body weight 263.00 [lb_av] 263.00 [lb_av] MEDEN T ([facility]) Body mass index (BMI) [Ratio] 40.0 kg/m2 40.0 k g/m2 [facility] ([facility]) [place] body weight 140 [lb_av] 140 [lb_av] MEDEN T ([facility]) Body weight 119.297 kg 119.297 kg [facility] ([facility]) Body surface area Derived from formula 2.30 m2 2.30 m2 [facility] ([facility]) Body height 68 [in_i] 68 [in_i] [facility] ([facility]) 5'8" Body weight 256.00 [lb_av] 256.00 [lb_av] MEDEN T ([facility]) Body mass index (BMI) [Ratio] 38.9 kg/m2 38.9 k g/m2 [facility] ([facility]) [place] body weight 140 [lb_av] 140 [lb_av] MEDEN T ([facility]) Body weight 116.122 kg 116.122 kg [facility] ([facility]) Diastolic blood pressure 87 mm[Hg] 87 mm[Hg] [place] ([facility]) Body height 68 [in_i] 68 [in_i] [place] ([facility]) Body mass index (BMI) [Ratio] 39.58 kg/m2 39.58 kg/m2 [facility] ([facility]) Systolic blood pressure 137 mm[Hg] 137 mm[Hg] A THENA ([facility]) Body weight 4150.08 [oz_av] 4150.08 [oz_av] ATH PAMELA ([facility]) Diastolic blood pressure 87 mm[Hg] 87 mm[Hg] [facility] ([facility]) Body height 68 [in_i] 68 [in_i] [facility] ([facility]) Body mass index (BMI) [Ratio] 39.58 kg/m2 39.58 kg/m2 [facility] ([facility]) Systolic blood pressure 137 mm[Hg] 137 mm[Hg] [facility] Body weight 4150.08 [oz_av] 4150.08 [oz_av] ATH PAMELA ([facility]) Diastolic blood pressure 87 mm[Hg] 87 mm[Hg] [facility] ([facility]) Body height 68 [in_i] 68 [in_i] [facility] ([facility]) Body mass index (BMI) [Ratio] 39.58 kg/m2 39.58 kg/m2 [facility] ([facility]) Systolic blood pressure 137 mm[Hg] 137 mm[Hg] A THENA ([facility]) Body weight 4150.08 [oz_av] 4150.08 [oz_av] ATH PAMELA ([facility]) Diastolic blood pressure 87 mm[Hg] 87 mm[Hg] [facility] ([facility]) Body height 68 [in_i] 68 [in_i] [facility] ([facility]) Body mass index (BMI) [Ratio] 39.58 kg/m2 39.58 kg/m2 [facility] ([facility]) Systolic blood pressure 137 mm[Hg] 137 mm[Hg] A THENA ([facility]) Body weight 4150.08 [oz_av] 4150.08 [oz_av] ATH PAMELA ([facility]) Diastolic blood pressure 87 mm[Hg] 87 mm[Hg] [facility] ([facility]) Body height 68 [in_i] 68 [in_i] [facility] ([facility]) Body mass index (BMI) [Ratio] 39.58 kg/m2 39.58 kg/m2 [facility] ([facility]) Systolic blood pressure 137 mm[Hg] 137 mm[Hg] [facility] Body weight 4150.08 [oz_av] 4150.08 [oz_av] ATH PAMELA ([facility]) Diastolic blood pressure 87 mm[Hg] 87 mm[Hg] [facility] ([facility]) Body height 68 [in_i] 68 [in_i] [facility] ([facility]) Body mass index (BMI) [Ratio] 39.58 kg/m2 39.58 kg/m2 [facility] ([facility]) Systolic blood pressure 137 mm[Hg] 137 mm[Hg] A [facility] ([facility]) Body weight 4150.08 [oz_av] 4150.08 [oz_av] ATH PAMELA ([facility]) Diastolic blood pressure 87 mm[Hg] 87 mm[Hg] [facility] ([facility]) Body height 68 [in_i] 68 [in_i] [facility] ([facility]) Body mass index (BMI) [Ratio] 39.58 kg/m2 39.58 kg/m2 [facility] ([facility]) Systolic blood pressure 137 mm[Hg] 137 mm[Hg] [facility] Body weight 4150.08 [oz_av] 4150.08 [oz_av] ATH [facility] ([facility]) Diastolic blood pressure 87 mm[Hg] 87 mm[Hg] [facility] ([facility]) Body height 68 [in_i] 68 [in_i] [facility] ([facility]) Body mass index (BMI) [Ratio] 39.58 kg/m2 39.58 kg/m2 [facility] ([facility]) Systolic blood pressure 137 mm[Hg] 137 mm[Hg] A [facility] ([facility]) Body weight 4150.08 [oz_av] 4150.08 [oz_av] ATH [facility]AMELA ([facility]) ID Date Data Source [id number] 02/02/2021 01:47:10 PM EDT [facility] Name Value Range Interpretation Code Description Data Source(s) WEIGHT RECORDED 257.[address] [facility] Height 67 Inches 067 Inches [facility] Patient Treatment Plan of Care Planned Activity Planned Date Details Description Data Source (s) Clindamycin 10 MG/ML Topical Lotion 01/04/2021 12:00:00 AM EDT eCW1 ([facility]) Acetaminophen 325 MG / Oxycodone Hydrochloride 5 MG Oral Tablet [facility] ([facility]) Naproxen 500 MG Oral Tablet [facility] ([facility]) Ketoconazole 20 MG/ML Topical Cream [facility] ([facility]) Diclofenac Sodium 0.01 MG/MG Topical Gel [facility] ([facility]) Diazepam 5 MG Oral Tablet AT [facility]) Diazepam 2 MG Oral Tablet AT [facility] ([facility]) Ciprofloxacin 500 MG Oral Tablet [facility] ([facility]) Amoxicillin 875 MG Oral Tablet [facility] ([facility]) Amoxicillin 500 MG Oral Capsule [facility] ([facility]) Acetaminophen 325 MG / Oxycodone Hydrochloride 5 MG Oral Tablet [facility] ([facility]) Naproxen 500 MG Oral Tablet [facility] ([facility]) Ketoconazole 20 MG/ML Topical Cream [facility] ([facility]) Diclofenac Sodium 0.01 MG/MG Topical Gel [facility] ([facility]) Diazepam 5 MG Oral Tablet AT [facility] ([facility]) Diazepam 2 MG Oral Tablet AT [facility]) Ciprofloxacin 500 MG Oral Tablet [facility] ([facility]) Amoxicillin 875 MG Oral Tablet [facility] ([facility]) Amoxicillin 500 MG Oral Capsule [facility] ([facility]) Acetaminophen 325 MG / Oxycodone Hydrochloride 5 MG Oral Tablet [facility] ([facility]) Naproxen 500 MG Oral Tablet [facility] ([facility]) Ketoconazole 20 MG/ML Topical Cream [facility] ([facility]) Diclofenac Sodium 0.01 MG/MG Topical Gel [facility] ([facility]) Diazepam 5 MG Oral Tablet AT [facility]) Diazepam 2 MG Oral Tablet AT [facility]) Ciprofloxacin 500 MG Oral Tablet [facility] ([facility]) Amoxicillin 875 MG Oral Tablet [facility] ([facility]) Amoxicillin 500 MG Oral Capsule [facility] ([facility]) Acetaminophen 325 MG / Oxycodone Hydrochloride 5 MG Oral Tablet [facility] ([facility]) Naproxen 500 MG Oral Tablet [facility] ([facility]) Ketoconazole 20 MG/ML Topical Cream [facility] ([facility]) Diclofenac Sodium 0.01 MG/MG Topical Gel [facility] ([facility]) Diazepam 5 MG Oral Tablet AT [facility] ([facility]) Diazepam 2 MG Oral Tablet AT [facility] ([facility]) Ciprofloxacin 500 MG Oral Tablet [facility] ([facility]) Amoxicillin 875 MG Oral Tablet [facility] ([facility]) Amoxicillin 500 MG Oral Capsule [facility] ([facility]) Acetaminophen 325 MG / Oxycodone Hydrochloride 5 MG Oral Tablet [facility] ([facility]) Naproxen 500 MG Oral Tablet [facility] ([facility]) Ketoconazole 20 MG/ML Topical Cream [facility] ([facility]) Diclofenac Sodium 0.01 MG/MG Topical Gel [facility] ([facility]) Diazepam 5 MG Oral Tablet AT [facility] ([facility]) Diazepam 2 MG Oral Tablet AT [facility] ([facility]) Ciprofloxacin 500 MG Oral Tablet [facility] ([facility]) Amoxicillin 875 MG Oral Tablet [facility] ([facility]) Amoxicillin 500 MG Oral Capsule [facility] ([facility]) Ketoconazole 20 MG/ML Topical Cream [facility] ([facility]) Diclofenac Sodium 0.01 MG/MG Topical Gel [facility] ([facility]) Diazepam 5 MG Oral Tablet AT [facility]) Diazepam 2 MG Oral Tablet AT [facility] ([facility]) Ciprofloxacin 500 MG Oral Tablet [facility] ([facility]) Amoxicillin 875 MG Oral Tablet [facility] ([facility]) Amoxicillin 500 MG Oral Capsule [facility] ([facility]) Ketoconazole 20 MG/ML Topical Cream [facility] ([facility]) Diclofenac Sodium 0.01 MG/MG Topical Gel [facility] ([facility]) [facility] Amoxicillin 875 MG Oral Tablet [facility] ([facility]) Amoxicillin 500 MG Oral Capsule [facility] ([facility]) Ketoconazole 20 MG/ML Topical Cream [facility] ([facility]) Diclofenac Sodium 0.01 MG/MG Topical Gel [facility] ([facility]) Diazepam 2 MG Oral Tablet AT [facility] ([facility]) Amoxicillin 875 MG Oral Tablet [facility] ([facility]) Amoxicillin 500 MG Oral Capsule [facility] ([facility])
[2021-02-25] MEDS ORDERED: LIDOCAINE 2% 100MG/5ML SDV (FOR ANES.) As Ordered ONE (10:41)
[2021-02-25] MEDS ORDERED: propofoL 500 MG/50 ML VIAL As Ordered ONE ×2 (10:41→10:56)
--- NOTE | 2021-02-25 11:08 | ROOR ---
Patient Name: Laura Rahman Procedure Date: 02/25/2021 10:34 AM Date of : 1960 Age: 60 Room: OP02 Gender: Female Note Status: Finalized Procedure: Colonoscopy Indications: Abnormal CT of the GI tract/post op ileus/follow up on possible ischemic colitis episode Providers: Jj Delaney MD Referring MD: Family Practice/Adult section [facility] Requesting Provider: Medicines: Monitored Anesthesia Care Complications: No immediate complications. Procedure: Pre-Anesthesia Assessment: - The heart rate, respiratory rate, oxygen saturations, blood pressure, adequacy of pulmonary ventilation, and response to care were monitored throughout the procedure. The Colonoscope was introduced through the anus and advanced to the terminal ileum, with identification of the appendiceal orifice and IC valve. The colonoscopy was performed without difficulty. The patient tolerated the procedure well. The quality of the bowel preparation was good. Findings: The perianal and digital rectal examinations were normal. Multiple medium-mouthed diverticula were found in the sigmoid colon and descending colon. There was evidence of diverticular spasm. The exam was otherwise without abnormality on direct and retroflexion views. Biopsies for histology were taken with a cold forceps for evaluation of microscopic colitis. Impression: - Diverticulosis in the sigmoid colon and in the descending colon. - The colon and terminal ileum are otherwise normal on direct and retroflexion views. - Biopsies were taken with a cold forceps for evaluation of microscopic colitis. Recommendation: - Telephone endoscopist for pathology results in 2 weeks. - Continue present medications. Procedure Code(s): --- Professional --- 85581, Colonoscopy, flexible; with biopsy, single or multiple Diagnosis Code(s): --- Professional --- R93.3, Abnormal findings on diagnostic imaging of other parts of digestive tract K57.30, Diverticulosis of large intestine without perforation or abscess without bleeding CPT copyright 2019 [employer]. All rights reserved. The codes documented in this report are preliminary and upon ios programmer review may be revised to meet current compliance requirements. Jj Delaney MD Jj Delaney MD 02/25/2021 11:07:55 AM Electronically signed by Jj Delaney MD Number of Addenda: 0 Note Initiated On: 02/25/2021 10:34 AM Estimated Blood Loss: Estimated blood loss: none.
[2021-02-25 11:20] VITALS: BP 149/83
== END 2021-02-25 11:28 | disposition home or self-care (01) ==
LOC: M OPP 09:11
PROVIDERS: ATTEND Internal Medicine Gastroenterology
DX: R93.3 Abnormal findings on diagnostic imaging of other parts of digestive tract (principal); K57.30 Diverticulosis of large intestine without perforation or abscess without bleeding; I10 Essential (primary) hypertension; E03.9 Hypothyroidism, unspecified; K76.0 Fatty (change of) liver, not elsewhere classified; Z88.2 Allergy status to sulfonamides; Z91.040 Latex allergy status; Z91.09 Other allergy status, other than to drugs and biological substances; Z79.899 Other long term (current) drug therapy

== ENCOUNTER → 2021-09-06 | Outpatient (CLI) | payer OTHER ==
[~2021-09-06] MED LIST changes: -CITA40TA4 PO; +CITA40TA7 PO; -NS 1,000 ML IV ONE
== END ==
LOC: M WHC 09:10
PROVIDERS: ATTEND Nurse Practitioner Family
DX: Z12.31 Encounter for screening mammogram for malignant neoplasm of breast (principal); R92.2 Inconclusive mammogram

== ENCOUNTER → 2021-09-21 | Outpatient (CLI) | payer OTHER | LOC: M WHC 12:45 | PROVIDERS: ATTEND Nurse Practitioner Family | DX: R92.8 Other abnormal and inconclusive findings on diagnostic imaging of breast (principal); N60.02 Solitary cyst of left breast | CPT/HCPCS: 76642; 77065; G0279 ==

== ENCOUNTER → 2021-09-24 | Outpatient (REF) | payer OTHER ==
[2021-09-27 05:08] LABS: RUBEOLA IgG ANTIBODY <13.5 AU/mL (Immune >16.4)
== END ==
LOC: M LAB REF 17:14
PROVIDERS: ATTEND Physician Assistant
DX: Z02.89 Encounter for other administrative examinations (principal)

== ENCOUNTER → 2021-10-25 | Outpatient (CLI) | payer OTHER | LOC: M EKG 13:29 | PROVIDERS: ATTEND Orthopaedic Surgery | DX: M23.203 Derangement of unspecified medial meniscus due to old tear or injury, right knee (principal) ==

== ENCOUNTER → 2022-02-28 | Outpatient (REF) | payer OTHER ==
[2022-02-28 18:06] LABS: BASO # 0.1 10^3/uL (0.0-0.2); BASO % 0.9 % (0.0-1.0); EOS # 0.1 10^3/uL (0.0-0.5); EOS % 1.8 % (0.0-3.0); HEMATOCRIT 44.5 % (36.0-47.0); HEMOGLOBIN 13.8 g/dl (12.0-15.5); LYMPH # 1.9 10^3/uL (1.5-5.0); LYMPH % 34.6 % (24.0-44.0); MEAN CORPUSCULAR HEMOGLOBIN 27.8 pg (27.0-33.0); MEAN CORPUSCULAR VOLUME 89.5 fl (80.0-96.0); MONO # 0.4 10^3/uL (0.0-0.8); MONO % 6.8 % (2.0-8.0); NEUTROPHILS % 55.5 % (36.0-66.0); PLATELET COUNT, AUTOMATED 238 10^3/uL (150-450); RED BLOOD COUNT 4.97 10^6/uL (4.00-5.40); WHITE BLOOD COUNT 5.4 10^3/uL (4.0-10.0)
[2022-02-28 19:47] LABS: HEMOGLOBIN A1c 5.3 % (4.0-6.0)
[2022-02-28 21:24] LABS: ALBUMIN 3.9 G/DL (3.2-5.2); ALT/SGPT 42 U/L (7.0-40); BILIRUBIN,TOTAL 0.2 MG/DL (0.3-1.2); BLOOD UREA NITROGEN 14 MG/DL (9-23); CALCIUM LEVEL 9.3 MG/DL (8.3-10.6); CARBON DIOXIDE LEVEL 27 MMOL/L (20-31); CHLORIDE LEVEL 103 MMOL/L (98-107); CHOLESTEROL LEVEL 187 MG/DL (<200); CHOLESTEROL RISK RATIO 2.79 (<5); CREATININE FOR GFR 0.95 MG/DL (0.55-1.30); GLOMERULAR FILTRATION RATE > 60.0 (>45); GLUCOSE, FASTING 87 MG/DL (74-106); LDL CHOLESTEROL 94.6 MG/DL (<100); NON-HDL-C 120 MG/DL; POTASSIUM SERUM 5.3 MMOL/L (3.5-5.1); SODIUM LEVEL 140 MMOL/L (136-145); THYROID STIMULATING HORMONE 3.997 uIU/ML (0.55-4.78); TOTAL PROTEIN 6.7 G/DL; TRIGLYCERIDES LEVEL 127 MG/DL (<150)
[2022-02-28 22:47] LABS: HEPATITIS C VIRUS ABY INDEX < 0.8 INDEX (<0.8); HIV 1&2 SCREEN CENTAUR NEGATIVE (NEGATIVE)
== END ==
LOC: M LAB REF 17:03
PROVIDERS: ATTEND Nurse Practitioner Family
DX: E66.01 Morbid (severe) obesity due to excess calories (principal); A64 Unspecified sexually transmitted disease; Z11.3 Encounter for screening for infections with a predominantly sexual mode of transmission

== ENCOUNTER → 2022-02-28 | Outpatient (REF) | payer OTHER ==
[2022-02-28 13:39] LABS: GC DNA AMPLIFICATION NEGATIVE (NEGATIVE)
== END ==
LOC: M LAB REF 11:43
PROVIDERS: ATTEND Nurse Practitioner Family
DX: A64 Unspecified sexually transmitted disease (principal)

== ENCOUNTER → 2022-04-06 | Outpatient (CLI) | payer OTHER | LOC: M WHC 10:32 | PROVIDERS: ATTEND Nurse Practitioner Family | DX: N64.52 Nipple discharge (principal); N63.42 Unspecified lump in left breast, subareolar; R92.8 Other abnormal and inconclusive findings on diagnostic imaging of breast; N08 Glomerular disorders in diseases classified elsewhere; N64.4 Mastodynia ==

== ENCOUNTER → 2022-04-13 | Outpatient (CLI) | payer OTHER | LOC: M PLALAB 11:39 | PROVIDERS: ATTEND Surgery | DX: Z13.79 Encounter for other screening for genetic and chromosomal anomalies (principal); Z80.3 Family history of malignant neoplasm of breast ==

== ENCOUNTER → 2022-04-19 | Outpatient (CLI) | payer OTHER ==
[~2022-04-19] MED LIST changes: +ZOMI5TAB12 PO
[2022-04-19 12:18] VITALS: BP 158/94
== END ==
LOC: M WHCPRO 10:05
PROVIDERS: ATTEND Surgery
DX: R92.8 Other abnormal and inconclusive findings on diagnostic imaging of breast (principal); N63.15 Unspecified lump in the right breast, overlapping quadrants; N63.25 Unspecified lump in the left breast, overlapping quadrants; N63.21 Unspecified lump in the left breast, upper outer quadrant

== ENCOUNTER → 2022-05-02 | Outpatient (CLI) | payer OTHER ==
[~2022-05-02] MED LIST changes: +**SFHN** LIDOCAINE 1% MDV 20ML VIAL ONE; +**SFHN** SODIUM BICARBONATE 8.4% 10MEQ 10ML VIAL ONE
[2022-05-02 15:21] VITALS: BP 132/82
== END ==
LOC: M WHCPRO 12:33
PROVIDERS: ATTEND Surgery
DX: R92.8 Other abnormal and inconclusive findings on diagnostic imaging of breast (principal); N63.42 Unspecified lump in left breast, subareolar; N63.41 Unspecified lump in right breast, subareolar

== ENCOUNTER → 2022-05-03 | Outpatient (REF) | payer OTHER ==
[~2022-05-03] MED LIST changes: -**SFHN** LIDOCAINE 1% MDV 20ML VIAL ONE; -**SFHN** SODIUM BICARBONATE 8.4% 10MEQ 10ML VIAL ONE
[2022-05-03 16:52] LABS: ALBUMIN 3.7 G/DL (3.2-5.2); ALKALINE PHOSPHATASE 88 U/L (46-116); ALT/SGPT 35 U/L (7.0-40); AST/SGOT 29 U/L (<34); BILIRUBIN,TOTAL 0.2 MG/DL (0.3-1.2); BLOOD UREA NITROGEN 13 MG/DL (9-23); CARBON DIOXIDE LEVEL 30 MMOL/L (20-31); CHLORIDE LEVEL 103 MMOL/L (98-107); CREATININE FOR GFR 0.94 MG/DL (0.55-1.30); GLOMERULAR FILTRATION RATE > 60.0 (>45); GLUCOSE, FASTING 93 MG/DL (74-106); POTASSIUM SERUM 4.8 MMOL/L (3.5-5.1); SODIUM LEVEL 139 MMOL/L (136-145); TOTAL PROTEIN 6.9 G/DL (5.7-8.2)
== END ==
LOC: M LAB REF 16:25
PROVIDERS: ATTEND Nurse Practitioner Family
DX: Z13.228 Encounter for screening for other metabolic disorders (principal)

== ENCOUNTER → 2022-05-22 | Outpatient (CLI) | payer OTHER ==
[2022-05-22 10:33] LABS: BASO % 0.4 % (0.0-1.0); EOS # 0.1 10^3/uL (0.0-0.5); EOS % 1.5 % (0.0-3.0); HEMATOCRIT 42.1 % (36.0-47.0); HEMOGLOBIN 13.6 g/dl (12.0-15.5); LYMPH # 1.8 10^3/uL (1.5-5.0); LYMPH % 26.8 % (24.0-44.0); MEAN CORPUSCULAR HEMOGLOBIN 28.2 pg (27.0-33.0); MEAN CORPUSCULAR HGB CONC 32.3 g/dl (32.0-36.5); MEAN CORPUSCULAR VOLUME 87.2 fl (80.0-96.0); MONO # 0.5 10^3/uL (0.0-0.8); MONO % 7.2 % (2.0-8.0); NEUTROPHILS # 4.3 10^3/uL (1.5-8.5); NEUTROPHILS % 63.8 % (36.0-66.0); PLATELET COUNT, AUTOMATED 232 10^3/uL (150-450); RED BLOOD COUNT 4.83 10^6/uL (4.00-5.40); WHITE BLOOD COUNT 6.7 10^3/uL (4.0-10.0)
[2022-05-22 10:54] LABS: ALBUMIN 3.8 G/DL (3.2-5.2); ALKALINE PHOSPHATASE 93 U/L (46-116); ALT/SGPT 32 U/L (7.0-40); AST/SGOT 28 U/L (<34); BILIRUBIN,TOTAL 0.3 MG/DL (0.3-1.2); BLOOD UREA NITROGEN 18 MG/DL (9-23); CALCIUM LEVEL 9.2 MG/DL (8.3-10.6); CARBON DIOXIDE LEVEL 27 MMOL/L (20-31); CHLORIDE LEVEL 105 MMOL/L (98-107); CREATININE FOR GFR 0.98 MG/DL (0.55-1.30); GLOMERULAR FILTRATION RATE > 60.0 (>45); GLUCOSE, FASTING 97 MG/DL (74-106); POTASSIUM SERUM 4.4 MMOL/L (3.5-5.1); SODIUM LEVEL 138 MMOL/L (136-145); TOTAL PROTEIN 6.7 G/DL (5.7-8.2)
== END ==
LOC: M RAD 09:35
PROVIDERS: ATTEND Nurse Practitioner Family
DX: Z01.818 Encounter for other preprocedural examination (principal)

== ENCOUNTER → 2022-06-08 | Outpatient (CLI) | payer OTHER | LOC: M LABSMTC 11:24 | PROVIDERS: ATTEND Anesthesiology | DX: Z01.812 Encounter for preprocedural laboratory examination (principal); Z11.52 Encounter for screening for COVID-19 ==

== ENCOUNTER 2022-06-13 06:02 | Day surgery (SDC) | payer OTHER ==
[~2022-06-13] VITALS: Ht 172.7 cm; Wt 118.8 kg
[~2022-06-13 06:02] MED LIST changes: +HEPARIN SOD (PORCINE) 5000UNITS/ML 1ML VIAL/SYRINGE SQ ONE; +ceFAZolin SOD 2 GM in IV 1 EA IV ONE
[2022-06-13] MEDS ORDERED: LR 1,000 ML IV SCH ×2 (06:20→11:45)
[2022-06-13] MEDS ORDERED: MIDAZOLAM INJ 2MG/2ML VIAL As Ordered ONE ×2 (06:49→07:29)
[2022-06-13] MEDS ORDERED: fentaNYL 250 MCG/5 ML INJECTION As Ordered ONE (06:49)
[2022-06-13] MEDS ORDERED: ROCURONIUM BROMIDE 50MG/5ML VIAL As Ordered ONE (06:50)
[2022-06-13] MEDS ORDERED: LIDOCAINE 2% 100MG/5ML SDV (FOR ANES.) As Ordered ONE (06:50)
[2022-06-13] MEDS ORDERED: propofoL 200 MG/20 ML VIAL As Ordered ONE ×2 (06:50→07:30)
[2022-06-13] MEDS ORDERED: ONDANSETRON 4MG 2ML VIAL As Ordered ONE ×2 (06:51→08:46)
[2022-06-13] MEDS ORDERED: BUPIVACAINE HCL 0.25% 30ML VIAL As Ordered ONE (07:24)
[2022-06-13] MEDS ORDERED: LIDOCAINE 1% SDV 30ML VIAL As Ordered ONE (07:24)
[2022-06-13] MEDS ORDERED: ePHEDrine SULFATE 25 MG/5 ML(5MG/ML) SYRINGE As Ordered ONE (07:56)
[2022-06-13] MEDS ORDERED: ACETAMINOPHEN 1000MG 100ML IV BAG As Ordered ONE (07:57)
[2022-06-13] MEDS ORDERED: METOCLOPRAMIDE INJ 10MG/2ML VIAL As Ordered ONE (08:03)
[2022-06-13] MEDS ORDERED: GLYCOPYRROLATE INJ 0.2 MG/ML 2 ML VIAL As Ordered ONE (08:15)
[2022-06-13] MEDS ORDERED: PHENYLephrine 500MCG 5ML (100MCG/ML) SYRINGE As Ordered ONE (08:43)
[2022-06-13] MEDS ORDERED: HYDROmorphone HCL 2MG/ML 1ML VIAL As Ordered ONE (10:23)
[2022-06-13] MEDS ORDERED: oxyCODONE 5MG TAB PO PRN (11:45)
[2022-06-13] MEDS ORDERED: ONDANSETRON 4MG 2ML VIAL IV PRN (11:45)
[2022-06-13] MEDS ORDERED: HYDROMORPHONE HCL 0.5 MG/ 0.5 ML SYRINGE IV PRN (11:45)
[2022-06-13] MEDS ORDERED: fentaNYL 100 MCG/2 ML INJECTION IV PRN (11:45)
[2022-06-13] MEDS ORDERED: ROXI15TA12 PO (11:50)
[2022-06-13] MEDS ORDERED: ONDA-83 PO (11:50)
[2022-06-13] MEDS ORDERED: ceFAZolin 2 GM/D5W 50 ML IV BAG As Ordered ONE (11:55)
[2022-06-13] MEDS ORDERED: TRAM50TA2 PO (11:57)
[2022-06-13 13:59] VITALS: BP 131/70
== END 2022-06-13 14:02 | disposition home or self-care (01) ==
LOC: M SDC 06:02
PROVIDERS: ATTEND Surgery
DX: R92.8 Other abnormal and inconclusive findings on diagnostic imaging of breast (principal); N64.52 Nipple discharge; N60.02 Solitary cyst of left breast; N62 Hypertrophy of breast; F41.9 Anxiety disorder, unspecified; G43.909 Migraine, unspecified, not intractable, without status migrainosus; G47.33 Obstructive sleep apnea (adult) (pediatric); D64.9 Anemia, unspecified; Z91.040 Latex allergy status; Z88.5 Allergy status to narcotic agent; Z80.3 Family history of malignant neoplasm of breast; Z80.0 Family history of malignant neoplasm of digestive organs; Z80.49 Family history of malignant neoplasm of other genital organs; Z79.890 Hormone replacement therapy; Z91.048 Other nonmedicinal substance allergy status; Z88.2 Allergy status to sulfonamides
CPT/HCPCS: 19110; 19125; 19126; 36415; 76942; 86850; 86900; 86901; 88305; A4648; J0690; J1100; J1170; J2250; J2370; J2405; J2765; J3010

== ENCOUNTER 2022-08-13 21:45 | Emergency (ER) | payer OTHER ==
[~2022-08-13] VITALS: Ht 172.7 cm; Wt 116.6 kg
[~2022-08-13 21:45] MED LIST changes: -HEPARIN SOD (PORCINE) 5000UNITS/ML 1ML VIAL/SYRINGE SQ ONE; +ONDA-83 PO; +ROXI15TA12 PO; +TRAM50TA2 PO; -ceFAZolin SOD 2 GM in IV 1 EA IV ONE
[2022-08-13] MEDS ORDERED: IPRATROPIUM 0.5MG/ALBUTEROL 2.5MG INH SOL UD 3ML (DUONEB) NEB ONE (23:30)
[2022-08-14 00:06] LABS: BASO % 0.5 % (0.0-1.0); EOS # 0.2 10^3/uL (0.0-0.5); EOS % 1.8 % (0.0-3.0); HEMATOCRIT 40.1 % (36.0-47.0); HEMOGLOBIN 13.1 g/dl (12.0-15.5); LYMPH # 1.7 10^3/uL (1.5-5.0); LYMPH % 20.4 % (24.0-44.0); MEAN CORPUSCULAR HEMOGLOBIN 28.7 pg (27.0-33.0); MEAN CORPUSCULAR HGB CONC 32.7 g/dl (32.0-36.5); MEAN CORPUSCULAR VOLUME 87.9 fl (80.0-96.0); MONO # 0.7 10^3/uL (0.0-0.8); MONO % 7.7 % (2.0-8.0); NEUTROPHILS # 5.9 10^3/uL (1.5-8.5); NEUTROPHILS % 68.8 % (36.0-66.0); PLATELET COUNT, AUTOMATED 215 10^3/uL (150-450); RED BLOOD COUNT 4.56 10^6/uL (4.00-5.40); WHITE BLOOD COUNT 8.5 10^3/uL (4.0-10.0)
[2022-08-14 00:32] LABS: CALCIUM LEVEL 8.3 MG/DL (8.3-10.6); CREATININE FOR GFR 1.03 MG/DL (0.55-1.30); GLOMERULAR FILTRATION RATE 58.2 (>45)
[2022-08-14] MEDS ORDERED: predniSONE 20 MG TAB PO ONE (01:00)
[2022-08-14] MEDS ORDERED: DOXYCYCLINE HYCLATE 100MG TABLET PO ONE (01:00)
[2022-08-14] MEDS ORDERED: PRED20TA PO (01:02)
[2022-08-14] MEDS ORDERED: ALBU8.5H INH (01:02)
[2022-08-14] MEDS ORDERED: DOXY-443 PO (01:02)
[2022-08-14 01:25] VITALS: BP 170/78
== END 2022-08-14 01:27 | disposition home or self-care (01) ==
LOC: M ED 21:45
DX: J06.9 Acute upper respiratory infection, unspecified (principal); J45.909 Unspecified asthma, uncomplicated; I10 Essential (primary) hypertension; E03.9 Hypothyroidism, unspecified; Z79.899 Other long term (current) drug therapy; Z88.5 Allergy status to narcotic agent; Z88.2 Allergy status to sulfonamides; Z91.89 Other specified personal risk factors, not elsewhere classified; Z91.040 Latex allergy status
CPT/HCPCS: 71046; 80048; 85025; 87486; 87581; 87633; 87798; 94640; 99283; J7512

== ENCOUNTER → 2022-11-01 | Outpatient (REF) | payer OTHER ==
[~2022-11-01] MED LIST changes: +ALBU8.5H INH; +DOXY-443 PO; +PRED20TA PO
[2022-11-01 14:30] LABS: CHOLESTEROL LEVEL 174 MG/DL (<200); CHOLESTEROL RISK RATIO 2.72 (<5); HDL CHOLESTEROL 63.8 MG/DL (>40); NON-HDL-C 110.2 MG/DL; THYROID STIMULATING HORMONE 2.184 uIU/ML (0.55-4.78); TRIGLYCERIDES LEVEL 131 MG/DL (<150)
[2022-11-01 14:58] LABS: HIV 1&2 SCREEN NEGATIVE (NEGATIVE)
[2022-11-01 15:06] LABS: HEPATITIS C VIRUS ABY INDEX 0.08 INDEX (<0.8)
== END ==
LOC: M LAB REF 11:36
PROVIDERS: ATTEND Nurse Practitioner Family
DX: Z11.59 Encounter for screening for other viral diseases (principal); Z11.4 Encounter for screening for human immunodeficiency virus [HIV]; E03.9 Hypothyroidism, unspecified; I10 Essential (primary) hypertension

== ENCOUNTER → 2022-12-15 | Outpatient (CLI) | payer OTHER ==
[2022-12-15 15:41] LABS: BLOOD UREA NITROGEN 14 MG/DL (9-23); CREATININE FOR GFR 0.97 MG/DL (0.55-1.30); GLOMERULAR FILTRATION RATE > 60.0 (>45)
== END ==
LOC: M PLALAB 14:11
PROVIDERS: ATTEND Physical Medicine & Rehabilitation
DX: M51.36 Other intervertebral disc degeneration, lumbar region (principal)

== ENCOUNTER → 2023-02-13 | Outpatient (CLI) | payer OTHER | LOC: M WHC 01-23 14:34 | PROVIDERS: ATTEND Nurse Practitioner Family | DX: R92.8 Other abnormal and inconclusive findings on diagnostic imaging of breast (principal) ==

== ENCOUNTER → 2023-04-19 | Outpatient (REF) | payer OTHER | LOC: M SFHCDERM 12:30 | PROVIDERS: ATTEND Physician Assistant | DX: L82.1 Other seborrheic keratosis (principal) ==

== ENCOUNTER → 2023-05-22 | Outpatient (CLI) | payer OTHER ==
[~2023-05-22] MED LIST changes: +LEVOTAB10 PO; +TIZA10TA PO; +VENL75CA47 PO
== END ==
LOC: M PAIN 13:00
PROVIDERS: ATTEND Nurse Practitioner Family
DX: M79.18 Myalgia, other site (principal); G89.29 Other chronic pain; E03.9 Hypothyroidism, unspecified; F41.9 Anxiety disorder, unspecified; Z79.890 Hormone replacement therapy; Z79.899 Other long term (current) drug therapy; Z88.2 Allergy status to sulfonamides; Z91.040 Latex allergy status; Z91.048 Other nonmedicinal substance allergy status

== ENCOUNTER 2023-05-25 07:30 | Day surgery (SDC) | payer OTHER ==
[~2023-05-25] VITALS: Ht 172.7 cm; Wt 111.1 kg
[~2023-05-25 07:30] MED LIST changes: +LIDOCAINE 2% 100MG/5ML SDV (FOR ANES.) As Ordered ONE; +propofoL 200 MG/20 ML VIAL As Ordered ONE
[2023-05-25] MEDS: NS 1,000 ML IV ONE (07:51)
[2023-05-25] MEDS ORDERED: GLYCOPYRROLATE INJ 0.2 MG/ML 2 ML VIAL As Ordered ONE (09:25)
[2023-05-25 09:44] VITALS: TEMP 98.4
[2023-05-25 10:00] VITALS: BP 177/77; O2SAT 99
== END 2023-05-25 10:16 | disposition home or self-care (01) ==
LOC: M OPP 07:30
PROVIDERS: ATTEND Internal Medicine Gastroenterology
DX: D12.2 Benign neoplasm of ascending colon (principal); K63.5 Polyp of colon; K64.8 Other hemorrhoids; K57.30 Diverticulosis of large intestine without perforation or abscess without bleeding; K57.32 Diverticulitis of large intestine without perforation or abscess without bleeding; Z80.0 Family history of malignant neoplasm of digestive organs; Z79.1 Long term (current) use of non-steroidal anti-inflammatories (NSAID); Z79.890 Hormone replacement therapy; Z79.899 Other long term (current) drug therapy; Z88.2 Allergy status to sulfonamides; Z91.040 Latex allergy status; Z91.048 Other nonmedicinal substance allergy status

== ENCOUNTER 2023-08-13 21:06 | Emergency (ER) | payer OTHER ==
[~2023-08-13] VITALS: Ht 172.7 cm; Wt 113.2 kg
[~2023-08-13 21:06] MED LIST changes: +DOXY-323 PO; -DOXY-443 PO; -LIDOCAINE 2% 100MG/5ML SDV (FOR ANES.) As Ordered ONE; -propofoL 200 MG/20 ML VIAL As Ordered ONE
[2023-08-13 23:33] VITALS: BP 144/76; TEMP 97.5; O2SAT 100
[2023-08-13] MEDS: AUGMENTIN 875 MG TAB PO ONE (23:59)
[2023-08-14] MEDS: ACETAMINOPHEN TAB 650MG DOSE (2X325MG) PO ONE
[2023-08-14] MEDS: LIDOCAINE 2% MDV 20ML VIAL SC ONE (00:24)
[2023-08-14] MEDS ORDERED: AMOX875T2 PO (00:46)
== END 2023-08-14 02:04 | disposition home or self-care (01) ==
LOC: EDSEX 21:06 → EDBD 21:06 → M ED 21:06
DX: S61.210A Laceration without foreign body of right index finger without damage to nail, initial encounter (principal); S41.152A Open bite of left upper arm, initial encounter; W54.0XXA Bitten by dog, initial encounter; Y92.009 Unspecified place in unspecified non-institutional (private) residence as the place of occurrence of the external cause; Y93.89 Activity, other specified; Y99.9 Unspecified external cause status; Z79.899 Other long term (current) drug therapy; Z88.5 Allergy status to narcotic agent; Z88.2 Allergy status to sulfonamides; Z91.89 Other specified personal risk factors, not elsewhere classified; Z91.040 Latex allergy status

== ENCOUNTER → 2023-08-22 | Outpatient (CLI) | payer OTHER ==
[~2023-08-22] MED LIST changes: +AMOX875T2 PO
== END ==
LOC: M PLAIMG 10:21
PROVIDERS: ATTEND Nurse Practitioner Family
DX: S61.250D Open bite of right index finger without damage to nail, subsequent encounter (principal); M79.89 Other specified soft tissue disorders; W54.0XXD Bitten by dog, subsequent encounter

== ENCOUNTER → 2023-08-22 | Outpatient (CLI) | payer OTHER | LOC: M SOG 11:54 | PROVIDERS: ATTEND Orthopaedic Surgery | DX: M25.532 Pain in left wrist (principal) ==

== ENCOUNTER → 2023-10-08 | Outpatient (REF) | payer OTHER ==
[2023-10-08 12:59] LABS: ALBUMIN 3.5 G/DL (3.2-5.2); ALKALINE PHOSPHATASE 113 U/L (46-116); ALT/SGPT 26 U/L (7.0-40); AST/SGOT 13 U/L (<34); BILIRUBIN,TOTAL 0.2 MG/DL (0.3-1.2); BLOOD UREA NITROGEN 17 MG/DL (9-23); CALCIUM LEVEL 8.5 MG/DL (8.3-10.6); CARBON DIOXIDE LEVEL 28 MMOL/L (20-31); CHLORIDE LEVEL 108 MMOL/L (98-107); CHOLESTEROL LEVEL 195 MG/DL (<200); CHOLESTEROL RISK RATIO 3.36 (<5); CREATININE FOR GFR 0.94 MG/DL (0.55-1.30); GLOMERULAR FILTRATION RATE > 60.0 (>45); GLUCOSE, FASTING 93 MG/DL (74-106); HDL CHOLESTEROL 57.9 MG/DL (>40); LDL CHOLESTEROL 107.3 MG/DL (<100); NON-HDL-C 137.1 MG/DL; POTASSIUM SERUM 4.4 MMOL/L (3.5-5.1); SODIUM LEVEL 141 MMOL/L (136-145); TOTAL PROTEIN 6.4 G/DL (5.7-8.2); TRIGLYCERIDES LEVEL 149 MG/DL (<150)
== END ==
LOC: M LAB REF 11:34
PROVIDERS: ATTEND Family Medicine Addiction Medicine
DX: E03.9 Hypothyroidism, unspecified (principal)

== ENCOUNTER → 2023-11-12 | Outpatient (REF) | payer OTHER | LOC: M SFHCDERM 14:46 | PROVIDERS: ATTEND Physician Assistant | DX: D48.9 Neoplasm of uncertain behavior, unspecified (principal); Z53.9 Procedure and treatment not carried out, unspecified reason ==

== ENCOUNTER → 2023-12-06 | Outpatient (REF) | payer OTHER | LOC: M LAB REF 17:19 | PROVIDERS: ATTEND Surgery | DX: L90.5 Scar conditions and fibrosis of skin (principal) ==

== ENCOUNTER → 2023-12-25 | Outpatient (REF) | LOC: M PLAIMG 11:50 | PROVIDERS: ATTEND Internal Medicine | DX: M79.641 Pain in right hand (principal) ==

== ENCOUNTER → 2024-01-16 | Outpatient (REF) | payer OTHER ==
[~2024-01-16] MED LIST changes: +AMPH1TAB2 PO; -DOXY-323 PO; +DOXY-441 PO; +LAMO25TA4 PO
[2024-01-16 18:40] LABS: CHOLESTEROL RISK RATIO 3.03 (<5); HDL CHOLESTEROL 75.1 MG/DL (>40); LDL CHOLESTEROL 117.1 MG/DL (<100); NON-HDL-C 152.9 MG/DL
== END ==
LOC: M LAB REF 16:40
PROVIDERS: ATTEND Nurse Practitioner Family
DX: E78.2 Mixed hyperlipidemia (principal)

== ENCOUNTER 2024-01-28 06:14 | Day surgery (SDC) | payer OTHER ==
[~2024-01-28] VITALS: Ht 172.7 cm; Wt 112.5 kg
[2024-01-28] MEDS ORDERED: fentaNYL 100 MCG/2 ML INJECTION As Ordered ONE (07:09)
[2024-01-28] MEDS ORDERED: LIDOCAINE 2% 100MG/5ML SDV (FOR ANES.) As Ordered ONE (07:09)
[2024-01-28] MEDS ORDERED: propofoL 200 MG/20 ML VIAL As Ordered ONE (07:09)
[2024-01-28] MEDS ORDERED: MIDAZOLAM INJ 2MG/2ML VIAL As Ordered ONE (07:09)
[2024-01-28] MEDS ORDERED: ONDANSETRON 4MG 2ML VIAL As Ordered ONE (07:10)
[2024-01-28] MEDS ORDERED: ACETAMINOPHEN 1000MG 100ML IV BAG As Ordered ONE (07:10)
[2024-01-28] MEDS ORDERED: ceFAZolin SOD 2 GM in IV 1 EA IV ONE (07:45)
[2024-01-28] MEDS: ceFAZolin 2 GM/D5W 50 ML IV BAG As Ordered ONE (07:53)
[2024-01-28] MEDS ORDERED: KETOROLAC 60MG 2ML VIAL As Ordered ONE (08:35)
[2024-01-28] MEDS: BACITRACIN OINTMENT 30GM TUBE As Ordered ONE (09:48)
[2024-01-28] MEDS ORDERED: PERC5TAB12 PO (10:09)
[2024-01-28 10:30] VITALS: BP 172/77; TEMP 97.4; O2SAT 98
== END 2024-01-28 10:30 | disposition home or self-care (01) ==
LOC: M SDC 06:14
PROVIDERS: ATTEND Orthopaedic Surgery Hand Surgery
DX: M65.321 Trigger finger, right index finger (principal); M79.644 Pain in right finger(s); I10 Essential (primary) hypertension; E78.5 Hyperlipidemia, unspecified; E03.9 Hypothyroidism, unspecified; K57.92 Diverticulitis of intestine, part unspecified, without perforation or abscess without bleeding; K58.8 Other irritable bowel syndrome; K76.0 Fatty (change of) liver, not elsewhere classified; D64.9 Anemia, unspecified; F90.9 Attention-deficit hyperactivity disorder, unspecified type; G47.33 Obstructive sleep apnea (adult) (pediatric); F32.A Depression, unspecified; F41.9 Anxiety disorder, unspecified; Z79.899 Other long term (current) drug therapy; J45.909 Unspecified asthma, uncomplicated; Z87.891 Personal history of nicotine dependence; Z88.5 Allergy status to narcotic agent; Z91.040 Latex allergy status
CPT/HCPCS: 15130; 26123; 26445; 76000; J0131; J0665; J0690; J1100; J1885; J2250; J2405; J3010

== ENCOUNTER → 2024-02-26 | Outpatient (CLI) | payer OTHER ==
[~2024-02-26] MED LIST changes: +PERC5TAB12 PO
== END ==
LOC: M WHC 13:42
PROVIDERS: ATTEND Nurse Practitioner Family
DX: R92.8 Other abnormal and inconclusive findings on diagnostic imaging of breast (principal); R92.333 Mammographic heterogeneous density, bilateral breasts

== ENCOUNTER → 2024-05-07 | Outpatient (REF) | payer OTHER ==
[2024-05-07 17:46] LABS: BASO % 0.5 % (0.0-1.0); EOS # 0.1 10^3/uL (0.0-0.5); EOS % 1.2 % (0.0-3.0); HEMATOCRIT 42.9 % (36.0-47.0); HEMOGLOBIN 14.1 g/dl (12.0-15.5); LYMPH % 22.9 % (24.0-44.0); MEAN CORPUSCULAR HEMOGLOBIN 28.5 pg (27.0-33.0); MEAN CORPUSCULAR HGB CONC 32.9 g/dl (32.0-36.5); MEAN CORPUSCULAR VOLUME 86.7 fl (80.0-96.0); MONO # 0.5 10^3/uL (0.0-0.8); MONO % 5.4 % (2.0-8.0); NEUTROPHILS % 69.6 % (36.0-66.0); PLATELET COUNT, AUTOMATED 293 10^3/uL (150-450); RED BLOOD COUNT 4.95 10^6/uL (4.00-5.40); WHITE BLOOD COUNT 8.5 10^3/uL (4.0-10.0)
[2024-05-07 18:14] LABS: HEMOGLOBIN A1c 5.6 % (4.0-6.0)
[2024-05-07 18:21] LABS: ALBUMIN 3.7 G/DL (3.2-5.2); BILIRUBIN,TOTAL 0.2 MG/DL (0.3-1.2); CALCIUM LEVEL 9.2 MG/DL (8.3-10.6); CHOLESTEROL RISK RATIO 3.25 (<5); CREATININE FOR GFR 1.04 MG/DL (0.55-1.30); GLOMERULAR FILTRATION RATE 57.2 (>45); HDL CHOLESTEROL 69.1 MG/DL (>40); LDL CHOLESTEROL 93.9 MG/DL (<100); MAGNESIUM LEVEL 1.9 MG/DL (1.8-2.4); NON-HDL-C 155.9 MG/DL; POTASSIUM SERUM 4.1 MMOL/L (3.5-5.1); TOTAL PROTEIN 7.2 G/DL (5.7-8.2)
[2024-05-07 18:23] LABS: THYROID STIMULATING HORMONE 1.889 uIU/ML (0.55-4.78)
== END ==
LOC: M LAB REF 16:24
PROVIDERS: ATTEND Nurse Practitioner Family
DX: E66.9 Obesity, unspecified (principal); J09.X2 Influenza due to identified novel influenza A virus with other respiratory manifestations

== ENCOUNTER → 2024-05-08 | Outpatient (CLI) | payer OTHER | LOC: M PLAIMG 10:50 | PROVIDERS: ATTEND Nurse Practitioner Family | DX: J09.X2 Influenza due to identified novel influenza A virus with other respiratory manifestations (principal) ==

== ENCOUNTER → 2024-10-20 | Outpatient (REF) | payer OTHER ==
[~2024-10-20] MED LIST changes: +LAMO-18 PO; -LAMO25TA4 PO; +ONDA-282 PO
[2024-10-20 12:45] LABS: ALT/SGPT 31 U/L (7.0-40); AST/SGOT 31 U/L (<34); CALCIUM LEVEL 8.8 MG/DL (8.3-10.6); CARBON DIOXIDE LEVEL 28 MMOL/L (20-31); CHLORIDE LEVEL 107 MMOL/L (98-107); CHOLESTEROL LEVEL 195 MG/DL (<200); CHOLESTEROL RISK RATIO 3.49 (<5); CREATININE FOR GFR 0.95 MG/DL (0.55-1.30); GLOMERULAR FILTRATION RATE 67.7 (>45); LDL CHOLESTEROL 104.6 MG/DL (<100); NON-HDL-C 139.2 MG/DL; POTASSIUM SERUM 4.4 MMOL/L (3.5-5.1); SODIUM LEVEL 144 MMOL/L (136-145); TRIGLYCERIDES LEVEL 173 MG/DL (<150)
[2024-10-20 12:53] LABS: FREE T4 0.97 NG/DL (0.89-1.76)
== END ==
LOC: M LAB REF 12:13
PROVIDERS: ATTEND Nurse Practitioner Family
DX: I10 Essential (primary) hypertension (principal); E03.9 Hypothyroidism, unspecified

== ENCOUNTER → 2024-12-19 | Outpatient (REF) | payer OTHER ==
[~2024-12-19] MED LIST changes: -ACE65ERTAB PO; +ACET-1593 PO
[2024-12-19 14:49] LABS: CHOLESTEROL LEVEL 221 MG/DL (<200); CHOLESTEROL RISK RATIO 3.25 (<5); LDL CHOLESTEROL 122.5 MG/DL (<100); NON-HDL-C 153.1 MG/DL; TRIGLYCERIDES LEVEL 153 MG/DL (<150)
[2024-12-19 14:50] LABS: IRON (FE) 67 UG/DL (50-170)
[2024-12-19 14:54] LABS: THYROID PEROXIDASE ANTIBODY < 28.0 U/ML (<60.0)
[2024-12-19 14:56] LABS: ESTIMATED AVERAGE GLUCOSE 123.0 MG/DL (60-110)
[2024-12-24 08:37] LABS: THRYOGLOBULIN ANTIBODIES (ATA) < 1 IU/mL (< or = 1); THYROGLOBULIN QUANTITATIVE 5.0 ng/mL (2.8-40.9)
== END ==
LOC: M LAB REF 14:22
PROVIDERS: ATTEND Nurse Practitioner Family
DX: E34.9 Endocrine disorder, unspecified (principal); N95.1 Menopausal and female climacteric states

== ENCOUNTER → 2025-01-08 | Outpatient (CLI) | payer OTHER | LOC: M SOG 07:22 | PROVIDERS: ATTEND Neuromusculoskeletal Medicine, Sports Medicine | DX: M25.561 Pain in right knee (principal); M25.562 Pain in left knee ==

== ENCOUNTER → 2025-03-05 | Outpatient (CLI) | payer OTHER | LOC: M WHC 15:34 | PROVIDERS: ATTEND Nurse Practitioner Family | DX: Z12.31 Encounter for screening mammogram for malignant neoplasm of breast (principal); R92.323 Mammographic fibroglandular density, bilateral breasts ==